=== PATIENT | female | born 1965 | race Caucasian/White ===

== ENCOUNTER → 2019-07-20 10:21 | Outpatient (BNVA) | payer BC, SELFPAY | PROVIDERS: Family Provider Nurse Practitioner Family; PCP Nurse Practitioner Family; Visit Provider Otolaryngology | DX: J32.4 Chronic pansinusitis (principal); R51 Headache; Z09 Encounter for follow-up examination after completed treatment for conditions other than malignant neoplasm | CPT/HCPCS: 99213; 99214 ==

== ENCOUNTER 2019-08-10 08:00 | Outpatient (CLI) | payer BC, SELFPAY | END 2019-08-10 09:00 | disposition home or self-care (01) | LOC: RAD 02-20 12:23 | PROVIDERS: PCP Nurse Practitioner Family; Visit Provider Nurse Practitioner Family | DX: N39.0 Urinary tract infection, site not specified (principal); R30.0 Dysuria | CPT/HCPCS: 81003; 87086 ==

== ENCOUNTER → 2019-08-18 11:00 | Outpatient (BNVA) | payer BC, SELFPAY | PROVIDERS: Family Provider Nurse Practitioner Family; PCP Nurse Practitioner Family; Visit Provider Nurse Practitioner Family | DX: J30.9 Allergic rhinitis, unspecified (principal); R31.9 Hematuria, unspecified | CPT/HCPCS: 81001 ==

== ENCOUNTER → 2019-08-21 11:00 | Outpatient (BNVA) | payer BC, SELFPAY | PROVIDERS: Family Provider Nurse Practitioner Family; PCP Nurse Practitioner Family; Visit Provider Nurse Practitioner Family | DX: L03.032 Cellulitis of left toe (principal) | CPT/HCPCS: 87070; 87077; 87186 ==

== ENCOUNTER 2019-08-31 11:54 | Outpatient (CLI) | payer BC, SELFPAY ==
--- NOTE | 2019-08-31 12:45 | XR_ITS ---
WS: [id number] KUB, 08/31/2019 Clinical Data: kidney stones Comparison: KUB, 07/12/2018. Findings: No abnormal intraabdominal masses are seen. There is no dilatated small bowel or evidence of obstruct ion. There are calcifications overlying both kidneys, and the largest calcifications measure 0.6 cm unchan ged from before. There are clips in the right upper quadrant from a cholecystectomy. No abnormal pelv ic calcifications are seen. XR/XR KUB [id number] Impression: Bilateral renal calcifications unchanged.
== END 2019-08-31 11:55 | disposition home or self-care (01) ==
LOC: RAD 11:58
PROVIDERS: Family Provider Nurse Practitioner Family; PCP Nurse Practitioner Family; Visit Provider Nurse Practitioner Family
DX: N20.0 Calculus of kidney (principal)
CPT/HCPCS: 74018; 81001; J2001

== ENCOUNTER → 2019-09-29 09:32 | Outpatient (BNVA) | payer BC, SELFPAY | PROVIDERS: Family Provider Nurse Practitioner Family; PCP Nurse Practitioner Family; Visit Provider Nurse Practitioner Family | DX: M79.672 Pain in left foot (principal); M77.32 Calcaneal spur, left foot; M19.072 Primary osteoarthritis, left ankle and foot; M20.42 Other hammer toe(s) (acquired), left foot | CPT/HCPCS: 73630 ==

== ENCOUNTER → 2019-11-15 09:54 | Outpatient (BNVA) | payer BC, SELFPAY | PROVIDERS: Family Provider Nurse Practitioner Family; PCP Nurse Practitioner Family; Visit Provider Nurse Practitioner Family | DX: I10 Essential (primary) hypertension (principal); M79.7 Fibromyalgia; E78.5 Hyperlipidemia, unspecified; E11.9 Type 2 diabetes mellitus without complications; E03.9 Hypothyroidism, unspecified | CPT/HCPCS: 36415; 80053; 80061; 81001; 82306; 83036; 84443; 85025 ==

== ENCOUNTER → 2019-11-29 12:20 | Outpatient (BNVA) | payer BC, SELFPAY | PROVIDERS: Family Provider Nurse Practitioner Family; PCP Nurse Practitioner Family; Referring Provider Nurse Practitioner Family; Visit Provider Specialist | DX: G43.019 Migraine without aura, intractable, without status migrainosus (principal) | CPT/HCPCS: 99204 ==

== ENCOUNTER → 2019-11-30 10:04 | Outpatient (BNVA) | payer BC, SELFPAY | PROVIDERS: Family Provider Nurse Practitioner Family; PCP Nurse Practitioner Family; Visit Provider Nurse Practitioner Family | DX: E11.9 Type 2 diabetes mellitus without complications (principal); M72.2 Plantar fascial fibromatosis; R31.9 Hematuria, unspecified; R31.1 Benign essential microscopic hematuria; E11.69 Type 2 diabetes mellitus with other specified complication | CPT/HCPCS: 80053; 81001 ==

== ENCOUNTER → 2019-12-04 12:08 | Outpatient (BNVA) | payer BC, SELFPAY | PROVIDERS: Family Provider Nurse Practitioner Family; PCP Nurse Practitioner Family; Visit Provider Nurse Practitioner Family | DX: R31.1 Benign essential microscopic hematuria (principal) | CPT/HCPCS: 36415; 80053; 81001 ==

== ENCOUNTER → 2020-02-12 09:10 | Outpatient (BNVA) | payer BC, SELFPAY | PROVIDERS: Family Provider Nurse Practitioner Family; PCP Nurse Practitioner Family; Visit Provider Nurse Practitioner Family | DX: M79.7 Fibromyalgia (principal); J32.9 Chronic sinusitis, unspecified; E11.69 Type 2 diabetes mellitus with other specified complication; J30.2 Other seasonal allergic rhinitis | CPT/HCPCS: 36415; 80053; 81003; 83036; 85025 ==

== ENCOUNTER → 2020-02-29 08:33 | Outpatient (BNVA) | payer BC, SELFPAY | PROVIDERS: Family Provider Nurse Practitioner Family; PCP Nurse Practitioner Family; Visit Provider Nurse Practitioner Family | DX: R31.1 Benign essential microscopic hematuria (principal) | CPT/HCPCS: 81003 ==

== ENCOUNTER → 2020-03-05 10:29 | Outpatient (BNVA) | payer BC, SELFPAY | PROVIDERS: Family Provider Nurse Practitioner Family; PCP Nurse Practitioner Family; Visit Provider Nurse Practitioner Family | DX: U07.1 COVID-19 (principal) | CPT/HCPCS: 87635 ==

== ENCOUNTER 2020-03-11 10:34 | Inpatient (IN) | payer BC, SELFPAY ==
[2020-03-11] VITALS (43 sets, daily range): BP systolic 118–160; BP diastolic 67–101; PULSE 64–107; RESP 1–92; TEMP 36.6–37.4; O2SAT 88–97; BMI 36.0
--- NOTE | 2020-03-11 10:50 | ECG_ITS ---
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 Measurements Intervals [place] Rate: 106 P: 47 UT: 146 QRS: -3 QRSD: 104 T: 16 QT: 324 QTc: 431 Interpretive Statements SINUS TACHYCARDIA LOW QRS VOLTAGE IN PRECORDIAL LEADS [QRS DEFLECTION < 1.0 mV IN CHEST LEADS] POSSIBLE ANTERIOR MYOCARDIAL INFARCTION , OF INDETERMINATE AGE [30 ms Q WAVE IN V3/V4, OR R < 0.2 mV IN V4] INFERIOR MYOCARDIAL INFARCTION , OF INDETERMINATE AGE [40+ ms Q WAVE AND/OR ST/T ABNORMALITY IN II/aVF] Compared to ECG 07/09/2018 23:58:50 Sinus rhythm no longer present Incomplete right bundle-branch block no longer present Myocardial infarct finding still present Electronically Signed On 03-12-2020 17:17:14 CDT by Antonietta Peters M.D. [id number]
--- NOTE | 2020-03-11 10:51 | XRR_ITS ---
PROCEDURE INFORMATION: Exam: XR Chest, 1 View Exam date and time: 03/11/2020 11:18 AM Age: 54 years old Clinical indication: Cough and dyspnea; Prior surgery; Surgery type: Gb; Patient HX: SOB, dyspnea, nausea, and vomiting. Covid positive. ; Additional info: Dyspnea/cough TECHNIQUE: Imaging protocol: XR of the chest Views: 1 view. COMPARISON: CR Chest 1 [place] [id number] 05/09/2019 8:33 PM FINDINGS: Lungs: Subtle patchy airspace disease predominantly peripheral. Subtle airspace disease left retrocardiac region. Findings consistent with the given history. Pleural space: Unremarkable. No pleural effusion. No pneumothorax. Heart/Mediastinum: Unremarkable. No cardiomegaly. Bones/joints: Unremarkable. XR/XR chest 1V portable [id number] IMPRESSION: Subtle patchy airspace disease predominantly peripheral. Subtle airspace disease left retrocardiac region. Findings consistent with the given history.
--- NOTE | 2020-03-11 11:06 | W.ED.NAVMDI ---
HPI - Nausea/Vomiting/Diarrhea General: Chief complaint: Nausea/Vomiting/Diarrhea Stated complaint: N/V Time Seen by Provider: 03/11/20 10:40 History of Present Illness: HPI Narrative: 54-year-old female who 1 week ago started having upper respiratory symptoms 4 days ago was tested positive on a PCR for COVID-19. Today she presents with persistent nausea and vomiting and increasing shortness of breath only slight cough. Cough is nonproductive. She is not really noticed a fever at home. Soon able to unable to keep down food or fluids for the last 24 to 48 hours. MD elicited complaint: nausea, vomiting and diarrhea Pertinent past history: other (COVID-19) Onset (ago): hour(s) Description of vomiting: food contents and bilious Description of diarrhea: semi-solid Associated nausea: Yes Associated abdominal pain: No Severity: moderate Quality: cramping Exacerbating factors: none Relieving factors: none Associated symtoms: Reports cough, anorexia, malaise, myalgias, nausea and weakness; Denies altered mental status, anxiety, bloating, change in vision, chest pain, diaphoresis, decreased urine output, dizziness, dysuria, epistaxis, fatigue, fecal incontinence, fevers/chills, headache(s), numbness, palpitations, rash, short of breath, syncope, tenesmus or tinnitus Review of Systems Const: Reports: malaise; Denies: fatigue or diaphoresis Eyes: Denies: change in vision ENMT: Denies: tinnitus or epistaxis Card: Denies: chest pain, palpitations or syncope Resp: Denies: dyspnea, productive cough or non-productive cough GI: Reports: nausea; Denies: bloating or fecal incontinence : Denies: dysuria Skin/Breast: Denies: rash or pruritus Neuro: Denies: headache(s) or dizziness Psych: Denies: anxiety PFSH ED PFSH: Medical History Accelerated hypertension Chronic headache Patient has history of chronic headaches. Previous MRI of head were normal. Chronic sinusitis COPD (chronic obstructive pulmonary disease) Cough Depression Diabetes mellitus Encounter for screening laboratory testing for COVID-19 virus Facial pain Female cystocele Gastroesophageal reflux Gout Patient has history of gout and takes Allopurinol for control of symptoms. Hematuria Hyperlipidemia Hypothyroidism Insomnia Kidney stone Kidney stones Sinusitis Type 2 diabetes mellitus without complications Urgency of micturition Surgical History History of History of cholecystectomy History of hysterectomy History of tubal ligation History of umbilical hernia repair Family History Mother Hypertension Diabetes Family history of thyroid problem Social History Smoking and tobacco status: never smoked Alcohol intake: never Adopted: No Caregiver/support person: No Lives independently: No Household members: spouse Marital status: Current occupational status: unemployed History of recent travel: No Current gender identity: Female Physical Exam Const: COMMON NORMALS: no acute distress EXAM LIMITATIONS: no altered mental status GENERAL APPEARANCE: cooperative and comfortable ORIENTATION/CONSCIOUSNESS: Yes awake, Yes oriented to person, Yes oriented to place and Yes oriented to time HENMT: COMMON NORMALS: normocephalic, atraumatic and hearing grossly normal bilaterally HEAD & SCALP: normocephalic and atraumatic Eye: COMMON NORMALS: Equal, round and reactive pupils present, EOMs intact bilaterally, conjunctivae normal and no scleral icterus CONJUNCTIVA: Yes conjunctivae normal PUPIL: Yes Equal, round and reactive pupils present Neck/C-Spine: COMMON NORMALS: full ROM, no lymphadenopathy, supple and no JVD Lymph: LYMPHATIC: no lymphadenopathy noted and no lymphedema noted Resp: COMMON NORMALS: normal respiratory effort, No retractions, No use of accessory muscles and clear to auscultation bilaterally AUSCULTATION: clear to auscultation bilaterally Cardio: COMMON NORMALS: no JVD, regular rate, regular rhythm and No murmurs present (Cardio) RATE: regular rate RHYTHM: regular rhythm GI: COMMON NORMALS: Soft to palpation and No hepatosplenomegaly present AUSCULTATION: Yes normoactive bowel sounds PALPATION: Yes Soft to palpation, No Tenderness to palpation present (GI), No Guarding due to palpation present (GI) and Yes No hepatosplenomegaly present Extremity: COMMON NORMALS: normal to inspection, capillary refill normal, no clubbing, cyanosis or edema, no calf tenderness and no pedal edema Neuro: SENSORIUM/ORIENTATION: Yes oriented to person, Yes oriented to place and Yes oriented to time Skin: COMMON NORMALS: no rashes or lesions noted GENERAL SKIN EXAM: no rashes or lesions noted Course Vital Signs: Vital signs: Vital Signs Temperature 98 F 03/13/20 04:00 Pulse Rate 67 03/13/20 06:00 Respiratory Rate 17 03/13/20 06:00 Blood Pressure 116/78 03/13/20 06:00 Pulse Oximetry 90 03/13/20 06:00 MDM - Nausea/Vomiting/Diarrhea MDM Narrative: Medical decision making narrative: Coded positive with some hypoxia will go ahead and admit to the viral ICU discussed with Dr. Chelsea Boggs given we will get a CTA of the chest in route to the viral ICU Lab Data: Labs: Lab Results 03/11/20 03/11/20 03/11/20 Range/Units 11:22 11:50 11:50 WBC 6.0 (4.0-10.0) 10^3/ uL RBC 5.02 (4.1-5.3) 10^6/u L Hgb 14.1 (11.5-15.3) g/dL Hct 43.6 (37.0-47.0) % MCV 86.9 (81-99) fL MCH 28.1 (28.0-34.0) pg MCHC 32.3 (30.0-36.0) g/dL RDW 15.2 H (12.1-15.1) % Plt Count 191 (130-400) 10^3/c mm MPV 10.4 (7.4-10.4) fL Neut % (Auto) 66.2 % Lymph % (Auto) 27.2 % [place] % (Auto) 6.1 % Eos % (Auto) 0.0 % Baso % (Auto) 0.2 % Neut # (Auto) 3.99 (1.8-7.7) 10^3/u L Lymph # (Auto) 1.6 (0.8-4.8) 10^3/u L [place] # (Auto) 0.4 (0.2-0.9) 10^3/u L Eos # (Auto) 0.0 (0.0-0.8) 10^3/u L Baso # (Auto) 0.0 (0.0-0.1) 10^3/u L Nucleated RBC % (a uto) 0 % Nucleated RBCs # 0.0 /100WBC PT 11.70 L (12.1-14.9) SECO NDS INR 0.84 (0.8-1.2) APTT 28.4 (23.9-36.7) SECO NDS Fibrinogen 705 H (174-498) mg/dL D-Dimer 0.99 H (0-0.59) ug/mIFE U Specimen Type Arterial Sample Site Radial, left ABG pH 7.47 H (7.35-7.45) ABG pCO2 33.2 L (35-45) mmHg ABG pO2 72.1 L (80.0-100.0) mmH g ABG HCO3 24.3 (22-26) mmol/L ABG O2 Saturation 94.8 ABG Base Excess 1.2 (-2.0-2.0) mmol/ L Constantin Test Pos A-a O2 Gradient 4.6 L (5-10) mmHg Hematocrit 45.0 (37-47) % Hgb O2 Saturation 94.1 L (95-100) % Carboxyhemoglobin 0.1 L (0.4-20.1) %THgb Methemoglobin 0.5 (0.4-1.5) % Total Hemoglobin 14.7 (12-16) g/dL Sodium 139.0 (131-143) mmol/L Potassium 3.5 (3.5-5.0) mmol/L Glucose 173.0 H (70-115) mg/dL Ionized Calcium 1.1 (1.1-1.4) mmol/L O2 Delivery Device Nc O2 Liters/Min 2.0 % Store Clerk Checker ID jmn Chloride (98-107) mmol/L Carbon Dioxide (22-29) mmol/L Anion Gap (5-19) BUN (6-20) mg/dL Creatinine (0.5-0.9) mg/dL GFR Calculation (90-130) mL/min Estimat Average Gl ucose Hemoglobin A1c (4.0-6.0) % Calculated Osmolal ity (285-295) mOsm/k g Lactic Acid (0.5-2.2) mmol/L Calcium (8.5-10.5) mg/dL Ferritin (15-150) ng/mL Total Bilirubin (0.15-1.2) mg/dL AST (0-32) U/L ALT (0-33) U/L Alkaline Phosphata se (35-105) IU/L Lactate Dehydrogen ase (135-214) U/L C-Reactive Protein (0.0-4.9) mg/L NT-Pro-B Natriuret Pep (0-125) pg/mL Total Protein (6.6-8.7) g/dL Albumin (3.5-5.2) g/dL Globulin (1.3-4.6) g/dL Lipase (13-60) U/L Procalcitonin (0-0.5) ng/mL TSH (0.27-4.20) uIU/ mL 03/11/20 03/11/20 03/11/20 Range/Units 11:50 11:50 11:50 WBC (4.0-10.0) 10^3/ uL RBC (4.1-5.3) 10^6/u L Hgb (11.5-15.3) g/dL Hct (37.0-47.0) % MCV (81-99) fL MCH (28.0-34.0) pg MCHC (30.0-36.0) g/dL RDW (12.1-15.1) % Plt Count (130-400) 10^3/c mm MPV (7.4-10.4) fL Neut % (Auto) % Lymph % (Auto) % [place] % (Auto) % Eos % (Auto) % Baso % (Auto) % Neut # (Auto) (1.8-7.7) 10^3/u L Lymph # (Auto) (0.8-4.8) 10^3/u L [place] # (Auto) (0.2-0.9) 10^3/u L Eos # (Auto) (0.0-0.8) 10^3/u L Baso # (Auto) (0.0-0.1) 10^3/u L Nucleated RBC % (a uto) % Nucleated RBCs # /100WBC PT (12.1-14.9) SECO NDS INR (0.8-1.2) APTT (23.9-36.7) SECO NDS Fibrinogen (174-498) mg/dL D-Dimer (0-0.59) ug/mIFE U Specimen Type Sample Site ABG pH (7.35-7.45) ABG pCO2 (35-45) mmHg ABG pO2 (80.0-100.0) mmH g ABG HCO3 (22-26) mmol/L ABG O2 Saturation ABG Base Excess (-2.0-2.0) mmol/ L Constantin Test A-a O2 Gradient (5-10) mmHg Hematocrit (37-47) % Hgb O2 Saturation (95-100) % Carboxyhemoglobin (0.4-20.1) %THgb Methemoglobin (0.4-1.5) % Total Hemoglobin (12-16) g/dL Sodium 135 L (131-143) mmol/L Potassium 3.6 (3.5-5.0) mmol/L Glucose 182 H (70-115) mg/dL Ionized Calcium (1.1-1.4) mmol/L O2 Delivery Device O2 Liters/Min % Store Clerk Checker ID Chloride 97 L (98-107) mmol/L Carbon Dioxide 23 (22-29) mmol/L Anion Gap 18.6 (5-19) BUN 6 (6-20) mg/dL Creatinine 0.6 (0.5-0.9) mg/dL GFR Calculation 103.8 (90-130) mL/min Estimat Average Gl ucose Hemoglobin A1c (4.0-6.0) % Calculated Osmolal ity 280 L (285-295) mOsm/k g Lactic Acid 2.4 H (0.5-2.2) mmol/L Calcium 8.6 (8.5-10.5) mg/dL Ferritin 810 H (15-150) ng/mL Total Bilirubin 0.5 (0.15-1.2) mg/dL AST 29 (0-32) U/L ALT 30 (0-33) U/L Alkaline Phosphata se 87 (35-105) IU/L Lactate Dehydrogen ase 286 H (135-214) U/L C-Reactive Protein 66.4 H (0.0-4.9) mg/L NT-Pro-B Natriuret Pep (0-125) pg/mL Total Protein 7.6 (6.6-8.7) g/dL Albumin 4.2 (3.5-5.2) g/dL Globulin 3.4 (1.3-4.6) g/dL Lipase 17 (13-60) U/L Procalcitonin 0.12 (0-0.5) ng/mL TSH 2.48 (0.27-4.20) uIU/ mL 03/11/20 03/11/20 Range/Units 11:50 11:50 WBC (4.0-10.0) 10^3/ uL RBC (4.1-5.3) 10^6/u L Hgb (11.5-15.3) g/dL Hct (37.0-47.0) % MCV (81-99) fL MCH (28.0-34.0) pg MCHC (30.0-36.0) g/dL RDW (12.1-15.1) % Plt Count (130-400) 10^3/c mm MPV (7.4-10.4) fL Neut % (Auto) % Lymph % (Auto) % [place] % (Auto) % Eos % (Auto) % Baso % (Auto) % Neut # (Auto) (1.8-7.7) 10^3/u L Lymph # (Auto) (0.8-4.8) 10^3/u L [place] # (Auto) (0.2-0.9) 10^3/u L Eos # (Auto) (0.0-0.8) 10^3/u L Baso # (Auto) (0.0-0.1) 10^3/u L Nucleated RBC % (a uto) % Nucleated RBCs # /100WBC PT (12.1-14.9) SECO NDS INR (0.8-1.2) APTT (23.9-36.7) SECO NDS Fibrinogen (174-498) mg/dL D-Dimer (0-0.59) ug/mIFE U Specimen Type Sample Site ABG pH (7.35-7.45) ABG pCO2 (35-45) mmHg ABG pO2 (80.0-100.0) mmH g ABG HCO3 (22-26) mmol/L ABG O2 Saturation ABG Base Excess (-2.0-2.0) mmol/ L Constantin Test A-a O2 Gradient (5-10) mmHg Hematocrit (37-47) % Hgb O2 Saturation (95-100) % Carboxyhemoglobin (0.4-20.1) %THgb Methemoglobin (0.4-1.5) % Total Hemoglobin (12-16) g/dL Sodium (131-143) mmol/L Potassium (3.5-5.0) mmol/L Glucose (70-115) mg/dL Ionized Calcium (1.1-1.4) mmol/L O2 Delivery Device O2 Liters/Min % Store Clerk Checker ID Chloride (98-107) mmol/L Carbon Dioxide (22-29) mmol/L Anion Gap (5-19) BUN (6-20) mg/dL Creatinine (0.5-0.9) mg/dL GFR Calculation (90-130) mL/min Estimat Average Gl ucose 160 Hemoglobin A1c 7.2 H (4.0-6.0) % Calculated Osmolal ity (285-295) mOsm/k g Lactic Acid (0.5-2.2) mmol/L Calcium (8.5-10.5) mg/dL Ferritin (15-150) ng/mL Total Bilirubin (0.15-1.2) mg/dL AST (0-32) U/L ALT (0-33) U/L Alkaline Phosphata se (35-105) IU/L Lactate Dehydrogen ase (135-214) U/L C-Reactive Protein (0.0-4.9) mg/L NT-Pro-B Natriuret Pep 28 (0-125) pg/mL Total Protein (6.6-8.7) g/dL Albumin (3.5-5.2) g/dL Globulin (1.3-4.6) g/dL Lipase (13-60) U/L Procalcitonin (0-0.5) ng/mL TSH (0.27-4.20) uIU/ mL Discharge Plan Discharge Patient Disposition: Admitted As Inpatient Admit Provider: Rian Castillo Clinical Impression: COVID-19, Diabetes mellitus, Acute respiratory failure Condition: Stable Interventions: ED Discharge Assessment Last Done: 03/11/20 14:13 ED Charges Last Done: 03/11/20 14:13 Discharge Date/Time: 03/11/20 14:16 Coding Level of Care Code ED Paper Products Supervisor for Chg Fwd Exam Comprehensive
[2020-03-11 11:32] LABS: ABG PCO2 33.2 mmHg (35-45); ABG PH Result 7.47 (7.35-7.45); Alveolar-Arterial Oxygen Gradi 4.6 mmHg (5-10); Base Excess ABG 1.2 mmol/L (-2.0-2.0); Blood Gas Allen Test Pos; Blood Gas Sample Type Arterial; Carboxyhemoglobin 0.1 %THgb (0.4-20.1); HCO3 ABG 24.3 mmol/L (22-26); HGB O2 Sat 94.1 % (95-100); Ionized Calcium Level - ABG 1.1 mmol/L (1.1-1.4); Methemoglobin 0.5 % (0.4-1.5); Oxygen Saturation ABG 94.8; PO2 ABG 72.1 mmHg (80.0-100.0); Potassium Level - ABG 3.5 mmol/L (3.5-5.0); Total Hemoglobin 14.7 g/dL (12-16)
[2020-03-11 11:33] LABS: Blood Gas Sample Site Radial, left; Oxygen Device NC
[2020-03-11] MEDS: sodium chloride 0.9% 1,000 ML 999 ML IV (12:00)
[2020-03-11 12:04] LABS: Basophils % 0.2 %; Hematocrit 43.6 % (37.0-47.0); Hemoglobin 14.1 g/dL (11.5-15.3); Lymphocytes # 1.6 10^3/uL (0.8-4.8); Lymphocytes % 27.2 %; Mean Corpuscular HGB Conc 32.3 g/dL (30.0-36.0); Mean Corpuscular Hemoglobin 28.1 pg (28.0-34.0); Mean Corpuscular Volume 86.9 fL (81-99); Mean Platelet Volume 10.4 fL (7.4-10.4); Monocytes # 0.4 10^3/uL (0.2-0.9); Monocytes % 6.1 %; Neutrophils # 3.99 10^3/uL (1.8-7.7); Neutrophils % 66.2 %; Nucleated Red Blood Cells % 0 %; Platelet Count 191 10^3/cmm (130-400); Red Blood Count 5.02 10^6/uL (4.1-5.3); Red Cell Distribution Width 15.2 % (12.1-15.1)
[2020-03-11 12:22] LABS: Lactic Sepsis W/Reflex 2.4 mmol/L (0.5-2.2)
[2020-03-11 12:43] LABS: INR 0.84 (0.8-1.2); Partial Thromboplastin Time 28.4 SECONDS (23.9-36.7)
[2020-03-11 12:44] LABS: Fibrinogen 705 mg/dL (174-498)
[2020-03-11 12:46] LABS: D Dimer 0.99 ug/mIFEU (0-0.59)
--- NOTE | 2020-03-11 13:01 | CTR_ITS ---
PROCEDURE INFORMATION: Exam: CT Angiography Chest With Contrast Exam date and time: 03/11/2020 1:02 PM Age: 54 years old Clinical indication: Cough and fever and shortness of breath; Patient HX: Tested positive for covid-19 on mar 05, SOB, cough, fever, nausea and vomiting TECHNIQUE: Imaging protocol: Computed tomographic angiography of the chest with intravenous contrast. 3D rendering (Not supervised by radiologist): MIP and/or 3D reconstructed images were created by the technologist. Radiation optimization: All CT scans at this facility use at least one of these dose optimization techniques: automated exposure control; mA and/or kV adjustment per patient size (includes targeted exams where dose is matched to clinical indication); or iterative reconstruction. Contrast material: OMNIPAQUE 350; Contrast volume: 95 ml; Contrast route: INTRAVENOUS (IV); COMPARISON: CR XR chest 1V portable [id number] 03/11/2020 11:02 AM RADIATION DOSE METRICS: Total DLP (mGy-cm): 585.12 FINDINGS: Pulmonary arteries: No pulmonary embolism. Aorta: No aortic aneurysm. No aortic dissection. Lungs: Multifocal bilateral ground-glass opacities predominantly in the periphery of the lungs, minimal bilateral partial lower lung consolidation. No mass. Pleural space: No pleural effusion. No pneumothorax. Heart: No cardiomegaly. No pericardial effusion. Lymph nodes: No significant adenopathy. Bones/joints: No acute findings. Soft tissues: Unremarkable. CT/CT angio chest PE protcl [id number] IMPRESSION: Bilateral pneumonia consistent with COVID-19 pneumonia. Radiation Dose CTDIVOL = (mGy): DLP = 585.12 (mGy-cm)
[2020-03-11] MEDS: dexamethasone 10 mg/mL INJ 6 MG IM (13:17)
--- NOTE | 2020-03-11 13:17 | PC.NURSE ---
VO WITH READBACK FROM DR. FIGUEROA TO ADM DECADRON VIA IV.
--- NOTE | 2020-03-11 13:18 | PC.NURSE ---
WATER PROVIDED PER DR. CAROLINA OLMEDO WITH READBACK
[2020-03-11] MEDS: metoclopramide 5 mg/mL SDV 2 mL 10 MG IVP (13:20)
[2020-03-11 13:41] LABS: Add Urine Microscopic? YES; Bilirubin Urine Neg (NEGATIVE); Blood Urine Neg (Negative); Glucose Urine UA 4+ (Normal); Ketones Urine 1+ (Negative); Leukocyte Esterase Urine Negative (Negative); Nitrate Urine Negative (Negative); Protein Urine 1+ (Negative); Urine Appearance Clear (CLEAR); Urine Color Yellow (Yellow); Urobilinogen Urine Norm (Negative); pH Urine 5 (5-7)
[2020-03-11 13:43] LABS: Reflex Lactate Order REFLEX LACTIC ORDERD
[2020-03-11 13:43] LABS: Add Urine Culture? No; Bacteria Urine TRACE; Mucus Urine TRACE; RBC Urine 0-4 /hpf (0-2); Squamous Epithelial Cell Urine 0-4 (0-5); WBC Urine 0-4 /hpf (0-5)
[2020-03-11 13:50] LABS: Procalcitonin 0.12 ng/mL (0-0.5)
[2020-03-11 14:02] LABS: Alanine Aminotransferase 30 U/L (0-33); Albumin Level 4.2 g/dL (3.5-5.2); Alkaline Phosphatase 87 IU/L (35-105); Anion Gap 18.6 (5-19); Aspartate Amino Transferase 29 U/L (0-32); Blood Urea Nitrogen 6 mg/dL (6-20); C Reactive Protein 66.4 mg/L (0.0-4.9); Calcium 8.6 mg/dL (8.5-10.5); Carbon Dioxide 23 mmol/L (22-29); Chloride 97 mmol/L (98-107); Ferritin 810 ng/mL (15-150); Globulin 3.4 g/dL (1.3-4.6); Glomerular Filtration Rate 103.8 mL/min (90-130); Glucose 182 mg/dL (65-115); Lactate Dehydrogenase 286 U/L (135-214); Lipase 17 U/L (13-60); Osmolality Calculated 280 mOsm/kg (285-295); Potassium 3.6 mmol/L (3.5-5.1); Sodium 135 mmol/L (136-145); Total Bilirubin 0.5 mg/dL (0.15-1.2); Total Protein 7.6 g/dL (6.6-8.7)
--- NOTE | 2020-03-11 14:10 | PC.NURSE ---
REPORT CALLED TO CASEY Sherwood RN IN [facility].
[2020-03-11] MEDS: iohexol 350 mg/mL 100 mL Btl IV (14:32)
[2020-03-11 15:16] LABS: Lactic Acid level (Lactate) 1.2 mmol/L (0.5-2.2)
[2020-03-11 15:46] LABS: Glucose Point of Care 155 mg/dL (70-110)
--- NOTE | 2020-03-11 16:30 | PC.NURSE ---
patient attempting to sleep. noted apnea present. sats dropped to mid 80's on 3 liters nc, weaned to 6 liters and she was still sating 88 on 6l . i called for a high flow tubing but in the meantime placed her on 6l simple mask and got great improvement into the mid 90's. she can tolerate nc while awake but mask for sleep seems indicated at this time. she is probably a good candidate for a sleep study and cpap.
[2020-03-11 17:15] LABS: Estmated Average Glucose 160; Hemoglobin A1C 7.2 % (4.0-6.0); NT Pro B Type Natriuretic Pept 28 pg/mL (0-125)
[2020-03-11 17:16] LABS: Thyroid Stimulating Hormone 2.48 uIU/mL (0.27-4.20)
[2020-03-11] MEDS: enoxaparin 40 mg/0.4 mL Syringe SUBCUT (17:57)
[2020-03-11] MEDS: allopurinol 300 mg Tablet PO (17:59)
--- NOTE | 2020-03-11 18:39 | PM.HP ---
Providers/Chief Complaint Admitting Physician: Rian Castillo MD Chief Complaint: N/V History of Present Illness Leny Rodriguez is a 54 year old female with a past medical history of type 2 diabetes mellitus not on insulin, hypertension, chronic migraines, hypothyroidism, seasonal allergies, depression and anxiety who presents to [facility] due to complaints of cough and shortness of breath. Patient tells me that her tested positive for COVID-19, they were trying to socially distance, facemask, handwashing, but starting on she started well cough and shortness of breath, she presented to her primary care physician's office when she tested positive for COVID-19. Patient states that at home she progressively had a nonproductive cough, increased shortness of breath with minimal exertion, no this to see a, no chest pain, no lightheadedness, no dizziness, no nausea, no vomiting, no abdominal pain, no diarrhea. Denies a history of heart failure, denies a history of coronary artery disease, denies a history of strokes, denies a history of lung disease, but does tell me that she uses albuterol and Advair when she feels short of breath sometimes, typically with exertion, last time she used it was over 6 months ago. Review of Systems Const: Reports: fatigue and malaise; Denies: fever(s) or chills Eyes: Denies: change in vision or blurry vision ENMT: Denies: nasal congestion Card: Reports: lightheadedness and dyspnea on exertion; Denies: chest pain, palpitations, irregular heart rhythm, edema or swelling of feet/ankles Resp: Reports: dyspnea and non-productive cough; Denies: productive cough or wheezing GI: Denies: abdominal pain, nausea, vomiting, hematemesis, diarrhea, constipation, hematochezia or melena : Denies: flank pain, dysuria or urinary frequency Musc: Denies: neck pain or back pain Skin/Breast: Denies: rash Neuro: Denies: headache(s), dizziness or vertigo Psych: Denies: anxiety or depression Endo: Denies: polyuria or polydipsia Medications/Allergies Home Medications Medication Instructions Recorded Confirmed Last Taken Type albuterol sulfate 2.5 mg INHALATION PRN 07/14/19 03/11/20 Unknown History albuterol sulfate 90 mcg/actuation 2 puff INHALATION Q4H PRN gm 07/14/19 03/11/20 Unknown History aerosol inhaler fluticasone 250 mcg-salmeterol 50 1 inh INHALATION BID 07/14/19 03/11/20 03/10/20 History mcg/dose blistr powdr for inhalation ibuprofen 800 mg tablet 800 mg PO TID PRN 07/14/19 03/11/20 Unknown History levocetirizine 5 mg tablet 5 mg PO DAILY 07/14/19 03/11/20 03/10/20 History hydrochlorothiazide 25 mg tablet 25 mg PO QAM #30 tab 10/09/19 03/11/20 03/10/20 Rx allopurinol 300 mg tablet 300 mg PO BID 30 Days #60 tab 11/02/19 03/11/20 03/10/20 Rx topiramate 50 mg tablet 50 mg PO DAILY #30 tab 11/29/19 03/11/20 03/10/20 Rx empagliflozin 25 mg tablet 25 mg PO DAILY 90 Days #90 tab 12/27/19 03/11/20 03/10/20 Rx solifenacin 10 mg tablet 10 mg PO DAILY #90 tab 01/22/20 03/11/20 03/10/20 Rx metformin 500 mg tablet,extended 1,000 mg PO BID 30 Days #120 tab 02/05/20 03/11/20 03/10/20 Rx release 24 hr potassium citrate 10 mEq (1,080 10 meq PO TID #90 tab 02/12/20 03/11/20 03/10/20 Rx mg) tablet,extended release pseudoephedrine HCl 30 mg tablet 30 mg PO Q6H PRN 30 Days #60 tab 02/12/20 03/11/20 Unknown Rx tramadol 50 mg tablet 50 mg PO Q8H PRN 14 Days #40 tab 02/29/20 03/11/20 03/10/20 Rx doxycycline monohydrate 100 mg 100 mg PO BID 10 Days #20 cap 03/05/20 03/11/20 03/06/20 Rx capsule Crestor 20 mg PO DAILY 03/11/20 03/11/20 03/10/20 History Imitrex See Rx Instructions PO .COMPLEX PRN 03/11/20 03/11/20 Unknown History PNV,calcium [id number] acid 1 tab PO DAILY 03/11/20 03/11/20 03/10/20 History [ Vitamin Plus Low Iron] Synthroid 03/11/20 Unknown History doxycycline hyclate 03/11/20 03/11/20 Unknown History duloxetine 30 mg PO DAILY 03/11/20 03/11/20 03/10/20 History duloxetine 60 mg PO DAILY 03/11/20 03/11/20 03/10/20 History ergocalciferol (vitamin D2) 1,250 mcg PO Q7D 03/11/20 03/11/20 Unknown History montelukast 10 mg PO DAILY 03/11/20 03/11/20 03/10/20 History pantoprazole 40 mg PO DAILY 03/11/20 03/11/20 03/10/20 History trazodone 150 mg PO BEDTIME 03/11/20 03/11/20 Unknown History Allergies Allergy/AdvReac Type Severity Reaction Status Date / Time hydromorphone [From Dilaudid] Allergy Intermediate ADR-Halluci Verified 03/05/20 15:49 nating promethazine [From Phenergan] Allergy Intermediate ADR-Halluci Verified 03/05/20 15:49 nating penicillin G Allergy Mild ADR-Itching Verified 03/05/20 15:49 Sulfa (Sulfonamide Allergy Mild ADR-Itching Verified 03/05/20 15:49 Antibiotics) ondansetron [From Zofran] Allergy ADR-Headach Verified 03/11/20 10:58 e cephalexin [From Keflex] AdvReac Intermediate ADR-Itching Verified 03/05/20 15:49 PFSH Acute PFSH: Medical History Accelerated hypertension Chronic headache Patient has history of chronic headaches. Previous MRI of head were normal. Chronic sinusitis COPD (chronic obstructive pulmonary disease) Cough Depression Diabetes mellitus Encounter for screening laboratory testing for COVID-19 virus Facial pain Female cystocele Gastroesophageal reflux Gout Patient has history of gout and takes Allopurinol for control of symptoms. Hematuria Hyperlipidemia Hypothyroidism Insomnia Kidney stone Kidney stones Sinusitis Type 2 diabetes mellitus without complications Urgency of micturition Surgical History History of History of cholecystectomy History of hysterectomy History of tubal ligation History of umbilical hernia repair Family History Mother Hypertension Diabetes Family history of thyroid problem Social History Smoking and tobacco status: never smoked Alcohol intake: never Adopted: No Caregiver/support person: No Lives independently: No Household members: spouse Marital status: Current occupational status: unemployed History of recent travel: No Current gender identity: Female Female Reproductive History: Date of last menstrual period: 05/06/04 Vitals/I&O/Wt Last Vital Signs Temp 99.3 F 03/11/20 15:46 Pulse 77 03/11/20 17:35 Resp 4 L 03/11/20 17:35 BP 124/93 03/11/20 17:35 Pulse Ox 93 03/11/20 17:35 03/11/20 03/11/20 03/11/20 06:59 14:59 22:59 Intake Total 1450 / 1450 Output Total 550 / 550 Balance 900 / 900 Weight last 48 hrs Weight 104.326 kg Physical Exam Const: COMMON NORMALS: no acute distress and patient oriented x3 GENERAL APPEARANCE: cooperative and comfortable HENMT: COMMON NORMALS: normocephalic HEAD & SCALP: normocephalic Eye: COMMON NORMALS: Equal, round and reactive pupils present, EOMs intact bilaterally and no papilledema GENERAL EYE: appearance normal, both eyes and all related structures PUPIL: Yes Equal, round and reactive pupils present DIRECT OPHTHALMOSCOPY: Yes no papilledema Neck/C-Spine: COMMON NORMALS: full ROM, no lymphadenopathy, no JVD and Thyroid normal THYROID: Thyroid normal Lymph: LYMPHATIC: no lymphadenopathy noted Resp: COMMON NORMALS: normal respiratory effort, No retractions and No use of accessory muscles EFFORT & INSPECTION: Yes tachypneic, No respiratory distress and Yes audible wheezes AUSCULTATION: clear to auscultation bilaterally Cardio: COMMON NORMALS: no JVD, regular rate, regular rhythm, S1 normal heart sound present, S2 normal heart sound present, No gallops present (Cardio), No clicks present (Cardio) and No murmurs present (Cardio) RATE: regular rate RHYTHM: regular rhythm HEART SOUNDS: S1 normal heart sound present and S2 normal heart sound present GI: COMMON NORMALS: Normal to inspection, nondistended, normoactive bowel sounds present, Soft to palpation, non-tender and No hepatosplenomegaly present PALPATION: Yes Soft to palpation and Yes No hepatosplenomegaly present Extremity: COMMON NORMALS: normal to inspection, full ROM and no pedal edema Neuro: COMMON NORMALS: patient oriented x3, CN's II-XII intact bilaterally, moves all extremities and no focal motor deficits Psych: COMMON NORMALS: mental status grossly normal, Normal thought process present and cooperative THOUGHT PROCESS: Normal thought process present Data : 03/11/20 11:50 03/11/20 11:50 Micro: Microbiology 03/11/20 13:23 Gram Stain - Final Sputum - Expectorated Sputum 03/11/20 11:55 Blood Culture - Preliminary Blood SPECIMEN COLLECTED 03/11/20 11:50 Blood Culture - Preliminary Blood SPECIMEN COLLECTED A&P Assessment and plan (1) Acute respiratory failure with hypoxia: -Acute hypoxic respiratory failure secondary to COVID-19 -CT angiogram of the chest shows bilateral viral pneumonia, no pulmonary embolism Plan: -Admit to viral ICU -Oxygen therapy -Continue Advair, albuterol inhalers -Start Decadron 6 mg IV push daily for 5 days -Monitor respiratory status closely -no evidence of bacterial pneumonia, hold off on antibiotics -DVT prophylaxis Lovenox -GI prophylaxis Protonix -Follow blood cultures, respiratory cultures, urine bacterial antigens Status: Acute (2) COVID-19: Status: Acute (3) Hypothyroidism: -Patient is unsure of her levothyroxine dose, will reach out to the pharmacy tomorrow for dosing Status: Acute (4) Diabetes mellitus: -Low-dose sliding scale check hemoglobin A1c Status: Acute Qualifiers: Diabetes mellitus type: type 2 Diabetes mellitus mcfp insulin use: without long term care phlebotomist use Diabetes mellitus complication status: with other specified complication Qualified Code(s): E11.69 - Type 2 diabetes mellitus with other specified complication (5) Fibromyalgia: Status: Suspected Attestations Medical Necessity Statement*: Patient requires hospitalization, inpatient, greater than 2 midnights, for acute respiratory failure with hypoxia secondary to COVID-19 Coding Level of Care Code Acute Podiatric Physician for [facility] Diagnoses Acute respiratory failure with hypoxia J96.01 COVID-19 U07.1 Hypothyroidism E03.9 Diabetes mellitus E11.69 Diabetes mellitus type: type 2 Diabetes mellitus long term care phlebotomist insulin use: without mcfp use Diabetes mellitus complication status: with other specified complication Fibromyalgia M79.7
[2020-03-11 20:24] LABS: Glucose Point of Care 225 mg/dL (70-110)
[2020-03-11] MEDS: trazodone 150 mg Tablet PO (20:44)
[2020-03-12] VITALS (179 sets, daily range): BP systolic 96–197; BP diastolic 55–128; PULSE 58–98; RESP 0–30; TEMP 35.9–37.1; O2SAT 90–97
[2020-03-12] MEDS: hydroCHLOROthiazide 25 mg Tablet PO (05:03)
[2020-03-12] MEDS: levoFLOXacin 750 mg Tablet PO (05:03)
[2020-03-12 06:05] LABS: Hematocrit 40.7 % (37.0-47.0); Hemoglobin 12.8 g/dL (11.5-15.3); Lymphocytes # 0.8 10^3/uL (0.8-4.8); Mean Corpuscular HGB Conc 31.4 g/dL (30.0-36.0); Mean Corpuscular Hemoglobin 27.9 pg (28.0-34.0); Mean Corpuscular Volume 88.9 fL (81-99); Mean Platelet Volume 10.4 fL (7.4-10.4); Monocytes # 0.3 10^3/uL (0.2-0.9); Monocytes % 5.2 %; Neutrophils # 4.12 10^3/uL (1.8-7.7); Neutrophils % 78.6 %; Nucleated Red Blood Cells % 0 %; Platelet Count 184 10^3/cmm (130-400); Red Blood Count 4.58 10^6/uL (4.1-5.3); White Blood Count 5.2 10^3/uL (4.0-10.0)
[2020-03-12 06:24] LABS: Phosphorus 3.4 mg/dL (2.5-4.5)
[2020-03-12 06:25] LABS: Alanine Aminotransferase 24 U/L (0-33); Albumin Level 3.8 g/dL (3.5-5.2); Alkaline Phosphatase 74 IU/L (35-105); Anion Gap 14.1 (5-19); Aspartate Amino Transferase 21 U/L (0-32); Blood Urea Nitrogen 10 mg/dL (6-20); Calcium 8.2 mg/dL (8.5-10.5); Carbon Dioxide 28 mmol/L (22-29); Chloride 101 mmol/L (98-107); Globulin 2.9 g/dL (1.3-4.6); Glomerular Filtration Rate 128.1 mL/min (90-130); Glucose 188 mg/dL (65-115); Osmolality Calculated 289 mOsm/kg (285-295); Potassium 4.1 mmol/L (3.5-5.1); Sodium 139 mmol/L (136-145); Total Bilirubin 0.3 mg/dL (0.15-1.2); Total Protein 6.7 g/dL (6.6-8.7)
[2020-03-12 06:29] LABS: Glucose Point of Care 169 mg/dL (70-110)
[2020-03-12 06:33] LABS: INR 0.88 (0.8-1.2)
[2020-03-12 06:35] LABS: Procalcitonin 0.08 ng/mL (0-0.5)
[2020-03-12 06:46] LABS: Chol HDL Ratio 3.47 mg/dL (0.0-4.40); Cholesterol 125 mg/dL (0-200); HDL Cholesterol 36 mg/dL (60-100); LDL Cholesterol Calculated 58 mg/dL (50-129); LDL HDL Ratio 1.61 RATIO (0.00-3.22); Triglycerides 157 mg/dL (0-150)
[2020-03-12 06:50] LABS: Cortisol Random 1.96 ug/mL (2.47-19.5)
[2020-03-12] MEDS: TRAMadol 50 mg Tablet PO ×3 (08:02→21:09)
[2020-03-12] MEDS: pantoprazole DR 40 mg Tablet PO (09:13)
[2020-03-12] MEDS: topiramate 25 mg Tablet 50 MG PO (09:13)
[2020-03-12] MEDS: duloxetine 60 mg Capsule PO (09:13)
[2020-03-12] MEDS: ascorbic acid 500 mg Tablet 1000 MG PO (09:13)
[2020-03-12] MEDS: duloxetine 30 mg Capsule PO (09:13)
[2020-03-12] MEDS: montelukast sodium 10 mg Tablet PO (09:13)
[2020-03-12] MEDS: allopurinol 300 mg Tablet PO ×2 (09:14→16:33)
[2020-03-12] MEDS: atorvastatin 40 mg Tablet 80 MG PO (09:15)
[2020-03-12] MEDS: dexamethasone 10 mg/mL INJ 6 MG IVP (09:15)
[2020-03-12 11:46] LABS: Glucose Point of Care 195 mg/dL (70-110)
[2020-03-12] MEDS: enoxaparin 40 mg/0.4 mL Syringe SUBCUT (16:34)
[2020-03-12 16:43] LABS: Glucose Point of Care 259 mg/dL (70-110)
--- NOTE | 2020-03-12 18:41 | P.PN_ITS ---
Subjective Subjective: Interval history: Overnight patient required up to 8 L nasal cannula, complaining of shortness of breath with exertion, continued cough, no fevers overnight, generalized fatigue, malaise, no nausea, no vomiting Vitals/I&O/Wt Last Vital Signs Temp 96.7 F L 03/12/20 17:00 Pulse 85 03/12/20 17:50 Resp 19 H 03/12/20 17:50 BP 132/81 03/12/20 17:50 Pulse Ox 92 03/12/20 17:50 03/12/20 03/12/20 03/12/20 06:59 14:59 22:59 Intake Total 200 / 1650 550 / 550 250 / 800 Output Total 1000 / 1550 600 / 600 500 / 1100 Balance -800 / 100 -50 / -50 -250 / -300 Weight last 48 hrs Weight 104.326 kg Physical Exam Const: COMMON NORMALS: no acute distress and patient oriented x3 HENMT: COMMON NORMALS: normocephalic HEAD & SCALP: normocephalic Neck/C-Spine: COMMON NORMALS: no JVD Resp: COMMON NORMALS: normal respiratory effort, No retractions and No use of accessory muscles AUSCULTATION: wheezes Cardio: COMMON NORMALS: no JVD, regular rate, regular rhythm, S1 normal heart sound present and S2 normal heart sound present RATE: regular rate RHYTHM: regular rhythm HEART SOUNDS: S1 normal heart sound present and S2 normal heart sound present GI: COMMON NORMALS: Normal to inspection, nondistended, normoactive bowel sounds present, Soft to palpation, non-tender, No hepatosplenomegaly present, no masses and no bruits PALPATION: Yes Soft to palpation and Yes No hepatosplenomegaly present Extremity: COMMON NORMALS: capillary refill normal, no clubbing, cyanosis or edema, no calf tenderness and no pedal edema Neuro: COMMON NORMALS: patient oriented x3 Psych: COMMON NORMALS: mental status grossly normal Data : 03/12/20 05:50 03/12/20 05:50 Micro: Microbiology 03/11/20 13:23 Gram Stain - Final Sputum - Expectorated Sputum Sputum Culture - Preliminary Staphylococcus aureus 03/11/20 11:50 Blood Culture - Preliminary Blood NEGATIVE TO DATE 03/11/20 11:55 Blood Culture - Preliminary Blood NEGATIVE TO DATE A&P Assessment and plan (1) Acute respiratory failure with hypoxia: -Acute hypoxic respiratory failure secondary to COVID-19 -CT angiogram of the chest shows bilateral viral pneumonia, no pulmonary embolism -Has increased oxygen requirement up to 8 L nasal cannula, increased shortness of breath, episodes of tachypnea Plan: -Admit to viral ICU -Oxygen therapy -Continue Advair, albuterol inhalers -Continue Decadron 6 mg IV push daily for 5 days -We will start remdesvir -Start Levaquin 750 mg p.o. daily for possible bacterial pneumonia -Monitor respiratory status closely -DVT prophylaxis Lovenox -GI prophylaxis Protonix -Follow blood cultures, respiratory cultures, urine bacterial antigens Status: Acute (2) COVID-19: Status: Acute (3) Hypothyroidism: -Patient is unsure of her levothyroxine dose, will reach out to the pharmacy tomorrow for dosing Status: Acute (4) Diabetes mellitus: -Low-dose sliding scale check hemoglobin A1c Status: Acute Qualifiers: Diabetes mellitus type: type 2 Diabetes mellitus half-way insulin use: without rat exterminator use Diabetes mellitus complication status: with other specified complication Qualified Code(s): E11.69 - Type 2 diabetes mellitus with other specified complication (5) Fibromyalgia: Status: Suspected Attestations Medical Necessity Statement*: She requires hospitalization for acute respiratory failure with hypoxia secondary to COVID-19 Coding Level of Care Code Acute [employer] Goods Examiner for [facility] Diagnoses Acute respiratory failure with hypoxia J96.01 COVID-19 U07.1 Hypothyroidism E03.9 Diabetes mellitus E11.69 Diabetes mellitus type: type 2 Diabetes mellitus rat exterminator insulin use: without rat exterminator use Diabetes mellitus complication status: with other specified complication Fibromyalgia M79.7
[2020-03-12] MEDS: levothyroxine 50 mcg Tablet PO (20:29)
[2020-03-12 20:56] LABS: Glucose Point of Care 270 mg/dL (70-110)
[2020-03-12] MEDS: trazodone 150 mg Tablet PO (21:10)
[2020-03-13] VITALS (25 sets, daily range): BP systolic 107–141; BP diastolic 62–97; PULSE 52–89; RESP 15–26; TEMP 36.4–36.8; O2SAT 90–96
[2020-03-13 04:45] LABS: Hematocrit 41.6 % (37.0-47.0); Hemoglobin 12.9 g/dL (11.5-15.3); Lymphocytes # 0.9 10^3/uL (0.8-4.8); Lymphocytes % 13.7 %; Mean Corpuscular Hemoglobin 27.9 pg (28.0-34.0); Mean Corpuscular Volume 89.8 fL (81-99); Mean Platelet Volume 11.2 fL (7.4-10.4); Monocytes # 0.3 10^3/uL (0.2-0.9); Monocytes % 4.8 %; Neutrophils # 5.22 10^3/uL (1.8-7.7); Neutrophils % 81.2 %; Nucleated Red Blood Cells % 0 %; Platelet Count 213 10^3/cmm (130-400); Red Blood Count 4.63 10^6/uL (4.1-5.3); White Blood Count 6.4 10^3/uL (4.0-10.0)
[2020-03-13] MEDS: levoFLOXacin 750 mg Tablet PO (05:38)
[2020-03-13] MEDS: hydroCHLOROthiazide 25 mg Tablet PO (05:39)
[2020-03-13 05:46] LABS: Alanine Aminotransferase 24 U/L (0-33); Albumin Level 3.8 g/dL (3.5-5.2); Alkaline Phosphatase 83 IU/L (35-105); Anion Gap 13.7 (5-19); Aspartate Amino Transferase 23 U/L (0-32); Blood Urea Nitrogen 11 mg/dL (6-20); Calcium 8.6 mg/dL (8.5-10.5); Carbon Dioxide 30 mmol/L (22-29); Chloride 99 mmol/L (98-107); Globulin 3.4 g/dL (1.3-4.6); Glomerular Filtration Rate 128.1 mL/min (90-130); Glucose 236 mg/dL (65-115); Osmolality Calculated 292 mOsm/kg (285-295); Potassium 3.7 mmol/L (3.5-5.1); Sodium 139 mmol/L (136-145); Total Bilirubin 0.4 mg/dL (0.15-1.2); Total Protein 7.2 g/dL (6.6-8.7)
[2020-03-13 05:49] LABS: Phosphorus 3.6 mg/dL (2.5-4.5)
[2020-03-13 05:50] LABS: Procalcitonin 0.06 ng/mL (0-0.5)
--- NOTE | 2020-03-13 07:00 | XRR_ITS ---
PROCEDURE INFORMATION: Exam: XR Chest, 1 View Exam date and time: 03/13/2020 5:39 AM Age: 54 years old Clinical indication: Shortness of breath; Additional info: SOB, covid TECHNIQUE: Imaging protocol: XR of the chest Views: 1 view. COMPARISON: CR XR chest 1V portable [id number] 03/11/2020 11:02 AM FINDINGS: Lungs: Alveolar airspace consolidation within the left lower lobe. Pleural space: Unremarkable. No pleural effusion. No pneumothorax. Heart/Mediastinum: Unremarkable. No cardiomegaly. Bones/joints: Unremarkable. XR/XR chest 1V portable [id number] IMPRESSION: Alveolar airspace consolidation within the left lower lobe. Progressive.
[2020-03-13] MEDS: allopurinol 300 mg Tablet PO ×2 (09:19→17:53)
[2020-03-13] MEDS: ascorbic acid 500 mg Tablet 1000 MG PO (09:20)
[2020-03-13] MEDS: dexamethasone 10 mg/mL INJ 6 MG IVP (09:22)
[2020-03-13] MEDS: atorvastatin 40 mg Tablet 80 MG PO (09:22)
[2020-03-13] MEDS: duloxetine 30 mg Capsule PO (09:23)
[2020-03-13] MEDS: duloxetine 60 mg Capsule PO (09:23)
[2020-03-13] MEDS: levothyroxine 50 mcg Tablet PO (09:24)
[2020-03-13] MEDS: FUROsemide 10 mg/mL SDV 4mL 40 MG IVP (09:24)
[2020-03-13] MEDS: montelukast sodium 10 mg Tablet PO (09:25)
[2020-03-13] MEDS: pantoprazole DR 40 mg Tablet PO (09:25)
[2020-03-13] MEDS: topiramate 25 mg Tablet 50 MG PO (09:26)
[2020-03-13 11:29] LABS: Glucose Point of Care 198 mg/dL (70-110)
[2020-03-13 11:29] LABS: Glucose Point of Care 252 mg/dL (70-110)
--- NOTE | 2020-03-13 16:10 | PM.PN ---
Subjective Subjective: Interval history: This morning patient was examined, she is down to 2 L nasal cannula, continues to have complaints of cough, wheezing, shortness of breath with exertion, fatigue, but is getting better Vitals/I&O/Wt Last Vital Signs Temp 97.6 F 03/13/20 09:00 Pulse 80 03/13/20 14:00 Resp 26 H 03/13/20 14:00 BP 117/77 03/13/20 14:00 Pulse Ox 92 03/13/20 14:00 03/13/20 03/13/20 03/13/20 06:59 14:59 22:59 Intake Total 100 / 1290 650 / 650 Output Total 500 / 2650 1100 / 1100 400 / 1500 Balance -400 / -1360 -450 / -450 -400 / -850 Physical Exam Const: COMMON NORMALS: no acute distress and patient oriented x3 HENMT: COMMON NORMALS: normocephalic HEAD & SCALP: normocephalic Neck/C-Spine: COMMON NORMALS: no JVD Resp: COMMON NORMALS: normal respiratory effort, No retractions and No use of accessory muscles AUSCULTATION: wheezes Cardio: COMMON NORMALS: no JVD, regular rate, regular rhythm, S1 normal heart sound present and S2 normal heart sound present RATE: regular rate RHYTHM: regular rhythm HEART SOUNDS: S1 normal heart sound present and S2 normal heart sound present GI: COMMON NORMALS: Normal to inspection, nondistended, normoactive bowel sounds present, Soft to palpation, non-tender, No hepatosplenomegaly present, no masses and no bruits PALPATION: Yes Soft to palpation and Yes No hepatosplenomegaly present Extremity: COMMON NORMALS: capillary refill normal, no clubbing, cyanosis or edema, no calf tenderness and no pedal edema Neuro: COMMON NORMALS: patient oriented x3 Psych: COMMON NORMALS: mental status grossly normal Data : 03/13/20 04:05 03/13/20 04:05 Micro: Microbiology 03/11/20 13:23 Gram Stain - Final Sputum - Expectorated Sputum Sputum Culture - Preliminary Staphylococcus aureus 03/11/20 11:50 Blood Culture - Preliminary Blood NEGATIVE TO DATE 03/11/20 11:55 Blood Culture - Preliminary Blood NEGATIVE TO DATE A&P Assessment and plan (1) Acute respiratory failure with hypoxia: -Acute hypoxic respiratory failure secondary to COVID-19 -CT angiogram of the chest shows bilateral viral pneumonia, no pulmonary embolism -Has increased oxygen requirement up to 8 L nasal cannula, increased shortness of breath, episodes of tachypnea Plan: -Admit to viral ICU -Oxygen therapy -Continue Advair, albuterol inhalers -Continue Decadron 6 mg IV push daily for 5 days -on remdesvir -on Levaquin 750 mg p.o. daily for possible bacterial pneumonia -Monitor respiratory status closely -DVT prophylaxis Lovenox -GI prophylaxis Protonix -Follow blood cultures, respiratory cultures, urine bacterial antigens -Sputum culture is positive for staph aureus, doubt this is a real infection, will get MRSA swab -Chest x-ray showing increased left upper lobe consolidation Status: Acute (2) COVID-19: Status: Acute (3) Hypothyroidism: -Levothyroxine 50 mcg daily Status: Acute (4) Diabetes mellitus: -Low-dose sliding scale check hemoglobin A1c Status: Acute Qualifiers: Diabetes mellitus type: type 2 Diabetes mellitus local intermodal truck driver insulin use: without local intermodal truck driver use Diabetes mellitus complication status: with other specified complication Qualified Code(s): E11.69 - Type 2 diabetes mellitus with other specified complication (5) Fibromyalgia: Status: Suspected Attestations Medical Necessity Statement*: Patient course hospitalization due to acute respiratory failure with hypoxia secondary to COVID-19 Coding Level of Care Code Acute Loan Reviewer for [facility] Diagnoses Acute respiratory failure with hypoxia J96.01 COVID-19 U07.1 Hypothyroidism E03.9 Diabetes mellitus E11.69 Diabetes mellitus type: type 2 Diabetes mellitus correction insulin use: without local intermodal truck driver use Diabetes mellitus complication status: with other specified complication Fibromyalgia M79.7
[2020-03-13 16:26] LABS: Glucose Point of Care 266 mg/dL (70-110)
[2020-03-13] MEDS: enoxaparin 40 mg/0.4 mL Syringe SUBCUT (17:00)
[2020-03-13] MEDS: acetaminophen 325 mg Tablet 650 MG PO (17:54)
--- NOTE | 2020-03-13 18:45 | PC.NURSE ---
Received report on patient from Melanie Ratliff RN. Assumed care at this time.
[2020-03-13 21:33] LABS: Glucose Point of Care 263 mg/dL (70-110)
[2020-03-13] MEDS: trazodone 150 mg Tablet PO (22:51)
[2020-03-14] VITALS (20 sets, daily range): BP systolic 108–145; BP diastolic 65–109; PULSE 52–89; RESP 14–24; TEMP 36.8–36.9; O2SAT 88–94
[2020-03-14 05:31] LABS: Hemoglobin 13.4 g/dL (11.5-15.3); Lymphocytes # 1.4 10^3/uL (0.8-4.8); Lymphocytes % 23.4 %; Mean Corpuscular HGB Conc 31.9 g/dL (30.0-36.0); Mean Corpuscular Hemoglobin 28.3 pg (28.0-34.0); Mean Corpuscular Volume 88.8 fL (81-99); Mean Platelet Volume 10.7 fL (7.4-10.4); Monocytes # 0.5 10^3/uL (0.2-0.9); Monocytes % 8.6 %; Neutrophils # 4.02 10^3/uL (1.8-7.7); Neutrophils % 67.7 %; Nucleated Red Blood Cells % 0 %; Platelet Count 234 10^3/cmm (130-400); Red Blood Count 4.73 10^6/uL (4.1-5.3); Red Cell Distribution Width 14.8 % (12.1-15.1); White Blood Count 5.9 10^3/uL (4.0-10.0)
[2020-03-14 06:02] LABS: Alanine Aminotransferase 36 U/L (0-33); Albumin Level 3.8 g/dL (3.5-5.2); Alkaline Phosphatase 84 IU/L (35-105); Aspartate Amino Transferase 35 U/L (0-32); Blood Urea Nitrogen 16 mg/dL (6-20); Calcium 8.8 mg/dL (8.5-10.5); Carbon Dioxide 31 mmol/L (22-29); Chloride 98 mmol/L (98-107); Globulin 3.4 g/dL (1.3-4.6); Glomerular Filtration Rate 103.8 mL/min (90-130); Glucose 225 mg/dL (65-115); Osmolality Calculated 295 mOsm/kg (285-295); Sodium 141 mmol/L (136-145); Total Bilirubin 0.4 mg/dL (0.15-1.2); Total Protein 7.2 g/dL (6.6-8.7)
[2020-03-14 06:05] LABS: Anion Gap 15.5 (5-19); Potassium 3.5 mmol/L (3.5-5.1)
[2020-03-14 06:06] LABS: Procalcitonin 0.03 ng/mL (0-0.5)
[2020-03-14] MEDS: hydroCHLOROthiazide 25 mg Tablet PO (06:35)
[2020-03-14] MEDS: levoFLOXacin 750 mg Tablet PO (06:35)
[2020-03-14 08:12] LABS: Glucose Point of Care 186 mg/dL (70-110)
[2020-03-14] MEDS: allopurinol 300 mg Tablet PO (09:45)
[2020-03-14] MEDS: ascorbic acid 500 mg Tablet 1000 MG PO (09:45)
[2020-03-14] MEDS: atorvastatin 40 mg Tablet 80 MG PO (09:46)
[2020-03-14] MEDS: dexamethasone 10 mg/mL INJ 6 MG IVP (09:46)
[2020-03-14] MEDS: duloxetine 30 mg Capsule PO (09:47)
[2020-03-14] MEDS: duloxetine 60 mg Capsule PO (09:47)
[2020-03-14] MEDS: levothyroxine 50 mcg Tablet PO (09:47)
[2020-03-14] MEDS: topiramate 25 mg Tablet 50 MG PO (09:48)
[2020-03-14] MEDS: montelukast sodium 10 mg Tablet PO (09:48)
[2020-03-14] MEDS: pantoprazole DR 40 mg Tablet PO (09:48)
[2020-03-14] MEDS: TRAMadol 50 mg Tablet PO (10:58)
[2020-03-14 11:45] LABS: Glucose Point of Care 237 mg/dL (70-110)
--- NOTE | 2020-03-14 13:11 | PC.RESP ---
Pulmonary rehab information sent to patient.
--- NOTE | 2020-03-14 13:28 | PM.DCS ---
Discharge Providers Date of Admission: 03/11/20 13:22 Date of Discharge: March 14, 2020 Attending Provider at Admission: Rian Castillo MD Attending Provider at Discharge: Rian Castillo MD Diagnoses at Discharge Discharge Diagnosis (1) Acute respiratory failure with hypoxia: Status: Acute (2) COVID-19: Status: Acute (3) Hypothyroidism: Status: Acute (4) Diabetes mellitus: Status: Acute Qualifiers: Diabetes mellitus type: type 2 Diabetes mellitus care home insulin use: without terminal superintendent use Diabetes mellitus complication status: with other specified complication Qualified Code(s): E11.69 - Type 2 diabetes mellitus with other specified complication (5) Fibromyalgia: Status: Suspected Problem details: Patient returns to the clinic wiht ongoing intermittent headaches that has been attributed to sinusits. She is afebrile. She Reason for Visit Reason for Visit: N/V Hospital Course Discharge Summary: This is a 54-year-old female with a past medical history of type 2 diabetes mellitus, hypertension, hyperlipidemia, hypothyroidism, chronic migraines, seasonal allergies, depression anxiety, with exercise-induced bronchoconstriction who presents to [facility] due to cough, shortness of breath, fevers, tested positive for COVID-19 Patient was admitted to [facility] for acute hypoxic respiratory failure secondary COVID-19, admitted to the viral ICU unit, received oxygen therapy, steroid therapy, antibiotic therapy, remdesvir, inhaler therapy, clinically monitored. Patient clinically improved, on discharge she required 2 to 3 L nasal cannula, ambulating without significant symptomatology, received 3 days of Remdesvir, 3 days of steroids, before she was discharged. Patient was discharged on a steroid burst, Levaquin for antibiotic coverage, Advair, albuterol, oxygen therapy. Patient was advised to socially distance, hand wash, face mask, self isolate for at least 21 days, follow-up with [facility] in [place] in 30 days Physical Exam Const: COMMON NORMALS: no acute distress and patient oriented x3 GENERAL APPEARANCE: cooperative and comfortable HENMT: COMMON NORMALS: normocephalic HEAD & SCALP: normocephalic Eye: COMMON NORMALS: Equal, round and reactive pupils present, EOMs intact bilaterally and no papilledema GENERAL EYE: appearance normal, both eyes and all related structures PUPIL: Yes Equal, round and reactive pupils present DIRECT OPHTHALMOSCOPY: Yes no papilledema Neck/C-Spine: COMMON NORMALS: full ROM, no lymphadenopathy, no JVD and Thyroid normal THYROID: Thyroid normal Lymph: LYMPHATIC: no lymphadenopathy noted Resp: COMMON NORMALS: normal respiratory effort, No retractions, No use of accessory muscles and clear to auscultation bilaterally AUSCULTATION: clear to auscultation bilaterally Cardio: COMMON NORMALS: no JVD, regular rate, regular rhythm, S1 normal heart sound present, S2 normal heart sound present, No gallops present (Cardio), No clicks present (Cardio) and No murmurs present (Cardio) RATE: regular rate RHYTHM: regular rhythm HEART SOUNDS: S1 normal heart sound present and S2 normal heart sound present GI: COMMON NORMALS: Normal to inspection, nondistended, normoactive bowel sounds present, Soft to palpation, non-tender and No hepatosplenomegaly present PALPATION: Yes Soft to palpation and Yes No hepatosplenomegaly present Extremity: COMMON NORMALS: normal to inspection, full ROM and no pedal edema Neuro: COMMON NORMALS: patient oriented x3, CN's II-XII intact bilaterally, moves all extremities and no focal motor deficits Psych: COMMON NORMALS: mental status grossly normal, Normal thought process present and cooperative THOUGHT PROCESS: Normal thought process present Discharge Data Data Completed and Pending: Completed Studies During Hospitalization Category Date Time Status CT angio chest PE protcl [id number] Urge nt Cat Scan 03/11/20 13:01 Completed XR chest 1V nubia ble [id number] Routine Exams 03/13/20 07:00 Completed XR chest 1V nubia ble [id number] Stat Exams 03/11/20 10:51 Completed Pending at discharge Category Date Time Status Blood Culture Sta t Lab 03/11/20 11:55 Results Complete Blood Co unt w/Auto AM LABS Lab 03/15/20 04:00 Ordered Comprehensive Met abolic Panel AM LA BS Lab 03/15/20 04:00 Ordered MRSA by PCR Stat Lab 03/13/20 16:12 Uncollected Magnesium AM LABS Lab 03/15/20 04:00 Ordered Magnesium AM LABS Lab 03/16/20 04:00 Ordered Sputum Culture an d Gram Stain Stat Lab 03/11/20 13:23 Results Labs from last 24 hours 03/14/20 03/14/20 03/14/20 11:41 08:04 04:50 WBC RBC Hgb Hct MCV MCH MCHC RDW Plt Count MPV Neut % (Auto) Lymph % (Auto) Davidson % (Auto) Eos % (Auto) Baso % (Auto) Neut # (Auto) Lymph # (Auto) Davidson # (Auto) Eos # (Auto) Baso # (Auto) Nucleated RBC % (a uto) Nucleated RBCs # Sodium 141 Potassium 3.5 Chloride 98 Carbon Dioxide 31 H Anion Gap 15.5 BUN 16 Creatinine 0.6 GFR Calculation 103.8 Glucose 225 H POC Glucose 237 186 Calculated Osmolal ity 295 Calcium 8.8 Phosphorus Magnesium Total Bilirubin 0.4 AST 35 H ALT 36 H Alkaline Phosphata se 84 Total Protein 7.2 Albumin 3.8 Globulin 3.4 Procalcitonin 03/14/20 03/14/20 03/14/20 04:50 04:50 04:50 WBC 5.9 RBC 4.73 Hgb 13.4 Hct 42.0 MCV 88.8 MCH 28.3 MCHC 31.9 RDW 14.8 Plt Count 234 MPV 10.7 H Neut % (Auto) 67.7 Lymph % (Auto) 23.4 Davidson % (Auto) 8.6 Eos % (Auto) 0.0 Baso % (Auto) 0.0 Neut # (Auto) 4.02 Lymph # (Auto) 1.4 Davidson # (Auto) 0.5 Eos # (Auto) 0.0 Baso # (Auto) 0.0 Nucleated RBC % (a uto) 0 Nucleated RBCs # 0.0 Sodium Potassium Chloride Carbon Dioxide Anion Gap BUN Creatinine GFR Calculation Glucose POC Glucose Calculated Osmolal ity Calcium Phosphorus 4.0 Magnesium Total Bilirubin AST ALT Alkaline Phosphata se Total Protein Albumin Globulin Procalcitonin 0.03 03/14/20 03/13/20 03/13/20 04:50 21:17 16:22 WBC RBC Hgb Hct MCV MCH MCHC RDW Plt Count MPV Neut % (Auto) Lymph % (Auto) Davidson % (Auto) Eos % (Auto) Baso % (Auto) Neut # (Auto) Lymph # (Auto) Davidson # (Auto) Eos # (Auto) Baso # (Auto) Nucleated RBC % (a uto) Nucleated RBCs # Sodium Potassium Chloride Carbon Dioxide Anion Gap BUN Creatinine GFR Calculation Glucose POC Glucose 263 266 Calculated Osmolal ity Calcium Phosphorus Magnesium 2.0 Total Bilirubin AST ALT Alkaline Phosphata se Total Protein Albumin Globulin Procalcitonin Vitals: Last Vital Signs Temp 98.5 F 03/14/20 12:00 Pulse 74 03/14/20 12:00 Resp 19 H 03/14/20 12:00 BP 127/91 03/14/20 12:00 Pulse Ox 93 03/14/20 11:00 Discharge Plan Discharge Patient Disposition: Home Condition: Stable Prescriptions: New levofloxacin 750 mg Tablet 750 mg PO DAILY@0600 5 Days Qty: 5 RF: 0 prednisone 20 mg tablet 20 mg PO BID 5 Days Qty: 10 RF: 0 Advair Diskus 100-50 mcg/dose blister with device 1 inh INHALATION DAILY Qty: 60 RF: 0 albuterol sulfate 90 mcg/actuation HFA aerosol inhaler 1 inh INHALATION Q6H PRN (Reason: shortness of breath or wheezing) Qty: 18 RF: 0 Continued levocetirizine 5 mg tablet 5 mg PO DAILY RF: 0 fluticasone propion-salmeterol [Advair Diskus] 250-50 mcg/dose blister with device 1 inh INHALATION BID RF: 0 pseudoephedrine HCl [Sudafed] 30 mg tablet 30 mg PO Q6H PRN (Reason: nasal congestion) 30 Days Qty: 60 RF: 0 potassium citrate 10 mEq (1,080 mg) tablet extended release 10 meq PO TID Qty: 90 RF: 3 topiramate [Topamax] 50 mg tablet 50 mg PO DAILY Qty: 30 RF: 5 tramadol 50 mg tablet 50 mg PO Q8H PRN (Reason: pain) 14 Days Qty: 40 RF: 0 hydrochlorothiazide 25 mg tablet 25 mg PO QAM Qty: 30 RF: 2 allopurinol 300 mg tablet 300 mg PO BID 30 Days Qty: 60 RF: 5 Jardiance 25 mg tablet 25 mg PO DAILY 90 Days Qty: 90 RF: 1 solifenacin [Vesicare] 10 mg tablet 10 mg PO DAILY Qty: 90 RF: 1 metformin 500 mg tablet extended release 24 hr 1,000 mg PO BID 30 Days Qty: 120 RF: 2 ergocalciferol (vitamin D2) 1,250 mcg (50,000 unit) Capsule 1,250 mcg PO Q7D RF: 0 Imitrex 100 mg tablet See Rx Instructions PO .COMPLEX PRN (Reason: Headache) RF: 0 trazodone 100 mg tablet 150 mg PO BEDTIME RF: 0 pantoprazole 40 mg tablet,delayed release (DR/EC) 40 mg PO DAILY RF: 0 montelukast 10 mg tablet 10 mg PO DAILY RF: 0 Crestor 20 mg tablet 20 mg PO DAILY RF: 0 duloxetine 30 mg capsule,delayed release(DR/EC) 30 mg PO DAILY RF: 0 duloxetine 60 mg capsule,delayed release(DR/EC) 60 mg PO DAILY RF: 0 Vitamin Plus Low Iron 27 mg iron- 1 mg tablet 1 tab PO DAILY RF: 0 Synthroid RF: 0 Held ibuprofen 800 mg tablet 800 mg PO TID PRN (Reason: Pain) RF: 0 Hold Instructions: Resume on 04/10/20. Discontinued albuterol sulfate 2.5 mg /3 mL (0.083 %) solution for nebulization 2.5 mg INHALATION PRN RF: 0 albuterol sulfate [ProAir HFA] 90 mcg/actuation HFA aerosol inhaler 2 puff INHALATION Q4H PRN (Reason: Shortness Of Breath) RF: 0 doxycycline monohydrate 100 mg capsule 100 mg PO BID 10 Days Qty: 20 RF: 0 doxycycline hyclate 100 mg capsule RF: 0 Discharge Orders: Discharge Order (Routine); Ordered 03/14/20 Ordered By: Rian Castillo Referrals: Rian Castillo MD [Hospitalist] - 1 month ([place]) Discharge Diet: Cardiac Discharge Activity: Resume usual activity Activity Restrictions/Additional Instructions: -Please drink plenty of electrolyte balance fluids -Please socially distance, facemask, handwashing -If you have worsening shortness of breath, fevers cough, come back to the emergency room -Please use albuterol and Advair as prescribed -Please use steroid and antibiotics as prescribed Discharge Attestations Time Spent in Discharge Care*: less than 30 min Quality Metrics Clinical Quality Measures During this hospital stay, did patient experience: None Coding Level of Care Code Acute Travel Insurance Agent for kobe Fwd Diagnoses Acute respiratory failure with hypoxia J96.01 COVID-19 U07.1 Hypothyroidism E03.9 Diabetes mellitus E11.69 Diabetes mellitus type: type 2 Diabetes mellitus terminal superintendent insulin use: without care home use Diabetes mellitus complication status: with other specified complication Fibromyalgia M79.7
--- NOTE | 2020-03-14 14:21 | PC.SOCIAL ---
Claude called from pharmacy to clarify script of Advair which indicates once daily and is usually BID. Dr Castillo indicates this should be BID when called by phone. Updated Claude on clarification of order to be Advair one inhalation BID. Claude confirmed and no further questions.
[2020-03-14] MEDS: polyethylene glycol 3350 Pkt 17 gm PO (14:28)
[2020-03-14 16:48] LABS: Glucose Point of Care 260 mg/dL (70-110)
--- NOTE | 2020-03-20 14:37 | PC.SOCIAL ---
Attempted twice to call patient to follow up on how she is doing post discharge. Was unable to reach both times. Voicemail has no name associated so unable to verify this number belongs to patient. Patient did not have an appt for primary care at [place] but was recommended she see Dr Castillo at [facility].
== END 2020-03-14 17:24 | disposition home or self-care (01) | DRG 177 ==
LOC: ER 11:14 → ICU 13:38
PROVIDERS: Family Medicine; Admitting Provider Family Medicine; Visit Provider Family Medicine
DX: U07.1 COVID-19 (principal); J96.01 Acute respiratory failure with hypoxia; M79.7 Fibromyalgia; E11.69 Type 2 diabetes mellitus with other specified complication; E03.9 Hypothyroidism, unspecified; E78.5 Hyperlipidemia, unspecified; F41.8 Other specified anxiety disorders; Z79.84 Long term (current) use of oral hypoglycemic drugs; I10 Essential (primary) hypertension; J44.9 Chronic obstructive pulmonary disease, unspecified; K21.9 Gastro-esophageal reflux disease without esophagitis; G47.00 Insomnia, unspecified
CPT/HCPCS: 12345; 36415; 36416; 71045; 71275; 80051; 80053; 80061; 81001; 82533; 82728; 82810; 82962; 83036; 83605; 83615; 83690; 83735; 83880; 83986; 84100; 84145; 84443; 85025; 85378; 85384; 85610; 85730; 86140; 87040; 87070; 87077; 87186; 87205; 93005; 94664; 96372; 96375; 99284; J1100; J1650; J1815; J1940; J2765; J7030; Q9967

== ENCOUNTER → 2020-03-21 12:24 | Outpatient (BNVA) | payer BC, SELFPAY | PROVIDERS: Visit Provider Nurse Practitioner Family | DX: U07.1 COVID-19 (principal) | CPT/HCPCS: 87635 ==

== ENCOUNTER 2020-05-10 15:05 | Outpatient (CLI) | payer BC, SELFPAY ==
--- NOTE | 2020-05-10 15:30 | CT_ITS ---
WS: [id number] CT scan of the chest without IV contrast, additional two-dimensional coronal and sagittal reconstruct ion was performed. 05/10/2020 Clinical Data: COPD Comparison: CT PE chest, 03/11/2020, CT abdomen and pelvis, 07/10/2018. DLP: 1087.[address] scans at [facility] use at least one of these dose optimization techniques: automat ed exposure control; mA and/or kV adjustment per patient size (includes targeted exams where dose is matched to clinical indication); or iterative reconstruction. Findings: No nodules, masses or effusions are seen. The peripheral lung opacities have cleared completely. The heart size is normal with no pericardial effusion. The pulmonary arterial system and thoracic aorta d emonstrate no abnormalities or dilatations. There is no axillary or significant mediastinal adenopath y. The trachea bifurcates normally into the bronchi. There are calcifications in the left hilum and subcarinal region. The bones of the thorax show only osteoarthritic change of the thoracic vertebral bodies. The upper abdomen demonstrates clips in the gallbladder fossa from a cholecystectomy. There is a low- density lesion in the superior aspect of the right kidney unchanged from a CT abdomen and pelvis of . CT/CT chest wo con [id number] Impression: 1. Complete clearing of patchy opacities in the lungs compared to prior study. 2. Cardiomegaly. 3. Low-density lesion in superior aspect right kidney unchanged.
== END 2020-05-10 15:06 | disposition home or self-care (01) ==
LOC: RADWPI 15:08
PROVIDERS: PCP Nurse Practitioner Family; Visit Provider Internal Medicine Pulmonary Disease
DX: J44.9 Chronic obstructive pulmonary disease, unspecified (principal); I51.7 Cardiomegaly; N28.9 Disorder of kidney and ureter, unspecified
CPT/HCPCS: 71250

== ENCOUNTER 2020-06-03 07:44 | Outpatient (CLI) | payer BC, SELFPAY ==
--- NOTE | 2020-06-03 08:00 | US_ITS ---
WS: [id number] ULTRASOUND RENAL TECHNIQUE: Ultrasound examination of both kidneys. CLINICAL INFORMATION: N28.9 - Disorder of kidney and ureter, unspecified COMPARISON: Ultrasound May 27, [address] FINDINGS: RIGHT: Lobulated slightly complex right renal cyst is unchanged since CT measuring approximat marlyn 3.5 x 2.8 cm. Recommend continued surveillance. Right kidney is normal in size and appearance. Echogenicity: Normal. Cortical thickness: 1.5 cm; Normal. Hydronephrosis: None. Perinephric fluid: None. Right kidney measures: 11.7 cm x 5.3 cm x 4.5 cm. LEFT: Left kidney is normal in size and appearance. 11 mm left renal parenchymal calculus. No obstruction. Echogenicity: Normal. Cortical thickness: 1.2 cm; Normal. Hydronephrosis: None. Perinephric fluid: None. Left kidney measures: 11.3 cm x 5.6 cm x 5.5 cm. Normal visualized aorta. Mild diffuse bladder wall thickening can be seen with chronic cystitis US/US renal BI* [id number] IMPRESSION: 1. Slightly complex right renal cyst measuring 3.5 x 2.8 cm is unchanged. Que mmend continued annual surveillance. 2. No hydronephrosis in either kidney. 3. Mild diffuse bladder wall thickening can be seen with chronic cystitis.
== END 2020-06-03 07:45 | disposition home or self-care (01) ==
LOC: US 07:51
PROVIDERS: PCP Nurse Practitioner Family; Visit Provider Family Medicine
DX: N28.9 Disorder of kidney and ureter, unspecified (principal); N28.1 Cyst of kidney, acquired
CPT/HCPCS: 76770

== ENCOUNTER → 2020-07-22 10:42 | Outpatient (BNVA) | payer OTHER, SELFPAY | PROVIDERS: PCP Nurse Practitioner Family; Visit Provider Family Medicine | DX: I10 Essential (primary) hypertension (principal); J30.89 Other allergic rhinitis; E66.01 Morbid (severe) obesity due to excess calories; E03.9 Hypothyroidism, unspecified; E78.2 Mixed hyperlipidemia; E11.69 Type 2 diabetes mellitus with other specified complication; J32.9 Chronic sinusitis, unspecified | CPT/HCPCS: 80053; 80061; 83036; 84443; 85025 ==

== ENCOUNTER 2020-07-29 20:00 | Outpatient (CLI) | payer OTHER, SELFPAY | END 2020-07-29 20:01 | disposition home or self-care (01) | LOC: SLEEP 07-30 09:26 | PROVIDERS: PCP Nurse Practitioner Family; Visit Provider Internal Medicine Pulmonary Disease | DX: G47.33 Obstructive sleep apnea (adult) (pediatric) (principal) | CPT/HCPCS: 95810 ==

== ENCOUNTER → 2020-08-27 16:15 | Outpatient (BNVA) | payer OTHER, SELFPAY | PROVIDERS: PCP Nurse Practitioner Family; Visit Provider Nurse Practitioner Family | DX: M79.622 Pain in left upper arm (principal); N20.0 Calculus of kidney; N28.1 Cyst of kidney, acquired; R39.15 Urgency of urination | CPT/HCPCS: 73060; 81003 ==

== ENCOUNTER 2020-09-02 20:00 | Outpatient (CLI) | payer OTHER, SELFPAY | END 2020-09-02 20:01 | disposition home or self-care (01) | LOC: SLEEP 09-03 09:10 | PROVIDERS: PCP Nurse Practitioner Family; Visit Provider Internal Medicine Pulmonary Disease | DX: G47.33 Obstructive sleep apnea (adult) (pediatric) (principal) | CPT/HCPCS: 95811 ==

== ENCOUNTER → 2020-10-24 08:35 | Outpatient (BNVA) | payer OTHER, SELFPAY | PROVIDERS: PCP Nurse Practitioner Family; Visit Provider Nurse Practitioner Family | DX: E11.69 Type 2 diabetes mellitus with other specified complication (principal); R53.83 Other fatigue; Z13.6 Encounter for screening for cardiovascular disorders; M10.9 Gout, unspecified; E55.9 Vitamin D deficiency, unspecified | CPT/HCPCS: 80053; 80061; 81003; 82306; 83036; 83735; 84100; 84439; 84443; 84481; 84550; 85025 ==

== ENCOUNTER → 2021-02-13 11:53 | Outpatient (BNVA) | payer OTHER, SELFPAY | PROVIDERS: PCP Nurse Practitioner Family; Visit Provider Family Medicine | DX: E11.69 Type 2 diabetes mellitus with other specified complication (principal); M25.50 Pain in unspecified joint; Z00.00 Encounter for general adult medical examination without abnormal findings; H66.90 Otitis media, unspecified, unspecified ear | CPT/HCPCS: 80053; 83036; 84443; 85651 ==

== ENCOUNTER 2021-05-21 08:01 | Outpatient (CLI) | payer OTHER, SELFPAY ==
--- NOTE | 2021-05-21 08:26 | MM_ITS ---
WS: [id number] BILATERAL SCREENING DIGITAL MAMMOGRAM WITH CAD HISTORY: SCREENING COMPARISON: 02/27/2019 and 02/25/2018 Bilateral CC and MLO views submitted. Computer aided detection analyzed. Breast composition: There are scattered areas of fibroglandular density. No suspicious masses, microc alcifications or architectural distortion. MM/[place] [id number] IMPRESSION: BI-RADS: 1-Negative FOLLOW UP: 1 Year Follow-up
== END 2021-05-21 08:02 | disposition home or self-care (01) ==
LOC: RADSHAW 08:03
PROVIDERS: PCP Nurse Practitioner Family; Visit Provider Nurse Practitioner Family
DX: Z12.31 Encounter for screening mammogram for malignant neoplasm of breast (principal)
CPT/HCPCS: 77067

== ENCOUNTER 2021-05-28 10:12 | Outpatient (CLI) | payer OTHER, SELFPAY ==
--- NOTE | 2021-05-28 10:00 | XRR_ITS ---
PROCEDURE INFORMATION: Exam: XR Abdomen Exam date and time: 05/28/2021 10:00 AM Age: 55 years old Clinical indication: Condition or disease; Kidney or ureter condition; Calculus (stone) in kidney; Prior surgery; Surgery type: Gb; Additional info: Kidney stones TECHNIQUE: Imaging protocol: XR of the abdomen. Views: Frontal supine view of the abdomen. 1 View. COMPARISON: CR XR KUB [id number] 08/31/2019 12:07 PM FINDINGS: Gastrointestinal tract: The bowel gas pattern is nonspecific. Air filled large bowel including distal rectal gas. Large amount of stool throughout the large bowel. Organs: Numerous renal calcifications bilaterally largest on the right inferiorly of approximately 7 mm and on the left of approximately 5 mm. Surgical clips are present in the region of the gallbladder fossa. Bones/joints: Unremarkable. XR/XR KUB [id number] IMPRESSION: 1. The bowel gas pattern is nonspecific. Air filled large bowel including distal rectal gas. 2. Large amount of stool throughout the large bowel. Radiation Dose CTDIVOL = (mGy): DLP = (mGy-cm)
== END 2021-05-28 10:13 | disposition home or self-care (01) ==
LOC: RAD 10:13
PROVIDERS: PCP Nurse Practitioner Family; Visit Provider Urology
DX: N20.0 Calculus of kidney (principal)
CPT/HCPCS: 74018; 81003

== ENCOUNTER → 2021-06-13 11:35 | Outpatient (BNVA) | payer OTHER, SELFPAY | PROVIDERS: PCP Nurse Practitioner Family; Visit Provider Nurse Practitioner Family | DX: E11.69 Type 2 diabetes mellitus with other specified complication (principal); R53.83 Other fatigue | CPT/HCPCS: 80053; 81003; 83036; 84439; 84443; 85025 ==

== ENCOUNTER → 2021-08-04 10:16 | Outpatient (BNVA) | payer OTHER, SELFPAY | PROVIDERS: PCP Nurse Practitioner Family; Visit Provider Family Medicine | DX: E11.9 Type 2 diabetes mellitus without complications (principal) | CPT/HCPCS: 83036 ==

== ENCOUNTER → 2021-08-27 08:16 | Outpatient (BNVA) | payer OTHER, SELFPAY | PROVIDERS: PCP Nurse Practitioner Family; Referring Provider Family Medicine; Visit Provider Orthopaedic Surgery | DX: M25.562 Pain in left knee (principal); M17.12 Unilateral primary osteoarthritis, left knee | CPT/HCPCS: 73560; 73565 ==

== ENCOUNTER → 2021-11-24 10:28 | Outpatient (BNVA) | payer OTHER, SELFPAY | PROVIDERS: PCP Nurse Practitioner Family; Visit Provider Family Medicine | DX: E11.9 Type 2 diabetes mellitus without complications (principal); F41.9 Anxiety disorder, unspecified; F32.A Depression, unspecified; R11.0 Nausea; F32.89 Other specified depressive episodes; M21.619 Bunion of unspecified foot | CPT/HCPCS: 83036 ==

== ENCOUNTER → 2022-01-14 09:25 | Outpatient (BNVA) | payer OTHER, SELFPAY | PROVIDERS: PCP Nurse Practitioner Family; Referring Provider Family Medicine; Visit Provider Podiatrist Foot & Ankle Surgery | DX: M21.612 Bunion of left foot (principal) | CPT/HCPCS: 73630 ==

== ENCOUNTER 2022-02-11 06:00 | Outpatient (RCR) | payer OTHER, SELFPAY | END 2022-03-04 23:59 | disposition home or self-care (01) | LOC: WPT 06:00 | PROVIDERS: PCP Nurse Practitioner Family; Visit Provider Family Medicine | DX: M54.42 Lumbago with sciatica, left side (principal); M54.16 Radiculopathy, lumbar region; M25.559 Pain in unspecified hip; M17.0 Bilateral primary osteoarthritis of knee | CPT/HCPCS: 97110; 97161 ==

== ENCOUNTER 2022-03-05 06:00 | Outpatient (RCR) | payer OTHER, SELFPAY | END 2022-04-03 23:59 | disposition home or self-care (01) | LOC: WPT 06:00 | PROVIDERS: PCP Nurse Practitioner Family; Visit Provider Family Medicine | DX: M54.42 Lumbago with sciatica, left side (principal); M54.16 Radiculopathy, lumbar region; M25.559 Pain in unspecified hip; M17.0 Bilateral primary osteoarthritis of knee | CPT/HCPCS: 97110 ==

== ENCOUNTER 2022-04-01 11:40 | Emergency (ER) | payer OTHER, SELFPAY ==
[2022-04-01 11:56] VITALS: BP 141/98; PULSE 91; RESP 15; TEMP 36.8; O2SAT 96; BMI 42.3
[2022-04-01 12:01] VITALS: BP 137/97; PULSE 88; RESP 18; TEMP 36.6; O2SAT 94
--- NOTE | 2022-04-01 12:05 | W.ED.GENADLT ---
HPI - General Adult General: Chief complaint: Nausea/Vomiting/Diarrhea Stated complaint: N/V/D Time Seen by Provider: 04/01/22 12:03 History of Present Illness: Patient is a 56-year-old female with a history of diabetes, COVID, depression and anxiety presenting to the emergency with complaints of decreased appetite, nausea, diffuse abdominal pain and diarrhea for the last 5 days. Patient has no other prior abdominal surgery. Patient tells me symptoms started on Wednesday night shortly after eating. Since then, patient has had about 4-5 liquid stool episode throughout the day. Patient also reports decreased appetite. Patient denies any fever/chills, cough, runny nose sore throat chest pain or shortness breath. Patient recently traveled to [place]. Patient denies any recent antibiotics or recent hospitalization. No complaints. Onset:5 days ago Duration:5 days Location:home Severity:moderate Associated symptoms: Reports nausea and vomiting; Deny chest pain, dyspnea, rash or palpitations Review of Systems Const: Denies: fever(s) or chills Eyes: Denies: change in vision ENMT: Denies: mouth pain Card: Denies: chest pain or palpitations Resp: Denies: dyspnea or non-productive cough GI: Reports: abdominal pain (+diffuse abd pain), nausea, vomiting, diarrhea and other (+decreased appetite) : Denies: dysuria Musc: Denies: extremity pain Skin/Breast: Denies: rash or new lesions Neuro: Denies: weakness in extremities Psych: Reports: other (Normal mood) Eduardo/Lymph: Denies: easy bruising PFS ED PFSH: Medical History Accelerated hypertension Acute bacterial sinusitis Anxiety Anxiety and depression Blood in both ear canals Bone spur of foot Cellulitis of left toe Chronic headache Patient has history of chronic headaches. Previous MRI of head were normal. Chronic sinusitis Chronic sinusitis Common migraine with intractable migraine COPD (chronic obstructive pulmonary disease) Cough COVID-19 Depression Diabetes mellitus Encounter for screening laboratory testing for COVID-19 virus Environmental and seasonal allergies Female cystocele Gastroesophageal reflux Gout Patient has history of gout and takes Allopurinol for control of symptoms. Hematuria Hyperlipidemia Hypertension screen Insomnia Kidney stones Nausea Onychocryptosis KARLEE (obstructive sleep apnea) Otitis externa Plantar fasciitis, left Renal cyst Urgency incontinence Urolithiasis Vitamin D deficiency Surgical History History of History of cholecystectomy History of hysterectomy History of tubal ligation History of umbilical hernia repair Family History Mother Hypertension Diabetes Family history of thyroid problem Social History Smoking and tobacco status: never smoked Second hand smoke exposure: No Smoking risk assessment/counseling performed?: Yes Alcohol intake: never Adopted: No Caregiver/support person: No Lives independently: Yes Household members: spouse Housing: House Marital status: Current occupational status: employed Pets and animals: No History of recent travel: No Current gender identity: Female Physical Exam Const: COMMON NORMALS: alert HENMT: COMMON NORMALS: atraumatic HEAD & SCALP: atraumatic MOUTH: moist mucous membranes not abnormal Eye: COMMON NORMALS: EOMs intact bilaterally and conjunctivae normal CONJUNCTIVA: Yes conjunctivae normal Neck/C-Spine: COMMON NORMALS: full ROM and supple Resp: COMMON NORMALS: normal respiratory effort and clear to auscultation bilaterally AUSCULTATION: clear to auscultation bilaterally Cardio: COMMON NORMALS: regular rate RATE: regular rate GI: COMMON NORMALS: Soft to palpation and non-tender PALPATION: Yes Soft to palpation OTHER: No focal TTP. NO guarding rebound, guarding, rigidity. No CVA tenderness to percussion. Neg Ignacio/Neg McBurney's point tenderness, no suprabupic tenderness to palpation. Extremity: COMMON NORMALS: full ROM Neuro: SENSORIUM/ORIENTATION: Yes alert MOTOR EXAM: No Abnormal motor strength present and Other motor observations present (no focal motor deficits) Psych: COMMON NORMALS: speech normal SPEECH: Yes normal speech MOOD & AFFECT: Yes euthymic mood Course Vital Signs: Vital signs: Vital Signs Temperature 97.9 F 04/01/22 12:01 Pulse Rate 88 04/01/22 12:01 Respiratory Rate 18 04/01/22 12:01 Blood Pressure 137/97 04/01/22 12:01 Pulse Oximetry 94 04/01/22 12:01 Oxygen Delivery Me thod 04/01/22 11:56 [facility] - General Adult Medical Decision Making Patient is a 56-year-old female with a history of diabetes, COVID, depression and anxiety presenting to the emergency with complaints of decreased appetite, nausea, diffuse abdominal pain and diarrhea for the last 5 days. Patient has no focal abdominal tenderness to palpation. Patient has mild abdominal discomfort to palpation. Rest exam is unremarkable. White count 11.1. Patient is noted to be hemoconcentrated 15.7. Potassium 2.8 today. Patient received IVF and 40 mEq potassium replacement x2. Rx tylenol PRN abd pain, maalox/pepcid PRN dyspepsia, and zofran PRN nausea/vomiting, potassium chloride tablets PRN hypokalemia Disposition: Discharge. Patient counseled regarding diagnostic impression, treatment plan. Patient given ED strict return precautions to return for continuation, worsening, or development of new symptoms. Instructed to f/u w/ PCP regarding symptoms today. Patient verbalized understanding. Lab Data : 04/01/22 12:40 04/01/22 14:06 Laboratory Results WBC 11.0 10^3/uL (4.0-10.0) H 04/01/22 12:40 RBC 5.41 10^6/uL (4.1-5.3) H 04/01/22 12:40 Hgb 15.7 g/dL (11.5-15.3) H 04/01/22 12:40 Hct 47.9 % (37.0-47.0) H 04/01/22 12:40 MCV 88.5 fl (81-99) 04/01/22 12:40 MCH 29.0 pg (28.0-34.0) 04/01/22 12:40 MCHC 32.8 g/dL (30.0-36.0) 04/01/22 12:40 RDW 15.1 % (12.1-15.1) 04/01/22 12:40 Plt Count 250 10^3/cmm (130-400) 04/01/22 12:40 MPV 10.2 fL (7.4-10.4) 04/01/22 12:40 Neut % (Auto) 50.2 % 04/01/22 12:40 Lymph % (Auto) 29.4 % 04/01/22 12:40 Sebastian % (Auto) 4.9 % 04/01/22 12:40 Eos % (Auto) 14.4 % 04/01/22 12:40 Baso % (Auto) 0.4 % 04/01/22 12:40 Neut # (Auto) 5.51 10^3/uL (1.8-7.7) 04/01/22 12:40 Lymph # (Auto) 3.2 10^3/uL (0.8-4.8) 04/01/22 12:40 Sebastian # (Auto) 0.5 10^3/uL (0.2-0.9) 04/01/22 12:40 Eos # (Auto) 1.6 10^3/uL (0.0-0.8) H 04/01/22 12:40 Baso # (Auto) 0.0 10^3/uL (0.0-0.1) 04/01/22 12:40 Nucleated RBC % (auto) 0 % 04/01/22 12:40 Nucleated RBCs # 0.0 /100WBC 04/01/22 12:40 Sodium 139 mmol/L (136-145) 04/01/22 14:06 Potassium 2.8 mmol/L (3.5-5.1) L* 04/01/22 14:06 Chloride 99 mmol/L (98-107) 04/01/22 14:06 Carbon Dioxide 28 mmol/L (22-29) 04/01/22 14:06 Anion Gap 14.8 (5-19) 04/01/22 14:06 BUN 10 mg/dL (6-20) 04/01/22 14:06 Creatinine 0.7 mg/dL (0.5-0.9) 04/01/22 14:06 GFR Calculation 86.2 mL/min (90-130) L 04/01/22 14:06 Glucose 126 mg/dL (65-115) H 04/01/22 14:06 Calculated Osmolality 289 mOsm/kg (285-295) 04/01/22 14:06 Calcium 9.4 mg/dL (8.5-10.5) 04/01/22 14:06 Total Bilirubin 0.4 mg/dL (0.15-1.2) 04/01/22 14:06 AST 221 U/L (0-32) H 04/01/22 14:06 ALT 63 U/L (0-33) H 04/01/22 14:06 Alkaline Phosphatase 215 U/L (35-105) H 04/01/22 14:06 Total Protein 6.1 g/dL (6.6-8.7) L 04/01/22 14:06 Albumin 3.3 g/dL (3.5-5.2) L 04/01/22 14:06 Globulin 2.8 g/dL (1.3-4.6) 04/01/22 14:06 Lipase 23 U/L (13-60) 04/01/22 14:06 Discharge Plan Discharge Patient Disposition: Home Clinical Impression: Nausea & vomiting, Diarrhea, Hypokalemia Condition: Stable Prescriptions: New acetaminophen 500 mg tablet 500 mg PO Q6H PRN (Reason: pain) 5 Days Qty: 20 0RF Pepcid 20 mg tablet 20 mg PO BID PRN (Reason: abdominal pain) 10 Days Qty: 20 0RF Reglan 5 mg tablet 5 mg PO BID PRN (Reason: nausea and vomiting) 5 Days Qty: 10 0RF Maalox Advanced 1,000-60 mg tablet,chewable 1 tab PO TID PRN (Reason: abdominal pain) 7 Days Qty: 21 0RF potassium chloride 20 mEq packet 20 meq PO BID 5 Days Qty: 10 0RF No Action duloxetine 60 mg capsule,delayed release(DR/EC) 120 mg PO DAILY 90 Days Qty: 180 1RF Rx Instructions: 60mg (2) caps cyclobenzaprine 10 mg tablet 10 mg PO .at bedtime Qty: 15 0RF cyanocobalamin (vitamin B-12) 1,000 mcg capsule 1,000 mcg PO DAILY 90 Days Qty: 90 1RF ergocalciferol (vitamin D2) 1,250 mcg (50,000 unit) capsule 1,250 mcg PO Q7D 90 Days Qty: 13 1RF Rx Instructions: pt states she takes on wed famotidine [Pepcid] 40 mg tablet 40 mg PO BID 90 Days Qty: 180 1RF gabapentin 600 mg tablet 900 mg PO Q12H 90 Days Qty: 270 1RF hydrochlorothiazide 25 mg tablet 25 mg PO QAM 90 Days Qty: 90 1RF hydroxyzine HCl 25 mg tablet 25 mg PO BID PRN (Reason: itching) 30 Days Qty: 30 0RF metoclopramide HCl [Reglan] 10 mg tablet 10 mg PO Q6H 30 Days Qty: 30 0RF montelukast 10 mg tablet 10 mg PO DAILY 90 Days Qty: 90 1RF paroxetine HCl [Paxil] 10 mg tablet 10 mg PO DAILY 90 Days Qty: 90 1RF rosuvastatin 20 mg tablet 20 mg PO DAILY 90 Days Qty: 90 1RF trazodone 150 mg tablet 150 mg PO DAILY 90 Days Qty: 90 1RF lidocaine HCl [Xylocaine] 10 mg/mL (1 %) solution 1 ml IM ONCE Qty: 1 0RF triamcinolone acetonide 40 mg/mL suspension 40 mg IM ONCE Qty: 1 0RF azelastine 137 mcg (0.1 %) aerosol,spray 1 spray intranasal BID Qty: 30 3RF Rx Instructions: administer into each nostril levocetirizine 5 mg tablet 5 mg PO DAILY 90 Days Qty: 90 1RF pseudoephedrine HCl 60 mg tablet 60 mg PO BID PRN (Reason: nasal congestion) 15 Days Qty: 30 0RF meclizine 25 mg tablet 25 mg PO BID PRN (Reason: dizziness) Qty: 14 0RF (DME) Diabetic Shoes with 3 Insoles See Rx Instructions .Route .MEDSUPPLY Qty: 1 0RF Rx Instructions: As directed tramadol 50 mg tablet 25 mg PO Q8H PRN (Reason: pain) 7 Days Qty: 11 0RF triamcinolone acetonide [Kenalog] 40 mg/mL suspension 40 mg intra-articular ONCE Qty: 1 0RF triamcinolone acetonide [Kenalog] 40 mg/mL suspension 40 mg intra-articular ONCE Qty: 1 0RF lidocaine (PF) 10 mg/mL (1 %) solution 10 mg intra-articular ONCE Qty: 1 0RF lidocaine (PF) 10 mg/mL (1 %) solution 10 mg intra-articular ONCE Qty: 1 0RF meloxicam 7.5 mg tablet See Rx Instructions .ROUTE .COMPLEX Qty: 60 5RF Dose Instruction: TAKE 1 TABLET BY MOUTH TWICE DAILY FOR 30 DAYS NEEDED FOR JOINT PAIN. Rx Instructions: TAKE 1 TABLET BY MOUTH TWICE DAILY FOR 30 DAYS NEEDED FOR JOINT PAIN. potassium citrate 10 mEq (1,080 mg) tablet extended release See Rx Instructions .ROUTE .COMPLEX Qty: 90 12RF Dose Instruction: TAKE 1 TABLET BY MOUTH THREE TIMES DAILY Rx Instructions: TAKE 1 TABLET BY MOUTH THREE TIMES DAILY levofloxacin 500 mg tablet 500 mg PO DAILY 7 Days Qty: 7 0RF dexamethasone sodium phosphate 10 mg/mL solution 10 mg IM ONCE Qty: 1 0RF Vitamin Plus Low Iron 27 mg iron- 1 mg tablet See Rx Instructions .ROUTE .COMPLEX Qty: 90 0RF Dose Instruction: Take 1 tablet by mouth once daily Rx Instructions: Take 1 tablet by mouth once daily solifenacin 10 mg tablet See Rx Instructions .ROUTE .COMPLEX Qty: 90 1RF Dose Instruction: TAKE 1 TABLET BY MOUTH DAILY Rx Instructions: TAKE 1 TABLET BY MOUTH DAILY allopurinol 300 mg tablet 300 mg PO DAILY 90 Days Qty: 90 1RF fluconazole 150 mg tablet 150 mg PO Q3D Qty: 3 0RF metformin 500 mg tablet extended release 24 hr See Rx Instructions .ROUTE .COMPLEX Qty: 360 0RF Dose Instruction: TAKE 2 TABLETS BY MOUTH TWICE DAILY FOR 90 DAYS Rx Instructions: TAKE 2 TABLETS BY MOUTH TWICE DAILY FOR 90 DAYS albuterol sulfate 90 mcg/actuation HFA aerosol inhaler 1 puff inhalation Q6H PRN (Reason: shortness of breath or wheezing) Qty: 6.7 3RF Jardiance 25 mg tablet 25 mg PO DAILY 90 Days Qty: 90 1RF Imitrex 100 mg tablet See Rx Instructions PO .COMPLEX PRN (Reason: Headache) Rx Instructions: take 1 tab at onset of headache; if no relief, may repeat 1 tab after at least 2 hrs; max = 2 tabs/24 hrs PO Discharge Orders: Discharge ED (Routine); Ordered 04/01/22 Ordered By: Anahy García Referrals: Nori Hernández, CLINICAL PSYCHOLOGIST [facility] [Primary Care Provider] - Discharge Diet: Advance as tolerated Discharge Activity: Increase activity as tolerated Patient Instructions: Acute Diarrhea (ED), Abdominal Pain (ED) Activity Restrictions/Additional Instructions: Please come back if you have any worsening abdominal pain, fever or chills, nausea or vomiting, diarrhea, blood in the stool, inability hold down liquid or solids, or any new concerning complaints. Please take your potassium tablets. Please repeat your potassium in 1week. Coding Level of Care Code ED Computerized [employer] for [employer] Fwd Exam Comprehensive
[2022-04-01] MEDS: sodium chloride 0.9% 1,000 ML 999 ML IV (12:44)
[2022-04-01] MEDS: lidocaine 2% viscous 15 ML, aluminum-mag hydrox-simethicon 30 ML, sucralfate oral liq 1 GM PO (12:46)
[2022-04-01 12:51] LABS: Basophils % 0.4 %; Eosinophils # 1.6 10^3/uL (0.0-0.8); Eosinophils % 14.4 %; Hematocrit 47.9 % (37.0-47.0); Hemoglobin 15.7 g/dL (11.5-15.3); Lymphocytes # 3.2 10^3/uL (0.8-4.8); Lymphocytes % 29.4 %; Mean Corpuscular HGB Conc 32.8 g/dL (30.0-36.0); Mean Corpuscular Volume 88.5 fl (81-99); Mean Platelet Volume 10.2 fL (7.4-10.4); Monocytes # 0.5 10^3/uL (0.2-0.9); Monocytes % 4.9 %; Neutrophils # 5.51 10^3/uL (1.8-7.7); Neutrophils % 50.2 %; Nucleated Red Blood Cells % 0 %; Platelet Count 250 10^3/cmm (130-400); Red Blood Count 5.41 10^6/uL (4.1-5.3); Red Cell Distribution Width 15.1 % (12.1-15.1)
[2022-04-01 14:33] LABS: Alanine Aminotransferase 63 U/L (0-33); Albumin Level 3.3 g/dL (3.5-5.2); Alkaline Phosphatase 215 U/L (35-105); Anion Gap 14.8 (5-19); Aspartate Amino Transferase 221 U/L (0-32); Blood Urea Nitrogen 10 mg/dL (6-20); Calcium 9.4 mg/dL (8.5-10.5); Carbon Dioxide 28 mmol/L (22-29); Chloride 99 mmol/L (98-107); Globulin 2.8 g/dL (1.3-4.6); Glomerular Filtration Rate 86.2 mL/min (90-130); Glucose 126 mg/dL (65-115); Lipase 23 U/L (13-60); Osmolality Calculated 289 mOsm/kg (285-295); Sodium 139 mmol/L (136-145); Total Bilirubin 0.4 mg/dL (0.15-1.2); Total Protein 6.1 g/dL (6.6-8.7)
[2022-04-01 14:38] LABS: Potassium 2.8 mmol/L (3.5-5.1)
[2022-04-01 15:35] VITALS: BP 114/80; PULSE 83; RESP 18; O2SAT 97
[2022-04-01] MEDS: potassium chloride oral liq 20 mEq/15 mL UDC 40 MEQ PO (15:37)
[2022-04-01] MEDS: potassium chloride ER 20 mEq Tablet 40 MEQ PO (15:37)
[2022-04-01 15:38] LABS: Bilirubin Urine Negative (Negative); Blood Urine Small (Negative); Glucose Urine UA 4+ (Normal); Ketones Urine Negative (Negative); Leukocyte Esterase Urine Negative; Nitrate Urine Negative; Protein Urine Negative (Negative); Urine Appearance Clear (CLEAR); Urine Color Yellow (Yellow); Urobilinogen Urine 0.2 mg/dL (Negative); pH Urine 5.5 (5-7)
[2022-04-01 15:41] LABS: Add Urine Microscopic? YES
[2022-04-01 15:43] LABS: Add Urine Culture? Yes; Bacteria Urine 2+ /hpf; Squamous Epithelial Cell Urine 0-4 /hpf (0-5); WBC Urine 0-4 /hpf (0-5)
== END 2022-04-01 16:06 | disposition home or self-care (01) ==
PROVIDERS: Emergency Provider Emergency Medicine; PCP Nurse Practitioner
DX: R11.2 Nausea with vomiting, unspecified (principal); R19.7 Diarrhea, unspecified; E87.6 Hypokalemia; Z79.84 Long term (current) use of oral hypoglycemic drugs; J44.9 Chronic obstructive pulmonary disease, unspecified; E11.9 Type 2 diabetes mellitus without complications; E78.5 Hyperlipidemia, unspecified
CPT/HCPCS: 36415; 80053; 81001; 83690; 85025; 87086; 96360; 99284; J7030

== ENCOUNTER 2022-04-04 06:00 | Outpatient (RCR) | payer OTHER, SELFPAY | END 2022-05-04 23:59 | disposition home or self-care (01) | LOC: WPT 06:00 | PROVIDERS: PCP Nurse Practitioner; Visit Provider Family Medicine | DX: M54.50 Low back pain, unspecified (principal); M54.16 Radiculopathy, lumbar region; M17.0 Bilateral primary osteoarthritis of knee; M25.559 Pain in unspecified hip | CPT/HCPCS: 97110; 97112; 97530 ==

== ENCOUNTER → 2022-04-10 10:28 | Outpatient (BNVA) | payer OTHER, SELFPAY | PROVIDERS: PCP Nurse Practitioner; Visit Provider Nurse Practitioner | DX: E87.6 Hypokalemia (principal); R60.9 Edema, unspecified | CPT/HCPCS: 84132 ==

== ENCOUNTER 2022-04-29 15:03 | Outpatient (CLI) | payer OTHER, SELFPAY ==
--- NOTE | 2022-04-29 15:30 | CT_ITS ---
WS: [id number] CT LEFT HIP, NONCONTRAST HISTORY: M25.559 - Pain in unspecified hip Technique: All CT scans at [facility] use at least one of these dose optimization techniques: automated exposure control; mA and/or kV adjustment per patient size (includes targeted exams where dose is matched to clinical indication); or iterative reconstruction. DLP: 1201.06 mGy.cm COMPARISON: CT 07/10/2018 No acute fracture or dislocation. Configuration of the bones and degenerative changes are similar to 07/10/2018 CT. No soft tissue abnormality. There is air along the SI joint with mild sclerosis. Mild ac etabular osteophytic ridging and mild narrowing of the joint space. No soft tissue abnormality surrounding the hip. No hematoma or mass. CT/CT hip LT wo con* [id number] IMPRESSION: 1. No acute LEFT hip fracture. 2. Mild degenerative osteoarthritic changes at the hip joint.
== END 2022-04-29 15:04 | disposition home or self-care (01) ==
LOC: RAD 15:04
PROVIDERS: PCP Nurse Practitioner; Visit Provider Family Medicine
DX: M16.12 Unilateral primary osteoarthritis, left hip (principal)
CPT/HCPCS: 73700

== ENCOUNTER 2022-05-05 06:00 | Outpatient (RCR) | payer OTHER, SELFPAY | END 2022-06-03 23:59 | disposition home or self-care (01) | LOC: WPT 06:00 | PROVIDERS: PCP Nurse Practitioner; Visit Provider Family Medicine | DX: M54.42 Lumbago with sciatica, left side (principal); M54.16 Radiculopathy, lumbar region; M25.559 Pain in unspecified hip; M17.0 Bilateral primary osteoarthritis of knee | CPT/HCPCS: 97110; 97112; 97530 ==

== ENCOUNTER 2022-05-07 09:52 | Outpatient (CLI) | payer OTHER, SELFPAY ==
--- NOTE | 2022-05-07 10:03 | XR_ITS ---
WS: [id number] KUB, AP view, 05/07/2022 Clinical Data: Urolithiasis Comparison: KUB, 05/28/2021 Findings: No abnormal intraabdominal masses are seen. There is no dilatated small bowel or evidence of obstruct ion. There are bilateral calcifications overlying both kidneys. There are probably splenic calcifications . There are clips in the right upper quadrant from a cholecystectomy. There is moderate fecal materia l throughout the colon. XR/XR KUB [id number] Impression: Bilateral renal calcifications.
== END 2022-05-07 09:53 | disposition home or self-care (01) ==
LOC: RAD 09:55
PROVIDERS: PCP Nurse Practitioner; Visit Provider Urology
DX: N20.0 Calculus of kidney (principal)
CPT/HCPCS: 74018; 81003

== ENCOUNTER → 2022-08-20 09:37 | Outpatient (BNVA) | payer OTHER, SELFPAY | PROVIDERS: PCP Nurse Practitioner; Visit Provider Family Medicine | DX: M10.9 Gout, unspecified (principal); F41.9 Anxiety disorder, unspecified; F32.A Depression, unspecified; F32.89 Other specified depressive episodes; E11.40 Type 2 diabetes mellitus with diabetic neuropathy, unspecified; R11.0 Nausea; Z09 Encounter for follow-up examination after completed treatment for conditions other than malignant neoplasm; E11.69 Type 2 diabetes mellitus with other specified complication; E11.43 Type 2 diabetes mellitus with diabetic autonomic (poly)neuropathy; K31.84 Gastroparesis; E66.01 Morbid (severe) obesity due to excess calories; M25.561 Pain in right knee; M25.562 Pain in left knee; G89.29 Other chronic pain; M54.50 Low back pain, unspecified; J01.90 Acute sinusitis, unspecified; M16.11 Unilateral primary osteoarthritis, right hip; M21.611 Bunion of right foot; M21.612 Bunion of left foot; M21.41 Flat foot [pes planus] (acquired), right foot; M54.42 Lumbago with sciatica, left side; M25.512 Pain in left shoulder; M21.42 Flat foot [pes planus] (acquired), left foot | CPT/HCPCS: 80048; 80061; 84443 ==

== ENCOUNTER → 2022-09-02 15:43 | Outpatient (BNVA) | payer OTHER, SELFPAY | PROVIDERS: PCP Nurse Practitioner; Visit Provider Nurse Practitioner | DX: R30.0 Dysuria (principal); R11.0 Nausea; N39.0 Urinary tract infection, site not specified | CPT/HCPCS: 81000 ==

== ENCOUNTER → 2022-09-23 09:08 | Outpatient (BNVA) | payer OTHER, SELFPAY | PROVIDERS: PCP Nurse Practitioner; Visit Provider Podiatrist Foot & Ankle Surgery | DX: E11.621 Type 2 diabetes mellitus with foot ulcer (principal); L97.522 Non-pressure chronic ulcer of other part of left foot with fat layer exposed; E11.8 Type 2 diabetes mellitus with unspecified complications; M21.611 Bunion of right foot; M21.612 Bunion of left foot; M21.41 Flat foot [pes planus] (acquired), right foot; M21.42 Flat foot [pes planus] (acquired), left foot; M20.41 Other hammer toe(s) (acquired), right foot; M20.42 Other hammer toe(s) (acquired), left foot; Z79.84 Long term (current) use of oral hypoglycemic drugs | CPT/HCPCS: 73610; 73630 ==

== ENCOUNTER 2022-09-23 14:10 | Outpatient (CLI) | payer OTHER, SELFPAY | END 2022-09-23 14:11 | disposition home or self-care (01) | LOC: SPT 14:11 | PROVIDERS: PCP Nurse Practitioner; Visit Provider Podiatrist Foot & Ankle Surgery | DX: Z46.89 Encounter for fitting and adjustment of other specified devices (principal); E11.621 Type 2 diabetes mellitus with foot ulcer; L97.502 Non-pressure chronic ulcer of other part of unspecified foot with fat layer exposed | CPT/HCPCS: 97760; L4361 ==

== ENCOUNTER → 2022-10-19 10:23 | Outpatient (BNVA) | payer OTHER, SELFPAY | PROVIDERS: PCP Nurse Practitioner; Visit Provider Nurse Practitioner | DX: R30.0 Dysuria (principal); N39.0 Urinary tract infection, site not specified; M54.50 Low back pain, unspecified; G89.29 Other chronic pain; J01.90 Acute sinusitis, unspecified; B96.89 Other specified bacterial agents as the cause of diseases classified elsewhere | CPT/HCPCS: 81000; 87086 ==

== ENCOUNTER → 2022-10-28 09:56 | Outpatient (BNVA) | payer OTHER, SELFPAY | PROVIDERS: PCP Nurse Practitioner; Visit Provider Family Medicine | DX: E11.40 Type 2 diabetes mellitus with diabetic neuropathy, unspecified (principal); M25.561 Pain in right knee; M25.562 Pain in left knee; G89.29 Other chronic pain; E11.69 Type 2 diabetes mellitus with other specified complication; F43.21 Adjustment disorder with depressed mood; M17.0 Bilateral primary osteoarthritis of knee | CPT/HCPCS: 83036 ==

== ENCOUNTER → 2023-03-29 13:23 | Outpatient (BNVA) | payer OTHER, SELFPAY | PROVIDERS: PCP Nurse Practitioner; Visit Provider Nurse Practitioner | DX: M17.12 Unilateral primary osteoarthritis, left knee (principal); M25.562 Pain in left knee | CPT/HCPCS: 73562 ==

== ENCOUNTER → 2023-05-12 09:21 | Outpatient (BNVA) | payer OTHER, SELFPAY | PROVIDERS: PCP Nurse Practitioner; Visit Provider Nurse Practitioner Family | DX: H60.90 Unspecified otitis externa, unspecified ear (principal); M16.11 Unilateral primary osteoarthritis, right hip; M17.0 Bilateral primary osteoarthritis of knee; E55.9 Vitamin D deficiency, unspecified; E11.9 Type 2 diabetes mellitus without complications; E78.5 Hyperlipidemia, unspecified; M10.9 Gout, unspecified; L23.9 Allergic contact dermatitis, unspecified cause; H93.90 Unspecified disorder of ear, unspecified ear; E11.69 Type 2 diabetes mellitus with other specified complication | CPT/HCPCS: 80053; 80061; 81003; 82306; 83036; 84443; 84550; 85025 ==

== ENCOUNTER → 2023-09-23 09:10 | Outpatient (BNVA) | payer OTHER, SELFPAY | PROVIDERS: PCP Nurse Practitioner Family; Visit Provider Physician Assistant | DX: M17.0 Bilateral primary osteoarthritis of knee | CPT/HCPCS: 73560; 73565 ==

== ENCOUNTER 2023-12-27 09:19 | Outpatient (CLI) | payer OTHER, BC, MEDICAID, SELFPAY ==
--- NOTE | 2023-12-27 09:23 | MM_ITS ---
WS: [id number] VIEWS: MLO and CC views both breasts. 3D digital tomosynthesis is also included in this exam. Comparison made with prior exam of 02/06/2011, 01/08/2012, 01/13/2013, 01/17/2014, 01/22/2015, 01/02/2016, , 02/25/2018, 02/27/2019, 05/21/2021,. Findings: There was no sign of mass, architectural distortion or suspicious calcification in either breast. The re are scattered areas of fibroglandular density MM/[place] [id number] Impression: BI-RADS: 1-Negative FOLLOW-UP: 1 Year Follow-up This mammogram was also analyzed by the Computer Aided Detection System R2 Imag e Crosscutter.
== END 2023-12-27 09:20 | disposition home or self-care (01) ==
LOC: RAD 09:20
PROVIDERS: PCP Nurse Practitioner Family; Visit Provider Nurse Practitioner Family
DX: Z12.31 Encounter for screening mammogram for malignant neoplasm of breast (principal); R92.323 Mammographic fibroglandular density, bilateral breasts
CPT/HCPCS: 77063; 77067

== ENCOUNTER → 2024-01-27 16:42 | Outpatient (BNVA) | payer OTHER, BC, MEDICAID, SELFPAY | PROVIDERS: PCP Nurse Practitioner Family; Visit Provider Nurse Practitioner Family | DX: R30.0 Dysuria (principal); B37.31 Acute candidiasis of vulva and vagina; M54.16 Radiculopathy, lumbar region | CPT/HCPCS: 81003 ==

== ENCOUNTER → 2024-02-08 09:19 | Outpatient (BNVA) | payer OTHER, BC, MEDICAID, SELFPAY | PROVIDERS: PCP Nurse Practitioner Family; Visit Provider Nurse Practitioner Family | DX: Z13.6 Encounter for screening for cardiovascular disorders (principal); E83.42 Hypomagnesemia; F41.9 Anxiety disorder, unspecified; E78.5 Hyperlipidemia, unspecified; E11.69 Type 2 diabetes mellitus with other specified complication; E55.9 Vitamin D deficiency, unspecified; M10.9 Gout, unspecified | CPT/HCPCS: 80053; 80061; 81003; 82306; 82607; 82728; 83036; 83550; 83735; 84443; 84550; 85025 ==

== ENCOUNTER 2024-05-18 06:27 | Day surgery (SDC) | payer BC, MEDICAID, SELFPAY ==
--- NOTE | 2024-05-18 05:53 | P.HPUD_ITS ---
Surgery/Procedure H&P Update DATE OF PROCEDURE: May 18, 2024 DATE H&P PERFORMED: 04/26/24 H&P UPDATE INFORMATION: I have reviewed H&P completed within last 30 days, I have examined patient prior to procedure, No changes to prior documentation and H&P is in [facility] EMR on date indicated PLANNED PROCEDURE: Operation Date: 05/18/24 07:40 Proposed Procedures p EGD Dilation W/ Balloon 17750, 75676, G0105, R13.10 K63.5, K21.9(Not Applicable) - Rigo Jewell MD s Colonoscopy(Not Applicable) - Rigo Jewell MD
[2024-05-18 06:41] VITALS: BP 130/74; PULSE 71; RESP 18; TEMP 36.1; O2SAT 96; BMI 38.9
[2024-05-18] MEDS: sodium chloride 0.9% 1,000 ML 30 ML IV (06:49)
[2024-05-18 07:12] LABS: Glucose Point of Care 128 mg/dL (70-110)
--- NOTE | 2024-05-18 07:58 | P.ANESASSM_ITS ---
Pre-Anesthetic Assessment Height/Weight: Height 5 ft 7 in Weight 249 lb Temp Pulse Resp BP Pulse Ox O2 Del Method 97.0 F L 71 18 130/74 96 Room Air 05/18/24 06:41 05/18/24 06:41 05/18/24 06:41 05/18/24 06:41 05/18/24 06:41 05/18/24 06:41 Preop Diagnosis: Screening colonoscopy Operation Date: 05/18/24 07:40 Proposed Procedures p EGD Dilation W/ Balloon 22599, 75134, G0105, R13.10 K63.5, K21.9(Not Applicable) - Rigo Jewell MD s Colonoscopy(Not Applicable) - Rigo Jewell MD Was Beta Stacia taken within 24 hours: N/A Was Clonidine taken within 24 hours: N/A Last intake: Intake Last Liquid Date 05/17/24 Last Liquid Time 21:00 Last Solid Date 05/16/24 Last Solid Time 18:00 Social No alcohol and No tobacco Exam alert, oriented x 3, clear to auscultation bilaterally and regular rate & rhythm Airway Submandibular: within normal limits Cervical ROM: within normal limits Mallampati: Class III Dentition: full Anesthetic Plan ASA status: 3 Anesthesia: MAC Other: No prior issues with anesthesia Completed bowel prep History of type 2 diabetes on semaglutide. Last taken 05/06/2024. Also takes insulin. Preop BS 128 Hypertension on hydrochlorothiazide Hypothyroidism on Synthroid METs greater than 4 Plan for MAC anesthetic Medications/Allergies Home Medications Medication Instructions Recorded Confirmed Last Taken Type diabetic shoes #2 ea 08/20/22 05/11/24 Unknown Rx cyanocobalamin (vitamin B-12) 1,000 mcg PO DAILY 90 days #90 caps 12/03/22 05/16/24 05/17/24 Rx 1,000 mcg capsule Spectrum AFO to left #1 ea 01/06/23 05/11/24 Unknown Rx Diabetic Shoes with 3 Insoles #1 ea 04/14/23 05/11/24 Unknown Rx blood sugar diagnostic #100 ea 10/15/23 05/11/24 Unknown Rx lancets (Accu-Chek Softclix #200 ea 10/15/23 05/11/24 Unknown Rx Lancets) levocetirizine 5 mg tablet 5 mg PO DAILY PRN allergy symptoms 12/21/23 05/16/24 05/15/24 Rx 90 days #90 tabs Diabetic shoes #1 ea 12/27/23 05/11/24 Unknown Rx pseudoephedrine HCl 120 mg 120 mg PO BID PRN nasal congestion 02/10/24 05/18/24 1 Week Ago Rx tablet,extended release (Sudafed 30 days #60 tabs ~05/11/24 12 Hour) albuterol sulfate 90 mcg/actuation 1 puff inhalation QID PRN 03/22/24 05/18/24 05/14/24 Rx aerosol inhaler (Ventolin HFA) shortness of breath or wheezing #8.5 grams allopurinol 300 mg tablet 300 mg PO DAILY 05/16/24 05/16/24 05/17/24 History empagliflozin 25 mg tablet 25 mg PO DAILY 05/16/24 05/16/24 05/16/24 History (Jardiance) ergocalciferol (vitamin D2) 1,250 1,250 mcg PO .WEEKLY 05/16/24 05/16/24 05/12/24 History mcg (50,000 unit) capsule famotidine 40 mg tablet 40 mg PO BID 05/16/24 05/16/24 05/17/24 History ferrous gluconate 324 mg (38 mg 324 mg PO DAILY 05/16/24 05/16/24 05/17/24 History iron) tablet gabapentin 600 mg tablet 900 mg PO BID 05/16/24 05/16/24 05/17/24 History guaifenesin 600 mg tablet, 600 mg PO BID PRN Congestion 05/16/24 05/18/24 1 Week Ago History extended release 12 hr (Mucinex) ~05/11/24 hydrochlorothiazide 25 mg tablet 25 mg PO DAILY 05/16/24 05/16/24 05/18/24 05:00 History levothyroxine 25 mcg tablet 12.5 mcg PO DAILY 05/16/24 05/16/24 05/17/24 History meloxicam 15 mg tablet 15 mg PO DAILY 05/16/24 05/16/24 05/17/24 History metformin 500 mg tablet,extended 1,000 mg PO BID 05/16/24 05/16/24 05/16/24 History release 24 hr montelukast 10 mg tablet 10 mg PO DAILY 11/06/2705/16/24 05/17/24 History paroxetine HCl 20 mg tablet 20 mg PO DAILY 05/16/24 05/16/24 05/17/24 History potassium citrate 10 mEq (1,080 10 meq PO TID 05/16/24 05/16/24 05/17/24 History mg) tablet,extended release vitamin with calcium 1 tab PO DAILY 05/16/24 05/16/24 05/17/24 History no.72-iron 27 mg-folic acid 1 mg tablet (WesTab Plus) rosuvastatin 20 mg tablet 20 mg PO DAILY 05/16/24 05/16/24 05/17/24 History semaglutide 1 mg/dose (4 mg/3 mL) 1 mg SUBCUT .WEEKLY 05/16/24 05/16/24 05/06/24 History subcutaneous pen injector (Ozempic) trazodone 150 mg tablet 150 mg PO DAILY 05/16/24 05/16/24 05/17/24 History Allergies Allergy/AdvReac Type Severity Reaction Status Date / Time doxycycline Allergy Intermediate ADR-Itching Verified 05/16/24 09:03 hydromorphone [From Dilaudid] Allergy Intermediate ADR-Halluci Verified 05/16/24 09:03 nating promethazine [From Phenergan] Allergy Intermediate ADR-Halluci Verified 05/16/24 09:03 nating penicillin G Allergy Mild ADR-Itching Verified 05/16/24 09:03 Sulfa (Sulfonamide Allergy Mild ADR-Itching Verified 05/16/24 09:03 Antibiotics) ondansetron [From Zofran] Allergy ADR-Headach Verified 05/16/24 09:03 e cephalexin [From Keflex] AdvReac Intermediate ADR-Itching Verified 05/16/24 09:03 Current Medications Generic Name Dose Route Start Last Admin Trade Name Freq PRN Reason Stop Dose Admin Sodium Chloride 1,000 mls @ 30 mls/hr 05/18/24 06:30 05/18/24 06:49 Sodium Chloride 0.9% IV 30 mls/hr .Q24H KAREN Administration PFSH Anesthesia Medical History Colon polyps Dysphagia Essential hypertension Iron deficiency Hypomagnesemia Low back pain Lumbar back pain with radiculopathy affecting lower extremity Seasonal allergies Upper respiratory infection Physical exam, pre-employment Otitis media, right Allergic dermatitis Grief Diabetic foot ulcer Chronic low back pain Chronic pain of both knees Diabetic gastroparesis Diabetic neuropathy Osteoarthritis of left knee Osteoarthritis of right knee Bilateral primary osteoarthritis of knee Lumbar radiculopathy, acute Hip pain Bunion of great toe Type 2 diabetes mellitus Encounter for weight loss counseling Blood in both ear canals Otitis externa Nausea Hot flashes due to menopause Urgency incontinence Urolithiasis Left shoulder pain Sinusitis Anxiety and depression Multiple persistent symptoms after COVID-19 Anxiety Multiple joint pain Cough Acute bacterial sinusitis Hypertension screen Vitamin D deficiency Fatigue Renal cyst Chronic sinusitis Environmental and seasonal allergies Morbidly obese KARLEE (obstructive sleep apnea) Kidney lesion, [place], right COVID-19 Encounter for screening laboratory testing for COVID-19 virus Chronic sinusitis Hematuria Common migraine with intractable migraine Insomnia Accelerated hypertension Plantar fasciitis, left Bone spur of foot Onychocryptosis Cellulitis of left toe Female cystocele Gout Patient has history of gout and takes Allopurinol for control of symptoms. Chronic headache Patient has history of chronic headaches. Previous MRI of head were normal. COPD (chronic obstructive pulmonary disease) Gastroesophageal reflux Diabetes mellitus Hyperlipidemia Depression Kidney stones Surgical History History of tubal ligation History of umbilical hernia repair History of cholecystectomy History of hysterectomy History of Family History Mother Hypertension Diabetes Family history of thyroid problem Father , at age 70 Aneurysm Social History Smoking and tobacco/nicotine status: never used tobacco/nicotine Second hand smoke exposure: No Alcohol intake: current Alcohol intake frequency: holidays/special occasions only Substance/Drug Use: never Adopted: No Caregiver/support person: No Lives independently: Yes Household members: spouse Housing: House Marital status: Current occupational status: employed Pets and animals: No Do you think of yourself as: Straight/Heterosexual Current gender identity: Female Data Anesthesia Cardiac Studies: No Data to Display
[2024-05-18 08:16] VITALS: BP 125/76; PULSE 62; RESP 14; TEMP 36.1; O2SAT 100
[2024-05-18 08:34] VITALS: BP 100/71; PULSE 59; RESP 18; O2SAT 99
--- NOTE | 2024-05-18 08:50 | ANE.PACU2 ---
Inpatient post-anesthesia follow up: Airway intact: Yes Vital signs: Temperature 97 F Pulse Rate 59 Respiratory Rate 18 Blood Pressure 100/71 Pulse Oximetry 99 Oxygen Delivery Me thod Room Air Oxygen Flow Rate Fraction of Inspir ed Oxygen Hydration adequate: Yes Nausea and vomiting: No Pain level: 1 Mental status: Baseline
== END 2024-05-18 08:50 | disposition home or self-care (01) ==
PROVIDERS: PCP Nurse Practitioner Family; Visit Provider Surgery
PROC: 0DJD8ZZ Inspection of Lower Intestinal Tract, Via Natural or Artificial Opening Endoscopic (ICD-10-PCS; CPT 45378; 2024-05-18 07:40)
DX: Z12.11 Encounter for screening for malignant neoplasm of colon (principal); Z86.0100 Personal history of colon polyps, unspecified; K21.00 Gastro-esophageal reflux disease with esophagitis, without bleeding; D12.0 Benign neoplasm of cecum; D12.5 Benign neoplasm of sigmoid colon; D12.3 Benign neoplasm of transverse colon; K44.9 Diaphragmatic hernia without obstruction or gangrene; K29.70 Gastritis, unspecified, without bleeding; E11.40 Type 2 diabetes mellitus with diabetic neuropathy, unspecified; E66.01 Morbid (severe) obesity due to excess calories; Z68.39 Body mass index [BMI] 39.0-39.9, adult; G47.33 Obstructive sleep apnea (adult) (pediatric); Z86.16 Personal history of COVID-19; J44.9 Chronic obstructive pulmonary disease, unspecified; E78.5 Hyperlipidemia, unspecified; F32.A Depression, unspecified; I10 Essential (primary) hypertension; E03.9 Hypothyroidism, unspecified
CPT/HCPCS: 36416; 43239; 45380; 45385; 82962; 88305; J2704; J7030

== ENCOUNTER → 2024-06-27 08:31 | Outpatient (BNVA) | payer BC, MEDICAID, SELFPAY | PROVIDERS: PCP Nurse Practitioner Family; Referring Provider Nurse Practitioner Family; Visit Provider Orthopaedic Surgery | DX: M54.9 Dorsalgia, unspecified (principal) | CPT/HCPCS: 72110 ==

== ENCOUNTER 2024-08-25 07:07 | Outpatient (CLI) | payer BC, MEDICAID, SELFPAY ==
--- NOTE | 2024-08-25 07:15 | MR_ITS ---
WS: [id number] MRI LUMBAR SPINE NONCONTRAST TECHNIQUE: Sagittal T1, T2 and STIR imaging. Axial T1 and T2 imaging. CLINICAL INFORMATION: Foot drop COMPARISON: None. FINDINGS: Mild lumbar curve. No acute compression. No high-grade central canal stenosis. Tarlov cysts in the sacrum. L1-L2: Mild facet arthropathy. Spinal canal and foramen are patent. L2-L3: Mild annular bulging. Mild facet arthropathy. Spinal canal and foramen are patent. L3-L4: Mild annular bulging. Slight narrowing LEFT subarticular recess. Small LEFT foraminal protrusion with mild LEFT foraminal narrowing. RIGHT foramen is patent. Moderate facet arthropathy. L4-L5: Mild annular bulging. Narrowing of the LEFT subarticular recess. Moderate facet arthropathy with small facet effusions. Mild RIGHT greater than LEFT foraminal narrowing. L5-S1: Mild annular bulging. Slight narrowing the LEFT subarticular recess. Moderate facet arthropathy. LEFT foraminal disc osteophyte protrusion with slight impingement on the exiting L5 nerve root with moderate LEFT foraminal narrowing. Visualized pelvic bony structures: Normal. Paravertebral soft tissues: Normal. Hepatomegaly and splenomegaly visualized on the localizer imaging. Partially visualized RIGHT renal cyst measuring 3.6 cm. MR/MR lumbar spine wo con* [id number] IMPRESSION: 1. Mild lumbar curve. No acute compression. 2. Disc bulging L5-S1 with narrowing LEFT subarticular recess. Moderate LEFT L 5-S1 foraminal narrowing impinges the exiting LEFT L5 nerve root. Correlation L EFT L5 nerve root symptoms. 3. Moderate facet arthropathy worse at L4-5 and L5-S1 with small facet effusio ns at L4-5. 4. Partially visualized hepatomegaly and splenomegaly. This could be further e valuated with CT abdomen pelvis if indicated.
== END 2024-08-25 07:08 | disposition home or self-care (01) ==
PROVIDERS: PCP Nurse Practitioner Family; Visit Provider Orthopaedic Surgery
DX: M21.379 Foot drop, unspecified foot (principal); M43.8X6 Other specified deforming dorsopathies, lumbar region; M51.379 Other intervertebral disc degeneration, lumbosacral region without mention of lumbar back pain or lower extremity pain; M48.07 Spinal stenosis, lumbosacral region; R93.7 Abnormal findings on diagnostic imaging of other parts of musculoskeletal system; M47.896 Other spondylosis, lumbar region; M47.897 Other spondylosis, lumbosacral region; R16.0 Hepatomegaly, not elsewhere classified; R16.1 Splenomegaly, not elsewhere classified; G96.191 Perineural cyst; M51.369 Other intervertebral disc degeneration, lumbar region without mention of lumbar back pain or lower extremity pain; M48.061 Spinal stenosis, lumbar region without neurogenic claudication; M51.26 Other intervertebral disc displacement, lumbar region; M25.78 Osteophyte, vertebrae; M51.27 Other intervertebral disc displacement, lumbosacral region; N28.1 Cyst of kidney, acquired
CPT/HCPCS: 72148

== ENCOUNTER → 2024-09-11 09:20 | Outpatient (BNVA) | payer BC, MEDICAID, SELFPAY | PROVIDERS: PCP Nurse Practitioner Family; Visit Provider Podiatrist Foot & Ankle Surgery | DX: M21.611 Bunion of right foot (principal); M21.612 Bunion of left foot; M20.41 Other hammer toe(s) (acquired), right foot; M20.42 Other hammer toe(s) (acquired), left foot; E11.69 Type 2 diabetes mellitus with other specified complication; M21.41 Flat foot [pes planus] (acquired), right foot; M21.42 Flat foot [pes planus] (acquired), left foot; Z79.84 Long term (current) use of oral hypoglycemic drugs; M76.822 Posterior tibial tendinitis, left leg; M54.10 Radiculopathy, site unspecified; M21.371 Foot drop, right foot; M21.372 Foot drop, left foot | CPT/HCPCS: 73630 ==

== ENCOUNTER 2024-10-13 05:45 | Day surgery (SDC) | payer OTHER, SELFPAY ==
[2024-10-13] VITALS (11 sets, daily range): BP systolic 129–165; BP diastolic 77–98; PULSE 53–101; RESP 10–21; TEMP 36.2–36.3; O2SAT 92–98; BMI 38.3
[2024-10-13] MEDS: gabapentin 300 mg Capsule PO (06:29)
[2024-10-13] MEDS: CELEcoxib 200 mg Capsule 400 MG PO (06:30)
[2024-10-13] MEDS: sodium chloride 0.9% 1,000 ML 30 ML IV (06:30)
--- NOTE | 2024-10-13 06:34 | W.PM.OPSUD ---
Surgery/Procedure H&P Update DATE OF PROCEDURE: October 13, 2024 DATE H&P PERFORMED: 10/02/24 H&P UPDATE INFORMATION: I have reviewed H&P completed within last 30 days, I have examined patient prior to procedure, No changes to prior documentation and Risks and benefits of the procedure reviewed PREOP DIAGNOSIS: Left second hammertoe, bunion and gastrocnemius equinus. PLANNED PROCEDURE: Operation Date: 10/13/24 07:00 Proposed Procedures p Bunionectomy Bebeto(Left) - Felice Germain DPM s Nash Bunionectomy(Left) - JAE Vu Hammertoe Correction left second(Left) - JAE Vu Gastrocnemius Recession(Left) - JAE Vu Peroneal Nerve Release(Left) - Felice Germain DPM
[2024-10-13 06:35] LABS: Glucose Point of Care 110 mg/dL (70-110)
[2024-10-13] MEDS: clindamycin 600 MG/50 ML PREMIX 100 MG IV (07:00)
--- NOTE | 2024-10-13 07:15 | ANES.PREANE2 ---
Pre-Anesthetic Assessment Height/Weight: Height 1.7 m Weight 111.13 kg Temp Pulse Resp BP Pulse Ox O2 Del Method 97.4 F L 63 18 129/98 95 Room Air 10/13/24 06:15 10/13/24 06:15 10/13/24 06:15 10/13/24 06:15 10/13/24 06:15 10/13/24 06:15 Preop Diagnosis: Left second hammertoe, bunion and gastrocnemius equinus. Operation Date: 10/13/24 07:00 Proposed Procedures p Bunionectomy Bebeto(Left) - JAE Vu Nash Bunionectomy(Left) - JAE Vu Hammertoe Correction left second(Left) - JAE Vu Gastrocnemius Recession(Left) - JAE Vu Peroneal Nerve Release(Left) - Felice Germain DPM Last intake: Intake Last Liquid Date 10/12/24 Last Liquid Time 21:00 Last Solid Date 10/12/24 Last Solid Time 20:00 Social No alcohol and No tobacco Exam alert, oriented x 3 and clear to auscultation bilaterally (RRR no M/G/R's ) Airway Submandibular: within normal limits Cervical ROM: within normal limits Mallampati: Class II Pulmonary Chronic Obstructive Pulmonary Disease CV/HEM Hypertension GI Gastroesophageal Reflux Disease Metabolic Diabetes Mellitus, Hyperlipidemia, Morbid Obesity and Thyroid Disease Musc/skel Lower Back Pain and Osteoarthritis/DJD Neuropsych Depression Anesthetic Plan ASA status: 3 Anesthesia: General (with Popliteal Block) Medications/Allergies Home Medications ?Medication ?Instructions ?Recorded ?Confirmed ?Last Taken ?Type cyanocobalamin (vitamin B-12) 1,000 mcg PO DAILY 90 days #90 caps 12/03/22 10/12/24 10/11/24 Rx 1,000 mcg capsule Spectrum AFO to left #1 ea 01/06/23 10/02/24 Unknown Rx blood sugar diagnostic #100 ea 10/15/23 10/02/24 Unknown Rx lancets (Accu-Chek Softclix #200 ea 10/15/23 10/02/24 Unknown Rx Lancets) Diabetic shoes #1 ea 12/27/23 10/02/24 Unknown Rx pseudoephedrine HCl 120 mg 120 mg PO BID PRN nasal congestion 02/10/24 10/13/24 2 Weeks Ago Rx tablet,extended release (Sudafed 30 days #60 tabs ~09/29/24 12 Hour) albuterol sulfate 90 mcg/actuation 1 puff inhalation QID PRN 03/22/24 10/13/24 1 Week Ago Rx aerosol inhaler (Ventolin HFA) shortness of breath or wheezing ~10/06/24 #8.5 grams famotidine 40 mg tablet 40 mg PO BID 05/16/24 10/12/24 10/12/24 History gabapentin 600 mg tablet 900 mg PO BID 05/16/24 10/12/24 10/12/24 History guaifenesin 600 mg tablet, 600 mg PO BID PRN Congestion 05/16/24 10/13/24 2 Weeks Ago History extended release 12 hr (Mucinex) ~09/29/24 levothyroxine 25 mcg tablet 12.5 mcg PO DAILY 05/16/24 10/12/24 10/12/24 History montelukast 10 mg tablet 10 mg PO DAILY 05/16/24 10/12/24 10/12/24 History paroxetine HCl 20 mg tablet 20 mg PO DAILY 05/16/24 10/12/24 10/12/24 History rosuvastatin 20 mg tablet 20 mg PO DAILY 05/16/24 10/12/24 10/12/24 History Left AFO boot #1 ea 06/27/24 10/02/24 Unknown Rx metformin 500 mg tablet,extended See Rx Instructions .Route 07/04/24 10/12/24 10/11/24 Rx release 24 hr .COMPLEX #360 tabs allopurinol 300 mg tablet See Rx Instructions .Route 07/11/24 10/12/24 10/12/24 Rx .COMPLEX #90 tabs trazodone 150 mg tablet See Rx Instructions .Route 07/17/24 10/12/24 10/12/24 Rx .COMPLEX #90 tabs ergocalciferol (vitamin D2) 1,250 1,250 mcg PO .WEEKLY #12 caps 07/20/24 10/12/24 10/11/24 Rx mcg (50,000 unit) capsule fluconazole 150 mg tablet 150 mg PO Q3D 2 doses #2 tabs 08/08/24 10/12/24 10/12/24 Rx semaglutide 1 mg/dose (4 mg/3 mL) See Rx Instructions .Route 08/22/24 10/12/24 09/30/24 Rx subcutaneous pen injector (Ozempic) .COMPLEX #12 mL potassium citrate 10 mEq (1,080 See Rx Instructions .Route 09/04/24 10/12/24 10/11/24 Rx mg) tablet,extended release .COMPLEX #90 tabs meloxicam 15 mg tablet 15 mg PO DAILY #30 tabs 09/05/24 10/12/24 10/12/24 Rx pantoprazole 40 mg tablet,delayed 40 mg PO QDAY 30 days #30 tabs 09/05/24 10/12/24 10/12/24 Rx release (Protonix) ferrous gluconate 324 mg (38 mg See Rx Instructions .Route 09/07/24 10/12/24 10/11/24 Rx iron) tablet .COMPLEX #90 tabs levocetirizine 5 mg tablet See Rx Instructions .Route 09/12/24 10/12/24 10/12/24 Rx .COMPLEX #90 tabs hydrochlorothiazide 25 mg tablet See Rx Instructions .Route 10/02/24 10/12/24 10/12/24 Rx .COMPLEX #90 tabs vitamin with calcium See Rx Instructions .Route 10/02/24 10/12/24 10/11/24 Rx no.72-iron 27 mg-folic acid 1 mg .COMPLEX #30 tabs tablet (WesTab Plus) empagliflozin 25 mg tablet 25 mg PO DAILY #90 tabs 10/03/24 10/12/24 10/11/24 Rx (Jardiance) hydrocodone 10 mg-acetaminophen 1 tab PO Q6H PRN pain 7 days #28 10/13/24 Unknown Rx 325 mg tablet tabs Allergies Allergy/AdvReac Type Severity Reaction Status Date / Time doxycycline Allergy Intermediate ADR-Itching Verified 10/02/24 08:45 hydromorphone (From Dilaudid) Allergy Intermediate ADR-Halluci Verified 10/02/24 08:45 nating promethazine (From Phenergan) Allergy Intermediate ADR-Halluci Verified 10/02/24 08:45 nating penicillin G Allergy Mild ADR-Itching Verified 10/02/24 08:45 Sulfa (Sulfonamide Allergy Mild ADR-Itching Verified 10/02/24 08:45 Antibiotics) ondansetron (From Zofran) Allergy ADR-Headach Verified 10/02/24 08:45 e cephalexin (From Keflex) AdvReac Intermediate ADR-Itching Verified 10/02/24 08:45 Current Medications Generic Name Dose Route Start Last Admin Trade Name Freq PRN Reason Stop Dose Admin Sodium Chloride 1,000 mls @ 30 mls/hr 10/13/24 06:15 10/13/24 06:30 Sodium Chloride 0.9% IV 10/14/24 06:14 30 mls/hr .Q24H KAREN Administration PFSH Anesthesia Medical History Insomnia Chronic sinusitis DDD (degenerative disc disease), lumbar Multiple allergies Colon polyps Dysphagia Essential hypertension Iron deficiency Hypomagnesemia Low back pain Lumbar back pain with radiculopathy affecting lower extremity Seasonal allergies Upper respiratory infection Physical exam, pre-employment Otitis media, right Allergic dermatitis Grief Diabetic foot ulcer Chronic low back pain Chronic pain of both knees Diabetic gastroparesis Diabetic neuropathy Osteoarthritis of left knee Osteoarthritis of right knee Bilateral primary osteoarthritis of knee Lumbar radiculopathy, acute Hip pain Bunion of great toe Type 2 diabetes mellitus Encounter for weight loss counseling Blood in both ear canals Otitis externa Nausea Hot flashes due to menopause Urgency incontinence Urolithiasis Left shoulder pain Sinusitis Anxiety and depression Multiple persistent symptoms after COVID-19 Anxiety Multiple joint pain Cough Acute bacterial sinusitis Hypertension screen Vitamin D deficiency Fatigue Renal cyst Chronic sinusitis Environmental and seasonal allergies Morbidly obese KARLEE (obstructive sleep apnea) Kidney lesion, [place], right COVID-19 Encounter for screening laboratory testing for COVID-19 virus Hematuria Common migraine with intractable migraine Accelerated hypertension Plantar fasciitis, left Bone spur of foot Onychocryptosis Cellulitis of left toe Female cystocele Gout Patient has history of gout and takes Allopurinol for control of symptoms. Chronic headache Patient has history of chronic headaches. Previous MRI of head were normal. COPD (chronic obstructive pulmonary disease) Gastroesophageal reflux Diabetes mellitus Hyperlipidemia Depression Kidney stones Surgical History History of tubal ligation History of umbilical hernia repair History of cholecystectomy History of hysterectomy History of Family History Mother Hypertension Diabetes Family history of thyroid problem Father , at age 70 Aneurysm Social History Smoking and tobacco/nicotine status: never used tobacco/nicotine Second hand smoke exposure: No Alcohol intake: current Alcohol intake frequency: holidays/special occasions only Substance/Drug Use: never Adopted: No Caregiver/support person: No Lives independently: Yes Household members: spouse Housing: House Marital status: Current occupational status: employed Pets and animals: No Do you think of yourself as: Straight/Heterosexual Current gender identity: Female Data Anesthesia Cardiac Studies: No Data to Display
[2024-10-13] MEDS: tranexamic acid 1,000 mg/10mL SDV 1000 MG IV (07:29)
--- NOTE | 2024-10-13 09:00 | P.BOP_ITS ---
Date of Procedure: 09/17/23 Surgeon: Felice Germain DPM Synthetic Staple Extruder(s): April Ariza Procedure(s) performed: Left Bebeto bunionectomy, left Nash osteotomy, left flexor tendon transfer, left hammertoe correction, left gastrocnemius recession, left common peroneal nerve decompression. Findings of the procedure(s): Nerve entrapment at common peroneal nerve, foot contracture, left. Bunion and hammertoe left. Estimated blood loss: 5 mL Specimen(s) removed: No specimens Post-operative diagnosis: Bunion, hallux valgus, tendon contracture, hammertoe of the second digit, gastrocnemius equinus, common peroneal entrapment all left lower extremity.
--- NOTE | 2024-10-13 09:02 | PM.OP ---
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 CPT code 19430 2) left second hammertoe correction. CPT code 52812 3) tendon transfer left foot. CPT code 83589 4) left gastrocnemius recession. CPT code 83492 5) left common peroneal nerve release. CPT code 54737 Implants: 3.0 millimeter screw 2.0 millimeter screw Hammer tube 3.5 mm x 10 degree angle 3-0 Vicryl, 2-0 Vicryl, 4-0 Vicryl, 4-0 nylon Specimens removed/disposition: None Pathology: None Surgeon: Felice Germain DPM Orthotic And Prosthetic Technician: Annita Chen Estimated blood loss: 5 120 IV fluids: See intraoperative documentation Urine output: None Complications: No complications Brief History: 58 year old diabetic female patient presenting to clinic for pre-op and update H&P for surgery on left foot. Patient reports she will be having a bunionectomy to left on Sunday October 06, 2024. She states that the last day she took her Ozempic was Monday September 30, 2024. The patient is a 58-year-old female presenting for a preoperative evaluation pertaining to the planned surgical correction of hammer toe and peroneal nerve release. She has a background of type 2 diabetes, currently managed with Ozempic and metformin. She complains of numbness tingling and radiating pain that her left leg at the common peroneal nerve distribution this was confirmed to have concern for entrapment with nerve conduction studies. She has a contracture of her left foot, endorses hammertoe deformity at the left second toe, endorses bunion pain that has failed to be alleviated with padding and spacing, activity modifications, extra-depth diabetic shoes with extra toebox and orthotics as well as anti-inflammatories. She complains of tightness in the calf muscle, left. Patient denies any subjective nausea, vomiting, fever, chills, shortness of breath or chest pain. (1) Type 2 diabetes mellitus: Qualifiers: Diabetes mellitus complication status: with other specified complication Diabetes mellitus longterm insulin use: unspecified manager terminal insulin use status Qualified Code(s): E11.69 - Type 2 diabetes mellitus with other specified complication Assessment & Plan: -Stressed importance of glycemic control, patient encouraged to keep follow-up appointments with primary care provider. -Advised patient to avoid walking barefoot. Patient has to pay close attention to style and fit of shoes. -Patient to perform daily foot exams visualizing for new sores, calluses or skin changes. Patient educated on etiology of neuropathy and lack of sensation which can lead to calluses, breakdown of skin and ulcers that may lead to infection and amputation risk. -Stressed importance of daily foot hygiene. Warm (not hot) bathing of feet, complete drying and thorough inspection for changes in the condition of the skin. -Emphasized the importance of cleaning, nonrestrictive socks/stockings and well fitting shoes. -Patient instructed to contact our clinic immediately for follow-up of any foot injuries or new wounds. Patient advised to be nonweightbearing whenever there are lesions of the foot to prevent cellular damage until follow-up has been completed. Patient expresses a good level of understanding. (2) Foot pain: Qualifiers: Laterality: left Qualified Code(s): M79.672 - Pain in left foot (3) Radiculopathy: Qualifiers: Spinal region: unspecified Qualified Code(s): M54.10 - Radiculopathy, site unspecified (4) Foot drop, left: (5) Axonal neuropathy: (6) Hammertoe of second toe of left foot: Assessment & Plan: Discussed risks and benefits of proximal interphalange joint arthrodesis of left second hammertoe (7) Nerve entrapment syndrome of left lower extremity: Assessment & Plan: Surgical consultation for nerve decompression of left leg at common peroneal nerve. Referencing her visit 09/05/2024 with orthopedics note alluded to electromyography and nerve conduction studies showing peroneal nerve impingement. Patient has symptoms of numbness and shooting pain as well as foot drop to the left consistent with peroneal nerve entrapment. (8) Contracture, left foot: Assessment & Plan: Planning on tendon transfer left foot flexor to dorsal left second ray. (9) Gastrocnemius equinus of left lower extremity: Assessment & Plan: Discussed utility of gastrocnemius equinus being addressed with gastroc recession to increase dorsiflexion and offload the forefoot. (10) Bunion, left: Assessment & Plan: Hallux noted to be an abducted position. Tibial sesamoid position: 6. 1 ? 2 IM angle is 16 degrees Hallux abductus angle is 40 degrees Metatarsal adductus angle is 2 degrees Sieberg index of 2 mm (11) Hallux valgus (acquired), left foot: Plan I reviewed at length with the patient, the risks, potential complications, benefits, alternatives, expectations, and typical outcomes associated with the surgery. The risks and potential complications were explained in detail, including but not limited to infection, wound dehiscence or soft tissue complications, bleeding and hematoma, chronic edema, neuritis or nerve damage producing numbness or chronic pain, CRPS, failure to relieve pain or worsening pain, thick / painful / unsightly scar, limited motion / stiffness, malposition, delayed union, malunion, or nonunion, fracture, reaction to implants, anesthetic complications, venous thromboembolism, and deformity recurrence. I discussed the notion of no regrets with the patient as it pertains to complications and outcomes. The patient seemed to understand the nature of the proposed care and required convalescence. They asked appropriate questions, answered to their satisfaction. They are aware no guarantees can be made as to a satisfactory outcome and they understand there may be other possible unforeseen complications or outcomes not listed here that will be treated accordingly if they arise. There were no written or implied guarantees given to the patient. They gave informed consent to proceed. Planning on outpatient surgery October 13, 2024 consisting of Bebeto/Nash bunionectomy, second hammertoe correction, flexor tendon transfer, gastrocnemius release and, peroneal nerve release all left lower extremity. Procedure: Under mild sedation the patient was brought to the operating room and placed on the operating room table in supine position. A timeout was performed. Anesthesia was then administered by the anesthesia service. Left popliteal block was performed preoperatively per anesthesia. Well-padded pneumatic tourniquet was applied to the left thigh. The left lower extremity was then scrubbed, prepped and draped utilizing normal aseptic technique. Left lower extremity was then exanguinated with an Esmarch bandage and the tourniquet inflated to 250 mmHg. Attention was directed to the left foot where a bunion and hallux valgus deformity was appreciated. #15 blade utilized to perform a skin incision in a curvilinear fashion at the dorsal medial aspect of the left first metatarsophalangeal joint medial and parallel to the extensor hallucis longus tendon with dissection carried down through subcutaneous tissue to the layer periosteum and joint capsule utilizing a combination of blunt and sharp technique. Care was taken to retract and preserve neurovascular and tendinous structures. All bleeders were ligated and cauterized as necessary. Capsular incision was performed in the head of the left first metatarsal eminence medially was transected with a sagittal saw all rough edges were then smoothed with a hand rasp. A chevron osteotomy with apex oriented distally was then performed and the head of the first metatarsal was shifted laterally in a more anatomically correct position and fixated utilizing a Knickerbocker headed screw this was 3 mm with excellent bony apposition and compression noted fixation was dorsal proximal to plantar distal and the screw did not violate the first metatarsophalangeal joint this was confirmed with direct visualization of the joint surface as well as with intraoperative mini C arm in the AP oblique and lateral view. Attention was then directed to the base of the left hallux where a residual hallux valgus deformity was corrected with a Nash osteotomy performed medial to lateral maintaining a lateral hinge and fixated with a Knickerbocker 2 mm headless screw with excellent bony apposition and compression noted in a rectus first ray was then appreciated. The incision was irrigated with copious amounts of sterile skin solution. Confirmed no violation of the first metatarsophalangeal joint with AP and oblique lateral views of intraoperative C arm. Capsular structure reapproximated 3-0 Vicryl subcutaneous tissue with 4-0 Vicryl and skin with 4-0 nylon. Attention was directed to the left forefoot where deep tendon contracture was appreciated with sagittal plane dominant deformity of the ri left ght second toe as well as arthrosis of the right second proximal interphalangeal joint. A linear longitudinal incision made over the dorsal aspect of the left left second toe through skin with a #15 blade with dissection carried down to extensor tendon which was transected at the level of the proximal interphalangeal joint and dissected proximally and temporary by a mosquito hemostat. The head and base of the right second proximal interphalangeal joint were resected with a oscillating saw pad about the field. Sharp dissection carried down to the flexor digitorum longus tendon which was transected at its most distal margin and split longitudinally and then transferred both medially laterally and hemisections fashion and transferred to the dorsal aspect of the left second toe which was then held in rectus and tendon was reapproximated utilizing 4-0 Vicryl helping to reduce the sagittal plane deformity at the right second toe and to help prevent cock-up toe deformity. The incision was irrigated with saline solution. Attention was directed at arthrodesis site of the proximal interphalangeal joint left second toe where subchondral drilling was performed at the proximal phalanx head and intermediate phalanx base. Knickerbocker hammer tube with 10 degree angle was then placed in intramedullary fashion utilizing manufactures technique with the stem in the intermediate phalanx and press-fit it in the proximal phalanx with excellent bony apposition and compression noted at the proximal interphalangeal joint arthrodesis site of the left second toe, excellent placement of hardware and rectus right second toe was appreciated both intraoperatively under direct visualization as well as with AP, oblique and lateral views noted to be excellent in all 3 planes with the second metatarsal plantar joint not being violated. Smooth range of motion appreciated at the right second metatarsal phalangeal joint. Incisions at the left 1st and 2nd ray were dressed with Xeroform, 4 x 4 gauze, Kerlix. Attention was directed to the left lateral proximal leg where a longitudinal incision, approximately 4 cm in length, was made overlying the left fibular neck, centered over the area of maximal tenderness and nerve compression. The subcutaneous tissues were dissected, and the fascia overlying the peroneus longus muscle was identified. The fascia was carefully incised, and the peroneus longus muscle was retracted. The common peroneal nerve was identified as it coursed around the fibular neck. The nerve was carefully dissected free from surrounding tissues. Dense fibrous bands and scar tissue were noted compressing the nerve at the fibular head. These constricting bands were meticulously released using microsurgical techniques. The nerve was inspected along its course, and no further areas of compression were identified. Hemostasis was achieved with electrocautery. The wound was irrigated with sterile saline. The fascia was closed with 2-0 Vicryl the subcutaneous tissue was closed with 3-0 Vicryl, and the skin was closed with 4-0 nylon. A sterile dressing was applied. Carlos wrap was then applied to the left lower extremity followed by application of a cam boot. Tourniquet was then deflated and a prompt hyperemic response is noted to the distal digits of the left foot. Patient tolerated the procedure and anesthesia well and was transferred to the PACU with vital signs stable and vascular status intact. She was given at home care instructions and scheduled follow-up as well as myself number to contact with any postoperative questions or concerns.
--- NOTE | 2024-10-13 09:06 | XR_ITS ---
WS: [id number] Exam: XR foot LT min 3V* [id number] Date/Time of Exam: 10/13/2024 9:21 AM Reason For Exam: post op AP, oblique and lateral views of the LEFT forefoot are submitted. There are osteotomies of the distal first metatarsal and the proximal first phalanx both with the screw fixation. Alignment appears to be satisfactory for healing. Also noted is joint replacement of the PIP joint of the second toe. XR/XR foot LT min 3V* [id number] IMPRESSION: 1. Postop changes of the LEFT foot as noted above. No obvious complication.
--- NOTE | 2024-10-13 09:07 | ANES.PROC ---
Anesthesia Procedures Procedure/Date: 10/13/24 Nerve Block ^: Nerve Block 1: Main Anesthesia: general anesthesia Time Out Performed: Yes Consent: requested by attending/covering physician and from patient Nerve block location: popliteal Anesthesia monitors applied: pulse oximetry, EKG, BP cuff and oxygen Nerve block position: supine Anesthetic Used: ropivicaine 0.5% Amount of anesthesia used (mL): 20 Ultrasound used to: recognize landmarks and other (Visualized popliteal artery, sciatic, tibial, peroneal nerves. ) Nerve Stimulator Used?: Yes Interscalene/Femoral BLK: 4 stimuplex 21 g needle used for position and inplane approach, visualize local anesthetic spread and no vascular puncture identified Injection: neg aspiration of heme and paresthesia +/- Patient Tolerated Procedure: well and no complications Complications: none
--- NOTE | 2024-10-13 11:35 | ANE.PACU2 ---
Inpatient post-anesthesia follow up: Vital signs: Temperature 97.4 F Pulse Rate 80 Respiratory Rate 18 Blood Pressure 154/90 Pulse Oximetry 95 Oxygen Delivery Me thod Room Air Oxygen Flow Rate Fraction of Inspir ed Oxygen Hydration adequate: Yes Nausea and vomiting: No Pain level: 3 Mental status: Baseline
== END 2024-10-13 10:35 | disposition home or self-care (01) ==
PROVIDERS: PCP Nurse Practitioner Family; Visit Provider Podiatrist Foot & Ankle Surgery
PROC: (CPT 28296; principal; 2024-10-13 07:00)
PROC: (CPT 28298; 2024-10-13 07:00)
PROC: (CPT 28285; 2024-10-13 07:00)
PROC: (CPT 27687; 2024-10-13 07:00)
PROC: (CPT 64708; 2024-10-13 07:00)
DX: M20.12 Hallux valgus (acquired), left foot (principal); M20.42 Other hammer toe(s) (acquired), left foot; G57.32 Lesion of lateral popliteal nerve, left lower limb; M62.462 Contracture of muscle, left lower leg; J44.9 Chronic obstructive pulmonary disease, unspecified; I10 Essential (primary) hypertension; K21.9 Gastro-esophageal reflux disease without esophagitis; E66.01 Morbid (severe) obesity due to excess calories; Z68.42 Body mass index [BMI] 45.0-49.9, adult; M19.90 Unspecified osteoarthritis, unspecified site; E11.40 Type 2 diabetes mellitus with diabetic neuropathy, unspecified; G47.33 Obstructive sleep apnea (adult) (pediatric); E11.43 Type 2 diabetes mellitus with diabetic autonomic (poly)neuropathy; K31.84 Gastroparesis; M10.9 Gout, unspecified; E11.69 Type 2 diabetes mellitus with other specified complication; M21.372 Foot drop, left foot; G62.89 Other specified polyneuropathies; M21.612 Bunion of left foot; Z79.899 Other long term (current) drug therapy; Z79.84 Long term (current) use of oral hypoglycemic drugs; Z79.890 Hormone replacement therapy; Z79.85 Long-term (current) use of injectable non-insulin antidiabetic drugs; Z88.2 Allergy status to sulfonamides; Z88.0 Allergy status to penicillin; Z88.5 Allergy status to narcotic agent
CPT/HCPCS: 28299; 28285; 27687; 27691; 64712; 36416; 73630; 82962; C1713 ×2; J1100; J1171; J2704; J2795; J3010; J3490; J7030; J9999

== ENCOUNTER → 2024-10-24 11:20 | Outpatient (BNVA) | payer OTHER, SELFPAY | PROVIDERS: PCP Nurse Practitioner Family; Visit Provider Nurse Practitioner Family | DX: I10 Essential (primary) hypertension (principal); E78.2 Mixed hyperlipidemia; E11.69 Type 2 diabetes mellitus with other specified complication; E55.9 Vitamin D deficiency, unspecified; E61.1 Iron deficiency | CPT/HCPCS: 80053; 80061; 81003; 82306; 83036; 83550; 84443; 85025 ==

== ENCOUNTER → 2024-10-26 13:21 | Outpatient (BNVA) | payer OTHER, SELFPAY | PROVIDERS: PCP Nurse Practitioner Family; Visit Provider Podiatrist Foot & Ankle Surgery | DX: Z98.890 Other specified postprocedural states (principal); M77.32 Calcaneal spur, left foot | CPT/HCPCS: 73630 ==

== ENCOUNTER → 2024-11-22 10:05 | Outpatient (BNVA) | payer OTHER, SELFPAY | PROVIDERS: PCP Nurse Practitioner Family; Visit Provider Podiatrist Foot & Ankle Surgery | DX: Z98.890 Other specified postprocedural states (principal); Z87.39 Personal history of other diseases of the musculoskeletal system and connective tissue | CPT/HCPCS: 73630 ==

== ENCOUNTER 2024-11-24 23:02 | Emergency (ER) | payer OTHER, SELFPAY ==
[2024-11-24 23:03] VITALS: BP 112/79; PULSE 81; RESP 16; TEMP 36.7; O2SAT 94; BMI 37.5
--- NOTE | 2024-11-24 23:33 | PC.NURSE ---
abscess opened/drained by Dr Thorne using 18 ga needle. purulent drainage noted. area dressed with 4x4 and coban gauze. patient tolerated wel.
--- NOTE | 2024-11-24 23:37 | ED_ITS ---
HPI - Extremity Problem General: Chief complaint: Extremity Injury, Lower Stated complaint: L second toe swollen and throbbing Time Seen by Provider: 11/24/24 23:14 History of Present Illness: The patient is a male who underwent foot surgery with Dr. Germain 6 weeks ago for bunion removal, screw placement, and nerve decompression. He presents today with acute onset of foot swelling, discoloration, and pain. The patient reports that his foot has tripled in size, developed a large bump, turned purple, and is experiencing throbbing pain. These symptoms began suddenly earlier today. He denies any issues with his foot since the surgery until this acute onset. The patient mentions that he had a follow-up appointment with Dr. Germain on Wednesday, where he was transitioned from a boot to a different foot device. He also notes that he typically uses a toe spacer but left it at home due to discomfort. The patient expresses concern about the possibility of blood clots, though he states he has been following post-operative instructions. He also mentions that he tends to bleed easily. The patient reports that the pain is not severe when the area is tapped or when moving his foot. However, he notes that the affected area appears to be spreading slightly. Recent healthcare interactions include the foot surgery 6 weeks ago and a follow-up appointment with Dr. Germain on Wednesday, where changes were made to his post-operative care regimen. Related Data Home Medications ?Medication ?Instructions ?Recorded ?Confirmed famotidine 40 mg tablet 40 mg PO BID 05/16/24 gabapentin 600 mg tablet 900 mg PO BID 05/16/2411/22 guaifenesin 600 mg tablet, 600 mg PO BID PRN Congestio n 05/16/24 11/22/24 extended release 12 hr (Mucinex) levothyroxine 25 mcg tablet 12.5 mcg PO DAILY 05/16/24 11/22/24 montelukast 10 mg tablet 10 mg PO DAILY 05/16/2411/03 paroxetine HCl 20 mg tablet 20 mg PO DAILY 05/16/24 rosuvastatin 20 mg tablet 20 mg PO DAILY 05/16/2411/03 Previous Rx's ?Medication ?Instructions ?Recorded cyanocobalamin (vitamin B-12) 1,000 mcg PO DAILY 90 da ys #90 caps 12/03/22 1,000 mcg capsule Spectrum AFO to left #1 ea 01/06/23 blood sugar diagnostic #100 ea 10/15/23 lancets (Accu-Chek Softclix #200 ea 10/15/23 Lancets) Diabetic shoes #1 ea 12/27/23 pseudoephedrine HCl 120 mg 120 mg PO BID PRN nasal con gestion 02/10/24 tablet,extended release (Sudafed 30 days #60 tabs 12 Hour) Left AFO boot #1 ea 06/27/24 metformin 500 mg tablet,extended See Rx Instructions . Route 07/04/24 release 24 hr .COMPLEX #360 tabs allopurinol 300 mg tablet See Rx Instructions .Route 0 07/11/24 .COMPLEX #90 tabs trazodone 150 mg tablet See Rx Instructions .Route 0 07/17/24 .COMPLEX #90 tabs ergocalciferol (vitamin D2) 1,250 1,250 mcg PO .WEEKLY #12 caps 07/20/24 mcg (50,000 unit) capsule fluconazole 150 mg tablet 150 mg PO Q3D 2 doses #2 tab s 08/08/24 semaglutide 1 mg/dose (4 mg/3 mL) See Rx Instructions .Route 08/22/24 subcutaneous pen injector (Ozempic) .COMPLEX #12 mL pantoprazole 40 mg tablet,delayed 40 mg PO QDAY 30 day s #30 tabs 09/05/24 release (Protonix) levocetirizine 5 mg tablet See Rx Instructions .Route 09/12/24 .COMPLEX #90 tabs hydrochlorothiazide 25 mg tablet See Rx Instructions . Route 10/02/24 .COMPLEX #90 tabs vitamin with calcium See Rx Instructions .Rou te 10/02/24 no.72-iron 27 mg-folic acid 1 mg .COMPLEX #30 tabs tablet (WesTab Plus) empagliflozin 25 mg tablet 25 mg PO DAILY #90 tabs 07/29 (Jardiance) loratadine 10 mg tablet (Claritin) 10 mg PO DAILY 30 d ays #30 tabs 10/24/24 ferrous gluconate 324 mg (38 mg 324 mg PO BID 90 days #180 tabs 10/30/24 iron) tablet olopatadine 0.2 % eye drops 1 drp ophthalmic (eye) GAURAV LY PRN 10/30/24 (Pataday Once Daily Relief) itching 30 days #2.5 mL meloxicam 15 mg tablet See Rx Instructions .Route 0 11/14/24 .COMPLEX #30 tabs potassium citrate 10 mEq (1,080 See Rx Instructions .R oute 11/17/24 mg) tablet,extended release .COMPLEX #90 tabs albuterol sulfate 90 mcg/actuation See Rx Instructions .Route 11/20/24 aerosol inhaler .COMPLEX #18 grams cephalexin 750 mg capsule 750 mg PO Q8H 7 days #21 cap s 11/24/24 Allergies Allergy/AdvReac Type Severity Reaction Status Date / Time doxycycline Allergy Intermediate ADR-Itching Verified 11/22/24 10:01 hydromorphone (From Dilaudid) Allergy Intermediate ADR-Halluci Verified 11/22/24 10:01 nating promethazine (From Phenergan) Allergy Intermediate ADR-Halluci Verified 11/22/24 10:01 nating penicillin G Allergy Mild ADR-Itching Verified 11/22/24 10:01 Sulfa (Sulfonamide Allergy Mild ADR-Itching Verified 11/22/24 10:01 Antibiotics) ondansetron (From Zofran) Allergy ADR-Headach Verified 11/22/24 10:01 e cephalexin (From Keflex) AdvReac Intermediate ADR-Itching Verified 11/22/24 10:01 Review of Systems General: Reports: 10 or more systems reviewed and unremarkable except in HPI and below PFSH ED PFSH: Medical History Insomnia Chronic sinusitis DDD (degenerative disc disease), lumbar Multiple allergies Colon polyps Dysphagia Essential hypertension Iron deficiency Hypomagnesemia Low back pain Lumbar back pain with radiculopathy affecting lower extremity Seasonal allergies Upper respiratory infection Physical exam, pre-employment Otitis media, right Allergic dermatitis Grief Diabetic foot ulcer Chronic low back pain Chronic pain of both knees Diabetic gastroparesis Diabetic neuropathy Osteoarthritis of left knee Osteoarthritis of right knee Bilateral primary osteoarthritis of knee Lumbar radiculopathy, acute Hip pain Bunion of great toe Type 2 diabetes mellitus Encounter for weight loss counseling Blood in both ear canals Otitis externa Nausea Hot flashes due to menopause Urgency incontinence Urolithiasis Left shoulder pain Sinusitis Anxiety and depression Multiple persistent symptoms after COVID-19 Anxiety Multiple joint pain Cough Acute bacterial sinusitis Hypertension screen Vitamin D deficiency Fatigue Renal cyst Chronic sinusitis Environmental and seasonal allergies Morbidly obese KARLEE (obstructive sleep apnea) Kidney lesion, [place], right COVID-19 Encounter for screening laboratory testing for COVID-19 virus Hematuria Common migraine with intractable migraine Accelerated hypertension Plantar fasciitis, left Bone spur of foot Onychocryptosis Cellulitis of left toe Female cystocele Gout Patient has history of gout and takes Allopurinol for control of symptoms. Chronic headache Patient has history of chronic headaches. Previous MRI of head were normal. COPD (chronic obstructive pulmonary disease) Gastroesophageal reflux Diabetes mellitus Hyperlipidemia Depression Kidney stones Surgical History History of tubal ligation History of umbilical hernia repair History of cholecystectomy History of hysterectomy History of Family History Mother Hypertension Diabetes Family history of thyroid problem Father , at age 70 Aneurysm Social History Smoking and tobacco/nicotine status: never used tobacco/nicotine Second hand smoke exposure: No Alcohol intake: current Alcohol intake frequency: holidays/special occasions only Substance/Drug Use: never Adopted: No Caregiver/support person: No Lives independently: Yes Household members: spouse Housing: House Marital status: Current occupational status: employed Pets and animals: No Do you think of yourself as: Straight/Heterosexual Current gender identity: Female Physical Exam Const: COMMON NORMALS: no acute distress, patient oriented x3, healthy appearing, alert and well nourished HENMT: COMMON NORMALS: normocephalic HEAD & SCALP: normocephalic Eye: COMMON NORMALS: EOMs intact bilaterally Neck/C-Spine: COMMON NORMALS: full ROM and supple Resp: COMMON NORMALS: normal respiratory effort, No retractions and clear to auscultation bilaterally AUSCULTATION: clear to auscultation bilaterally Cardio: COMMON NORMALS: regular rate, regular rhythm, No gallops present (Cardio) and No murmurs present (Cardio) RATE: regular rate RHYTHM: regular rhythm GI: COMMON NORMALS: Soft to palpation and non-tender PALPATION: Yes Soft to palpation Extremity: GENERAL: Yes normal exam except as noted Neuro: COMMON NORMALS: patient oriented x3 SENSORIUM/ORIENTATION: Yes alert Skin: WOUNDS: Yes wounds noted (Left second toe abscess with erythema onto the foot) Procedures Abscess I/D Site: foot (left 2nd toe) Side (if applicable): left Sedation/analgesia: none Technique: needle aspiration Amount of fluid expressed (mL): 1 Irrigation: Yes Packing used?: none Course Vital Signs: Vital signs: Vital Signs Temperature 98.1 F 11/24/24 23:03 Pulse Rate 81 11/24/24 23:03 Respiratory Rate 16 11/24/24 23:03 Blood Pressure 112/79 11/24/24 23:03 Pulse Oximetry 94 11/24/24 23:03 Oxygen Delivery Me thod Room Air 11/24/24 23:03 MDM - Extremity (Nontraumatic) Medical Decision Making 58-year-old 6 weeks status post foot surgery presents to the emergency d epartment for abscess on her left second toe. No pain on manipulation. No fever with normal vital signs. Discussed with the patient doing imaging and labs for evaluation of osteomyelitis. Patient denies the workup at this time. I&D was successful with improvement of pain. Patient placed on antibiotics for cellulitis. Encourage patient to follow-up with the licensed certified orthotist next week. Return precautions were discussed and the patient was discharged home in stable condition. No radiology studies performed this visit Discharge Plan Discharge Patient Disposition: Home Clinical Impression: Abscess Condition: Stable Prescriptions: New cephalexin 750 mg capsule 750 mg PO Q8H 7 Days Qty: 21 0RF No Action cyanocobalamin (vitamin B-12) 1,000 mcg capsule 1,000 mcg PO DAILY 90 Days Qty: 90 1RF (DME) Spectrum AFO to left See Rx Instructions .Route .MEDSUPPLY Qty: 1 0RF Rx Instructions: As directed by the [facility] [facility] pseudoephedrine HCl [Sudafed 12 Hour] 120 mg tablet extended release 120 mg PO BID PRN (Reason: nasal congestion) 30 Days Qty: 60 2RF pantoprazole [Protonix] 40 mg tablet,delayed release (DR/EC) 40 mg PO QDAY 30 Days Qty: 30 5RF fluconazole 150 mg tablet 150 mg PO Q3D 0 Days Qty: 2 2RF loratadine [Claritin] 10 mg tablet 10 mg PO DAILY 30 Days Qty: 30 2RF (DME) Diabetic shoes See Rx Instructions .ROUTE .MEDSUPPLY Qty: 1 0RF Rx Instructions: With 3 pairs of inserts to the shoe guys (DME) Left AFO boot See Rx Instructions .Route .MEDSUPPLY Qty: 1 0RF Rx Instructions: As directed olopatadine [Pataday Once Daily Relief] 0.2 % drops 1 drp ophthalmic (eye) DAILY PRN (Reason: itching) 30 Days Qty: 2.5 0RF ferrous gluconate 324 mg (38 mg iron) tablet 324 mg PO BID 90 Days Qty: 180 0RF (DME) blood sugar diagnostic Strip See Rx Instructions .Route Qty: 100 2RF Rx Instructions: use to check blood sugar once daily (DME) lancets [Accu-Chek Softclix Lancets] Misc See Rx Instructions .Route Qty: 200 2RF Rx Instructions: use to check blood sugar daily. metformin 500 mg tablet extended release 24 hr See Rx Instructions .ROUTE .COMPLEX Qty: 360 0RF Dose Instruction: Take 2 tablets by mouth twice daily Rx Instructions: Take 2 tablets by mouth twice daily allopurinol 300 mg tablet See Rx Instructions .ROUTE .COMPLEX Qty: 90 0RF Dose Instruction: Take 1 tablet by mouth once daily Rx Instructions: Take 1 tablet by mouth once daily trazodone 150 mg tablet See Rx Instructions .ROUTE .COMPLEX Qty: 90 0RF Dose Instruction: Take 1 tablet by mouth once daily Rx Instructions: Take 1 tablet by mouth once daily ergocalciferol (vitamin D2) 1,250 mcg (50,000 unit) capsule 1,250 mcg PO .WEEKLY Qty: 12 1RF Rx Instructions: TAKE 1 CAPSULE BY MOUTH ONCE A WEEK (7 DAYS) FOR 3 MONTHS Ozempic 1 mg/dose (4 mg/3 mL) pen injector See Rx Instructions .ROUTE .COMPLEX Qty: 12 0RF Dose Instruction: INJECT 1 MG (0.75 ML) SUBCUTANEOUSLY ONCE WEEKLY FOR 30 DAYS Rx Instructions: INJECT 1 MG (0.75 ML) SUBCUTANEOUSLY ONCE WEEKLY FOR 30 DAYS levocetirizine 5 mg tablet See Rx Instructions .ROUTE .COMPLEX Qty: 90 1RF Dose Instruction: TAKE 1 TABLET BY MOUTH ONCE DAILY NEEDED FOR ALLERGY SYMPTOMS FOR 90 DAYS Rx Instructions: TAKE 1 TABLET BY MOUTH ONCE DAILY NEEDED FOR ALLERGY SYMPTOMS FOR 90 DAYS hydrochlorothiazide 25 mg tablet See Rx Instructions .ROUTE .COMPLEX Qty: 90 0RF Dose Instruction: TAKE 1 TABLET BY MOUTH ONCE DAILY IN THE MORNING FOR 90 DAYS Rx Instructions: TAKE 1 TABLET BY MOUTH ONCE DAILY IN THE MORNING FOR 90 DAYS WesTab Plus 27 mg iron- 1 mg tablet See Rx Instructions .ROUTE .COMPLEX Qty: 30 0RF Dose Instruction: Take 1 tablet by mouth once daily Rx Instructions: Take 1 tablet by mouth once daily Jardiance 25 mg tablet 25 mg PO DAILY Qty: 90 0RF Rx Instructions: Take 1 tablet by mouth once daily for 90 days meloxicam 15 mg tablet See Rx Instructions .ROUTE .COMPLEX Qty: 30 0RF Dose Instruction: Take 1 tablet by mouth once daily Rx Instructions: Take 1 tablet by mouth once daily potassium citrate 10 mEq (1,080 mg) tablet extended release See Rx Instructions .ROUTE .COMPLEX Qty: 90 0RF Dose Instruction: TAKE 1 TABLET BY MOUTH THREE TIMES DAILY Rx Instructions: TAKE 1 TABLET BY MOUTH THREE TIMES DAILY albuterol sulfate 90 mcg/actuation HFA aerosol inhaler See Rx Instructions .ROUTE .COMPLEX Qty: 18 0RF Dose Instruction: INHALE 1 PUFF BY MOUTH 4 TIMES DAILY NEEDED FOR SHORTNESS OF BREATH FOR WHEEZING Rx Instructions: INHALE 1 PUFF BY MOUTH 4 TIMES DAILY NEEDED FOR SHORTNESS OF BREATH FOR WHEEZING gabapentin 600 mg tablet 900 mg PO BID Rx Instructions: TAKE 1 & 1/2 (ONE & ONE-HALF) TABLETS BY MOUTH EVERY 8 HOURS FOR 90 DAYS famotidine 40 mg tablet 40 mg PO BID Rx Instructions: Take 1 tablet by mouth twice daily levothyroxine 25 mcg tablet 12.5 mcg PO DAILY Rx Instructions: TAKE 1/2 (ONE-HALF) TABLET BY MOUTH ONCE DAILY FOR 30 DAYS paroxetine HCl 20 mg tablet 20 mg PO DAILY Rx Instructions: 20 mg daily; montelukast 10 mg tablet 10 mg PO DAILY Rx Instructions: Take 1 tablet by mouth once daily rosuvastatin 20 mg tablet 20 mg PO DAILY Rx Instructions: Take 1 tablet by mouth once daily guaifenesin [Mucinex] 600 mg tablet extended release 12hr 600 mg PO BID PRN (Reason: Congestion) Discharge Orders: Discharge ED (Routine); Ordered 11/24/24 Ordered By: Castro Law Referrals: Jerry,DELROY, FINE GRADE OPERATOR [Primary Care Provider, Family Practice] Discharge Diet: Advance as tolerated Discharge Activity: Resume usual activity Patient Instructions: Opioid Safety, Pain Management Activity Restrictions/Additional Instructions: Please follow-up with your licensed certified orthotist next week. Take all antibiotics until completely gone. Return to the emergency department for any new or worsening symptoms including but not limited to fever, worsening pain, worsening drainage. Print Language: Chinese Coding Level of Care Code ED Product Expert for Dakota Rand
[2024-11-25 00:07] VITALS: BP 124/73; PULSE 78; RESP 16; O2SAT 95
== END 2024-11-24 23:50 | disposition home or self-care (01) ==
PROVIDERS: Emergency Provider General Practice; PCP Nurse Practitioner Family
DX: L02.612 Cutaneous abscess of left foot (principal); E11.40 Type 2 diabetes mellitus with diabetic neuropathy, unspecified; G47.33 Obstructive sleep apnea (adult) (pediatric); I10 Essential (primary) hypertension; E78.5 Hyperlipidemia, unspecified; J44.9 Chronic obstructive pulmonary disease, unspecified; Z98.890 Other specified postprocedural states; Z79.899 Other long term (current) drug therapy; Z79.890 Hormone replacement therapy; Z79.85 Long-term (current) use of injectable non-insulin antidiabetic drugs
CPT/HCPCS: 10160; 99283

== ENCOUNTER 2024-11-26 15:21 | Inpatient (IN) | payer OTHER, SELFPAY ==
[2024-11-26 15:30] VITALS: BP 130/75; PULSE 105; TEMP 36.9; O2SAT 95
--- NOTE | 2024-11-26 17:16 | W.ED.EXTPRO ---
Documented by User: Felice Germain DPM 11/26/24 19:19 HPI - Extremity Problem General: Chief complaint: Extremity Injury, Lower Stated complaint: L second toe swelling and pain Time Seen by Provider: 11/26/24 17:18 Related Data Home Medications ?Medication ?Instructions ?Recorded ?Confirmed famotidine 40 mg tablet 40 mg PO BID 05/16/24 11/22/24 gabapentin 600 mg tablet 900 mg PO BID 05/16/24 11/22/24 guaifenesin 600 mg tablet, 600 mg PO BID PRN Congestion 05/16/24 11/22/24 extended release 12 hr (Mucinex) levothyroxine 25 mcg tablet 12.5 mcg PO DAILY 05/16/24 11/22/24 montelukast 10 mg tablet 10 mg PO DAILY 05/16/24 11/22/24 paroxetine HCl 20 mg tablet 20 mg PO DAILY 05/16/24 11/22/24 rosuvastatin 20 mg tablet 20 mg PO DAILY 05/16/24 11/22/24 Previous Rx's ?Medication ?Instructions ?Recorded cyanocobalamin (vitamin B-12) 1,000 mcg PO DAILY 90 days #90 caps 12/03/22 1,000 mcg capsule Spectrum AFO to left #1 ea 01/06/23 blood sugar diagnostic #100 ea 10/15/23 lancets (Accu-Chek Softclix #200 ea 10/15/23 Lancets) Diabetic shoes #1 ea 12/27/23 pseudoephedrine HCl 120 mg 120 mg PO BID PRN nasal congestion 02/10/24 tablet,extended release (Sudafed 30 days #60 tabs 12 Hour) Left AFO boot #1 ea 06/27/24 metformin 500 mg tablet,extended See Rx Instructions .Route 07/04/24 release 24 hr .COMPLEX #360 tabs allopurinol 300 mg tablet See Rx Instructions .Route 07/11/24 .COMPLEX #90 tabs trazodone 150 mg tablet See Rx Instructions .Route 07/17/24 .COMPLEX #90 tabs ergocalciferol (vitamin D2) 1,250 1,250 mcg PO .WEEKLY #12 caps 07/20/24 mcg (50,000 unit) capsule fluconazole 150 mg tablet 150 mg PO Q3D 2 doses #2 tabs 08/08/24 semaglutide 1 mg/dose (4 mg/3 mL) See Rx Instructions .Route 08/22/24 subcutaneous pen injector (Ozempic) .COMPLEX #12 mL pantoprazole 40 mg tablet,delayed 40 mg PO QDAY 30 days #30 tabs 09/05/24 release (Protonix) levocetirizine 5 mg tablet See Rx Instructions .Route 09/12/24 .COMPLEX #90 tabs hydrochlorothiazide 25 mg tablet See Rx Instructions .Route 10/02/24 .COMPLEX #90 tabs vitamin with calcium See Rx Instructions .Route 10/02/24 no.72-iron 27 mg-folic acid 1 mg .COMPLEX #30 tabs tablet (WesTab Plus) empagliflozin 25 mg tablet 25 mg PO DAILY #90 tabs 10/03/24 (Jardiance) loratadine 10 mg tablet (Claritin) 10 mg PO DAILY 30 days #30 tabs 10/24/24 ferrous gluconate 324 mg (38 mg 324 mg PO BID 90 days #180 tabs 10/30/24 iron) tablet olopatadine 0.2 % eye drops 1 drp ophthalmic (eye) DAILY PRN 10/30/24 (Pataday Once Daily Relief) itching 30 days #2.5 mL meloxicam 15 mg tablet See Rx Instructions .Route 11/14/24 .COMPLEX #30 tabs potassium citrate 10 mEq (1,080 See Rx Instructions .Route 11/17/24 mg) tablet,extended release .COMPLEX #90 tabs albuterol sulfate 90 mcg/actuation See Rx Instructions .Route 11/20/24 aerosol inhaler .COMPLEX #18 grams cephalexin 750 mg capsule 750 mg PO Q8H 7 days #21 caps 11/24/24 Allergies Allergy/AdvReac Type Severity Reaction Status Date / Time doxycycline Allergy Intermediate ADR-Itching Verified 11/26/24 15:36 hydromorphone (From Dilaudid) Allergy Intermediate ADR-Halluci Verified 11/26/24 15:36 nating promethazine (From Phenergan) Allergy Intermediate ADR-Halluci Verified 11/26/24 15:36 nating penicillin G Allergy Mild ADR-Itching Verified 11/26/24 15:36 Sulfa (Sulfonamide Allergy Mild ADR-Itching Verified 11/26/24 15:36 Antibiotics) ondansetron (From Zofran) Allergy ADR-Headach Verified 11/26/24 15:36 e cephalexin (From Keflex) AdvReac Intermediate ADR-Itching Verified 11/26/24 15:36 [facility] PFS: Medical History Insomnia Chronic sinusitis DDD (degenerative disc disease), lumbar Multiple allergies Colon polyps Dysphagia Essential hypertension Iron deficiency Hypomagnesemia Low back pain Lumbar back pain with radiculopathy affecting lower extremity Seasonal allergies Upper respiratory infection Physical exam, pre-employment Otitis media, right Allergic dermatitis Grief Diabetic foot ulcer Chronic low back pain Chronic pain of both knees Diabetic gastroparesis Diabetic neuropathy Osteoarthritis of left knee Osteoarthritis of right knee Bilateral primary osteoarthritis of knee Lumbar radiculopathy, acute Hip pain Bunion of great toe Type 2 diabetes mellitus Encounter for weight loss counseling Blood in both ear canals Otitis externa Nausea Hot flashes due to menopause Urgency incontinence Urolithiasis Left shoulder pain Sinusitis Anxiety and depression Multiple persistent symptoms after COVID-19 Anxiety Multiple joint pain Cough Acute bacterial sinusitis Hypertension screen Vitamin D deficiency Fatigue Renal cyst Chronic sinusitis Environmental and seasonal allergies Morbidly obese KARLEE (obstructive sleep apnea) Kidney lesion, rampart, right COVID-19 Encounter for screening laboratory testing for COVID-19 virus Hematuria Common migraine with intractable migraine Accelerated hypertension Plantar fasciitis, left Bone spur of foot Onychocryptosis Cellulitis of left toe Female cystocele Gout Patient has history of gout and takes Allopurinol for control of symptoms. Chronic headache Patient has history of chronic headaches. Previous MRI of head were normal. COPD (chronic obstructive pulmonary disease) Gastroesophageal reflux Diabetes mellitus Hyperlipidemia Depression Kidney stones Surgical History History of tubal ligation History of umbilical hernia repair History of cholecystectomy History of hysterectomy History of Family History Mother Hypertension Diabetes Family history of thyroid problem Father , at age 70 Aneurysm Social History Smoking and tobacco/nicotine status: never used tobacco/nicotine Second hand smoke exposure: No Alcohol intake: current Alcohol intake frequency: holidays/special occasions only Substance/Drug Use: never Adopted: No Caregiver/support person: No Lives independently: Yes Household members: spouse Housing: House Marital status: Current occupational status: employed Pets and animals: No Do you think of yourself as: Straight/Heterosexual Current gender identity: Female Physical Exam Narrative: EXAM NARRATIVE: . Course Vital Signs: Vital signs: Vital Signs Temperature 98.5 F 11/26/24 15:30 Pulse Rate 95 11/26/24 17:30 Blood Pressure 124/88 11/26/24 17:30 Pulse Oximetry 96 11/26/24 17:30 Oxygen Delivery Me thod Room Air 11/26/24 15:30 MDM - Extremity (Nontraumatic) Lab Data 11/26/24 18:37 11/26/24 18:37 Radiology Impressions Foot X-Ray 11/26/24 17:54 IMPRESSION: Stable postoperative changes within left foot. Laboratory Results WBC 8.76 10^3/uL (3.29-11.43) 11/26/24 18:37 RBC 4.62 10^6/uL (3.85-5.65) 11/26/24 18:37 Hgb 11.10 g/dL (11.27-16.99) L 11/26/24 18:37 Hct 37.1 % (36-47) 11/26/24 18:37 MCV 80.3 fl (85-98) L 11/26/24 18:37 MCH 24.0 pg (27-33) L 11/26/24 18:37 MCHC 29.9 g/dL (30-55) L 11/26/24 18:37 RDW 16.5 % (12.1-15.1) H 11/26/24 18:37 Plt Count 297 10^3/cmm (157-399) 11/26/24 18:37 MPV 10.0 fL (7.4-10.4) 11/26/24 18:37 Neut % (Auto) 61.4 % 11/26/24 18:37 Lymph % (Auto) 30.5 % 11/26/24 18:37 Borden % (Auto) 6.4 % 11/26/24 18:37 Eos % (Auto) 1.3 % 11/26/24 18:37 Baso % (Auto) 0.2 % 11/26/24 18:37 Neut # (Auto) 5.38 10^3/uL (1.8-7.7) 11/26/24 18:37 Lymph # (Auto) 2.7 10^3/uL (0.8-4.8) 11/26/24 18:37 Borden # (Auto) 0.6 10^3/uL (0.2-0.9) 11/26/24 18:37 Eos # (Auto) 0.1 10^3/uL (0.0-0.8) 11/26/24 18:37 Baso # (Auto) 0.0 10^3/uL (0.0-0.1) 11/26/24 18:37 Nucleated RBC % (auto) 0 % 11/26/24 18: Nucleated RBCs # 0.0 /100WBC 11/26/24 18:37 ESR 20 mm/hr (0-15) H 11/26/24 18:37 Sodium 139 mmol/L (136-145) 11/26/24 18:37 Potassium 3.9 mmol/L (3.5-5.1) 11/26/24 18:37 Chloride 100 mmol/L (98-107) 11/26/24 18:37 Carbon Dioxide 25 mmol/L (22-29) 11/26/24 18:37 Anion Gap 17.9 (5-19) 11/26/24 18:37 BUN 13 mg/dL (6-20) 11/26/24 18:37 Creatinine 0.8 mg/dL (0.5-0.9) 11/26/24 18:37 GFR Calculation 73.4 mL/min (90-130) L 11/26/24 18:37 Glucose 104 mg/dL (65-115) 11/26/24 18:37 Calculated Osmolality 288 mOsm/kg (285-295) 11/26/24 18:37 Lactic Acid 3.2 mmol/L (0.5-2.2) H 11/26/24 18:37 Calcium 9.0 mg/dL (8.5-10.5) 11/26/24 18:37 Total Bilirubin 0.2 mg/dL (0.15-1.2) 11/26/24 18:37 AST 13 U/L (0-32) 11/26/24 18:37 ALT 15 U/L (0-33) 11/26/24 18:37 Alkaline Phosphatase 83 U/L (35-105) 11/26/24 18:37 C-Reactive Protein 11.0 mg/L (0.0-4.9) H 11/26/24 18:37 Total Protein 6.4 g/dL (6.6-8.7) L 11/26/24 18:37 Albumin 3.7 g/dL (3.5-5.2) 11/26/24 18:37 Globulin 2.7 g/dL (1.3-4.6) 11/26/24 18:37 Discharge Plan Discharge Patient Disposition: Placed in Observation Clinical Impression: Abscess of toe, Cellulitis Coding Level of Care Code ED Seismology Teacher for Chg Fwd Documented by User: Logan Amaral MD 11/26/24 19:17 HPI - Extremity Problem General: Chief complaint: Extremity Injury, Lower Stated complaint: L second toe swelling and pain Time Seen by Provider: 11/26/24 17:18 History of Present Illness: 58-year-old female presents with worsening left foot infection following bunion surgery. Patient underwent left foot bunion surgery with hardware placement on October 13, 2024, by Dr. Bach. Patient reports that on Wednesday night, she presented to the ED with swelling and a blue-like bruise on top of the surgical site. At that time, Dr. Thorne performed needle drainage. Since then, the condition has deteriorated with increased swelling, redness, and significant purulent drainage that began yesterday and has increased today. Patient denies fever. Patient had been started on Levofloxacin but continues to worsen despite antibiotic therapy. Related Data Home Medications ?Medication ?Instructions ?Recorded ?Confirmed famotidine 40 mg tablet 40 mg PO BID 05/16/24 11/22/24 gabapentin 600 mg tablet 900 mg PO BID 05/16/24 11/22/24 guaifenesin 600 mg tablet, 600 mg PO BID PRN Congestion 05/16/24 11/22/24 extended release 12 hr (Mucinex) levothyroxine 25 mcg tablet 12.5 mcg PO DAILY 05/16/24 11/22/24 montelukast 10 mg tablet 10 mg PO DAILY 05/16/24 11/22/24 paroxetine HCl 20 mg tablet 20 mg PO DAILY 05/16/24 11/22/24 rosuvastatin 20 mg tablet 20 mg PO DAILY 05/16/24 11/22/24 Previous Rx's ?Medication ?Instructions ?Recorded cyanocobalamin (vitamin B-12) 1,000 mcg PO DAILY 90 days #90 caps 12/03/22 1,000 mcg capsule Spectrum AFO to left #1 ea 01/06/23 blood sugar diagnostic #100 ea 10/15/23 lancets (Accu-Chek Softclix #200 ea 10/15/23 Lancets) Diabetic shoes #1 ea 12/27/23 pseudoephedrine HCl 120 mg 120 mg PO BID PRN nasal congestion 02/10/24 tablet,extended release (Sudafed 30 days #60 tabs 12 Hour) Left AFO boot #1 ea 06/27/24 metformin 500 mg tablet,extended See Rx Instructions .Route 07/04/24 release 24 hr .COMPLEX #360 tabs allopurinol 300 mg tablet See Rx Instructions .Route 07/11/24 .COMPLEX #90 tabs trazodone 150 mg tablet See Rx Instructions .Route 07/17/24 .COMPLEX #90 tabs ergocalciferol (vitamin D2) 1,250 1,250 mcg PO .WEEKLY #12 caps 07/20/24 mcg (50,000 unit) capsule fluconazole 150 mg tablet 150 mg PO Q3D 2 doses #2 tabs 08/08/24 semaglutide 1 mg/dose (4 mg/3 mL) See Rx Instructions .Route 08/22/24 subcutaneous pen injector (Ozempic) .COMPLEX #12 mL pantoprazole 40 mg tablet,delayed 40 mg PO QDAY 30 days #30 tabs 09/05/24 release (Protonix) levocetirizine 5 mg tablet See Rx Instructions .Route 09/12/24 .COMPLEX #90 tabs hydrochlorothiazide 25 mg tablet See Rx Instructions .Route 10/02/24 .COMPLEX #90 tabs vitamin with calcium See Rx Instructions .Route 10/02/24 no.72-iron 27 mg-folic acid 1 mg .COMPLEX #30 tabs tablet (WesTab Plus) empagliflozin 25 mg tablet 25 mg PO DAILY #90 tabs 10/03/24 (Jardiance) loratadine 10 mg tablet (Claritin) 10 mg PO DAILY 30 days #30 tabs 10/24/24 ferrous gluconate 324 mg (38 mg 324 mg PO BID 90 days #180 tabs 10/30/24 iron) tablet olopatadine 0.2 % eye drops 1 drp ophthalmic (eye) DAILY PRN 10/30/24 (Pataday Once Daily Relief) itching 30 days #2.5 mL meloxicam 15 mg tablet See Rx Instructions .Route 11/14/24 .COMPLEX #30 tabs potassium citrate 10 mEq (1,080 See Rx Instructions .Route 11/17/24 mg) tablet,extended release .COMPLEX #90 tabs albuterol sulfate 90 mcg/actuation See Rx Instructions .Route 11/20/24 aerosol inhaler .COMPLEX #18 grams cephalexin 750 mg capsule 750 mg PO Q8H 7 days #21 caps 11/24/24 Allergies Allergy/AdvReac Type Severity Reaction Status Date / Time doxycycline Allergy Intermediate ADR-Itching Verified 11/26/24 15:36 hydromorphone (From Dilaudid) Allergy Intermediate ADR-Halluci Verified 11/26/24 15:36 nating promethazine (From Phenergan) Allergy Intermediate ADR-Halluci Verified 11/26/24 15:36 nating penicillin G Allergy Mild ADR-Itching Verified 11/26/24 15:36 Sulfa (Sulfonamide Allergy Mild ADR-Itching Verified 11/26/24 15:36 Antibiotics) ondansetron (From Zofran) Allergy ADR-Headach Verified 11/26/24 15:36 e cephalexin (From Keflex) AdvReac Intermediate ADR-Itching Verified 11/26/24 15:36 PFSH ED PFSH: Medical History Insomnia Chronic sinusitis DDD (degenerative disc disease), lumbar Multiple allergies Colon polyps Dysphagia Essential hypertension Iron deficiency Hypomagnesemia Low back pain Lumbar back pain with radiculopathy affecting lower extremity Seasonal allergies Upper respiratory infection Physical exam, pre-employment Otitis media, right Allergic dermatitis Grief Diabetic foot ulcer Chronic low back pain Chronic pain of both knees Diabetic gastroparesis Diabetic neuropathy Osteoarthritis of left knee Osteoarthritis of right knee Bilateral primary osteoarthritis of knee Lumbar radiculopathy, acute Hip pain Bunion of great toe Type 2 diabetes mellitus Encounter for weight loss counseling Blood in both ear canals Otitis externa Nausea Hot flashes due to menopause Urgency incontinence Urolithiasis Left shoulder pain Sinusitis Anxiety and depression Multiple persistent symptoms after COVID-19 Anxiety Multiple joint pain Cough Acute bacterial sinusitis Hypertension screen Vitamin D deficiency Fatigue Renal cyst Chronic sinusitis Environmental and seasonal allergies Morbidly obese KARLEE (obstructive sleep apnea) Kidney lesion, rampart, right COVID-19 Encounter for screening laboratory testing for COVID-19 virus Hematuria Common migraine with intractable migraine Accelerated hypertension Plantar fasciitis, left Bone spur of foot Onychocryptosis Cellulitis of left toe Female cystocele Gout Patient has history of gout and takes Allopurinol for control of symptoms. Chronic headache Patient has history of chronic headaches. Previous MRI of head were normal. COPD (chronic obstructive pulmonary disease) Gastroesophageal reflux Diabetes mellitus Hyperlipidemia Depression Kidney stones Surgical History History of tubal ligation History of umbilical hernia repair History of cholecystectomy History of hysterectomy History of Family History Mother Hypertension Diabetes Family history of thyroid problem Father , at age 70 Aneurysm Social History Smoking and tobacco/nicotine status: never used tobacco/nicotine Second hand smoke exposure: No Alcohol intake: current Alcohol intake frequency: holidays/special occasions only Substance/Drug Use: never Adopted: No Caregiver/support person: No Lives independently: Yes Household members: spouse Housing: House Marital status: Current occupational status: employed Pets and animals: No Do you think of yourself as: Straight/Heterosexual Current gender identity: Female Course Vital Signs: Vital signs: Vital Signs Temperature 98.5 F 11/26/24 15:30 Pulse Rate 95 11/26/24 17:30 Blood Pressure 124/88 11/26/24 17:30 Pulse Oximetry 96 11/26/24 17:30 Oxygen Delivery Me thod Room Air 11/26/24 15:30 MDM - Extremity (Nontraumatic) Medical Decision Making ROS: Constitutional: Denies fever Musculoskeletal: Left foot pain and swelling Skin: Purulent drainage from surgical site All other systems reviewed and negative MEDICATIONS AND ALLERGIES: Medications: - Ozempic weekly injection (Saturdays) - Metformin - Paroxetine - Trazodone - vitamin - Levofloxacin Allergies: - Keflex - Penicillin - Sulfa - Dilaudid PAST HISTORICAL DATA: Surgical History: - Left foot bunion surgery with hardware placement (10/13/2024) Medical History: - Diabetes (on Ozempic and Metformin) - Depression/Anxiety (on Paroxetine and Trazodone) PHYSICAL EXAM: General: Alert, non-toxic appearing, in no apparent distress HEENT: Head normocephalic and atraumatic. Mucous membranes moist Neck: Supple Respiratory: No increased work of breathing, No wheezing Cardiac: Regular rate and rhythm, 2+ pulses in all extremities Abdomen: Soft, non-distended, no rebound or guarding Neuro: Cranial nerves grossly intact, no focal motor or sensory deficits noted Extremities: - Left foot with purulent drainage from second toe - Surrounding erythema of left second toe - Mild left foot and toe swelling - Palpable heel pulses bilateral lower extremities INITIAL IMPRESSION AND PLAN: Given the history and presentation, the primary working diagnosis is post-operative wound infection with possible hardware infection. Additional considerations include cellulitis, deep tissue infection, and osteomyelitis. Plan: 1. IV antibiotics (Vancomycin and Cefepime) 2. Blood cultures 3. Laboratory studies including CBC, CMP, CRP, and lactic acid 4. Left foot imaging 5. Surgical consultation 6. IV fluid resuscitation TEST INTERPRETATIONS: Laboratory Results: - WBC: 8.7 (normal) - Hemoglobin: 11 - Hematocrit: 37 - Platelets: 297 - Chemistry: Unremarkable - Lactic acid: 3.2 (elevated) - CRP: 11 (elevated) Imaging: - Left foot x-ray: Stable post-operative changes PROCEDURES: No procedures performed during this encounter CONSIDERED BUT NOT PERFORMED: None documented FINAL IMPRESSION: Based on all the above, my clinical impression is most compatible with post-operative hardware infection of the left foot requiring surgical intervention. The clinical picture is not currently suggestive of septic arthritis or necrotizing fasciitis. Although other conditions were also considered, they were deemed unlikely based on the clinical information available. CLINICAL DISPOSITION: The patient's current condition is stable but requires admission for surgical intervention and IV antibiotics. The most appropriate and indicated disposition at this time is admission to the hospital under Dr. Bach's service with planned OR for I&D and hardware removal tomorrow. Rationale for admission: Patient has failed outpatient oral antibiotic therapy with worsening infection, requires surgical intervention, and needs parenteral antibiotics. The presence of hardware infection necessitates admission for proper surgical management and infection control. RISK STRATIFICATION AND CLINICAL DECISION RULES APPLIED: No specific clinical decision rules were applicable to this case CASE SUMMARY: 58-year-old female with recent left foot bunion surgery (10/13/24) presented with worsening infection despite oral antibiotics. Patient had previous ED visit with needle drainage, but condition deteriorated with increased swelling and purulent drainage. Labs showed elevated inflammatory markers with normal WBC. Patient received IV antibiotics and fluids. Orthopedic surgeon Dr. Bach consulted and plans for operative debridement with hardware removal. Patient admitted for surgical management and IV antibiotics. SEPSIS COMPLIANCE: Sepsis: SIRS 0, source left foot infection, lactic 3.2. Antibiotics (Vancomycin and Cefepime) at 18:54. 30cc/kg bolus given (1848mL). Reperfusion assessment at 18:54: Adequate peripheral perfusion. CMS compliant. Lab Data I reviewed the patient's lab results. 11/26/24 18:37 11/26/24 18:37 Radiology Impressions Foot X-Ray 11/26/24 17:54 IMPRESSION: Stable postoperative changes within left foot. Laboratory Results WBC 8.76 10^3/uL (3.29-11.43) 11/26/24 18:37 RBC 4.62 10^6/uL (3.85-5.65) 11/26/24 18:37 Hgb 11.10 g/dL (11.27-16.99) L 11/26/24 18:37 Hct 37.1 % (36-47) 11/26/24 18:37 MCV 80.3 fl (85-98) L 11/26/24 18:37 MCH 24.0 pg (27-33) L 11/26/24 18:37 MCHC 29.9 g/dL (30-55) L 11/26/24 18:37 RDW 16.5 % (12.1-15.1) H 11/26/24 18:37 Plt Count 297 10^3/cmm (157-399) 11/26/24 18:37 MPV 10.0 fL (7.4-10.4) 11/26/24 18:37 Neut % (Auto) 61.4 % 11/26/24 18:37 Lymph % (Auto) 30.5 % 11/26/24 18:37 Borden % (Auto) 6.4 % 11/26/24 18:37 Eos % (Auto) 1.3 % 11/26/24 18:37 Baso % (Auto) 0.2 % 11/26/24 18:37 Neut # (Auto) 5.38 10^3/uL (1.8-7.7) 11/26/24 18:37 Lymph # (Auto) 2.7 10^3/uL (0.8-4.8) 11/26/24 18:37 Borden # (Auto) 0.6 10^3/uL (0.2-0.9) 11/26/24 18:37 Eos # (Auto) 0.1 10^3/uL (0.0-0.8) 11/26/24 18:37 Baso # (Auto) 0.0 10^3/uL (0.0-0.1) 11/26/24 18:37 Nucleated RBC % (auto) 0 % 11/26/24 18:37 Nucleated RBCs # 0.0 /100WBC 11/26/24 18:37 ESR 20 mm/hr (0-15) H 11/26/24 18:37 Sodium 139 mmol/L (136-145) 11/26/24 18:37 Potassium 3.9 mmol/L (3.5-5.1) 11/26/24 18:37 Chloride 100 mmol/L (98-107) 11/26/24 18:37 Carbon Dioxide 25 mmol/L (22-29) 11/26/24 18:37 Anion Gap 17.9 (5-19) 11/26/24 18:37 BUN 13 mg/dL (6-20) 11/26/24 18:37 Creatinine 0.8 mg/dL (0.5-0.9) 11/26/24 18:37 GFR Calculation 73.4 mL/min (90-130) L 11/26/24 18:37 Glucose 104 mg/dL (65-115) 11/26/24 18:37 Calculated Osmolality 288 mOsm/kg (285-295) 11/26/24 18:37 Lactic Acid 3.2 mmol/L (0.5-2.2) H 11/26/24 18:37 Calcium 9.0 mg/dL (8.5-10.5) 11/26/24 18:37 Total Bilirubin 0.2 mg/dL (0.15-1.2) 11/26/24 18:37 AST 13 U/L (0-32) 11/26/24 18:37 ALT 15 U/L (0-33) 11/26/24 18:37 Alkaline Phosphatase 83 U/L (35-105) 11/26/24 18:37 C-Reactive Protein 11.0 mg/L (0.0-4.9) H 11/26/24 18:37 Total Protein 6.4 g/dL (6.6-8.7) L 11/26/24 18:37 Albumin 3.7 g/dL (3.5-5.2) 11/26/24 18:37 Globulin 2.7 g/dL (1.3-4.6) 11/26/24 18:37 All radiology interpretation(s) finalized by discharge Discharge Plan Discharge Patient Disposition: Placed in Observation Clinical Impression: Abscess of toe, Cellulitis Coding Level of Care Code 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
[2024-11-26 17:30] VITALS: BP 124/88; PULSE 95; O2SAT 96
--- NOTE | 2024-11-26 17:54 | XRR_ITS ---
PROCEDURE INFORMATION: Exam: XR Left Foot Exam date and time: 11/26/2024 5:58 PM Age: 58 years old Clinical indication: Toes; Left; Prior surgery; Surgery date: 1-6 months; Surgery type: PT arrives pov C/O L greater toe pain and swelling. PT was seen on Wednesday for same and had toe lanced and cleaned. PT states she has had multiple surgeries on L foot in October 2024 w/ Dr gaviria. PT unable to ambulate much on L foot and swelling has worsened. ; Additional info: Post op TECHNIQUE: Imaging protocol: Radiologic exam of the left foot. Views: 3 or more views. COMPARISON: CR XR foot LT min 3V* [id number] 11/22/2024 10:08 AM FINDINGS: Bones/joints: Redemonstrated osteotomies of the distal left 1st metatarsal and base of the 1st digit, stable in position. Artificial joint of the 2nd digit PIP, stable. No new acute displaced fractures identified. Soft tissues: Normal. XR/XR foot LT min 3V* [id number] IMPRESSION: Stable postoperative changes within left foot.
[2024-11-26 18:49] LABS: Basophils % 0.2 %; Eosinophils # 0.1 10^3/uL (0.0-0.8); Eosinophils % 1.3 %; Hematocrit 37.1 % (36-47); Lymphocytes # 2.7 10^3/uL (0.8-4.8); Lymphocytes % 30.5 %; Mean Corpuscular HGB Conc 29.9 g/dL (30-55); Mean Corpuscular Volume 80.3 fl (85-98); Monocytes # 0.6 10^3/uL (0.2-0.9); Monocytes % 6.4 %; Neutrophils # 5.38 10^3/uL (1.8-7.7); Neutrophils % 61.4 %; Nucleated Red Blood Cells % 0 %; Platelet Count 297 10^3/cmm (157-399); Red Blood Count 4.62 10^6/uL (3.85-5.65); Red Cell Distribution Width 16.5 % (12.1-15.1); White Blood Count 8.76 10^3/uL (3.29-11.43)
[2024-11-26 19:03] LABS: Erythrocyte Sedimentation Rate 20 mm/hr (0-15)
[2024-11-26 19:05] LABS: Alanine Aminotransferase 15 U/L (0-33); Albumin Level 3.7 g/dL (3.5-5.2); Alkaline Phosphatase 83 U/L (35-105); Anion Gap 17.9 (5-19); Aspartate Amino Transferase 13 U/L (0-32); Blood Urea Nitrogen 13 mg/dL (6-20); Carbon Dioxide 25 mmol/L (22-29); Chloride 100 mmol/L (98-107); Creatinine Clr Calc Pharmacy 96.2284; Globulin 2.7 g/dL (1.3-4.6); Glomerular Filtration Rate 73.4 mL/min (90-130); Glucose 104 mg/dL (65-115); Osmolality Calculated 288 mOsm/kg (285-295); Potassium 3.9 mmol/L (3.5-5.1); Sodium 139 mmol/L (136-145); Total Bilirubin 0.2 mg/dL (0.15-1.2); Total Protein 6.4 g/dL (6.6-8.7)
[2024-11-26 19:06] LABS: Lactic Sepsis W/Reflex 3.2 mmol/L (0.5-2.2)
[2024-11-26 19:08] LABS: Reflex Lactate Order REFLEX LACTIC ORDERD
--- NOTE | 2024-11-26 19:21 | PM.CONSULT ---
Providers/Reason For Consult Consulting Physician/Specialty*: Felice Germain D.P.M./podiatry Reason for Consult*: Cellulitis left foot with wound left second toe. Primary Care Provider: ROSAURA Pickard History of Present Illness History of Present Illness The patient is a 58-year-old female presenting to the emergency department with concerns related to an abscess on the left second toe post-surgery. Following her surgery on October 13, 2024, which included procedures for peroneal nerve entrapment, bunionectomy, hammer toe correction, and gastrocnemius recession, the patient experienced an uneventful postoperative period until November 24, 2024, when she noticed a blister-like lesion with increasing redness, swelling, and pain. Initial management included incision and drainage of the abscess and a prescription for oral cephalexin, with instructions to follow up with her surgeon. The lack of contact and progression to worsening symptoms led to another emergency department visit on November 26, 2024, due to increasing purulent drainage from the left second toe. Review of Systems General: Reports: 10 or more systems reviewed and unremarkable except in HPI and below Narrative: - Skin: Reports redness, blister formation, and purulent drainage from the left second toe - Musculoskeletal: Denies other joint pain or swelling Const: Denies: fever(s) or chills Eyes: Denies: change in vision Card: Denies: chest pain or palpitations Resp: Denies: dyspnea or productive cough GI: Denies: abdominal pain, nausea or vomiting : Denies: flank pain Musc: Reports: extremity swelling, joint stiffness and deformity Skin/Breast: Reports: erythema, sores, changes in skin color, dry skin, nail changes and change in hair Neuro: Reports: numbness in extremities, sensory changes and difficulty walking Psych: Denies: suicidal ideation Endo: Denies: change in body appearance Eduardo/Lymph: Denies: tender lymph nodes Medications/Allergies Home Medications ?Medication ?Instructions ?Recorded ?Confirmed ?Last Taken ?Type cyanocobalamin (vitamin B-12) 1,000 mcg PO DAILY 90 days #90 caps 12/03/22 11/22/24 10/11/24 Rx 1,000 mcg capsule Spectrum AFO to left #1 ea 01/06/23 11/22/24 Unknown Rx blood sugar diagnostic #100 ea 10/15/23 11/22/24 Unknown Rx lancets (Accu-Chek Softclix #200 ea 10/15/23 11/22/24 Unknown Rx Lancets) Diabetic shoes #1 ea 12/27/23 11/22/24 Unknown Rx pseudoephedrine HCl 120 mg 120 mg PO BID PRN nasal congestion 02/10/24 11/22/24 2 Weeks Ago Rx tablet,extended release (Sudafed 30 days #60 tabs ~09/29/24 12 Hour) famotidine 40 mg tablet 40 mg PO BID 05/16/24 11/22/24 10/12/24 History gabapentin 600 mg tablet 900 mg PO BID 05/16/24 11/22/24 10/12/24 History guaifenesin 600 mg tablet, 600 mg PO BID PRN Congestion 05/16/24 11/22/24 2 Weeks Ago History extended release 12 hr (Mucinex) ~09/29/24 levothyroxine 25 mcg tablet 12.5 mcg PO DAILY 05/16/24 11/22/24 10/12/24 History montelukast 10 mg tablet 10 mg PO DAILY 05/16/24 11/22/24 10/12/24 History paroxetine HCl 20 mg tablet 20 mg PO DAILY 05/16/24 11/22/24 10/12/24 History rosuvastatin 20 mg tablet 20 mg PO DAILY 05/16/24 11/22/24 10/12/24 History Left AFO boot #1 ea 06/27/24 11/22/24 Unknown Rx metformin 500 mg tablet,extended See Rx Instructions .Route 07/04/24 11/22/24 10/11/24 Rx release 24 hr .COMPLEX #360 tabs allopurinol 300 mg tablet See Rx Instructions .Route 07/11/24 11/22/24 10/12/24 Rx .COMPLEX #90 tabs trazodone 150 mg tablet See Rx Instructions .Route 07/17/24 11/22/24 10/12/24 Rx .COMPLEX #90 tabs ergocalciferol (vitamin D2) 1,250 1,250 mcg PO .WEEKLY #12 caps 07/20/24 11/22/24 10/11/24 Rx mcg (50,000 unit) capsule fluconazole 150 mg tablet 150 mg PO Q3D 2 doses #2 tabs 08/08/24 11/22/24 10/12/24 Rx semaglutide 1 mg/dose (4 mg/3 mL) See Rx Instructions .Route 08/22/24 11/22/24 09/30/24 Rx subcutaneous pen injector (Ozempic) .COMPLEX #12 mL pantoprazole 40 mg tablet,delayed 40 mg PO QDAY 30 days #30 tabs 09/05/24 11/22/24 10/12/24 Rx release (Protonix) levocetirizine 5 mg tablet See Rx Instructions .Route 09/12/24 11/22/24 10/12/24 Rx .COMPLEX #90 tabs hydrochlorothiazide 25 mg tablet See Rx Instructions .Route 10/02/24 11/22/24 10/12/24 Rx .COMPLEX #90 tabs vitamin with calcium See Rx Instructions .Route 10/02/24 11/22/24 10/11/24 Rx no.72-iron 27 mg-folic acid 1 mg .COMPLEX #30 tabs tablet (WesTab Plus) empagliflozin 25 mg tablet 25 mg PO DAILY #90 tabs 10/03/24 11/22/24 10/11/24 Rx (Jardiance) loratadine 10 mg tablet (Claritin) 10 mg PO DAILY 30 days #30 tabs 10/24/24 11/22/24 Unknown Rx ferrous gluconate 324 mg (38 mg 324 mg PO BID 90 days #180 tabs 10/30/24 11/22/24 Unknown Rx iron) tablet olopatadine 0.2 % eye drops 1 drp ophthalmic (eye) DAILY PRN 10/30/24 11/22/24 Unknown Rx (Pataday Once Daily Relief) itching 30 days #2.5 mL meloxicam 15 mg tablet See Rx Instructions .Route 11/14/24 11/22/24 Unknown Rx .COMPLEX #30 tabs potassium citrate 10 mEq (1,080 See Rx Instructions .Route 11/17/24 11/22/24 Unknown Rx mg) tablet,extended release .COMPLEX #90 tabs albuterol sulfate 90 mcg/actuation See Rx Instructions .Route 11/20/24 11/22/24 Unknown Rx aerosol inhaler .COMPLEX #18 grams cephalexin 750 mg capsule 750 mg PO Q8H 7 days #21 caps 11/24/24 Unknown Rx Allergies Allergy/AdvReac Type Severity Reaction Status Date / Time doxycycline Allergy Intermediate ADR-Itching Verified 11/26/24 15:36 hydromorphone (From Dilaudid) Allergy Intermediate ADR-Halluci Verified 11/26/24 15:36 nating promethazine (From Phenergan) Allergy Intermediate ADR-Halluci Verified 11/26/24 15:36 nating penicillin G Allergy Mild ADR-Itching Verified 11/26/24 15:36 Sulfa (Sulfonamide Allergy Mild ADR-Itching Verified 11/26/24 15:36 Antibiotics) ondansetron (From Zofran) Allergy ADR-Headach Verified 11/26/24 15:36 e cephalexin (From Keflex) AdvReac Intermediate ADR-Itching Verified 11/26/24 15:36 PFSH Acute PFSH: Medical History (Updated 11/26/24 @ 20:22 by Felice Germain DPM) Type 2 diabetes mellitus Insomnia Chronic sinusitis DDD (degenerative disc disease), lumbar Multiple allergies Colon polyps Dysphagia Essential hypertension Iron deficiency Hypomagnesemia Low back pain Lumbar back pain with radiculopathy affecting lower extremity Seasonal allergies Upper respiratory infection Physical exam, pre-employment Otitis media, right Allergic dermatitis Grief Diabetic foot ulcer Chronic low back pain Chronic pain of both knees Diabetic gastroparesis Diabetic neuropathy Osteoarthritis of left knee Osteoarthritis of right knee Bilateral primary osteoarthritis of knee Lumbar radiculopathy, acute Hip pain Bunion of great toe Encounter for weight loss counseling Blood in both ear canals Otitis externa Nausea Hot flashes due to menopause Urgency incontinence Urolithiasis Left shoulder pain Sinusitis Anxiety and depression Multiple persistent symptoms after COVID-19 Anxiety Multiple joint pain Cough Acute bacterial sinusitis Hypertension screen Vitamin D deficiency Fatigue Renal cyst Chronic sinusitis Environmental and seasonal allergies Morbidly obese KARLEE (obstructive sleep apnea) Kidney lesion, [place], right COVID-19 Encounter for screening laboratory testing for COVID-19 virus Hematuria Common migraine with intractable migraine Accelerated hypertension Plantar fasciitis, left Bone spur of foot Onychocryptosis Cellulitis of left toe Female cystocele Gout Patient has history of gout and takes Allopurinol for control of symptoms. Chronic headache Patient has history of chronic headaches. Previous MRI of head were normal. COPD (chronic obstructive pulmonary disease) Gastroesophageal reflux Diabetes mellitus Hyperlipidemia Depression Kidney stones Surgical History History of tubal ligation History of umbilical hernia repair History of cholecystectomy History of hysterectomy History of Family History Mother Hypertension Diabetes Family history of thyroid problem Father , at age 70 Aneurysm Social History Smoking and tobacco/nicotine status: never used tobacco/nicotine Second hand smoke exposure: No Alcohol intake: current Alcohol intake frequency: holidays/special occasions only Substance/Drug Use: never Adopted: No Caregiver/support person: No Lives independently: Yes Household members: spouse Housing: House Marital status: Current occupational status: employed Pets and animals: No Do you think of yourself as: Straight/Heterosexual Current gender identity: Female Vitals/I&O/Wt Last Vital Signs Temp 98.5 F 11/26/24 15:30 Pulse 95 11/26/24 17:30 BP 124/88 11/26/24 17:30 Pulse Ox 96 11/26/24 17:30 O2 Del Method Room Air 11/26/24 15:30 Weight last 48 hrs Weight 240 lb Physical Exam Narrative: - Skin: Erythema left second toe with cellulitic streaking to the very distal aspect of the left forefoot. Purulent drainage from left second toe at full-thickness with exposed hardware left second proximal interphalangeal joint. Const: COMMON NORMALS: no acute distress, patient oriented x3 and alert HENMT: COMMON NORMALS: normocephalic HEAD & SCALP: normocephalic Eye: COMMON NORMALS: Equal, round and reactive pupils present PUPIL: Yes Equal, round and reactive pupils present Resp: COMMON NORMALS: normal respiratory effort, No retractions and No use of accessory muscles Cardio: COMMON NORMALS: regular rate RATE: regular rate Extremity: COMMON NORMALS: no calf tenderness; negative for no pedal edema GENERAL: Yes deformity Neuro: COMMON NORMALS: patient oriented x3 SENSORIUM/ORIENTATION: Yes alert SENSORY EXAM: Yes extremities MONOFILAMENT EXAM PERFORMED: Yes MOTOR EXAM: 5/5 motor strength present throughout Psych: COMMON NORMALS: cooperative Skin: WOUNDS: Yes wounds noted NAILS: discolored, dystrophic and yellow and thickened Data 11/26/24 18:37 11/26/24 18:37 Micro: Microbiology 11/26/24 18:42 Blood Culture - Preliminary Blood SPECIMEN COLLECTED 05/25/25 18:37 Blood Culture - Preliminary Blood SPECIMEN COLLECTED A&P Assessment and plan (1) Cellulitis of left foot: (2) 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 Assessment and Plan 58-year-old female with a history of foot surgery presenting with an abscess on the left second toe. Evidence of cellulitis and hardware exposure indicates a requirement for hospital admission for intravenous antibiotics and surgical intervention. 1. Abscess Of Left Second Toe, Post-Surgical Admission for IV antibiotics and surgical intervention is planned to address ongoing post-surgical abscess formation and prevent further complications. 2. Cellulitis, Left Foot Admission for IV antibiotics is required, with surgical debridement planned to address cellulitis, particularly given the hardware involvement. 3. Hardware Exposure, Left Second Toe Surgical debridement and removal of exposed hardware are scheduled to manage infection risk and prevent further complications. Cellulitis with potential for hardware infection requires a structured approach involving surgical intervention coupled with IV antibiotics to arrest infection progression. Clinical signs dictated a plan for hospitalization to stabilize the condition with goals aiming to remove infective sources, exemplified by the hardware, and support tissue healing. Surgical procedures are anticipated to mitigate infection, enhancing recovery despite diabetic neuropathy challenges. Detailed monitoring post-intervention will be crucial in effective management, promoting healing and preventing recurrent issues. 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
[2024-11-26] MEDS: cefepime 1,000 mg SDV 1000 MG IVP (19:41)
[2024-11-26] MEDS: vancomycin 1,500 MG/300 ML PIGGYBACK 200 MG IV (19:42)
--- NOTE | 2024-11-26 19:45 | W.ED.EXTPRO ---
HPI - Extremity Problem General: Chief complaint: Extremity Injury, Lower Stated complaint: L second toe swelling and pain Time Seen by Provider: 11/26/24 17:18 History of Present Illness: 58-year-old female presents with worsening left foot infection following bunion surgery. Patient underwent left foot bunion surgery with hardware placement on October 13, 2024, by Dr. Bach. Patient reports that on Wednesday night, she presented to the ED with swelling and a blue-like bruise on top of the surgical site. At that time, Dr. Thorne performed needle drainage. Since then, the condition has deteriorated with increased swelling, redness, and significant purulent drainage that began yesterday and has increased today. Patient denies fever. Patient had been started on Levofloxacin but continues to worsen despite antibiotic therapy. Related Data Home Medications ?Medication ?Instructions ?Recorded ?Confirmed famotidine 40 mg tablet 40 mg PO BID 05/16/24 11/22/24 gabapentin 600 mg tablet 900 mg PO BID 05/16/24 11/22/24 guaifenesin 600 mg tablet, 600 mg PO BID PRN Congestion 05/16/24 11/22/24 extended release 12 hr (Mucinex) levothyroxine 25 mcg tablet 12.5 mcg PO DAILY 05/16/24 11/22/24 montelukast 10 mg tablet 10 mg PO DAILY 05/16/24 11/22/24 paroxetine HCl 20 mg tablet 20 mg PO DAILY 05/16/24 11/22/24 rosuvastatin 20 mg tablet 20 mg PO DAILY 05/16/24 11/22/24 Previous Rx's ?Medication ?Instructions ?Recorded cyanocobalamin (vitamin B-12) 1,000 mcg PO DAILY 90 days #90 caps 12/03/22 1,000 mcg capsule Spectrum AFO to left #1 ea 01/06/23 blood sugar diagnostic #100 ea 10/15/23 lancets (Accu-Chek Softclix #200 ea 10/15/23 Lancets) Diabetic shoes #1 ea 12/27/23 pseudoephedrine HCl 120 mg 120 mg PO BID PRN nasal congestion 02/10/24 tablet,extended release (Sudafed 30 days #60 tabs 12 Hour) Left AFO boot #1 ea 06/27/24 metformin 500 mg tablet,extended See Rx Instructions .Route 07/04/24 release 24 hr .COMPLEX #360 tabs allopurinol 300 mg tablet See Rx Instructions .Route 07/11/24 .COMPLEX #90 tabs trazodone 150 mg tablet See Rx Instructions .Route 07/17/24 .COMPLEX #90 tabs ergocalciferol (vitamin D2) 1,250 1,250 mcg PO .WEEKLY #12 caps 07/20/24 mcg (50,000 unit) capsule fluconazole 150 mg tablet 150 mg PO Q3D 2 doses #2 tabs 08/08/24 semaglutide 1 mg/dose (4 mg/3 mL) See Rx Instructions .Route 08/22/24 subcutaneous pen injector (Ozempic) .COMPLEX #12 mL pantoprazole 40 mg tablet,delayed 40 mg PO QDAY 30 days #30 tabs 09/05/24 release (Protonix) levocetirizine 5 mg tablet See Rx Instructions .Route 09/12/24 .COMPLEX #90 tabs hydrochlorothiazide 25 mg tablet See Rx Instructions .Route 10/02/24 .COMPLEX #90 tabs vitamin with calcium See Rx Instructions .Route 10/02/24 no.72-iron 27 mg-folic acid 1 mg .COMPLEX #30 tabs tablet (WesTab Plus) empagliflozin 25 mg tablet 25 mg PO DAILY #90 tabs 10/03/24 (Jardiance) loratadine 10 mg tablet (Claritin) 10 mg PO DAILY 30 days #30 tabs 10/24/24 ferrous gluconate 324 mg (38 mg 324 mg PO BID 90 days #180 tabs 10/30/24 iron) tablet olopatadine 0.2 % eye drops 1 drp ophthalmic (eye) DAILY PRN 10/30/24 (Pataday Once Daily Relief) itching 30 days #2.5 mL meloxicam 15 mg tablet See Rx Instructions .Route 11/14/24 .COMPLEX #30 tabs potassium citrate 10 mEq (1,080 See Rx Instructions .Route 11/17/24 mg) tablet,extended release .COMPLEX #90 tabs albuterol sulfate 90 mcg/actuation See Rx Instructions .Route 11/20/24 aerosol inhaler .COMPLEX #18 grams cephalexin 750 mg capsule 750 mg PO Q8H 7 days #21 caps 11/24/24 Allergies Allergy/AdvReac Type Severity Reaction Status Date / Time doxycycline Allergy Intermediate ADR-Itching Verified 11/26/24 15:36 hydromorphone (From Dilaudid) Allergy Intermediate ADR-Halluci Verified 11/26/24 15:36 nating promethazine (From Phenergan) Allergy Intermediate ADR-Halluci Verified 11/26/24 15:36 nating penicillin G Allergy Mild ADR-Itching Verified 11/26/24 15:36 Sulfa (Sulfonamide Allergy Mild ADR-Itching Verified 11/26/24 15:36 Antibiotics) ondansetron (From Zofran) Allergy ADR-Headach Verified 11/26/24 15:36 e cephalexin (From Keflex) AdvReac Intermediate ADR-Itching Verified 11/26/24 15:36 PFSH ED PFSH: Medical History Insomnia Chronic sinusitis DDD (degenerative disc disease), lumbar Multiple allergies Colon polyps Dysphagia Essential hypertension Iron deficiency Hypomagnesemia Low back pain Lumbar back pain with radiculopathy affecting lower extremity Seasonal allergies Upper respiratory infection Physical exam, pre-employment Otitis media, right Allergic dermatitis Grief Diabetic foot ulcer Chronic low back pain Chronic pain of both knees Diabetic gastroparesis Diabetic neuropathy Osteoarthritis of left knee Osteoarthritis of right knee Bilateral primary osteoarthritis of knee Lumbar radiculopathy, acute Hip pain Bunion of great toe Type 2 diabetes mellitus Encounter for weight loss counseling Blood in both ear canals Otitis externa Nausea Hot flashes due to menopause Urgency incontinence Urolithiasis Left shoulder pain Sinusitis Anxiety and depression Multiple persistent symptoms after COVID-19 Anxiety Multiple joint pain Cough Acute bacterial sinusitis Hypertension screen Vitamin D deficiency Fatigue Renal cyst Chronic sinusitis Environmental and seasonal allergies Morbidly obese KARLEE (obstructive sleep apnea) Kidney lesion, [facility], right COVID-19 Encounter for screening laboratory testing for COVID-19 virus Hematuria Common migraine with intractable migraine Accelerated hypertension Plantar fasciitis, left Bone spur of foot Onychocryptosis Cellulitis of left toe Female cystocele Gout Patient has history of gout and takes Allopurinol for control of symptoms. Chronic headache Patient has history of chronic headaches. Previous MRI of head were normal. COPD (chronic obstructive pulmonary disease) Gastroesophageal reflux Diabetes mellitus Hyperlipidemia Depression Kidney stones Surgical History History of tubal ligation History of umbilical hernia repair History of cholecystectomy History of hysterectomy History of Family History Mother Hypertension Diabetes Family history of thyroid problem Father , at age 70 Aneurysm Social History Smoking and tobacco/nicotine status: never used tobacco/nicotine Second hand smoke exposure: No Alcohol intake: current Alcohol intake frequency: holidays/special occasions only Substance/Drug Use: never Adopted: No Caregiver/support person: No Lives independently: Yes Household members: spouse Housing: House Marital status: Current occupational status: employed Pets and animals: No Do you think of yourself as: Straight/Heterosexual Current gender identity: Female Course Vital Signs: Vital signs: Vital Signs Temperature 98.5 F 11/26/24 15:30 Pulse Rate 95 11/26/24 17:30 Blood Pressure 124/88 11/26/24 17:30 Pulse Oximetry 96 11/26/24 17:30 Oxygen Delivery Me thod Room Air 11/26/24 15:30 MDM - Extremity (Nontraumatic) Medical Decision Making ROS: Constitutional: Denies fever Musculoskeletal: Left foot pain and swelling Skin: Purulent drainage from surgical site All other systems reviewed and negative MEDICATIONS AND ALLERGIES: Medications: - Ozempic weekly injection (Saturdays) - Metformin - Paroxetine - Trazodone - vitamin - Levofloxacin Allergies: - Keflex - Penicillin - Sulfa - Dilaudid PAST HISTORICAL DATA: Surgical History: - Left foot bunion surgery with hardware placement (10/13/2024) Medical History: - Diabetes (on Ozempic and Metformin) - Depression/Anxiety (on Paroxetine and Trazodone) VITAL SIGNS: No vital signs documented in manager programming PHYSICAL EXAM: General: Alert, non-toxic appearing, in no apparent distress HEENT: Head normocephalic and atraumatic. Mucous membranes moist Neck: Supple Respiratory: No increased work of breathing, No wheezing Cardiac: Regular rate and rhythm, 2+ pulses in all extremities Abdomen: Soft, non-distended, no rebound or guarding Neuro: Cranial nerves grossly intact, no focal motor or sensory deficits noted Extremities: - Left foot with purulent drainage from second toe - Surrounding erythema of left second toe - Mild left foot and toe swelling - Palpable heel pulses bilateral lower extremities INITIAL IMPRESSION AND PLAN: Given the history and presentation, the primary working diagnosis is post-operative wound infection with possible hardware infection. Additional considerations include cellulitis, deep tissue infection, and osteomyelitis. Plan: 1. IV antibiotics (Vancomycin and Cefepime) 2. Blood cultures 3. Laboratory studies including CBC, CMP, CRP, and lactic acid 4. Left foot imaging 5. Surgical consultation 6. IV fluid resuscitation TEST INTERPRETATIONS: Laboratory Results: - WBC: 8.7 (normal) - Hemoglobin: 11 - Hematocrit: 37 - Platelets: 297 - Chemistry: Unremarkable - Lactic acid: 3.2 (elevated) - CRP: 11 (elevated) Imaging: - Left foot x-ray: Stable post-operative changes PROCEDURES: No procedures performed during this encounter CONSIDERED BUT NOT PERFORMED: None documented FINAL IMPRESSION: Based on all the above, my clinical impression is most compatible with post-operative hardware infection of the left foot requiring surgical intervention. The clinical picture is not currently suggestive of septic arthritis or necrotizing fasciitis. Although other conditions were also considered, they were deemed unlikely based on the clinical information available. CLINICAL DISPOSITION: The patient's current condition is stable but requires admission for surgical intervention and IV antibiotics. The most appropriate and indicated disposition at this time is admission to the hospital under Dr. Bach's service with planned OR for I&D and hardware removal tomorrow. Rationale for admission: Patient has failed outpatient oral antibiotic therapy with worsening infection, requires surgical intervention, and needs parenteral antibiotics. The presence of hardware infection necessitates admission for proper surgical management and infection control. RISK STRATIFICATION AND CLINICAL DECISION RULES APPLIED: No specific clinical decision rules were applicable to this case CASE SUMMARY: 58-year-old female with recent left foot bunion surgery (10/13/24) presented with worsening infection despite oral antibiotics. Patient had previous ED visit with needle drainage, but condition deteriorated with increased swelling and purulent drainage. Labs showed elevated inflammatory markers with normal WBC. Patient received IV antibiotics and fluids. Orthopedic surgeon Dr. Bach consulted and plans for operative debridement with hardware removal. Patient admitted for surgical management and IV antibiotics. SEPSIS COMPLIANCE: Sepsis: SIRS 0, source left foot infection, lactic 3.2. Antibiotics (Vancomycin and Cefepime) at 18:54. 30cc/kg bolus given (1848mL). Reperfusion assessment at 18:54: Adequate peripheral perfusion. CMS compliant. Lab Data 11/26/24 18:37 11/26/24 18:37 Radiology Impressions Foot X-Ray 11/26/24 17:54 IMPRESSION: Stable postoperative changes within left foot. Laboratory Results WBC 8.76 10^3/uL (3.29-11.43) 11/26/24 18:37 RBC 4.62 10^6/uL (3.85-5.65) 11/26/24 18:37 Hgb 11.10 g/dL (11.27-16.99) L 11/26/24 18:37 Hct 37.1 % (36-47) 11/26/24 18:37 MCV 80.3 fl (85-98) L 11/26/24 18:37 MCH 24.0 pg (27-33) L 11/26/24 18:37 MCHC 29.9 g/dL (30-55) L 11/26/24 18:37 RDW 16.5 % (12.1-15.1) H 11/26/24 18:37 Plt Count 297 10^3/cmm (157-399) 11/26/24 18:37 MPV 10.0 fL (7.4-10.4) 11/26/24 18:37 Neut % (Auto) 61.4 % 11/26/24 18:37 Lymph % (Auto) 30.5 % 11/26/24 18:37 [place] % (Auto) 6.4 % 11/26/24 18:37 Eos % (Auto) 1.3 % 11/26/24 18:37 Baso % (Auto) 0.2 % 11/26/24 18:37 Neut # (Auto) 5.38 10^3/uL (1.8-7.7) 11/26/24 18:37 Lymph # (Auto) 2.7 10^3/uL (0.8-4.8) 11/26/24 18:37 [place] # (Auto) 0.6 10^3/uL (0.2-0.9) 11/26/24 18:37 Eos # (Auto) 0.1 10^3/uL (0.0-0.8) 11/26/24 18:37 Baso # (Auto) 0.0 10^3/uL (0.0-0.1) 11/26/24 18:37 Nucleated RBC % (auto) 0 % 11/26/24 18:37 Nucleated RBCs # 0.0 /100WBC 11/26/24 18:37 ESR 20 mm/hr (0-15) H 11/26/24 18:37 Sodium 139 mmol/L (136-145) 11/26/24 18:37 Potassium 3.9 mmol/L (3.5-5.1) 11/26/24 18:37 Chloride 100 mmol/L (98-107) 11/26/24 18:37 Carbon Dioxide 25 mmol/L (22-29) 11/26/24 18:37 Anion Gap 17.9 (5-19) 11/26/24 18:37 BUN 13 mg/dL (6-20) 11/26/24 18:37 Creatinine 0.8 mg/dL (0.5-0.9) 11/26/24 18:37 GFR Calculation 73.4 mL/min (90-130) L 11/26/24 18:37 Glucose 104 mg/dL (65-115) 11/26/24 18:37 Calculated Osmolality 288 mOsm/kg (285-295) 11/26/24 18:37 Lactic Acid 3.2 mmol/L (0.5-2.2) H 11/26/24 18:37 Calcium 9.0 mg/dL (8.5-10.5) 11/26/24 18:37 Total Bilirubin 0.2 mg/dL (0.15-1.2) 11/26/24 18:37 AST 13 U/L (0-32) 11/26/24 18:37 ALT 15 U/L (0-33) 11/26/24 18:37 Alkaline Phosphatase 83 U/L (35-105) 11/26/24 18:37 C-Reactive Protein 11.0 mg/L (0.0-4.9) H 11/26/24 18:37 Total Protein 6.4 g/dL (6.6-8.7) L 11/26/24 18:37 Albumin 3.7 g/dL (3.5-5.2) 11/26/24 18:37 Globulin 2.7 g/dL (1.3-4.6) 11/26/24 18:37 All radiology interpretation(s) finalized by discharge Discharge Plan Discharge Patient Disposition: Placed in Observation Clinical Impression: Abscess of toe, Cellulitis Coding Level of Care Code 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
[2024-11-26 20:00] VITALS: BP 120/73; PULSE 91; RESP 18; O2SAT 92
[2024-11-26 21:36] VITALS: BP 104/72; PULSE 86; O2SAT 92
[2024-11-26 21:49] VITALS: BMI 38.0
[2024-11-26 22:00] VITALS: PULSE 75
[2024-11-26 22:28] LABS: Lactic Acid level (Lactate) 2.2 mmol/L (0.5-2.2)
--- NOTE | 2024-11-26 22:34 | P.HP_ITS ---
Providers/Chief Complaint 2 Admitting Physician: Catia Joy MD Primary Care Provider: ROSAURA Pickard Chief Complaint: L second toe swelling and pain History of Present Illness Leny Rodriguez is a 58 yo woman w/ metabolic syndrome, gout, who presented to the ED on 11/27/2024 w/ complaints of L. 2nd toe inflammation and abscess. She is s/p L. great toe bunionectomy and correction of her L. 2nd hammer toe with a screw on 10/13/2024. The patient went for her routine 6 week post-op f/u w/ her Director Of Patient Care, and things looked good. On 11/24/2024, she noticed a mushy blue looking spot on her toe, so she came to the ED< where it lanced and abscess drained. She was d/c'ed from the ED with Levofloxacin and encouraged to return her L. 2nd toe continued to drain or the L. toe drained. Although she took Levofloxacin on Wed and Wednesday morning, her L. 2nd toe became erythematous, swelled and throbbed, and the drainage increased especially whenever, she walked. This afternoon, as she felt increased pressure in her toe and noticed that the drainage soaked through her sock, in her, shoe, she decided to present to the ED. She endorses fatigue, malaise, intermittent headaches. She endorses 3 loose stools yesterday, on 11/25/2024, after eating cheese at the same time that she took Levofloxacin, which she deems a side effect of the medication. She denies abd pain, n/v, melena, hematochezia, She endorsed dizziness when she attempted to get up to use the restroom in the ED, and that is not normal for her. She denies f/c, palpitations, dyspnea. In the ED, her vital signs were significant for tachycardia. Her labs showed no leukocytosis, but does show microcytic anemia, and a lactic acidosis of 3.2. In the ED, foot x-ray was done that showed stable postoperative changes within the left foot. The director global medical affairs was consulted from the ED, who saw the patient and plans to take the patient to the OR on 11/27/2024. In the ED, she was started on vancomycin 1g and cefepime 1 g x 1. Approximately Two liters of LR IV were ordered and infused on admission Review of Systems 2 Const: Reports: fatigue (increased sleepiness on 11/26/2023) and malaise; Denies: fever(s), chills or change in appetite Eyes: Denies: change in vision ENMT: Denies: odynophagia, ear or mastoid pain, ear discharge, nasal discharge or nasal congestion Card: Denies: chest pain, palpitations, lightheadedness or syncope Resp: Denies: dyspnea, productive cough, non-productive cough or wheezing GI: Reports: diarrhea; Denies: abdominal pain, nausea, vomiting, hematochezia or melena : Denies: difficulty voiding, dysuria, urinary frequency or hematuria Musc: Reports: joint pain (L. 2nd toe) and other (no myalgias) Skin/Breast: Denies: rash or new lesions Neuro: Reports: headache(s) and dizziness Psych: Reports: depression; Denies: anxiety, suicidal ideation or homicidal ideation Eduardo/Lymph: Reports: easy bruising; Denies: easy bleeding All/Imm: Denies: food intolerance Medications/Allergies Home Medications ?Medication ?Instructions ?Recorded ?Confirmed ?Last Taken ?Type cyanocobalamin (vitamin B-12) 1,000 mcg PO DAILY 90 da ys #90 caps 12/03/22 11/26/24 11/26/24 Rx 1,000 mcg capsule Spectrum AFO to left #1 ea 01/06/23 11/26/24 Unkn own Rx blood sugar diagnostic #100 ea 10/15/23 11/26/24 Un known Rx lancets (Accu-Chek Softclix #200 ea 10/15/23 11/26/24 Unknown Rx Lancets) Diabetic shoes #1 ea 12/27/23 11/26/24 Unkn own Rx pseudoephedrine HCl 120 mg 120 mg PO BID PRN nasal con gestion 02/10/24 11/26/24 2 Weeks Ago Rx tablet,extended release (Sudafed 30 days #60 tabs ~0 09/29/24 12 Hour) famotidine 40 mg tablet 40 mg PO BID 05/16/2411/26/24 History gabapentin 600 mg tablet 900 mg PO BID 05/16/2411/2611/26/24 History guaifenesin 600 mg tablet, 600 mg PO BID PRN Congestio n 05/16/24 11/26/24 2 Weeks Ago History extended release 12 hr (Mucinex) ~ levothyroxine 25 mcg tablet 12.5 mcg PO DAILY 05/16/24 11/26/24 11/26/24 History montelukast 10 mg tablet 10 mg PO DAILY 05/16/2411/0311/26/24 History paroxetine HCl 20 mg tablet 20 mg PO DAILY 05/16/2411/26/24 History rosuvastatin 20 mg tablet 20 mg PO DAILY 05/16/2411/0311/26/24 History Left AFO boot #1 ea 06/27/24 11/26/24 Unkn own Rx metformin 500 mg tablet,extended See Rx Instructions . Route 07/04/24 11/26/24 11/26/24 Rx release 24 hr .COMPLEX #360 tabs allopurinol 300 mg tablet See Rx Instructions .Route 0 07/11/24 11/26/24 11/26/24 Rx .COMPLEX #90 tabs trazodone 150 mg tablet See Rx Instructions .Route 0 07/17/24 11/26/24 11/25/24 Rx .COMPLEX #90 tabs ergocalciferol (vitamin D2) 1,250 1,250 mcg PO .WEEKLY #12 caps 07/20/24 11/26/24 11/26/24 Rx mcg (50,000 unit) capsule semaglutide 1 mg/dose (4 mg/3 mL) See Rx Instructions .Route 08/22/24 11/26/24 11/25/24 Rx subcutaneous pen injector (Ozempic) .COMPLEX #12 mL pantoprazole 40 mg tablet,delayed 40 mg PO QDAY 30 day s #30 tabs 09/05/24 11/26/24 11/26/24 Rx release (Protonix) levocetirizine 5 mg tablet See Rx Instructions .Route 09/12/24 11/26/24 11/25/24 Rx .COMPLEX #90 tabs hydrochlorothiazide 25 mg tablet See Rx Instructions . Route 10/02/24 11/26/24 11/26/24 Rx .COMPLEX #90 tabs vitamin with calcium See Rx Instructions .Rou te 10/02/24 11/26/24 11/26/24 Rx no.72-iron 27 mg-folic acid 1 mg .COMPLEX #30 tabs tablet (WesTab Plus) empagliflozin 25 mg tablet 25 mg PO DAILY #90 tabs 07/2911/26/24 11/26/24 Rx (Jardiance) loratadine 10 mg tablet (Claritin) 10 mg PO DAILY 30 d ays #30 tabs 10/24/24 11/26/24 11/26/24 Rx ferrous gluconate 324 mg (38 mg 324 mg PO BID 90 days #180 tabs 10/30/24 11/26/24 11/26/24 Rx iron) tablet olopatadine 0.2 % eye drops 1 drp ophthalmic (eye) GAURAV LY PRN 10/30/24 11/26/24 Unknown Rx (Pataday Once Daily Relief) itching 30 days #2.5 mL meloxicam 15 mg tablet See Rx Instructions .Route 0 11/14/24 11/26/24 11/26/24 Rx .COMPLEX #30 tabs potassium citrate 10 mEq (1,080 See Rx Instructions .R oute 11/17/24 11/26/24 11/26/24 Rx mg) tablet,extended release .COMPLEX #90 tabs albuterol sulfate 90 mcg/actuation See Rx Instructions .Route 11/20/24 11/26/24 Unknown Rx aerosol inhaler .COMPLEX #18 grams cephalexin 750 mg capsule 750 mg PO Q8H 7 days #21 cap s 11/24/24 11/26/24 11/26/24 Rx fluconazole 150 mg tablet 150 mg PO Q3D PRN Yeast infe ctions 11/26/24 11/26/24 Unknown History Allergies Allergy/AdvReac Type Severity Reaction Status Date / Time doxycycline Allergy Intermediate ADR-Itching Verified 11/26/24 15:36 hydromorphone (From Dilaudid) Allergy Intermediate ADR-Halluci Verified 11/26/24 15:36 nating promethazine (From Phenergan) Allergy Intermediate ADR-Halluci Verified 11/26/24 15:36 nating penicillin G Allergy Mild ADR-Itching Verified 11/26/24 15:36 Sulfa (Sulfonamide Allergy Mild ADR-Itching Verified 11/26/24 15:36 Antibiotics) ondansetron (From Zofran) Allergy ADR-Headach Verified 11/26/24 15:36 e cephalexin (From Keflex) AdvReac Intermediate ADR-Itching Verified 11/26/24 15:36 PFSH Acute 2 PFSH: Medical History Type 2 diabetes mellitus Insomnia Chronic sinusitis DDD (degenerative disc disease), lumbar Multiple allergies Colon polyps Dysphagia Essential hypertension Iron deficiency Hypomagnesemia Low back pain Lumbar back pain with radiculopathy affecting lower extremity Seasonal allergies Upper respiratory infection Physical exam, pre-employment Otitis media, right Allergic dermatitis Grief Diabetic foot ulcer Chronic low back pain Chronic pain of both knees Diabetic gastroparesis Diabetic neuropathy Osteoarthritis of left knee Osteoarthritis of right knee Bilateral primary osteoarthritis of knee Lumbar radiculopathy, acute Hip pain Bunion of great toe Encounter for weight loss counseling Blood in both ear canals Otitis externa Nausea Hot flashes due to menopause Urgency incontinence Urolithiasis Left shoulder pain Sinusitis Anxiety and depression Multiple persistent symptoms after COVID-19 Anxiety Multiple joint pain Cough Acute bacterial sinusitis Hypertension screen Vitamin D deficiency Fatigue Renal cyst Chronic sinusitis Environmental and seasonal allergies Morbidly obese KARLEE (obstructive sleep apnea) Kidney lesion, hopi, right COVID-19 Encounter for screening laboratory testing for COVID-19 virus Hematuria Common migraine with intractable migraine Accelerated hypertension Plantar fasciitis, left Bone spur of foot Onychocryptosis Cellulitis of left toe Female cystocele Gout Patient has history of gout and takes Allopurinol for control of symptoms. Chronic headache Patient has history of chronic headaches. Previous MRI of head were normal. COPD (chronic obstructive pulmonary disease) Gastroesophageal reflux Diabetes mellitus Hyperlipidemia Depression Kidney stones Surgical History History of tubal ligation History of umbilical hernia repair History of cholecystectomy History of hysterectomy History of Family History Mother Hypertension Diabetes Family history of thyroid problem Father , at age 70 Aneurysm Social History Smoking and tobacco/nicotine status: never used tobacco/nicotine Second hand smoke exposure: No Alcohol intake: current Alcohol intake frequency: holidays/special occasions only Substance/Drug Use: never Adopted: No Caregiver/support person: No Lives independently: Yes Household members: spouse Housing: House Marital status: Current occupational status: employed Pets and animals: No Do you think of yourself as: Straight/Heterosexual Current gender identity: Female Vitals/I&O/Wt Last Vital Signs Temp 98.5 F 11/26/24 15:30 Pulse 86 11/26/24 21:36 Resp 18 11/26/24 20:00 BP 104/72 11/26/24 21:36 Pulse Ox 92 11/26/24 21:36 O2 Del Method Room Air 11/26/24 21:49 11/26/24 11/26/24 11/26/24 06:59 14:59 22:59 Intake Total 300 / 300 Balance 300 / 300 Weight last 48 hrs Weight 110.223 kg Weight 108.862 kg Physical Exam 2 Narrative: Constitutional: GENERAL APPEARANCE: cooperative, comfortable HENT: HEAD & SCALP: normocephalic and atraumatic; NOSE: external nose not normal EXTERNAL EAR: no external ears normal MOUTH: Normal oral and palatal mucosa present THROAT: posterior oropharynx normal Eye: PERRL, EOMI, normal conjunctiva b/l Neck: normal visual inspection, trachea midline, No anterior neck swelling, No tracheal deviation, No tracheostomy present, no submandibular swelling, Thyroid normal , cervical ROM normal Lymph: no cervical, supraclavicular LAD Resp: no use of accessory muscles, CTAB, no w/r/r Cardio: RRR, no m/r/g, or clicks. 2+ radial and DP pulses. GI: normoactive bowel sounds, non-tender, non-distended, no guarding, no rigidity, no rebound tenderness, no hepatosplenomegaly. : No Quintana in place, No CVA tenderness Back/Pelvis: Deferred Extremity: Scar on the medial of the L. great toe. L. 2nd toe bandaged, but the proximal aspect of the toe is erythematous. Neuro: AO to person, place and time. CN normal except as noted. Normal gait present. 5/5 motor strength present throughout. Normal motor muscle tone present throughout. No tremor noted. No motor abnormalities present. No motor fasciculations present Psych: APPEARANCE: Yes grossly normal ATTITUDE: Yes calm and Yes engaged ACTIVITY/MOTOR BEHAVIOR: Yes appropriate eye contact SPEECH: Yes normal speech MOOD & AFFECT: Yes euthymic mood THOUGHT PROCESS: Normal thought process present THOUGHT CONTENT: Yes Normal thought content present ATTENTION/CONCENTRATION: Yes attention grossly intact MEMORY/COGNITION: Yes memory grossly intact Data 11/27/24 04:25 11/27/24 04:25 Micro: Microbiology 11/26/24 18:42 Blood Culture - Preliminary Blood SPECIMEN COLLECTED 11/26/24 18:37 Blood Culture - Preliminary Blood SPECIMEN COLLECTED A&P Assessment and plan (1) Abscess of toenail on left foot: (2) Diabetes mellitus: (3) 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 2nd toe inflammation and abscess. #L. 2nd toe cellulitis with abscess #Infected hardware of L. 2nd toe - MRI of L. foot ordered - Plan for the OR on 11/27/2024. NPO after midnight -Give another 1L NS @500cc/hr. Started NS at 75cc/hr - Ordered vancomycin with pharmacy to dose, cefepime at 2g q8h, and flagyl. Pain control. - F/u BCx, and wound cx collected in ED #non-IDDM2 - low dose SSI qAC and hig dose SSI qHS. #Microcytic anemia: Ferritin ordered. partial work up done on 10/24? #HTN #HLD #Lactic acidosis: Monitor #Gout: historically on L. great toe. No acute issues at this time. #Hypothyroidism #Allergic rhinitis: year rounds. #Insomnia #Depression - Resume home meds prn #GERD - PPI IV ordered DVT ppx: Pending surgery GI ppx: PPI IV PDMP PDMP Reviewed: Not Reviewed Attestations 2 Medical Necessity Statement*: The patient needs to be hospitalized for greater than 2 midnights, for her left second toe cellulitis with abscess due to an infected hardware, as well as a lactic acidosis. Coding Level of Care Code 85886 High Time for a total of 80 minutes, includes reviewing past or interval history, examining/interviewing patient, placing orders, counseling patient/family/other support, updating patient/family/other support, discussing plan of care with staff, communicating with other healthcare providers, documenting encounter and coordinating care Other Coding Information Focused coding review requested Diagnoses Abscess of toenail on left foot L03.032 Type 2 diabetes mellitus with other specified complication, without long-term current use of insulin E11.69 Diabetes mellitus type: type 2 Diabetes mellitus system support analyst insulin use: without system support analyst use Diabetes mellitus complication status: with other specified complication Infected hardware in left lower extremity, initial encounter T84.7XXA Encounter type: initial encounter
[2024-11-26 23:57] VITALS: BP 113/69; PULSE 78; RESP 16; TEMP 36.7; O2SAT 94
[2024-11-27] VITALS (16 sets, daily range): BP systolic 103–147; BP diastolic 65–87; PULSE 58–78; RESP 14–18; TEMP 36.4–36.8; O2SAT 93–98
[2024-11-27] MEDS: sodium chloride 0.9% 1,000 ML 500 ML IV (02:21)
[2024-11-27] MEDS: metroNIDAZOLE IV 500 MG/100 ML PREMIX 100 MG IV ×4 (02:56→23:48)
[2024-11-27 02:58] LABS: Glucose Point of Care 133 mg/dL (70-110)
[2024-11-27] MEDS: morphine 4 mg/mL SDV 1 mL 2 MG IVP ×2 (03:05→19:49)
[2024-11-27] MEDS: cefepime 2,000 mg SDV 2000 MG IVP ×3 (03:55→19:49)
[2024-11-27] MEDS: sodium chloride 0.9% 1,000 ML 75 ML IV ×2 (04:02→20:58)
[2024-11-27 04:40] LABS: Basophils % 0.1 %; Eosinophils # 0.2 10^3/uL (0.0-0.8); Eosinophils % 2.2 %; Lymphocytes # 2.5 10^3/uL (0.8-4.8); Lymphocytes % 37.2 %; Mean Corpuscular HGB Conc 28.5 g/dL (30-55); Mean Corpuscular Hemoglobin 24.1 pg (27-33); Mean Corpuscular Volume 84.4 fl (85-98); Mean Platelet Volume 10.4 fL (7.4-10.4); Monocytes # 0.5 10^3/uL (0.2-0.9); Monocytes % 7.1 %; Neutrophils # 3.56 10^3/uL (1.8-7.7); Neutrophils % 53.1 %; Nucleated Red Blood Cells % 0 %; Platelet Count 265 10^3/cmm (157-399); Red Blood Count 4.03 10^6/uL (3.85-5.65); Red Cell Distribution Width 16.6 % (12.1-15.1); White Blood Count 6.72 10^3/uL (3.29-11.43)
[2024-11-27 04:51] LABS: INR 0.91 (0.8-1.2)
[2024-11-27 05:00] LABS: Alanine Aminotransferase 12 U/L (0-33); Albumin Level 3.3 g/dL (3.5-5.2); Alkaline Phosphatase 73 U/L (35-105); Aspartate Amino Transferase 12 U/L (0-32); Blood Urea Nitrogen 13 mg/dL (6-20); Calcium 8.7 mg/dL (8.5-10.5); Carbon Dioxide 24 mmol/L (22-29); Chloride 105 mmol/L (98-107); Creatinine Clr Calc Pharmacy 129.2302; Globulin 2.4 g/dL (1.3-4.6); Glomerular Filtration Rate 102.3 mL/min (90-130); Glucose 111 mg/dL (65-115); Magnesium 1.7 mg/dL (1.7-2.3); Osmolality Calculated 293 mOsm/kg (285-295); Phosphorus 3.2 mg/dL (2.5-4.5); Sodium 141 mmol/L (136-145); Total Bilirubin 0.3 mg/dL (0.15-1.2); Total Protein 5.7 g/dL (6.6-8.7)
[2024-11-27] MEDS: pantoprazole 40 mg SDV IVP ×2 (05:09→17:49)
[2024-11-27] MEDS: vancomycin 1,250 MG/250 ML PIGGYBACK 166.67 MG IV ×2 (05:17→14:27)
[2024-11-27 06:46] LABS: Glucose Point of Care 111 mg/dL (70-110)
[2024-11-27 08:09] LABS: Glucose Point of Care 106 mg/dL (70-110)
--- OUTSIDE RECORDS SUMMARY | 2024-11-27 08:57 | XMS_ITS | Encounter Summary ---
Author Organization [facility] Address [address] [place] [address] Care Team Providers Care Cork Painter And Grader Name Role Phone Livan [place] APRN Primary Care Provider [phone] Encounter Details Date Type Department Care Team (Latest Contact Info) Description 12/23/1999 Outpatient [facility] Medicine [place] [address] [facility] [address] [place] [address] Joaquin Sher DO NO ADDRESS ON FILE Allergy, unspecified not elsewhere classified (Primary Dx) Social History Tobacco Use Types Packs/Day Years Used Date Smoking Tobacco: Never Assessed Comments Unknown Sex and Gender Information Value Date Recorded Sex Assigned at Not on file Legal Sex Female 2:52 AM IT LEAD Gender Identity Not on file Sexual Orientation Not on file documented as of this encounter Plan of Treatment Not on file documented as of this encounter Visit Diagnoses Diagnosis Allergy, unspecified not elsewhere classified- Primary documented in this encounter Care Teams Cork Painter And Grader Relationship Specialty Start Date End Date Livan [place] APRN [address] [place] [phone] PCP - General Nurse Practitioner Family 11/19/18 documented as of this encounter
--- OUTSIDE RECORDS SUMMARY | 2024-11-27 08:57 | XMS_ITS | Encounter Summary ---
Author Organization [facility] Address [address] [place] [address] Care Team Providers Care Senior Sql Developer Name Role Phone Livan [place] APRN Primary Care Provider [phone] Encounter Details Date Type Department Care Team (Latest Contact Info) Description 06/30/1999 Outpatient Historical [facility] Family Medicine- [address] [place] [id number] Joaquin Sher, NO ADDRESS ON FILE Acute tonsillitis (Primary Dx) Social History Tobacco Use Types Packs/Day Years Used Date Smoking Tobacco: Never Assessed Comments Unknown Sex and Gender Information Value Date Recorded Sex Assigned at Not on file Legal Sex Female 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
--- OUTSIDE RECORDS SUMMARY | 2024-11-27 08:57 | XMS_ITS | Encounter Summary ---
Author Organization [facility] Address [address] [place] [address] Care Team Providers Care Gis Software Engineer Name Role Phone Livan [place] FREELANCE COPYWRITER Primary Care Provider [phone] Encounter Details Date Type Department Care Team (Latest Contact Info) Description 06/24/2018 Ancillary Orders [facility] Pre-Registration [place] CALL TO MAKE APPOINTMENT ONLY [address] [place] [address] Livan [place], FREELANCE COPYWRITER [address] [phone] Splenomegaly; Frequent headaches Social History Tobacco Use Types Packs/Day Years Used Date Smoking Tobacco: Never Smokeless Tobacco: Never Alcohol Use Standard Drinks/Week Comments No 0 (1 standard drink = 0.6 oz pur e alcohol) Comments No Sex and Gender Information Value Date Recorded Sex Assigned at Not on file Legal Sex Female 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 AM MARINE ELECTRICIAN HELPER Gender Identity Not on file Sexual Orientation Not on file Occupation Industry Job Start Date Job End Date Not on file Not on file Not on file Not on file Not on file Not on file Not on file Not on file documented as of this encounter Plan of Treatment Not on file documented as of this encounter Visit Diagnoses Diagnosis Splenomegaly Frequent headaches documented in this encounter Care Teams Gis Software Engineer Relationship Specialty Start Date End Date Livan [place], FREELANCE COPYWRITER [address] [place] [phone] PCP - General Nurse Practitioner Family 11/19/18 documented as of this encounter
--- OUTSIDE RECORDS SUMMARY | 2024-11-27 08:57 | XMS_ITS | Encounter Summary ---
Author Organization [facility] Address [address] [place] [address] Care Team Providers Care Loom Starter Name Role Phone Livan [place] DIRECTOR MEDICAL AFFAIRS Primary Care Provider [phone] Encounter Details Date Type Department Care Team (Latest Contact Info) Description 03/17/1999 Outpatient Historical [facility] Family Medicine- [address] [place] [phone] Malini Quigley NO ADDRESS ON FILE Unspecified viral infection, in conditions classified elsewhere and of unspecified site (Primary Dx) Social History Tobacco Use Types Packs/Day Years Used Date Smoking Tobacco: Never Assessed Comments Unknown Sex and Gender Information Value Date Recorded Sex Assigned at Not on file Legal Sex Female 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
--- OUTSIDE RECORDS SUMMARY | 2024-11-27 08:57 | XMS_ITS | Encounter Summary ---
Author Organization [facility] Address [address] [place] [address] Care Team Providers Care Industrial Ecology Technician Name Role Phone Unavailable Primary Care Provider Unavailabl e Encounter Details Date Type Department Care Team (Late st Contact Info) Description 11/22/2024 External Device Data [facility] ABSTRACTION Provider, Abstract NO ADDRESS ON FILE Social History Tobacco Use Types Packs/Day Years Used Date Smoking Tobacco: Never Smokeless Tobacco: Never Alcohol Use Standard Drinks/Week Comments No 0 (1 standard drink = 0.6 oz pur e alcohol) Feeling Safe Answer Date Recorded Are you in a relationship wi th someone who hurts you emotionally and/or physically? No 02/24/2024 Comments No Sex and Gender Information Value Date Recorded Sex Assigned at Not on file Legal Sex Female 12:22 PM OPERATIONS SUPERVISOR Gender Identity Not on file Sexual Orientation Not on file documented as of this encounter Plan of Treatment Not on file documented as of this encounter Visit Diagnoses Not on filedocumented in this encounter
--- OUTSIDE RECORDS SUMMARY | 2024-11-27 08:57 | XMS_ITS | Encounter Summary ---
Author Organization [facility] Address [address] [place] [address] Care Team Providers Care Farm Owner Operator Name Role Phone Livan [place] CARBON BLOCKS PRESS OPERATOR Primary Care Provider [phone] Encounter Details Date Type Department Care Team (Latest Contact Info) Description 04/01/1999 Outpatient Historical [facility] Family Medicine- [address] [place] [phone] Joaquin [place] DO NO ADDRESS ON FILE Depressive disorder, not elsewhere classified (Primary Dx) Social History Tobacco Use Types Packs/Day Years Used Date Smoking Tobacco: Never Assessed Comments Unknown Sex and Gender Information Value Date Recorded Sex Assigned at Not on file Legal Sex Female 2:52 AM SALES RECRUITER Gender Identity Not on file Sexual Orientation Not on file documented as of this encounter Plan of Treatment Not on file documented as of this encounter Visit Diagnoses Diagnosis Depressive disorder, not elsewhere classified- Primary documented in this encounter Care Teams Farm Owner Operator Relationship Specialty Start Date End Date Livan [place] APRN [address] [phone] PCP - General Nurse Practitioner Family 11/19/18 documented as of this encounter
--- OUTSIDE RECORDS SUMMARY | 2024-11-27 08:57 | XMS_ITS | Encounter Summary ---
Author Organization [facility] Address [address] [place] [address] Care Team Providers Care Package Lift Operator Name Role Phone Unavailable Primary Care Provider Unavailabl e Encounter Details Date Type Department Care Team (Late st Contact Info) Description 11/23/2024 External Device Data [facility] ABSTRACTION Provider, Abstract [...] on file Legal Sex Female 12:22 PM HEAD WAITRESS Gender Identity Not on file Sexual Orientation Not on file documented as of this encounter Plan of Treatment Not on file documented as of this encounter Visit Diagnoses Not on filedocumented in this encounter
--- OUTSIDE RECORDS SUMMARY | 2024-11-27 08:57 | XMS_ITS | Clinical Summary ---
Author Organization [facility] Address [address] [place] [address] Phone Care Team Providers Care Pleat Taper Name Role Phone Livan Edwards MANDY Primary Care Provider [phone] Allergies Active Allergy Reactions Criticality Noted Date Comments Cephalexin Rash Low 11/30/2011 Hydromorphone (Pf) Delirium Medium 04/16/2014 Penicillins Rash Low 10/05/2011 Promethazine Hallucination Low 10/05/2011 Sulfatrim Ds Rash Low 10/05/2011 Medications hydrochlorothia zide 25 mg Oral tablet Take 25 mg by mouth daily. Active traZODone (DESYREL) 100 mg Oral tablet Take 100 mg by mouth daily at bedtime. Active potassium chloride (KLOR-CON) 10 mEq Extended Release tabletIndicatio ns:Takes 2 in the am and 1 in the pm. Take 10 mEq by mouth 2 times daily before meals. Active ibuprofen (MOTRIN) 800 mg tablet Take 1 Tablet (800 mg) by mouth every 8 hours as needed for Pain, Mild. 30 Tablet 7 Active traMADol (ULTRAM) 50 mg tablet 8 Active allopurinol (ZYLOPRIM) 300 mg tablet 8 Active fluticasone (FLONASE) 50 mcg/spray [place], Suspension 8 Active levocetirizine (XYZAL) 5 mg tablet 8 Active levothyroxine 50 mcg tablet 8 Active pantoprazole (PROTONIX) 40 mg Tablet, Delayed Release (E.C.) 8 Active PLUS, CALCIUM CARB, 27 mg iron- 1 mg Tablet 8 Active pravastatin (PRAVACHOL) 20 mg tablet 8 Active metFORMIN (GLUCOPHAGE) 500 mg tablet Take 500 mg by mouth 2 times daily with meals. Active solifenacin (VESICARE) 10 mg Tablet Take 10 mg by mouth daily. Active meclizine (ANTIVERT) 25 mg tablet Take 25 mg by mouth 3 times daily as needed for Dizziness. Active albuterol HFA 90 mcg inhaler Until improved take 4 puffs every 4 hours while awake but sooner if necessary.. 6.7 Gram 9 Active ondansetron (ZOFRAN ODT) 4 mg Tablet, Rapid Dissolve Do not take for at least 10 days.. 10 Tablet 9 Active PARoxetine HCl (PAXIL) 30 mg tablet Take 60 mg by mouth daily. Active azelastine (ASTELIN) 137 mcg/actuation nasal spray Administer 2 Sprays in each nostril 2 times daily. Angle bottle tip straight back and slightly outward, away from septum. 30 mL 6 9 Active topiramate (TOPAMAX) 25 mg tablet Take 25 mg by mouth daily. 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 Active phenazopyridine 200 mg tablet Take 1 Tablet (200 mg) by mouth 3 times daily. 8 Tablet None 0 Active Active Problems Problem Noted Date Diagnosed Date Other specified hypothyroidism 10/09/2018 Mixed hyperlipidemia 10/09/2018 Type 2 diabetes mellitus wit hout complication, without long-term current use of insulin 10/09/2018 Acute viral syndrome 10/09/2018 Acute bronchitis due to other specified organism s 10/09/2018 Hypoxia with out respiratory failure 10/09/2018 Diarrhea 04/23/2014 Elevated liver enzymes 04/23/2014 Pancreatitis 04/19/2014 HTN (hypertension) 04/19/2014 Abdominal pain 04/19/2014 Elevated troponin Immunizations Immunization Administration Dates Next Due (PNEUMOVAX 23)(50 YRS UP) PN EUMOCOCCAL POLYSACCHARIDE (PPV23) 0.5 ML, IM 04/26/2014 INFLUENZA VACCINE QUADRIVALENT 3 YR UP PF IM Influenza Seasonal Unspecified Formulation IM Family History Medical History Relation Name Comments Hypertension Brother 1 Diabetes Brother 2 Heart Disease Brother 2 Hypertension Brother 2 Other Father aneurysm Stroke Father Diabetes Mother Hypertension Mother Thyroid Disease Mother Asthma Sister Diabetes Sister Hypertension Sister Relation Name Status Comments Brother 1 Alive Brother 2 Alive Father Mother Alive Sister Alive Social History Tobacco Use Types Packs/Day Years Used Date Smoking Tobacco: Never Smokeless Tobacco: Never Alcohol Use Standard Drinks/Week Comments No 0 (1 standard drink = 0.6 oz pur e alcohol) Comments No Sex and Gender Information Value Date Recorded Sex Assigned at Not on file 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 Gender Identity Not on file Sexual Orientation Not on file Occupation Industry Job Start Date Job End Date Not on file Not on file Not on file Not on file Not on file Not on file Not on file Not on file Last Filed Vital Signs Vital Sign Reading Time Taken Comments Blood Pressure 120/78 12/15/2019 11:00 PM CDT Pulse 79 12/15/2019 10:00 PM CDT Temperature 36.7 C (98 F) 12/15/2019 11:00 PM CDT Respiratory Rate 20 12/15/2019 11:0 0 PM CDT Oxygen Saturation 94% 12/15/2019 11: 00 PM CDT Inhaled Oxygen Concentration - - Weight 135.4 kg (298 lb 6.4 oz) 12/15/2019 8:13 PM CDT Height 170.2 cm (5' 7 ) 12/15/2019 8:13 PM CDT Body Mass Index 46.74 12/15/2019 8:13 PM CDT Plan of Treatment Health Maintenance Due Date Last Done Comments DIABETES ANNUAL FOOT EXAM 1982 DIABETES ANNUAL RETINAL EXAM 1982 DIABETES HBA1C Q 6 MONTHS 1982 DIABETES MICROALBUMIN ANNUAL SCREEN 1982 DTAP/TDAP/TD VACCINES (1 - Tdap) 12/14/1983 HEPATITIS B VACCINES (1 of 3 - 19+ 3-dose series) 12/14/1983 HPV/Cotest (21-29) 1985 HPV/Cotest (30-65) 1994 CERVICAL CANCER SCREENING 07/12/2004 PAP SMEAR 07/12/2004 07/12/2001, 07/15/1999 BREAST CANCER SCREENING 2004 FIT-DNA Q 3 years 2009 FIT/FOBT Q 1 year 2009 Flex Sig/CT Colonography Q 5 years 2009 ZOSTER VACCINE (1 of 2) 2014 LDL CHOLESTEROL ANNUAL 04/19/2015 04/19/2014 INFLUENZA VACCINE (#1) 2024 04/26/2014, 2000 COLORECTAL SCREENING 04/24/2024 04/24/2014 Colorectal Cancer Screening 04/24/2024 Procedures Procedure Name Priority Date/Time Associated Diagnosis Comments LIPID PANEL Routine 04/19/2014 11:00 AM CDT from Last 3 Months or Most Recently Relevant to Health Maintenance Results * (ABNORMAL) LIPID PANEL (04/19/2014 11:00 AM CDT) CHOLESTEROL 185 0 - 200 mg/dL [facility] TRIGLYCERIDE 172(H) 0 - 150 mg/dL [facility] HDL 43 40 - 59 mg/dL [facility] LDL CALCULATED 108(H) 0 - 100 mg/dL [facility] Comment: ATPIII Guideline Reference Ranges for Lipid Panel/Calculated LDL Reference: <100 Optimal 100-129 Near Optimal 130-159 Borderline High >160 High Risk CALCULATED TOTAL CHOLESTEROL TO HDL RATIO 4.30 3.27 - 4.44 [facility] Blood 04/19/2014 11:0 0 AM CDT us Donal Masters MD CHEMISTRY ORDERABLES Final Res ult [facility] CLIA# [id number] [address] [place] [address] from Last 3 Months or Most Recently Relevant to Health Maintenance Insurance [employer](X) EXCHANGE Advance Directives For more information, please contact: [phone] * Full Code (Latest Code Status on File) Date Activated Date Inactivated Comments 10/09/2018 11:52 AM 10/11/2018 5:37 PM * Full Code Date Activated Date Inactivated Comments 04/19/2014 10:44 AM 04/26/2014 6:48 PM Care Teams Pleat Taper Relationship Specialty Start Date End Date Livan Edwards, MANDY [address] [place] [phone] PCP - General Nurse Practitioner Family 11/19/18
--- OUTSIDE RECORDS SUMMARY | 2024-11-27 08:57 | XMS_ITS | Encounter Summary ---
Author Organization [facility] Address [address] [place] [address] Care Team Providers Care Curriculum Development Coordinator Name Role Phone Livan Edwards APRN Primary Care Provider Encounter Details Date Type Department Care Team (Latest Contact Info) Description 01/07/1999 Outpatient Historical [facility] Family Medicine- [facility] [address] [place] [phone] Joaquin Sher, NO ADDRESS ON FILE Acute upper respiratory infections of unspecified site (Primary Dx); Depressive disorder, not elsewhere classified Social History Tobacco Use Types Packs/Day Years Used Date Smoking Tobacco: Never Assessed Comments Unknown Sex and Gender Information Value Date Recorded Sex Assigned at Not on file 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
--- OUTSIDE RECORDS SUMMARY | 2024-11-27 08:57 | XMS_ITS | Encounter Summary ---
Author Organization [facility] Address [address] [place] [address] Care Team Providers Care Spot Welder Line Name Role Phone Livan Edwards CHART CLERK Primary Care Provider [phone] Encounter Details Date Type Department Care Team (Latest Contact Info) Description 03/04/1999 Outpatient Historical [facility] Family Medicine- [address] [place] [phone] Joaquin Sher DO NO ADDRESS ON FILE Acute sinusitis, unspecified (Primary Dx) Social History Tobacco Use Types Packs/Day Years Used Date Smoking Tobacco: Never Assessed Comments Unknown Sex and Gender Information Value Date Recorded Sex Assigned at Not on file 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
--- OUTSIDE RECORDS SUMMARY | 2024-11-27 08:57 | XMS_ITS | Encounter Summary ---
Author Organization [facility] Address [address] [place] [address] Care Team Providers Care Practical Nursing Faculty Name Role Phone Livan Edwards MATERIAL LISTER Primary Care Provider [phone] Encounter Details Date Type Department Care Team (Latest Contact Info) Description 12/05/[address] 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
--- OUTSIDE RECORDS SUMMARY | 2024-11-27 08:57 | XMS_ITS | Encounter Summary ---
Author Organization [facility] Address [address] [place] [address] Care Team Providers Care Dexigraph Operator Name Role Phone Livan Edwards MUSIC DIRECTOR Primary Care Provider [phone] Encounter Details Date Type Department Care Team (Latest Contact Info) Description 04/14/1999 Outpatient Historical [facility] Medicine- [address] [address] Bora Trinh MD [address] [address] Sprain of ankle, unspecified site (Primary Dx); Dizziness and giddiness Social History Tobacco Use Types Packs/Day Years Used Date Smoking Tobacco: Never Assessed Comments Unknown Sex and Gender Information Value Date Recorded Sex Assigned at Not on file 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
--- OUTSIDE RECORDS SUMMARY | 2024-11-27 08:57 | XMS_ITS | Encounter Summary ---
Author Organization [facility] Address [address] [place] [address] Care Team Providers Care Servicenow Administrator Developer Name Role Phone Livan Edwards BATCH FREEZER OPERATOR Primary Care Provider [phone] Encounter Details Date Type Department Care Team (Latest Contact Info) Description 08/16/1998 Outpatient Historical [facility] [address] [place] [phone] Malini Quigley NO ADDRESS ON FILE Acute sinusitis, unspecified (Primary Dx); Depressive disorder, not elsewhere classified Social History Tobacco Use Types Packs/Day Years Used Date Smoking Tobacco: Never Assessed Comments Unknown Sex and Gender Information Value Date Recorded Sex Assigned at Not on file 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
--- OUTSIDE RECORDS SUMMARY | 2024-11-27 08:58 | XMS_ITS | Data Portability ---
Author Organization [place] [facility] [place], ADMIN Address [address] [place] [id number] Care Team Providers Care Hoof And Shoe Inspector Name Role Phone DELROY ROA Primary Care Provider Assessment Encounter Date Assessment Date Assessment LastModified by Organization Details LastModified Time 12/26/2020 12/26/2020 54 y/o female s/p FESS w/ ethmoidectomy, and Clarifix 1. Patient is healing well. Patient reports significant improvement to her sinus symptoms and states her rhinorrhea has improved significantly. She is pleased with the results of surgical intervention. 2. Patient instructed to continue use sinus rinse BID. 3. Patient instructed to call clinic if needed. RTC in 6 months I Coleen Bentley, acting as a scribe for Harley Sheehan MD to document his verbalization of the History of Present Illness, Physical Exam, Assessment and Plan. Coleen Bentley, Scribe, 12/26/2020 10:00 am I Harley Sheehan MD, hereby attest I personally performed and dictated the services documented in the History of Present, Illness, Physical Exam, Assessment and Plan and agree the documentation accurately represents these services and the decisions I made. I also reviewed the documented Review of Systems and the Past, Family, and Social History made changes and/or additions as needed. Harley Sheehan MD, Not available 12/26/2020 11:01:40 06/24/2021 06/24/2021 55 y/o female s/p FESS w/ ethmoidectomy, and Clarifix, CRS. AR 1. CRS: Patient complains of recent onset of purulent rhinorrhea, nasal congestion and sinus pressure the past two weeks. 2. Will Rx Clindamycin for 7 days. 3. AR: Patient instructed to increase use of sinus rinse BID and follow with Flonase BID. 4. Patient presents with two papules in midl-line of tongue. Will continue to observe papules on tongue. Will reassess in 3 months. RTC in 3 months to reassess I Coleen Bentley, acting as a scribe for Harley Sheehan MD to document his verbalization of the History of Present Illness, Physical Exam, Assessment and Plan. Zo Penny, 06/24/2021 10:40 am I Harley Sheehan MD, hereby attest I personally performed and dictated the services documented in the History of Present, Illness, Physical Exam, Assessment and Plan and agree the documentation accurately represents these services and the decisions I made. I also reviewed the documented Review of Systems and the Past, Family, and Social History made changes and/or additions as needed. Harley Sheehan MD, Not available 06/24/2021 12:00:50 09/26/2021 09/26/2021 55 y/o female s/p FESS w/ ethmoidectomy, and Clarifix, CRS. AR 1. CRS: Patient reports she had improvement with surgical intervention. 2. Patient instructed to continue course of Doxcycline for 10 days. 3. AR: Patient instructed to increase use of sinus rinse BID and follow with Flonase BID. Flonase Refilled today. 4. Patient presents with unchanged two papules in midl-line of tongue. Will continue to observe papules on tongue. RTC in 3 months I Coleen Bentley, acting as a scribe for Harley Sheehan MD to document his verbalization of the History of Present Illness, Physical Exam, Assessment and Plan. Zo Penny, 09/26/2021 1:30 pm I Harley Sheehan MD, hereby attest I personally performed and dictated the services documented in the History of Present, Illness, Physical Exam, Assessment and Plan and agree the documentation accurately represents these services and the decisions I made. I also reviewed the documented Review of Systems and the Past, Family, and Social History made changes and/or additions as needed. Harley Sheehan MD, Not available 09/26/2021 14:33:19 02/19/2023 02/19/2023 57 y/o female s/p FESS w/ ethmoidectomy, and Clarifix, CRS. AR, Hx of DM 1. CRS: Patient reports she had improvement with surgical intervention. However, she is back to having persistent symptoms of CRS. Therefore, we will perform nasal endoscopy, today. Visualized muco-purulence on the left, watery drainage, and inflammation of nasal mucosa. 2. Rx Clindamycin 7 days 3. AR: Patient instructed to continue use of sinus rinse BID and follow with Flonase BID. 4. Will reassess in 6 months, or sooner if needed RTC in 6 months I Renetta Dickey, acting as a scribe for Harley Sheehan MD to document his verbalization of the History of Present Illness, Physical Exam, Assessment and Plan. Renetta Dickey, Scribe, 02-19-23 09:40 I Harley Sheehan MD, hereby attest I personally performed and dictated the services documented in the History of Present, Illness, Physical Exam, Assessment and Plan and agree the documentation accurately represents these services and the decisions I made. I also reviewed the documented Review of Systems and the Past, Family, and Social History made changes and/or additions as needed. Harley Sheehan MD, [email or web address] Not available 02/19/2023 10:43:55 08/20/2023 08/20/2023 57 y/o female s/p FESS w/ ethmoidectomy, and Clarifix, CRS. AR, Hx of DM 1. CRS: Patient reports she had improvement with surgical intervention. However, she is back to having persistent symptoms of CRS. Nasal endoscopy, at previous visit, revealed: muco-purulence on the left, watery drainage, and inflammation of nasal mucosa. Rx Clindamycin for 7 days. 2. AR: Patient instructed to continue use of sinus rinse BID and follow with Flonase BID. Dicussed referral to Dr. Patricia for environmental allergy testing and possible IT. However, patient states she cannot make the drive to [place]. Advised her to call the clinic should she change her mind. 3. Will reassess in 6 months. RTC in 6 months I Renetta Dickey, acting as a scribe for Harley Sheehan MD to document his verbalization of the History of Present Illness, Physical Exam, Assessment and Plan. Renetta Dickey, Scribe, 08-20-23 10:30am I Harley Sheehan MD, hereby attest I personally performed and dictated the services documented in the History of Present, Illness, Physical Exam, Assessment and Plan and agree the documentation accurately represents these services and the decisions I made. I also reviewed the documented Review of Systems and the Past, Family, and Social History made changes and/or additions as needed. Harley Sheehan MD, [email or web address] Not available 08/20/2023 11:36:25 Plan of Treatment Reminders Order Date Submit Date Provider Last Modified By Organization Details Last Modified Time Details Appointments None recorded . Lab None recorded . Referral None recorded . Procedures None recorded . Surgeries None recorded . Imaging None recorded . Medication Orders doxycycl ine hyclate 100 mg tablet 2023 024 [facility], [address] [place] [address], [id number], 4 09:55:55 clindamy lamar HCl 300 mg capsule 2022 023 [facility] [address] [place] [address], [id number], 3 12:00:52 fluticas one propiona te 50 mcg/actu ation nasal spray,tse spension 2022 023 [facility], [address] [place] [address], [id number], 3 12:00:52 fluticas one propiona te 50 mcg/actu ation nasal spray,tse spension 2021 022 [facility], [address] [facility] [address], [place], [address], 18:31:34 clindamy lamar HCl 300 mg capsule 2020 021 [email or web address], [address] [facility] [address], [place], [address], 10:01:04 Patient TargetsNo targets recorded. Patient Instructions Encounter Date Encounter Id Patient Instructions Last Modified By Organization Details Last Modified Time 12/26/2020 [id number] allergies: care instructions [email or web address] Not available 12/26/2020 11:20:45 managing your allergies: care instructions [email or web address] Not available 12/26/2020 11:20:45 06/24/2021 [id number] allergies: care instructions [email or web address] Not available 06/25/2021 15:40:59 managing your allergies: care instructions [email or web address] Not available 06/25/2021 15:40:59 1. I ordered, performed, and independently reviewed the Tympanogram. Not available 06/24/2021 11:41:45 09/26/2021 [id number] allergies: care instructions [email or web address] Not available 09/26/2021 18:31:34 managing your allergies: care instructions [email or web address] Not available 09/26/2021 18:31:34 02/19/2023 [id number] allergies: care instructions [email or web address] Not available 02/23/2023 12:00:52 managing your allergies: care instructions [email or web address] Not available 02/23/2023 12:00:52 08/20/2023 [id number] allergies: care instructions [email or web address] Not available 08/26/2023 09:55:55 managing your allergies: care instructions [email or web address] Not available 08/26/2023 09:55:55 Reason for Referral None Reported. Problems Name Problem SNOMED Code Status Onset Date Resolution Date Notes Provider Name and Address Organization Details Recorded Time Sinusitis 70890502 Active YANA Castaneda [facility], [place] - [facility] [place] 14:12:31 Problem Notes None recorded. Procedures Surgical History Date Name Laterality Status Provider Name and Address Organization Details Recorded Time 02/20/20 Nasal Endoscopy completed Renetta Dickey [place] - [address] 02/19/2023 10:20:19 06/24/20 21 Tympanogram - Dr. Zhang completed Coleen [place] - [address] 06/24/2021 11:41:41 11/20/19 s/p FESS - Georgolios completed Horne Mc [place] - [address] 11/19/2020 14:16:10 11/13/19 s/p FESS - Georgolios completed [place] - [address] 11/12/2020 14:25:59 11/07/19 FUNCTIONAL ENDOSCOPIC SINUS SURGERY (SURG) completed Najma Nail, ELECTROMEDICAL EQUIPMENT REPAIRER [place] - [facility] [place] 11/06/2020 16:23:12 08/23/19 21 Tympanogram - Dr. Zhang completed [place] - [facility] [place] 08/23/2020 11:50:27 delivery completed Najma Nail, ELECTROMEDICAL EQUIPMENT REPAIRER [place] [facility] [place] 08/23/2020 11:08:11 Cholecystectomy completed Najma Na il, ELECTROMEDICAL EQUIPMENT REPAIRER [place] [facility] [place] 08/23/2020 11:08:20 Hysterectomy completed Najma Nail, ELECTROMEDICAL EQUIPMENT REPAIRER [place] [facility] [place] 08/23/2020 11:08:31 Hernia Repair completed Najma Nail , ELECTROMEDICAL EQUIPMENT REPAIRER [place] [facility] [place] 08/23/2020 11:09:10 Imaging Results None recorded. Procedure Notes None recorded. Medical Equipment None Reported. Allergies Allergen ID Allergen Name Allergen Category Reaction Reaction Severity Criticality Documentation Date Start Date Code Code System Note Provider Name and Address Organization Details Recorded Time 848200 clindamyc in Not available diarrhea moderate low 02/23/2023 2582 RxNorm Najma Nail, ELECTROMEDICAL EQUIPMENT REPAIRER null, [place] [facility] [place] 10:28:21 [id number] Substance with sulfonami de structure and antibacte rial mechanism of action (substanc e) medicatio n Not available Not available Not available 08/23/2020 28953 8003 SNOMED Najma Nail, ELECTROMEDICAL EQUIPMENT REPAIRER null, [address] 1 11:06:24 08960 Keflex medicatio n Not available Not available Not available 08/23/202040886 7 RxNorm Najma Nail, ELECTROMEDICAL EQUIPMENT REPAIRER null, [address] 1 11:06:34 62040 Dilaudid medicatio n Not available Not available Not available 08/23/2020 45871 3 RxNorm Najma Nail, ELECTROMEDICAL EQUIPMENT REPAIRER null, [address] 1 11:06:42 96633 Product containin g penicilli n (product) medicatio n Not available Not available Not available 08/23/2020 74967 8001 SNOMED Najma Nail, ELECTROMEDICAL EQUIPMENT REPAIRER null, [address] 1 11:07:01 Medications Name Sig Start Date Stop Date Status Note LastModified by Organization Details LastModified Time eq sinus & congestion 30mg tab TAKE 1 TABLET BY MOUTH EVERY 6 HOURS NEEDED FOR NASAL CONGESTIO N active Not Available Not Available No t Available cyclobenzap rine 10 mg tablet TAKE 1 TABLET BY MOUTH THREE TIMES DAILY NEEDED FOR SPASM active Not Available Not Available No t Available neomycin-po lymyxin-hyd rocort 3.5 mg/mL-10,00 0 unit/mL-1 % ear solution INSTILL 4 DROPS INTO EACH EAR EVERY 8 HOURS FOR 7 DAYS 08/23 completed Not Available Not Available Not Available gabapentin 600 mg tablet TAKE 1 & 1/2 (ONE & ONE-HALF) TABLETS BY MOUTH EVERY 8 HOURS FOR 90 DAYS active Not Available Not Available No t Available doxycycline hyclate 100 mg capsule TAKE 1 CAPSULE BY MOUTH TWICE DAILY FOR 7 DAYS active Not Available Not Available No t Available paroxetine 10 mg tablet TAKE 1 TABLET BY MOUTH ONCE DAILY active Not Available Not Available No t Available clindamycin HCl 300 mg capsule TAKE 1 CAPSULE BY MOUTH EVERY 8 HOURS FOR 7 DAYS active Not Available Not Available No t Available azithromyci n 250 mg tablet TAKE 2 TABLETS BY MOUTH ON DAY 1, AND THEN TAKE 1 TABLET BY MOUTH ONCE A DAY ON DAY 2 THROUGH DAY 5 02/19 completed Not Available Not Available Not Available fluconazole 150 mg tablet TAKE 1 TABLET BY MOUTH EVERY 3 DAYS FOR 2 DOSES active Not Available Not Available No t Available benzonatate 200 mg capsule TAKE 1 CAPSULE BY MOUTH THREE TIMES DAILY NEEDED FOR COUGH active Not Available Not Available No t Available sumatriptan 100 mg tablet TAKE 1 TABLET BY MOUTH AT ONSET OF HEADACHE; IF NO RELIEF MAY REPEAT 1 TABLET AFTER AT LEAST TWO HOURS. MAX OF 2 TABLETS PER 24 HOURS active Not Available Not Available No t Available hydrocortis one 1 % lotion APPLY LOTION TOPICALLY THREE TIMES DAILY NEEDED FOR SKIN IRRITATIO N active Not Available Not Available No t Available meloxicam 15 mg tablet TAKE 1 TABLET BY MOUTH ONCE DAILY active Not Available Not Available No t Available phenazopyri dine 200 mg tablet TAKE 1 TABLET BY MOUTH THREE TIMES DAILY FOR SIX DOSES active Not Available Not Available No t Available famotidine 40 mg tablet TAKE 1 TABLET BY MOUTH TWICE DAILY active Not Available Not Available No t Available prednisone 20 mg tablet TAKE 1 TABLET BY MOUTH ONCE DAILY FOR 7 DAYS active Not Available Not Available No t Available naproxen 250 mg tablet TAKE 1 TABLET BY MOUTH ONCE DAILY NEEDED FOR PAIN. TAKE WITH 500 MG NAPROXEN AT ONSET OF HEADACHE MAY REPEAT 500 MG ONE TIME. NO MORE LEILA active Not Available Not Available No t Available clindamycin HCl 150 mg capsule TAKE 3 CAPSULES BY MOUTH THREE TIMES DAILY FOR 6 DAYS 02/19 completed Not Available Not Available Not Available acetaminoph en 300 mg-codeine 15 mg tablet TAKE 1 TABLET BY MOUTH TWICE DAILY NEEDED FOR PAIN FOR 7 DAYS 08/23 completed Not Available Not Available Not Available ciprofloxac in 250 mg tablet TAKE 1 TABLET BY MOUTH TWICE DAILY FOR 5 DAYS active Not Available Not Available No t Available allopurinol 100 mg tablet TAKE 1 TABLET BY MOUTH TWICE DAILY 08/23 completed Not Available Not Available Not Available ciprofloxac in 500 mg tablet TAKE 1 TABLET BY MOUTH TWICE DAILY FOR 7 DAYS active Not Available Not Available No t Available doxycycline monohydrate 100 mg tablet TAKE 1 TABLET BY MOUTH TWICE DAILY FOR 10 DAYS active Not Available Not Available No t Available tramadol 50 mg tablet TK 1 T PO Q 8 H PRN. 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 active Not Available Not Available No t Available Sudogest 30 mg tablet TAKE 1 TABLET BY MOUTH EVERY 6 HOURS NEEDED FOR NASAL CONGESTIO N active Not Available Not Available No t Available levothyroxi ne 25 mcg tablet TAKE 1/2 (ONE-HALF ) TABLET BY MOUTH ONCE DAILY active Not Available Not Available No t Available ketorolac 10 mg tablet TAKE 1 TABLET BY MOUTH THREE TIMES DAILY NEEDED FOR PAIN FOR 5 DAYS active Not Available Not Available No t Available meloxicam 7.5 mg tablet TAKE 1 TABLET BY MOUTH TWICE DAILY NEEDED FOR JOINT PAIN FOR 30 DAYS active Not Available Not Available No t Available triamcinolo ne acetonide 0.025 % topical cream APPLY 1 APPLICATI ON TOPICALLY TWICE DAILY FOR 14 DAYS active Not Available Not Available No t Available trazodone 100 mg tablet TAKE 1 & 1 2 (ONE & ONE HALF) TABLETS BY MOUTH AT BEDTIME FOR 90 DAYS 12/26 completed Not Available Not Available Not Available baclofen 10 mg tablet TAKE 1 TABLET BY MOUTH TWICE DAILY NEEDED FOR PAIN FOR 30 DAYS active Not Available Not Available No t Available potassium citrate ER 10 mEq (1,080 mg) tablet,exte nded release TAKE 1 TABLET BY MOUTH THREE TIMES DAILY active Not Available Not Available No t Available benzonatate 100 mg capsule active Not Available Not Available Not Available doxycycline monohydrate 100 mg capsule TK ONE C PO BID FOR 10 DAYS 08/23 completed Not Available Not Available Not Available hydrocodone 7.5 mg-acetamin ophen 325 mg tablet TAKE 1 TABLET BY MOUTH EVERY 6 HOURS NEEDED FOR PAIN FOR 3 DAYS 06/24 completed Not Available Not Available Not Available paroxetine 20 mg tablet TAKE 1 TABLET BY MOUTH ONCE DAILY FOR 90 DAYS active Not Available Not Available No t Available pantoprazol e 40 mg tablet,kg yed release TAKE 1 TABLET (40 MG) BY MOUTH ONCE DAILY active Not Available Not Available No t Available trazodone 150 mg tablet TAKE 1 TABLET BY MOUTH ONCE DAILY FOR 90 DAYS active Not Available Not Available No t Available metformin 1,000 mg tablet TAKE 1 TABLET BY MOUTH TWICE DAILY FOR 90 DAYS active Not Available Not Available No t Available nitrofurant oin macrocrysta l 100 mg capsule TAKE 1 CAPSULE BY MOUTH EVERY 12 HOURS FOR 5 DAYS. MUST ADMINISTE R WITH A MEAL/FOOD . active Not Available Not Available No t Available gabapentin 300 mg capsule TAKE 2 CAPSULES BY MOUTH TWICE DAILY FOR 90 DAYS active Not Available Not Available No t Available montelukast 10 mg tablet TAKE 1 TABLET BY MOUTH ONCE DAILY active Not Available Not Available No t Available hydroxyzine HCl 25 mg tablet TAKE 1 TABLET BY MOUTH TWICE DAILY NEEDED FOR ITCHING FOR 30 DAYS active Not Available Not Available No t Available allopurinol 300 mg tablet TAKE 1 TABLET BY MOUTH ONCE DAILY FOR 90 DAYS active Not Available Not Available No t Available hydrochloro thiazide 25 mg tablet TAKE 1 TABLET BY MOUTH IN THE MORNING active Not Available Not Available No t Available mupirocin 2 % topical ointment APPLY OINTMENT TOPICALLY TWICE DAILY active Not Available Not Available No t Available ergocalcife rol (vitamin D2) 1,250 mcg (50,000 unit) capsule TAKE 1 CAPSULE BY MOUTH ONCE A WEEK active Not Available Not Available No t Available azelastine 137 mcg (0.1 %) nasal spray USE 1 SPRAY(S) IN EACH NOSTRIL TWICE DAILY active Not Available Not Available No t Available fluticasone 100 mcg-salmete rol 50 mcg/dose blistr powdr for inhalation INHALE 1 DOSE BY MOUTH TWICE DAILY active Not Available Not Available No t Available levofloxaci n 500 mg tablet TAKE 1 TABLET BY MOUTH EVERY 24 HOURS FOR 7 DAYS active Not Available Not Available No t Available levofloxaci n 750 mg tablet TAKE 1 TABLET BY MOUTH ONCE DAILY FOR 6 DAYS active Not Available Not Available No t Available methylpredn isolone 4 mg tablets in a dose pack TAKE BY MOUTH DIRECTED ON INSIDE OF PACKAGE active Not Available Not Available No t Available albuterol sulfate HFA 90 mcg/actuati on aerosol inhaler INHALE 1 PUFF BY MOUTH EVERY 6 HOURS NEEDED FOR SHORTNESS OF BREATH FOR WHEEZING active Not Available Not Available No t Available cefdinir 300 mg capsule TAKE 1 CAPSULE BY MOUTH TWICE DAILY FOR 5 DAYS 02/19 completed Not Available Not Available Not Available fluticasone propionate 50 mcg/actuati on nasal spray,suspe nsion USE 1 SPRAY(S) IN EACH NOSTRIL ONCE DAILY active Not Available Not Available No t Available metformin ER 500 mg tablet,exte nded release 24 hr TAKE 2 TABLETS BY MOUTH TWICE DAILY active Not Available Not Available No t Available doxycycline hyclate 100 mg tablet TAKE 1 TABLET BY MOUTH TWICE DAILY FOR 10 DAYS active Not Available Not Available No t Available metoclopram michele 10 mg tablet TAKE 1 TABLET BY MOUTH EVERY 8 HOURS FOR 10 DAYS active Not Available Not Available No t Available Sudogest 60 mg tablet active Not Available Not Available No t Available neomycin-po lymyxin-hyd rocort 3.5 mg-10,000 unit/mL-1 % ear drops,susp INSTILL 4 DROPS INTO THE EAR(S) EVERY 8 HOURS FOR 10 DAYS active Not Available Not Available No t Available rosuvastati n 20 mg tablet TAKE 1 TABLET BY MOUTH ONCE DAILY active Not Available Not Available No t Available topiramate 50 mg tablet TAKE 1 TABLET BY MOUTH ONCE DAILY 08/23 completed Not Available Not Available Not Available nitrofurant oin monohydrate /macrocryst als 100 mg capsule TAKE 1 CAPSULE BY MOUTH TWICE DAILY FOR 7 DAYS 08/23 completed Not Available Not Available Not Available duloxetine 30 mg capsule,del ayed release TAKE 1 CAPSULE BY MOUTH ONCE DAILY active Not Available Not Available No t Available duloxetine 60 mg capsule,del ayed release TAKE 2 CAPSULES BY MOUTH ONCE DAILY FOR 90 DAYS active Not Available Not Available No t Available solifenacin 10 mg tablet TAKE 1 TABLET BY MOUTH DAILY active Not Available Not Available No t Available hydrochloro thiazide 12.5 mg tablet TAKE 1 TABLET BY MOUTH DAILY WITH THE 25MG TABLET FOR 7 DAYS active Not Available Not Available No t Available levocetiriz ine 5 mg tablet TAKE 1 TABLET BY MOUTH ONCE DAILY NEEDED FOR ALLERGY SYMPTOMS FOR 90 DAYS active Not Available Not Available No t Available Jardiance 25 mg tablet TAKE 1 TABLET BY MOUTH ONCE DAILY active Not Available Not Available No t Available Ozempic 0.25 mg or 0.5 mg (2 mg/1.5 mL) subcutaneou s pen injector INJECT 0.25 MG SUBCUTANE OUSLY WEEKLY FOR 30 DAYS active Not Available Not Available No t Available calcium 250 mg-D3 400 unit-magnes ium 40 mg-B6-Zn-co pper-autumn tablet Take 1 tablet by oral route in the morning. active Not Available Not Available No t Available WesTab Plus 27 mg iron-1 mg tablet TAKE 1 TABLET BY MOUTH ONCE DAILY active Not Available Not Available No t Available Ozempic 1 mg/dose (4 mg/3 mL) subcutaneou s pen injector active Not Available Not Available Not Available Paxlovid 300 mg (150 mg x 2)-100 mg tablets in a dose pack TAKE 3 TABLETS TOGETHER (TWO 150 MG NIRMATREL VIR TABLETS AND ONE 100 MG RITONAVIR TABLET) BY MOUTH TWICE DAILY FOR 5 DAYS. active Not Available Not Available No t Available Ozempic 0.25 mg or 0.5 mg (2 mg/3 mL) subcutaneou s pen injector INJECT 0.5 MG SUBCUTANE OUSLY ONCE WEEKLY FOR 30 DAYS active Not Available Not Available No t Available Vitals Date Recorded Body weight Heart rate Systolic And Diastolic Provider Name and Address Organization Details Last Updated DateTime 08/20/2023 676292.76 g 114 /min 129/89 mm[Hg] Serena Samayoa LPN [address] 08/20/2023 10:54:46 Date Recorded Body height Body mass index (BMI) Body weight Heart rate Respiratory rate Systolic And Diastolic Provider Name and Address Organization Details Last Updated DateTime 170.18 cm 44 kg/m2 341956. 17 g 98 /min 20 /min 113/76 mm[Hg] RAMIRO CastanedaDerek [address] 2 14:21:29 Date Recorded Body height Body mass index (BMI) Body weight Heart rate Systolic And Diastolic Provider Name and Address Organization Details Last Updated DateTime 12/26/2020 170.18 cm 43.5 kg/m2 129398.6 8 g 102 /min 119/84 mm[Hg] Najma Whyte LPN [address] 12/26/2020 10:40:20 Date Recorded Body weight Heart rate Systolic And Diastolic Provider Name and Address Organization Details Last Updated DateTime 02/19/2023 018274.71 g 70 /min 145/90 mm[Hg] Serena Samayoa LPN [address] 02/19/2023 10:00:43 Date Recorded Body height Body mass index (BMI) Body weight Body temperature Heart rate Systolic And Diastolic Provider Name and Address Organization Details Last Updated DateTime 170.18 cm 45.4 kg/m2 682409. 79 g 98.2 [degF] 68 /min 172/95 mm[Hg] Najma Whyte LPN [address] 11:17:32 Social History Question Answer Notes LastModified by Organizat ion Details LastModified Time Tobacco Smoking Status Never Smoker ANGÉLICA Bhatia [address] 08/23/2020 11:07:52 What Was The Date Of Your Most Recent Tobacco Screening? 08/23/2020 Information not available 08/20/2023 Sex: Unknown Functional Status None recorded. Mental Status None recorded. Family History Relationship Description Onset Age of this Age Resolved Age Notes LastModified by Organization Details LastModified Time Mother Diabetes mellitus cnail2 Not available 2020 11:07:29 Father Aneurysm Not available 08/20/2023 10:40:50 Medical History Condition Response ARTHRITIS Y THYROID DISEASE Y Chronic Sinusitis Y DIABETES Y HIGH CHOLESTEROL Y HYPERTENSION Y GERD Y Gynecological HistoryNo gynecological history recorded. Obstetrics History GPAL:G 0 P 0 0 0 0 Past Encounters Encounter ID Performer Location Encounter Start Date Encounter Closed Date Diagnosis/Indication Diagnosis SNOMED-CT Code Diagnosis ICD10 Code Diagnosis Note [id number] HARLEY SHEEHAN MD [facility] [address] [place] [address] 08/23/2020 10:01:17 08/23/2020 11:42:35 Allergic rhinitis 73621690 J30.89 Chronic re current sinusitis 439553236 J32.8 History of nasal sinus surgery 6971268764 36969 Z98.984 [id number] HARLEY SHEEHAN MD [facility] [address] [place] [address] 10/08/2020 14:54:17 10/08/2020 17:04:11 Chronic recurrent sinusitis 356486540 J32.8 Allergic rhinitis 543028 04 J30.89 [id number] HARLEY SHEEHAN MD [facility] [address] [place] [address] 11/12/2020 13:51:03 11/12/2020 15:01:02 Chronic recurrent sinusitis 732172996 J32.8 Allergic rhinitis 755615 04 J30.89 [id number] HARLEY SHEEHAN MD [facility] [address] [place] [address] 11/19/2020 13:13:34 11/19/2020 14:48:22 Chronic recurrent sinusitis 147776662 J32.8 Allergic rhinitis 281794 04 J30.89 [id number] HARLEY SHEEHAN MD [facility] [address] [place] [address] 12/26/2020 10:27:26 12/26/2020 12:06:39 Chronic recurrent sinusitis 916410236 J32.8 Allergic rhinitis 062478 04 J30.89 [id number] HARLEY SHEEHAN MD [facility] [address] [place] [address] 06/24/2021 10:54:21 06/24/2021 11:55:24 Chronic recurrent sinusitis 037881003 J32.8 Allergic rhinitis 656750 04 J30.89 [id number] HARLEY SHEEHAN MD [facility] [address] [place] [address] 09/26/2021 13:48:50 09/29/2021 10:16:19 Chronic recurrent sinusitis 511920737 J32.8 Allergic rhinitis 499772 04 J30.89 [id number] HARLEY SHEEHAN MD [facility] [address] [place] [address] 02/19/2023 09:42:29 02/19/2023 10:44:14 Chronic recurrent sinusitis 936432156 J32.8 Allergic rhinitis 830167 04 J30.89 Posterior rhinorrhea 758 11388 R09.82 [id number] HARLEY SHEEHAN MD [facility] [address] [place] [address] 08/20/2023 10:26:12 08/20/2023 16:13:46 Chronic recurrent sinusitis 391710309 J32.8 Allergic rhinitis 922450 04 J30.89 Posterior rhinorrhea 758 58222 R09.82 Health Concerns Section Related Observation LastModified by Organization Detai ls LastModified Time None Recorded Concern Status LastModified by Organization Details LastModified Time None Recorded Advance Directives Directive None Recorded Payers Insurance Date Sequence Insurance Name Policy Number Policy Craig Covered Member ID Craig Member ID Guarantor Name 08/23/2023 1 ROSENDO GUTIÉRREZ FROM [facility] [employer] - [facility] [employer] Leny Rodriguez [id number] Leny Rodriguez Notes Date Note Type Note Provider Name and Address Organization Details Recorded Time 12/26/2020 text/html 54 y/o female s/ p FESS w/ ethmoidectomy, and Clarifix. Patient reports significant improvement to her rhinorrhea and states all of her sinus symptoms have significantly improved. HARLEY SHEEHAN MD [address] [place] [address], [phone], [facility] [place] 12/26/2020 11:20:50 06/24/2021 text/html 54 y/o female s/ p FESS w/ ethmoidectomy, and Clarifix. Patient reports significant improvement to her rhinorrhea and states all of her sinus symptoms have significantly improved. Interval Changes:55 y/o female patient arrives today and complains of recent onset around two weeks ago of moderate to severe nasal congestion and purulent rhinorrhea that is associated with post nasal drip, bilateral ear fullness and mild muffled hearing to left. She reports that since surgical intervention the rhinorrhea has improved and her symptoms and she has only had worsening symptoms for the past two weeks. HARLEY SHEEHAN MD [address] [place] [address], [phone], [facility] [place] 06/24/2021 12:10:31 09/26/2021 text/html 55 y/o female patient arrives today and complains of recent onset around two weeks ago of moderate to severe nasal congestion and purulent rhinorrhea that is associated with post nasal drip, bilateral ear fullness and mild muffled hearing to left. She reports that since surgical intervention the rhinorrhea has improved and her symptoms and she has only had worsening symptoms for the past two weeks. Interval Changes:Patient arrives today and complains of recent worsening sinus pressure associated with nasal congestion, rhinorrhea, and post nasal drip. Patient reports that she was prescribed a course of Doxycycline for 10 days from her PCP. HARLEY SHEEHAN MD [address] [place] [address], [phone], [facility] [place] 09/26/2021 18:29:22 02/19/2023 text/html Patient arrives today and complains of recent worsening sinus pressure associated with nasal congestion, rhinorrhea, and post nasal drip. Patient reports that she was prescribed a course of Doxycycline for 10 days from her PCP. Interval Changes:57-year-old female patient arrives today reporting severe post nasal drip that causes her to get gag and get nauseous. She states this has been going on for about a month. Patient has hx of DM. HARLEY SHEEHAN MD [address] [place] [address], [phone], [facility] [place] 02/19/2023 13:43:10 08/20/2023 text/html 57-year-old haseeb le patient arrives today reporting severe post nasal drip that causes her to get gag and get nauseous. She states this has been going on for about a month. Patient has hx of DM. Interval Changes:57-year-old female patient arrives today c/o purulent rhinorrhea associated with moderate to severe post nasal drip and nasal congestion. HARLEY SHEEHAN MD [address] [place] [address], [phone], [facility] [place] 08/20/2023 12:48:03 OBGyn Episode No OBEpisode recorded.
--- OUTSIDE RECORDS SUMMARY | 2024-11-27 08:58 | XMS_ITS | Encounter Summary ---
Author Organization [facility] Address [address] [place] [address] Care Team Providers Care Board Winder Name Role Phone Livan Edwards TURNTABLE OPERATOR Primary Care Provider [phone] Encounter Details Date Type Department Care Team (Latest Contact Info) Description 07/29/2004 Outpatient Historical [facility] [address] [place] [phone] Hernán Rob MD [address] [facility] [address] [place], [place] [address] SPRAIN OF ANKLE NEC (Primary Dx) Social History Tobacco Use Types Packs/Day Years Used Date Smoking Tobacco: Never Assessed Comments Unknown Sex and Gender Information Value Date Recorded Sex Assigned at Not on file Legal Sex Female 2:52 AM FINANCIAL SERVICES SPECIALIST Gender Identity Not on file Sexual Orientation Not on file documented as of this encounter Plan of Treatment Not on file documented as of this encounter Visit Diagnoses Diagnosis Other ankle sprain and strain- Primary documented in this encounter Care Teams Board Winder Relationship Specialty Start Date End Date Livan Edwrads APRN [address] [address] PCP - General Nurse Practitioner Family 11/19/18 documented as of this encounter
--- OUTSIDE RECORDS SUMMARY | 2024-11-27 08:58 | XMS_ITS | Encounter Summary ---
Author Organization [facility] Address [address] [place] [address] Care Team Providers Care Railway Yard Assistant Name Role Phone Livan Edwards BINDING PRINTER Primary Care Provider [phone] Encounter Details Date Type Department Care Team (Latest Contact Info) Description 01/22/2004 Outpatient Historical [facility] [address] [place] [address] AMBULANCE, [facility] LUMBAGO (Primary Dx) Social History Tobacco Use Types Packs/Day Years Used Date Smoking Tobacco: Never Assessed Comments Unknown Sex and Gender Information Value Date Recorded Sex Assigned at Not on file Legal Sex Female 2:52 AM OCEAN FREIGHT FORWARDER Gender Identity Not on file Sexual Orientation Not on file documented as of this encounter Plan of Treatment Not on file documented as of this encounter Visit Diagnoses Diagnosis Lumbago- Primary documented in this encounter Care Teams Railway Yard Assistant Relationship Specialty Start Date End Date Livan Edwards APRN [address] [place] [phone] PCP - General Nurse Practitioner Family 11/19/18 documented as of this encounter
--- OUTSIDE RECORDS SUMMARY | 2024-11-27 08:58 | XMS_ITS | Encounter Summary ---
Author Organization [facility] Address [address] [place] [address] Care Team Providers Care Drill Operator Automatic Name Role Phone Livan Edwards SURFACE PLATE INSPECTOR Primary Care Provider [phone] Encounter Details Date Type Department Care Team (Latest Contact Info) Description 08/25/1999 Outpatient Historical [facility] [address] [address] Joaquin Sher DO NO ADDRESS ON FILE Acute upper respiratory infections of unspecified site (Primary Dx); Anxiety state, unspecified; Other malaise and fatigue Social History Tobacco Use Types Packs/Day Years Used Date Smoking Tobacco: Never Assessed Comments Unknown Sex and Gender Information Value Date Recorded Sex Assigned at Not on file Legal Sex Female 2:52 AM DIGITAL MANAGER Gender Identity Not on file Sexual Orientation Not on file documented as of this encounter Plan of Treatment Not on file documented as of this encounter Visit Diagnoses Diagnosis Acute upper respiratory infections of unspecified site- Primary Anxiety state, unspecified Other malaise and fatigue documented in this encounter Care Teams Drill Operator Automatic Relationship Specialty Start Date End Date Livan Edwards APRN [facility] [phone] PCP - General Nurse Practitioner Family 11/19/18 documented as of this encounter
--- OUTSIDE RECORDS SUMMARY | 2024-11-27 08:58 | XMS_ITS | Encounter Summary ---
Author Organization [facility] Address [address] [place] [address] Care Team Providers Care Tint Layer Name Role Phone Livan Edwards APRN Primary Care Provider [phone] Encounter Details Date Type Department Care Team (Latest Contact Info) Description 12/05/2003 Outpatient Historical [facility] Rahat Lockwood MD [address] [place] [phone] PERS HX HEALTH HAZARDS NEC (Primary Dx) Social History Tobacco Use Types Packs/Day Years Used Date Smoking Tobacco: Never Assessed Comments Unknown Sex and Gender Information Value Date Recorded Sex Assigned at Not on file Legal Sex Female 2:52 AM BARREL STAVE INSPECTOR Gender Identity Not on file Sexual Orientation Not on file documented as of this encounter Plan of Treatment Not on file documented as of this encounter Visit Diagnoses Diagnosis Other specified personal history presenting hazards to health(V15.89)- Primary Other specified personal history presenting hazards to health documented in this encounter Care Teams Tint Layer Relationship Specialty Start Date End Date Livan Edwards APRN [address] [address] PCP - General Nurse Practitioner Family 11/19/18 documented as of this encounter
--- OUTSIDE RECORDS SUMMARY | 2024-11-27 08:58 | XMS_ITS | Encounter Summary ---
Author Organization [facility] Address [address] [place] [address] Care Team Providers Care Flaker Tender Name Role Phone Livan Edwards FORK ASSEMBLER Primary Care Provider [phone] Encounter Details Date Type Department Care Team (Latest Contact Info) Description 07/07/[address] [address] Crescencio Hugo, [place] ADDRESS ON FILE ACHILLES TENDINITIS (Primary Dx) Social History Tobacco Use Types Packs/Day Years Used Date Smoking Tobacco: Never Assessed Comments Unknown Sex and Gender Information Value Date Recorded Sex Assigned at Not on file Legal Sex Female 2:52 AM COACH PROFESSIONAL ATHLETES Gender Identity Not on file Sexual Orientation Not on file documented as of this encounter Plan of Treatment Not on file documented as of this encounter Visit Diagnoses Diagnosis Achilles bursitis or tendinitis- Primary documented in this encounter Care Teams Flaker Tender Relationship Specialty Start Date End Date Livan Edwards APRN [facility] [phone] PCP - General Nurse Practitioner Family 11/19/18 documented as of this encounter
--- OUTSIDE RECORDS SUMMARY | 2024-11-27 08:58 | XMS_ITS | Encounter Summary ---
Author Organization [facility] Address [address] [place] [address] Care Team Providers Care Housing Grant Analyst Name Role Phone Livan Edwards APRN Primary Care Provider [phone] Encounter Details Date Type Department Care Team (Latest Contact Info) Description 06/04/2004 Outpatient Historical [facility] Rahat Lockwood MD [address] [place] [phone] PERS HX HEALTH HAZARDS NEC (Primary Dx) Social History Tobacco Use Types Packs/Day Years Used Date Smoking Tobacco: Never Assessed Comments Unknown Sex and Gender Information Value Date Recorded Sex Assigned at Not on file Legal Sex Female 2:52 AM CABIN EQUIPMENT SUPERVISOR Gender Identity Not on file Sexual Orientation Not on file documented as of this encounter Plan of Treatment Not on file documented as of this encounter Visit Diagnoses Diagnosis Other specified personal history presenting hazards to health(V15.89)- Primary Other specified personal history presenting hazards to health documented in this encounter Care Teams Housing Grant Analyst Relationship Specialty Start Date End Date Livan Edwards APRN [address] [phone] PCP - General Nurse Practitioner Family 11/19/18 documented as of this encounter
--- OUTSIDE RECORDS SUMMARY | 2024-11-27 08:58 | XMS_ITS | Encounter Summary ---
Author Organization [facility] Address [address] [place] [address] Care Team Providers Care Electrical Prospecting Supervisor Name Role Phone Livan Edwards APRN Primary Care Provider [phone] Encounter Details Date Type Department Care Team (Latest Contact Info) Description 12/21/2002 Outpatient Historical [facility] [address] [place] [address] [address] [place] [address] Rahat Lockwood MD [address] [place] [address] DYSPLASIA OF VAGINA (Primary Dx) Social History Tobacco Use Types Packs/Day Years Used Date Smoking Tobacco: Never Assessed Comments Unknown Sex and Gender Information Value Date Recorded Sex Assigned at Not on file Legal Sex Female 2:52 AM AUTOMOBILE CONTRACT CLERK Gender Identity Not on file Sexual Orientation Not on file documented as of this encounter Plan of Treatment Not on file documented as of this encounter Visit Diagnoses Diagnosis Dysplasia of vagina- Primary documented in this encounter Care Teams Electrical Prospecting Supervisor Relationship Specialty Start Date End Date Livan Edwards APRN [facility] [address] PCP - General Nurse Practitioner Family 11/19/18 documented as of this encounter
--- OUTSIDE RECORDS SUMMARY | 2024-11-27 08:58 | XMS_ITS | Encounter Summary ---
Author Organization [facility] Address [address] [place] [address] Care Team Providers Care Hourly Shift Manager Name Role Phone Livan Edwards IT CORPORATE RECRUITER Primary Care Provider [phone] Encounter Details Date Type Department Care Team (Latest Contact Info) Description 07/23/2004 Outpatient Historical [facility] [address] [place] [phone] Crescencio Hugo, [place] NO ADDRESS ON FILE EPISTAXIS (Primary Dx); B-COMPLEX DEFIC NEC; SPRAIN OF ANKLE NEC Social History Tobacco Use Types Packs/Day Years Used Date Smoking Tobacco: Never Assessed Comments Unknown Sex and Gender Information Value Date Recorded Sex Assigned at Not on file Legal Sex Female 2:52 AM MACHINE TOOL MECHANIC Gender Identity Not on file Sexual Orientation Not on file documented as of this encounter Plan of Treatment Not on file documented as of this encounter Visit Diagnoses Diagnosis Epistaxis- Primary Other B-complex deficiencies Other ankle sprain and strain documented in this encounter Care Teams Hourly Shift Manager Relationship Specialty Start Date End Date Livan Edwards, MANDY [address] [place] [phone] PCP - General Nurse Practitioner Family 11/19/18 documented as of this encounter
--- OUTSIDE RECORDS SUMMARY | 2024-11-27 08:58 | XMS_ITS | Encounter Summary ---
Author Organization [facility] Address [address] [place] [address] Care Team Providers Care Dross Puller Name Role Phone Livan Edwards CIVIL CAD TECH Primary Care Provider [phone] Encounter Details Date Type Department Care Team (Latest Contact Info) Description 09/10/2003 Outpatient [facility] [address] [place] [phone] Diana Baer, MAC OPERATOR [address] [place] [phone] ACUTE URI NOS (Primary Dx) Social History Tobacco Use Types Packs/Day Years Used Date Smoking Tobacco: Never Assessed Comments Unknown Sex and Gender Information Value Date Recorded Sex Assigned at Not on file Legal Sex Female 2:52 AM LIEUTENANT BALLISTICS Gender Identity Not on file Sexual Orientation Not on file documented as of this encounter Plan of Treatment Not on file documented as of this encounter Visit Diagnoses Diagnosis Acute upper respiratory infections of unspecified site- Primary documented in this encounter Care Teams Dross Puller Relationship Specialty Start Date End Date Livan Edwards APRN [address] [phone] PCP - General Nurse Practitioner Family 11/19/18 documented as of this encounter
--- OUTSIDE RECORDS SUMMARY | 2024-11-27 08:58 | XMS_ITS | Encounter Summary ---
Author Organization [facility] Address [address] [place] [address] Care Team Providers Care Kiln Furniture Caster Name Role Phone Livan Edwards APRN Primary Care Provider Encounter Details Date Type Department Care Team (Latest Contact Info) Description 12/05/2003 Outpatient Historical [facility] [address] [place] [address] [address] [place] [address] Rahat Lockwood MD [address] [place] [address] DYSPLASIA OF VAGINA (Primary Dx) Social History Tobacco Use Types Packs/Day Years Used Date Smoking Tobacco: Never Assessed Comments Unknown Sex and Gender Information Value Date Recorded Sex Assigned at Not on file Legal Sex Female 2:52 AM SOLAR INSTALLER PV Gender Identity Not on file Sexual Orientation Not on file documented as of this encounter Plan of Treatment Not on file documented as of this encounter Visit Diagnoses Diagnosis Dysplasia of vagina- Primary documented in this encounter Care Teams Kiln Furniture Caster Relationship Specialty Start Date End Date Livan Edwards APRN [facility] [address] PCP - General Nurse Practitioner Family 11/19/18 documented as of this encounter
--- OUTSIDE RECORDS SUMMARY | 2024-11-27 08:58 | XMS_ITS | Encounter Summary ---
Author Organization [facility] Address [address] [place] [address] Care Team Providers Care Choir Singer Name Role Phone Livan Edwards APRN Primary Care Provider [phone] Encounter Details Date Type Department Care Team (Latest Contact Info) Description 07/09/2003 Outpatient [facility] [address] [place] [phone] Bora Trinh MD [address] [address] CHRONIC AIRWAY OBSTRUCTION NEC (CMS/HCC) (Primary Dx); GOUT NOS Social History Tobacco Use Types Packs/Day Years Used Date Smoking Tobacco: Never Assessed Comments Unknown Sex and Gender Information Value Date Recorded Sex Assigned at Not on file Legal Sex Female 2:52 AM MANAGING CONSULTANT CLINICAL PROFESSOR Gender Identity Not on file Sexual Orientation Not on file documented as of this encounter Plan of Treatment Not on file documented as of this encounter Visit Diagnoses Diagnosis Chronic airway obstruction, not elsewhere classified (CMS/HCC)- Primary Chronic airway obstruction, not elsewhere classified Gout, unspecified documented in this encounter Care Teams Choir Singer Relationship Specialty Start Date End Date Livan Edwards APRN [facility]5 [facility] [address] [place] [address] PCP - General Nurse Practitioner Family 11/19/18 documented as of this encounter
--- OUTSIDE RECORDS SUMMARY | 2024-11-27 08:58 | XMS_ITS | Encounter Summary ---
Author Organization [facility] Address [address] [place] [address] Care Team Providers Care Geodetic Advisor Name Role Phone Livan Edwards INDEPENDENT LIVING SPECIALIST Primary Care Provider [phone] Encounter Details Date Type Department Care Team (Latest Contact Info) Description 09/15/[address] [address] Crescencio [place], [place] ADDRESS ON FILE ACUTE SINUSITIS NOS (Primary Dx); Benign kenny lg bowel Social History Tobacco Use Types Packs/Day Years Used Date Smoking Tobacco: Never Assessed Comments Unknown Sex and Gender Information Value Date Recorded Sex Assigned at Not on file Legal Sex Female 2:52 AM DUAL RATE SUPERVISOR Gender Identity Not on file Sexual Orientation Not on file documented as of this encounter Plan of Treatment Not on file documented as of this encounter Visit Diagnoses Diagnosis Acute sinusitis, unspecified- Primary Benign kenny lg bowel Benign neoplasm of colon documented in this encounter Care Teams Geodetic Advisor Relationship Specialty Start Date End Date Livan Edwards APRN [facility] [address] PCP - General Nurse Practitioner Family 11/19/18 documented as of this encounter
--- OUTSIDE RECORDS SUMMARY | 2024-11-27 08:58 | XMS_ITS | Encounter Summary ---
Author Organization [facility] Address [address] [place] [address] Care Team Providers Care Pigment Furnace Tender Name Role Phone Livan Edwards HOTEL CONTROLLER Primary Care Provider [phone] Encounter Details Date Type Department Care Team (Latest Contact Info) Description 11/05/1999 Outpatient [facility] [address] [facility] [address] [place] [address] Malini Quigley NO ADDRESS ON FILE Depressive disorder, not elsewhere classified (Primary Dx); Predominant disturbance of emotions; Other chest pain Social History Tobacco Use Types Packs/Day Years Used Date Smoking Tobacco: Never Assessed Comments Unknown Sex and Gender Information Value Date Recorded Sex Assigned at Not on file Legal Sex Female 2:52 AM MARITIME ENGINEER Gender Identity Not on file Sexual Orientation Not on file documented as of this encounter Plan of Treatment Not on file documented as of this encounter Visit Diagnoses Diagnosis Depressive disorder, not elsewhere classified- Primary Predominant disturbance of emotions Other chest pain documented in this encounter Care Teams Pigment Furnace Tender Relationship Specialty Start Date End Date Livan Edwards, MANDY [facility] [address] PCP - General Nurse Practitioner Family 11/19/18 documented as of this encounter
--- OUTSIDE RECORDS SUMMARY | 2024-11-27 08:58 | XMS_ITS | Encounter Summary ---
Author Organization [facility] Address [address] [place] [address] Care Team Providers Care Marriage And Family Therapist Name Role Phone Livan Edwards CLINICAL RESEARCH COORDINATOR Primary Care Provider [phone] Encounter Details Date Type Department Care Team (Latest Contact Info) Description 12/05/2004 Outpatient [facility]- [address] [address] Crescencio Hugo, [place] NO ADDRESS ON FILE WHEEZING (Primary Dx); ACUTE BRONCHITIS Social History Tobacco Use Types Packs/Day Years Used Date Smoking Tobacco: Never Assessed Comments Unknown Sex and Gender Information Value Date Recorded Sex Assigned at Not on file Legal Sex Female 2:52 AM FLIGHT OPERATION COORDINATOR Gender Identity Not on file Sexual Orientation Not on file documented as of this encounter Plan of Treatment Not on file documented as of this encounter Visit Diagnoses Diagnosis Wheezing- Primary Acute bronchitis documented in this encounter Care Teams Marriage And Family Therapist Relationship Specialty Start Date End Date Livan Edwards APRN [address] [phone] PCP - General Nurse Practitioner Family 11/19/18 documented as of this encounter
--- OUTSIDE RECORDS SUMMARY | 2024-11-27 08:58 | XMS_ITS | Encounter Summary ---
Author Organization [facility] Address [address] [place] [address] Care Team Providers Care Winery Cellar Hand Name Role Phone Livan Edwards CIVIL PREPAREDNESS COORDINATOR Primary Care Provider [phone] Encounter Details Date Type Department Care Team (Late st Contact Info) Description 07/08/2004 Outpatient Historical [facility] Joaquin Sher, DO NO ADDRESS ON FILE Social History Tobacco Use Types Packs/Day Years Used Date Smoking Tobacco: Never Assessed Comments Unknown Sex and Gender Information Value Date Recorded Sex Assigned at Not on file Legal Sex Female 2:52 AM SIDEROGRAPHER Gender Identity Not on file Sexual Orientation Not on file documented as of this encounter Plan of Treatment Not on file documented as of this encounter Visit Diagnoses Not on filedocumented in this encounter Care Teams Winery Cellar Hand Relationship Specialty Start Date End Date Livan Edwards, MANDY [address] [phone] PCP - General Nurse Practitioner Family 11/19/18 documented as of this encounter
--- OUTSIDE RECORDS SUMMARY | 2024-11-27 08:58 | XMS_ITS | Encounter Summary ---
Author Organization [facility] Address [address] [place] [address] Care Team Providers Care Agriculture Scientist Name Role Phone Livan Edwards GRAIN ELEVATOR MAN Primary Care Provider [phone] Encounter Details Date Type Department Care Team (Latest Contact Info) Description 03/25/[address] [facility] Medicine- [address] [phone] Bora Trinh MD [address] [address] CHRONIC SINUSITIS NOS (Primary Dx) Social History Tobacco Use Types Packs/Day Years Used Date Smoking Tobacco: Never Assessed Comments Unknown Sex and Gender Information Value Date Recorded Sex Assigned at Not on file Legal Sex Female 2:52 AM HEATING AND COOLING SYSTEMS ENGINEER Gender Identity Not on file Sexual Orientation Not on file documented as of this encounter Plan of Treatment Not on file documented as of this encounter Visit Diagnoses Diagnosis Unspecified sinusitis (chronic)- Primary documented in this encounter Care Teams Agriculture Scientist Relationship Specialty Start Date End Date Livan Edwards APRN [facility]5 [facility] [address] [place] [address] PCP - General Nurse Practitioner Family 11/19/18 documented as of this encounter
--- OUTSIDE RECORDS SUMMARY | 2024-11-27 08:58 | XMS_ITS | Encounter Summary ---
Author Organization [facility] Address [address] [place] [address] Care Team Providers Care Director Of Special Events Name Role Phone Livan Edwards SURVEYOR CHAIN HELPER Primary Care Provider [phone] Encounter Details Date Type Department Care Team (Latest Contact Info) Description 12/18/2003 Outpatient [facility] Medicine- [address] [address] Crescencio Hugo, [place] NO ADDRESS ON FILE ALLERGY, UNSPECIFIED (Primary Dx); GOUT NOS Social History Tobacco Use Types Packs/Day Years Used Date Smoking Tobacco: Never Assessed Comments Unknown Sex and Gender Information Value Date Recorded Sex Assigned at Not on file Legal Sex Female 2:52 AM GAS DESULFURIZER Gender Identity Not on file Sexual Orientation Not on file documented as of this encounter Plan of Treatment Not on file documented as of this encounter Visit Diagnoses Diagnosis Allergy, unspecified not elsewhere classified- Primary Gout, unspecified documented in this encounter Care Teams Director Of Special Events Relationship Specialty Start Date End Date Livan Edwards, MANDY [facility] [phone] PCP - General Nurse Practitioner Family 11/19/18 documented as of this encounter
--- OUTSIDE RECORDS SUMMARY | 2024-11-27 08:58 | XMS_ITS | Encounter Summary ---
Author Organization [facility] Address [address] [place] [address] Care Team Providers Care Textile Finisher Name Role Phone Livan Edwards APRN Primary Care Provider [phone] Encounter Details Date Type Department Care Team (Latest Contact Info) Description 07/15/[address] [facility] Family Medicine- [address] [place] [address] Joaquin Sher, NO ADDRESS ON FILE Gynecologic examination (Primary Dx) Social History Tobacco Use Types Packs/Day Years Used Date Smoking Tobacco: Never Assessed Comments Unknown Sex and Gender Information Value Date Recorded Sex Assigned at Not on file Legal Sex Female 2:52 AM INVESTMENT BANKER Gender Identity Not on file Sexual Orientation Not on file documented as of this encounter Plan of Treatment Not on file documented as of this encounter Visit Diagnoses Diagnosis Gynecologic examination- Primary Gynecological examination documented in this encounter Care Teams Textile Finisher Relationship Specialty Start Date End Date Livan Edwards APRN [address] [place] [phone] PCP - General Nurse Practitioner Family 11/19/18 documented as of this encounter
--- OUTSIDE RECORDS SUMMARY | 2024-11-27 08:58 | XMS_ITS | Encounter Summary ---
Author Organization [facility] Address [address] [place] [address] Care Team Providers Care Multicraft Operator Name Role Phone Livan Edwards DELIMER Primary Care Provider [phone] Encounter Details Date Type Department Care Team (Latest Contact Info) Description 10/14/2004 Outpatient Historical [facility] [address] [place] [phone] Hernán Rob MD [address] [facility] [address] [place], [place] [id number] SPRAIN OF ANKLE NEC (Primary Dx) Social History Tobacco Use Types Packs/Day Years Used Date Smoking Tobacco: Never Assessed Comments Unknown Sex and Gender Information Value Date Recorded Sex Assigned at Not on file Legal Sex Female 2:52 AM TELECOMMUNICATIONS CONSULTANT Gender Identity Not on file Sexual Orientation Not on file documented as of this encounter Plan of Treatment Not on file documented as of this encounter Visit Diagnoses Diagnosis Other ankle sprain and strain- Primary documented in this encounter Care Teams Multicraft Operator Relationship Specialty Start Date End Date Livan Edwards APRN [address] [phone] PCP - General Nurse Practitioner Family 11/19/18 documented as of this encounter
--- OUTSIDE RECORDS SUMMARY | 2024-11-27 08:58 | XMS_ITS | Encounter Summary ---
Author Organization [facility] Address [address] [place] [address] Care Team Providers Care Account General Manager Name Role Phone Livan Edwards CANOPY INSPECTOR Primary Care Provider [phone] Encounter Details Date Type Department Care Team (Latest Contact Info) Description 10/28/2003 Outpatient Historical [facility] [address] [place] [address] AMBULANCE, [facility] OTHER ALTERATION OF CONSCIOUSNESS (Primary Dx) Social History Tobacco Use Types Packs/Day Years Used Date Smoking Tobacco: Never Assessed Comments Unknown Sex and Gender Information Value Date Recorded Sex Assigned at Not on file Legal Sex Female 2:52 AM REMOTE MEDICAL CODER Gender Identity Not on file Sexual Orientation Not on file documented as of this encounter Plan of Treatment Not on file documented as of this encounter Visit Diagnoses Diagnosis Other alteration of consciousness- Primary documented in this encounter Care Teams Account General Manager Relationship Specialty Start Date End Date Livan Edwards APRN [address] [place] [phone] PCP - General Nurse Practitioner Family 11/19/18 documented as of this encounter
--- OUTSIDE RECORDS SUMMARY | 2024-11-27 08:58 | XMS_ITS | Encounter Summary ---
Author Organization [facility] Address [address] [place] [address] Care Team Providers Care Slag Expander Name Role Phone Livan Edwards METAL MELTER Primary Care Provider [phone] Encounter Details Date Type Department Care Team (Latest Contact Info) Description 09/30/2004 Outpatient Historical [facility] Family Medicine- [facility] [address] [place] [phone] Crescencio Hugo, [place] NO ADDRESS ON FILE ACUTE URI NOS (Primary Dx); IRRITABLE COLON Social History Tobacco Use Types Packs/Day Years Used Date Smoking Tobacco: Never Assessed Comments Unknown Sex and Gender Information Value Date Recorded Sex Assigned at Not on file Legal Sex Female 2:52 AM HAZARDOUS MATERIALS ANALYST Gender Identity Not on file Sexual Orientation Not on file documented as of this encounter Plan of Treatment Not on file documented as of this encounter Visit Diagnoses Diagnosis Acute upper respiratory infections of unspecified site- Primary Irritable bowel syndrome documented in this encounter Care Teams Slag Expander Relationship Specialty Start Date End Date Livan Edwards APRN [facility] [phone] PCP - General Nurse Practitioner Family 11/19/18 documented as of this encounter
--- OUTSIDE RECORDS SUMMARY | 2024-11-27 08:58 | XMS_ITS | Encounter Summary ---
Author Organization [facility] Address [address] [place] [address] Care Team Providers Care Financial Investigator Name Role Phone Livan Edwards CURRENCY COUNTER Primary Care Provider Encounter Details Date Type Department Care Team (Latest Contact Info) Description 06/20/2004 Outpatient [facility] Medicine- [address] [address] Crescencio Hugo, [place] NO ADDRESS ON FILE JOINT PAIN-UNSPEC (Primary Dx); ALLERGY, UNSPECIFIED; ACHILLES TENDINITIS Social History Tobacco Use Types Packs/Day Years Used Date Smoking Tobacco: Never Assessed Comments Unknown Sex and Gender Information Value Date Recorded Sex Assigned at Not on file Legal Sex Female 2:52 AM FIRE FIGHTER AIRPORT Gender Identity Not on file Sexual Orientation Not on file documented as of this encounter Plan of Treatment Not on file documented as of this encounter Visit Diagnoses Diagnosis Pain in joint, site unspecified- Primary Allergy, unspecified not elsewhere classified Achilles bursitis or tendinitis documented in this encounter Care Teams Financial Investigator Relationship Specialty Start Date End Date Livan Edwards APRN [facility] [phone] PCP - General Nurse Practitioner Family 11/19/18 documented as of this encounter
--- OUTSIDE RECORDS SUMMARY | 2024-11-27 08:58 | XMS_ITS | Encounter Summary ---
Author Organization [facility] Address [address] [place] [address] Care Team Providers Care Industrial Pipefitter Journeyman Name Role Phone Livan Edwards APRN Primary Care Provider [phone] Encounter Details Date Type Department Care Team (Latest Contact Info) Description 01/25/2004 Outpatient [facility] Medicine- [address] [address] Bora Trinh MD [address] [address] DISC DIS NEC/NOS-LUMBAR (Primary Dx); Rectal/anal hemorrhage; HEADACHE Social History Tobacco Use Types Packs/Day Years Used Date Smoking Tobacco: Never Assessed Comments Unknown Sex and Gender Information Value Date Recorded Sex Assigned at Not on file Legal Sex Female 2:52 AM CUSTOM FEED CORN OPERATOR Gender Identity Not on file Sexual Orientation Not on file documented as of this encounter Plan of Treatment Not on file documented as of this encounter Visit Diagnoses Diagnosis Other and unspecified disc disorder of lumbar region- Primary Rectal/anal hemorrhage Hemorrhage of rectum and anus Headache(784.0) Headache documented in this encounter Care Teams Industrial Pipefitter Journeyman Relationship Specialty Start Date End Date Livan Edwards APRN [facility] [phone] PCP - General Nurse Practitioner Family 11/19/18 documented as of this encounter
--- OUTSIDE RECORDS SUMMARY | 2024-11-27 08:58 | XMS_ITS | Encounter Summary ---
Author Organization [facility] Address [address] [place] [address] Care Team Providers Care Returns Processor Name Role Phone Livan Edwards CHIEF OF SAFETY AND PROTECTION Primary Care Provider [phone] Encounter Details Date Type Department Care Team (Latest Contact Info) Description 05/08/2004 Outpatient [facility] Medicine [place] [address] [phone] Diana Baer, TOPPER PRESS OPERATOR [address] [place] [phone] CELLULITIS, FINGER NOS (Primary Dx) Social History Tobacco Use Types Packs/Day Years Used Date Smoking Tobacco: Never Assessed Comments Unknown Sex and Gender Information Value Date Recorded Sex Assigned at Not on file Legal Sex Female 2:52 AM ICE CREAM VENDOR Gender Identity Not on file Sexual Orientation Not on file documented as of this encounter Plan of Treatment Not on file documented as of this encounter Visit Diagnoses Diagnosis Cellulitis and abscess of finger, unspecified- Primary documented in this encounter Care Teams Returns Processor Relationship Specialty Start Date End Date Livan Edwards APRN [address] [place] [phone] PCP - General Nurse Practitioner Family 11/19/18 documented as of this encounter
--- OUTSIDE RECORDS SUMMARY | 2024-11-27 08:58 | XMS_ITS | Encounter Summary ---
Author Organization [facility] Address [address] [place] [address] Care Team Providers Care Sales Program Manager Name Role Phone Livan Edwards APRN Primary Care Provider [phone] Encounter Details Date Type Department Care Team (Latest Contact Info) Description 02/13/2004 Outpatient Historical [facility] Medicine- [address] [address] Bora Trinh MD [address] [address] SCIATICA (Primary Dx); CHRONIC SINUSITIS NOS Social History Tobacco Use Types Packs/Day Years Used Date Smoking Tobacco: Never Assessed Comments Unknown Sex and Gender Information Value Date Recorded Sex Assigned at Not on file Legal Sex Female 2:52 AM SCALLOPER Gender Identity Not on file Sexual Orientation Not on file documented as of this encounter Plan of Treatment Not on file documented as of this encounter Visit Diagnoses Diagnosis Sciatica- Primary Unspecified sinusitis (chronic) documented in this encounter Care Teams Sales Program Manager Relationship Specialty Start Date End Date Livan Edwards APRN [address] [place] [phone] PCP - General Nurse Practitioner Family 11/19/18 documented as of this encounter
--- OUTSIDE RECORDS SUMMARY | 2024-11-27 08:58 | XMS_ITS | Encounter Summary ---
Author Organization [facility] Address [address] [place] [address] Care Team Providers Care Agriculture Laboratory Technician Name Role Phone Livan Edwards APRN Primary Care Provider [phone] Encounter Details Date Type Department Care Team (Latest Contact Info) Description 12/01/2002 Outpatient [facility] [address] [place] [address] [address] [place] [address] Rahat Lockwood MD [address] [place] [address] DYSPLASIA OF VAGINA (Primary Dx) Social History Tobacco Use Types Packs/Day Years Used Date Smoking Tobacco: Never Assessed Comments Unknown Sex and Gender Information Value Date Recorded Sex Assigned at Not on file Legal Sex Female 2:52 AM CERTIFIED PARALEGAL Gender Identity Not on file Sexual Orientation Not on file documented as of this encounter Plan of Treatment Not on file documented as of this encounter Visit Diagnoses Diagnosis Dysplasia of vagina- Primary documented in this encounter Care Teams Agriculture Laboratory Technician Relationship Specialty Start Date End Date Livan Edwards APRN [facility] [phone] PCP - General Nurse Practitioner Family 11/19/18 documented as of this encounter
--- OUTSIDE RECORDS SUMMARY | 2024-11-27 08:58 | XMS_ITS | Encounter Summary ---
Author Organization [facility] Address [address] [place] [address] Care Team Providers Care Dermatologist Managing Partner Name Role Phone Livan Edwards APRN Primary Care Provider [phone] Encounter Details Date Type Department Care Team (Latest Contact Info) Description 07/04/2003 [facility]patient [facility] [address] [place] [address] Blanca King MD NO ADDRESS ON FILE GOUT NOS (Primary Dx) Social History Tobacco Use Types Packs/Day Years Used Date Smoking Tobacco: Never Assessed Comments Unknown Sex and Gender Information Value Date Recorded Sex Assigned at Not on file Legal Sex Female 2:52 AM CELEBRITY CHEF ENTREPRENEUR MEDIA PERSONALITY Gender Identity Not on file Sexual Orientation Not on file documented as of this encounter Plan of Treatment Not on file documented as of this encounter Visit Diagnoses Diagnosis Gout, unspecified- Primary documented in this encounter Care Teams Dermatologist Managing Partner Relationship Specialty Start Date End Date Livan Edwards APRN [address] [place] [phone] PCP - General Nurse Practitioner Family 11/19/18 documented as of this encounter
--- OUTSIDE RECORDS SUMMARY | 2024-11-27 08:58 | XMS_ITS | Encounter Summary ---
Author Organization [facility] Address [address] [place] [address] Care Team Providers Care Neurology Specialist Name Role Phone Livan Edwards APRN Primary Care Provider Encounter Details Date Type Department Care Team (Latest Contact Info) Description 06/04/[address] [facility] [address] [place] [address] [address] [place] [address] Rahat Lockwood MD [address] [place] [address] DYSPLASIA OF VAGINA (Primary Dx) Social History Tobacco Use Types Packs/Day Years Used Date Smoking Tobacco: Never Assessed Comments Unknown Sex and Gender Information Value Date Recorded Sex Assigned at Not on file Legal Sex Female 2:52 AM COMPRESSOR REPAIRER Gender Identity Not on file Sexual Orientation Not on file documented as of this encounter Plan of Treatment Not on file documented as of this encounter Visit Diagnoses Diagnosis Dysplasia of vagina- Primary documented in this encounter Care Teams Neurology Specialist Relationship Specialty Start Date End Date Livan Edwards APRN [facility] [phone] PCP - General Nurse Practitioner Family 11/19/18 documented as of this encounter
--- OUTSIDE RECORDS SUMMARY | 2024-11-27 08:58 | XMS_ITS | Encounter Summary ---
Author Organization [facility] Address [address] [place] [address] Care Team Providers Care Computer Systems Security Administrator Name Role Phone Livan Edwards CRISIS SPECIALIST Primary Care Provider [phone] Encounter Details Date Type Department Care Team (Latest Contact Info) Description 06/02/2004 Outpatient [facility] Medicine- [address] [address] Crescencio Hugo, [place] NO ADDRESS ON FILE SCABIES (Primary Dx); HEADACHE; ANEMIA NOS Social History Tobacco Use Types Packs/Day Years Used Date Smoking Tobacco: Never Assessed Comments Unknown Sex and Gender Information Value Date Recorded Sex Assigned at Not on file Legal Sex Female 2:52 AM FARM OPERATIONS MANAGER Gender Identity Not on file Sexual Orientation Not on file documented as of this encounter Plan of Treatment Not on file documented as of this encounter Visit Diagnoses Diagnosis Scabies- Primary Headache(784.0) Headache Anemia, unspecified documented in this encounter Care Teams Computer Systems Security Administrator Relationship Specialty Start Date End Date Livan Edwards APRN [facility] [phone] PCP - General Nurse Practitioner Family 11/19/18 documented as of this encounter
--- OUTSIDE RECORDS SUMMARY | 2024-11-27 08:58 | XMS_ITS | Encounter Summary ---
Author Organization [facility] Address [address] [place] [address] Care Team Providers Care Bee Worker Name Role Phone Livan Edwards TOXICS PROGRAM OFFICER Primary Care Provider [phone] Encounter Details Date Type Department Care Team (Latest Contact Info) Description 01/22/2004 Outpatient [facility]- [address] [address] Crescencio Hugo, [place] NO ADDRESS ON FILE Rectal/anal hemorrhage (Primary Dx); BACKACHE NOS Social History Tobacco Use Types Packs/Day Years Used Date Smoking Tobacco: Never Assessed Comments Unknown Sex and Gender Information Value Date Recorded Sex Assigned at Not on file Legal Sex Female 2:52 AM BONDING MACHINE OPERATOR Gender Identity Not on file Sexual Orientation Not on file documented as of this encounter Plan of Treatment Not on file documented as of this encounter Visit Diagnoses Diagnosis Rectal/anal hemorrhage- Primary Hemorrhage of rectum and anus Backache, unspecified documented in this encounter Care Teams Bee Worker Relationship Specialty Start Date End Date Livan Edwards APRN [facility] [phone] PCP - General Nurse Practitioner Family 11/19/18 documented as of this encounter
--- OUTSIDE RECORDS SUMMARY | 2024-11-27 08:58 | XMS_ITS | Encounter Summary ---
Author Organization [facility] Address [address] [place] [address] Care Team Providers Care Wax Pattern Coater Name Role Phone Livan Edwards FACILITY MANAGER Primary Care Provider [phone] Encounter Details Date Type Department Care Team (Latest Contact Info) Description 01/24/2004 Outpatient Historical [facility] [address] [place] [address] AMBULANCE, [facility] LUMBAGO (Primary Dx) Social History Tobacco Use Types Packs/Day Years Used Date Smoking Tobacco: Never Assessed Comments Unknown Sex and Gender Information Value Date Recorded Sex Assigned at Not on file Legal Sex Female 2:52 AM PHILOSOPHY SPECIALIST Gender Identity Not on file Sexual Orientation Not on file documented as of this encounter Plan of Treatment Not on file documented as of this encounter Visit Diagnoses Diagnosis Lumbago- Primary documented in this encounter Care Teams Wax Pattern Coater Relationship Specialty Start Date End Date Livan Edwards APRN [address] [place] [phone] PCP - General Nurse Practitioner Family 11/19/18 documented as of this encounter
--- OUTSIDE RECORDS SUMMARY | 2024-11-27 08:58 | XMS_ITS | Encounter Summary ---
Author Organization [facility] Address [address] [place] [address] Care Team Providers Care Gang Ripsaw Operator Name Role Phone Livan Edwards GUM WORKER Primary Care Provider Encounter Details Date Type Department Care Team (Latest Contact Info) Description 07/02/[address] [facility] [address] [place] [phone] Bora Trinh MD [address] [address] PNEUMONIA, ORGANISM NOS (Primary Dx) Social History Tobacco Use Types Packs/Day Years Used Date Smoking Tobacco: Never Assessed Comments Unknown Sex and Gender Information Value Date Recorded Sex Assigned at Not on file Legal Sex Female 2:52 AM SALESPERSON MEATS Gender Identity Not on file Sexual Orientation Not on file documented as of this encounter Plan of Treatment Not on file documented as of this encounter Visit Diagnoses Diagnosis Pneumonia, organism unspecified(486)- Primary Pneumonia, organism unspecified documented in this encounter Care Teams Gang Ripsaw Operator Relationship Specialty Start Date End Date Livan Edwards APRN [facility] [address] PCP - General Nurse Practitioner Family 11/19/18 documented as of this encounter
--- OUTSIDE RECORDS SUMMARY | 2024-11-27 08:58 | XMS_ITS | Encounter Summary ---
Author Organization [facility] Address [address] [place] [address] Care Team Providers Care Computing Consultant Name Role Phone Livan Edwards APRN Primary Care Provider Encounter Details Date Type Department Care Team (Latest Contact Info) Description 08/20/2003 Outpatient [facility] [address] [place] [phone] Diana Baer, MUFF WINDER [address] [place] [phone] URIN TRACT INFECTION NOS (Primary Dx) Social History Tobacco Use Types Packs/Day Years Used Date Smoking Tobacco: Never Assessed Comments Unknown Sex and Gender Information Value Date Recorded Sex Assigned at Not on file Legal Sex Female 2:52 AM C++ QUANT DEVELOPER Gender Identity Not on file Sexual Orientation Not on file documented as of this encounter Plan of Treatment Not on file documented as of this encounter Visit Diagnoses Diagnosis Urinary tract infection, site not specified- Primary documented in this encounter Care Teams Computing Consultant Relationship Specialty Start Date End Date Livan Edwards APRN [address] [place] [phone] PCP - General Nurse Practitioner Family 11/19/18 documented as of this encounter
--- OUTSIDE RECORDS SUMMARY | 2024-11-27 08:58 | XMS_ITS | Clinical Summary ---
Author Organization [facility] Address [address] Manriquezn: Epic Prelude ADT MARIA C BOTELLO [address] Care Team Providers Care Director Of Managed Care Name Role Phone Unavailable Primary Care Provider Unavailabl e Allergies Active Allergy Reactions Criticality Noted Date Comments Cephalexin Rash Low 11/30/2011 Hydromorphone (Pf) Delirium Medium 04/16/2014 Penicillins Rash Low 10/05/2011 Promethazine Hallucination Low 10/05/2011 Sulfatrim Ds Rash Low 10/05/2011 Medications meclizine (ANTIVERT) 25 mg tablet Take 25 mg by mouth 3 times daily as needed for Dizziness. 9 Active solifenacin (VESICARE) 10 mg Tablet Take 10 mg by mouth daily. 9 Active empagliflozin (JARDIANCE) 10 mg tablet Take 10 mg by mouth daily concrete mason. 0 Active azelastine (ASTELIN) 137 mcg/actuation nasal spray Administer 2 Sprays in each nostril 2 times daily. Angle bottle tip straight back and slightly outward, away from septum. 30 mL 6 9 Active albuterol HFA 90 mcg inhaler Until improved take 4 puffs every 4 hours while awake but sooner if necessary.. 6.7 Gram 0 9 Active PARoxetine HCl (PAXIL) 30 mg tablet Take 20 mg by mouth daily. 9 Active topiramate (TOPAMAX) 25 mg tablet Take 25 mg by mouth daily. 0 Active metFORMIN (GLUCOPHAGE) 500 mg tablet Take 500 mg by mouth 2 times daily with meals. 9 Active gabapentin (NEURONTIN) 300 mg capsule Take by mouth. 600 mg in am and 300 mg in pm Active pravastatin (PRAVACHOL) 20 mg tablet 8 Active levocetirizine (XYZAL) 5 mg tablet Take 5 mg by mouth late in the day. 8 Active PNV,calcium 09-athg-lyqdn acid ( Plus, calcium carb,) 27 mg iron- 1 mg Tablet 8 Active allopurinoL (ZYLOPRIM) 300 mg tablet Take 300 mg by mouth daily. 8 Active levothyroxine 50 mcg tablet Take 50 mcg by mouth daily. 8 Active potassium chloride (KLOR-CON) 10 mEq Extended Release tablet Take 10 mEq by mouth 2 times daily before meals. 6 Active traZODone 150 mg tablet Take 150 mg by mouth daily at bedtime. Active ferrous sulfate 325 mg (65 mg iron) tablet Take 325 mg by mouth daily. Active Active Problems Problem Noted Date Diagnosed Date Acute non-recurrent maxillary sinusitis 02/24/20 24 COVID-19 virus infection 07/18/2022 Type 2 diabetes mellitus wit hout complication, without long-term current use of insulin 10/09/2018 Hypoxia with out respiratory failure 10/09/2018 Mixed hyperlipidemia 10/09/2018 Acute bronchitis due to other specified organism s 10/09/2018 Other specified hypothyroidism 10/09/2018 Acute viral syndrome 10/09/2018 Diarrhea 04/23/2014 Elevated liver enzymes 04/23/2014 Pancreatitis 04/19/2014 Abdominal pain 04/19/2014 HTN (hypertension) 04/19/2014 Elevated troponin Encounters Date Type Department Care Team Description 11/23/2024 External Device Data [facility] ABSTRACTION Provider, Abstract 11/22/2024 External Device Data [facility] ABSTRACTION Provider, Abstract 09/20/2024 External Device Data [facility] ABSTRACTION Provider, Abstract 09/20/2024 External Device Data [facility] ABSTRACTION Provider, Abstract from Last 3 Months Immunizations Immunization Administration Dates Next Due (PNEUMOVAX [...] on file Legal 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 Gender Identity Not on file Sexual Orientation Not on file Last Filed Vital Signs Vital Sign Reading Time Taken Comments Blood Pressure 112/42 02/24/2024 7:30 PM CDT Pulse 78 02/24/2024 7:30 PM CDT Temperature 37.6 C (99.7 F) 02/24/2024 4:51 PM CDT Respiratory Rate 18 02/24/2024 6:30 PM CDT Oxygen Saturation 96% 02/24/2024 7:30 PM CDT Inhaled Oxygen Concentration - - Weight 113.2 kg (249 lb 9.6 oz) 02/24/2024 4:51 PM CDT Height 170.2 cm (5' 7 ) 02/24/2024 4:51 PM CDT Body Mass Index 39.09 02/24/2024 4:51 PM CDT Plan of Treatment Health Maintenance Due Date Last Done Comments DIABETES ANNUAL FOOT EXAM 1982 DIABETES ANNUAL RETINAL EXAM 1982 DIABETES MICROALBUMIN ANNUAL SCREEN 1982 LDL CHOLESTEROL ANNUAL 1982 DTAP/TDAP/TD VACCINES (1 - Tdap) 12/14/1983 HEPATITIS B VACCINES (1 of 3 - 19+ 3-dose series) 12/14/1983 HPV/Cotest (21-29) 1985 CERVICAL CANCER SCREENING 1994 HPV/Cotest (30-65) 1994 PAP SMEAR 1994 BREAST CANCER SCREENING 2004 FIT-DNA Q 3 years 2009 FIT/FOBT Q 1 year 2009 Flex Sig/CT Colonography Q 5 years 2009 ZOSTER VACCINE (1 of 2) 2014 DIABETES HBA1C Q 6 MONTHS 05/07/2021 11/04/2020 INFLUENZA VACCINE (#1) 2024 , 04/26/2014, 05/27/2001 COLORECTAL SCREENING 04/24/2024 04/24/2014 Colorectal Cancer Screening 04/24/2024 Insurance [facility] MEDICAID
--- OUTSIDE RECORDS SUMMARY | 2024-11-27 08:58 | XMS_ITS | Encounter Summary ---
Author Organization [facility] Address [address] [place] [address] Care Team Providers Care Printing Supplies Sales Representative Name Role Phone Livan Edwards APRN Primary Care Provider [phone] Encounter Details Date Type Department Care Team (Latest Contact Info) Description 09/08/[address] 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
--- OUTSIDE RECORDS SUMMARY | 2024-11-27 08:58 | XMS_ITS | Encounter Summary ---
Author Organization [facility] Address [address] [place] [address] Care Team Providers Care Business Architect Name Role Phone Livan Edwards AUTHORIZATION REP Primary Care Provider [phone] Encounter Details Date Type Department Care Team (Latest Contact Info) Description 01/07/2005 Outpatient Historical [facility] Rahat Lockwood MD [address] [place] [phone] SCREENING MAL NEOP-OTHER SITE NEC (Primary Dx) Social History Tobacco Use Types Packs/Day Years Used Date Smoking Tobacco: Never Assessed Comments Unknown Sex and Gender Information Value Date Recorded Sex Assigned at Not on file Legal Sex Female 2: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
--- OUTSIDE RECORDS SUMMARY | 2024-11-27 08:58 | XMS_ITS | Encounter Summary ---
Author Organization [facility] Address [address] [place] [address] Care Team Providers Care No Bake Molder Name Role Phone Livan Edwards WEAPONS MECHANIC Primary Care Provider [phone] Encounter Details Date Type Department Care Team (Latest Contact Info) Description 11/28/2004 Outpatient [facility] [address] [address] Crescencio Hugo, [place] NO ADDRESS ON FILE B-COMPLEX DEFIC NEC (Primary Dx); IRRITABLE COLON Social History Tobacco Use Types Packs/Day Years Used Date Smoking Tobacco: Never Assessed Comments Unknown Sex and Gender Information Value Date Recorded Sex Assigned at Not on file Legal Sex Female 2: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
--- OUTSIDE RECORDS SUMMARY | 2024-11-27 08:58 | XMS_ITS | Encounter Summary ---
Author Organization [facility] Address [address] [place] [address] Care Team Providers Care Pallet Rectifier Name Role Phone Livan Edwards SOLE PAINTER Primary Care Provider [phone] Encounter Details Date Type Department Care Team (Latest Contact Info) Description 04/07/[address] [address] Crescencio Hugo, [place] ADDRESS ON FILE HEADACHE (Primary Dx); OTHER SPECIFIED VIRAL INFECTN; OTHER MALAISE AND FATIGUE Social History Tobacco Use Types Packs/Day Years Used Date Smoking Tobacco: Never Assessed Comments Unknown Sex and Gender Information Value Date Recorded Sex Assigned at Not on file Legal Sex Female 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
--- OUTSIDE RECORDS SUMMARY | 2024-11-27 08:58 | XMS_ITS | Encounter Summary ---
Author Organization [facility] Address [address] [place] [address] Care Team Providers Care Health Safety And Environment Manager Name Role Phone Livan Edwards APRN Primary Care Provider [phone] Encounter Details Date Type Department Care Team (Latest Contact Info) Description 09/17/2003 Outpatient [facility] [address] [place] [phone] Diana Baer, SLITTER CUT OFF OPERATOR [address] [place] [phone] Dietary surveil/eap counselor (Primary Dx) Social History Tobacco Use Types Packs/Day Years Used Date Smoking Tobacco: Never Assessed Comments Unknown Sex and Gender Information Value Date Recorded Sex Assigned at Not on file 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
--- OUTSIDE RECORDS SUMMARY | 2024-11-27 08:58 | XMS_ITS | Encounter Summary ---
Author Organization [facility] Address [address] [place] [address] Care Team Providers Care Maintenance Man Name Role Phone Livan Edwards APRN Primary Care Provider [phone] Encounter Details Date Type Department Care Team (Late st Contact Info) Description 09/16/[address] [facility] 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
--- OUTSIDE RECORDS SUMMARY | 2024-11-27 08:58 | XMS_ITS | Encounter Summary ---
Author Organization [facility] Address [address] [place] [address] Care Team Providers Care Hotel Maintenance Engineer Name Role Phone Livan Edwards OPTICAL WORKER Primary Care Provider [phone] Encounter Details Date Type Department Care Team (Latest Contact Info) Description 05/24/1998 Outpatient Historical [facility] [address] [place] [phone] Malini Quigley NO ADDRESS ON FILE Depressive disorder, not elsewhere classified (Primary Dx); Esophageal reflux Social History Tobacco Use Types Packs/Day Years Used Date Smoking Tobacco: Never Assessed Comments Unknown Sex and Gender Information Value Date Recorded Sex Assigned at Not on file 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
--- OUTSIDE RECORDS SUMMARY | 2024-11-27 08:58 | XMS_ITS | Encounter Summary ---
Author Organization [facility] Address [address] [place] [address] Care Team Providers Care Radiotelephone Operator Name Role Phone Livan Edwards SUPERVISOR GARMENT MANUFACTURING Primary Care Provider [phone] Encounter Details Date Type Department Care Team (Latest Contact Info) Description 11/25/2004 Outpatient Historical [facility] [address] [place] [phone] Hernán Rob MD [address] [facility] [address] [place], [place] [phone] SPRAIN OF ANKLE NEC (Primary Dx) Social History Tobacco Use Types Packs/Day Years Used Date Smoking Tobacco: Never Assessed Comments Unknown Sex and Gender Information Value Date Recorded Sex Assigned at Not on file Legal Sex Female 2:52 AM FABRICATION SPECIALIST Gender Identity Not on file Sexual Orientation Not on file documented as of this encounter Plan of Treatment Not on file documented as of this encounter Visit Diagnoses Diagnosis Other ankle sprain and strain- Primary documented in this encounter Care Teams Radiotelephone Operator Relationship Specialty Start Date End Date Livan Edwards APRN [address] [phone] PCP - General Nurse Practitioner Family 11/19/18 documented as of this encounter
--- OUTSIDE RECORDS SUMMARY | 2024-11-27 08:58 | XMS_ITS | Encounter Summary ---
Author Organization [facility] Address [address] [place] [address] Care Team Providers Care Drill Operator Automatic Name Role Phone Livan Edwards STRIPPING SHOVEL OPERATOR Primary Care Provider [phone] Encounter Details Date Type Department Care Team (Late st Contact Info) Description 08/01/2014 Nurse Triage Report [id number] ABSTRACTION Mony Price RN Social History Tobacco Use Types Packs/Day Years Used Date Smoking Tobacco: Never Smokeless Tobacco: Never Alcohol Use Standard Drinks/Week Comments No 0 (1 standard drink = 0.6 oz pur e alcohol) Comments No Sex and Gender Information Value Date Recorded Sex Assigned at Not on file Legal Sex Female 2:52 AM NEEDLE LOOM TENDER Gender Identity Not on file Sexual Orientation Not on file Occupation Industry Job Start Date Job End Date Not on file Not on file Not on file Not on file Not on file Not on file Not on file Not on file documented as of this encounter Progress Notes * Mony Price, RN - 08/01/2014 6:24 PM CST Call Type: Triage Call Presenting Problem: I have diarrhea and vomited today Report feedback to Dr Steward ASSESSMENT Assessment Triage Questions: Caller has patient permission to share protected health and personal information for purposes of triage 3-N/A Associated Symptoms: vomiting x 1 today, diarrhea x 4 today, aching , saw white spongy stuff floating in toilet x 2 today, slight nausea Onset: diarrhea 5 days ago, vomiting today Location: GI Pain Assessment: 1 - 10 with 10 being the most severe pain general aching only Treatment so far for current presenting problem: called History (Clinical Problems): Dx with colon infection 4 days ago History (Oncology/Hematology Diagnosis): no Treatment for oncology or hematology diagnosis: N/A Date of last oncology or hematology specific treatment: N/A OB: Are you having contractions 5 minutes apart for 1 hour? N/A OB: Are you leaking any fluid vaginally? N/A OB: Are you having any vaginal bleeding? (Indicate color and amount) N/A OB: Is your baby moving normally? N/A Medications: allopurinal, trazadone, flagyl, cipro, paxil, vit, levothryoxine, HCTZ, KCL Medications and start of each - oncology related: N/A Medication reactions: as listed in [employer] Does this physician utilize [facility] e-prescribing or treatment protocol? NO Instructed to keep an updated list of their prescriptions and OTC medications and to take their list with them anytime they are seen by a PCP/UCC/ER and or a specialist 1-Yes, patient med-rec teaching done Call source (Pt is currently receiving oncology/hematology services from): 9. Not an oncology/hematology patient TRIAGE NOTE Triage Note: TRIAGE/OUTCOME Guideline Title: Diarrhea or Other Change in Bowel Habits Recommended Disposition: See Provider within 2 Weeks Original Inclination: Call Provider/See in 24 Override Disposition: Intended Action: Call or see Provider>24 hrs Physician Contacted: No Change in character of bowel movements ? YES Physician Instructions: Care Advice: Call provider if symptoms worsen or new symptoms develop. Do not take aspirin, ibuprofen, ketoprofen, naproxen, etc., or other pain relieving medications until consulting with provider. Continue taking prescribed medications as directed until provider is consulted. Diarrheal Care: - Drink 2-3 quarts (2-3 liters) per day of low sugar content fluids, including over the counter oral hydration solution, unless directed otherwise by provider. - If accompanied by vomiting, take the fluids in frequent small sips or suck on ice chips. - Eat easily digested foods (such as bananas, rice, applesauce, toast, cooked cereals, soup, crackers, baked or boiled potato, or baked chicken or turkey without skin). - Do not eat high fiber, high fat, high sugar content foods, or highly seasoned foods. - Do not drink caffeinated or alcoholic beverages. - Avoid milk and milk products while having symptoms. As symptoms improve, gradually add back to diet. - Application of A&D ointment or witch sherly medicated pads may help anal irritation. - Antidiarrheal medications are usually unnecessary. If symptoms are severe, consider nonprescription antidiarrheal and anti-motility drugs as directed by label or a provider. Do not take if have high fever or bloody diarrhea. If , do not take any medications not approved by your provider. - Consult your provider for advice regarding continuing prescription medication. LE LOOM TENDER documented in this encounter Plan of Treatment Not on file documented as of this encounter Visit Diagnoses Not on filedocumented in this encounter Care Teams Drill Operator Automatic Relationship Specialty Start Date End Date Livan Edwards APRN [address] [place] [phone] PCP - General Nurse Practitioner Family 11/19/18 documented as of this encounter
--- OUTSIDE RECORDS SUMMARY | 2024-11-27 08:58 | XMS_ITS | Encounter Summary ---
Author Organization [facility] Address [address] [place] [address] Care Team Providers Care Business Technology Architect Name Role Phone Livan Edwards APRN Primary Care Provider [phone] Encounter Details Date Type Department Care Team ([facility] Contact Info) Description 02/05/2004 Outpatient Historical [facility] [place] 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
--- OUTSIDE RECORDS SUMMARY | 2024-11-27 08:58 | XMS_ITS | Encounter Summary ---
Author Organization [facility] Address [address] [place] [address] Care Team Providers Care Career Development Facilitator Name Role Phone Livan Edwards CONCRETE CRAFTSMAN Primary Care Provider [phone] Encounter Details Date Type Department Care Team (Latest Contact Info) Description 10/15/2003 Outpatient [facility] [address] [place] [address] Diana Baer, FIREWALL ADMINISTRATOR [address] [place] [phone] ACUTE URI NOS (Primary Dx) Social History Tobacco Use Types Packs/Day Years Used Date Smoking Tobacco: Never Assessed Comments Unknown Sex and Gender Information Value Date Recorded Sex Assigned at Not on file Legal Sex Female 2:52 AM REGULATORY AFFAIRS ANALYST Gender Identity Not on file Sexual Orientation Not on file documented as of this encounter Plan of Treatment Not on file documented as of this encounter Visit Diagnoses Diagnosis Acute upper respiratory infections of unspecified site- Primary documented in this encounter Care Teams Career Development Facilitator Relationship Specialty Start Date End Date Livan Edwards APRN [address] [address] PCP - General Nurse Practitioner Family 11/19/18 documented as of this encounter
--- OUTSIDE RECORDS SUMMARY | 2024-11-27 08:58 | XMS_ITS | Encounter Summary ---
Author Organization [facility] Address [address] [place] [address] Care Team Providers Care Deputy Clerk Of Superior Court Name Role Phone Livan Edwards APRN Primary Care Provider [phone] Encounter Details Date Type Department Care Team (Latest Contact Info) Description 08/06/2003 Outpatient [facility] [address] [place] [phone] Joaquin Sher DO NO ADDRESS ON FILE ACUTE URI NOS (Primary Dx) Social History Tobacco Use Types Packs/Day Years Used Date Smoking Tobacco: Never Assessed Comments Unknown Sex and Gender Information Value Date Recorded Sex Assigned at Not on file Legal Sex Female 2:52 AM MANAGER PRODUCT MANAGEMENT Gender Identity Not on file Sexual Orientation Not on file documented as of this encounter Plan of Treatment Not on file documented as of this encounter Visit Diagnoses Diagnosis Acute upper respiratory infections of unspecified site- Primary documented in this encounter Care Teams Deputy Clerk Of Superior Court Relationship Specialty Start Date End Date Livan Edwards APRN [address] [place] [phone] PCP - General Nurse Practitioner Family 11/19/18 documented as of this encounter
--- OUTSIDE RECORDS SUMMARY | 2024-11-27 08:58 | XMS_ITS | Encounter Summary ---
Author Organization [facility] Address [address] [place] [address] Care Team Providers Care It Technical Architect Name Role Phone Livan Edwards MANAGER SWITCH Primary Care Provider [phone] Encounter Details Date Type Department Care Team (Latest Contact Info) Description 10/08/2003 Outpatient [facility] [address] [place] [phone] Diana Baer, [facility] [address] [place] [address] ACUTE URI NOS (Primary Dx) Social History Tobacco Use Types Packs/Day Years Used Date Smoking Tobacco: Never Assessed Comments Unknown Sex and Gender Information Value Date Recorded Sex Assigned at Not on file Legal Sex Female 2:52 AM ACTUARIAL ANALYST Gender Identity Not on file Sexual Orientation Not on file documented as of this encounter Plan of Treatment Not on file documented as of this encounter Visit Diagnoses Diagnosis Acute upper respiratory infections of unspecified site- Primary documented in this encounter Care Teams It Technical Architect Relationship Specialty Start Date End Date Livan Edwards APRN [address] [address] PCP - General Nurse Practitioner Family 11/19/18 documented as of this encounter
--- OUTSIDE RECORDS SUMMARY | 2024-11-27 08:58 | XMS_ITS | Encounter Summary ---
Author Organization [facility] Address [address] [place] [address] Care Team Providers Care Farmer Cash Grain Name Role Phone Livan Edwards APRN Primary Care Provider [phone] Encounter Details Date Type Department Care Team (Latest Contact Info) Description 08/29/2004 Outpatient [facility] [address] [place] [phone] Diana Baer, CORN POPPER [address] [place] [address] ACUTE SINUSITIS NOS (Primary Dx) Social History Tobacco Use Types Packs/Day Years Used Date Smoking Tobacco: Never Assessed Comments Unknown Sex and Gender Information Value Date Recorded Sex Assigned at Not on file Legal Sex Female 2:52 AM MOUNTER SMOKING PIPE Gender Identity Not on file Sexual Orientation Not on file documented as of this encounter Plan of Treatment Not on file documented as of this encounter Visit Diagnoses Diagnosis Acute sinusitis, unspecified- Primary documented in this encounter Care Teams Farmer Cash Grain Relationship Specialty Start Date End Date Livan Edwards APRN [address] [address] PCP - General Nurse Practitioner Family 11/19/18 documented as of this encounter
--- OUTSIDE RECORDS SUMMARY | 2024-11-27 08:58 | XMS_ITS | Encounter Summary ---
Author Organization [facility] Address [address] [place] [address] Care Team Providers Care Thrill Performer Name Role Phone Livan Edwards CRATING AND MOVING ESTIMATOR Primary Care Provider [phone] Encounter Details Date Type Department Care Team (Latest Contact Info) Description 06/25/2004 Outpatient [facility] [address] [address] Crescencio Hugo, [place] ADDRESS ON FILE ACHILLES TENDINITIS (Primary Dx) Social History Tobacco Use Types Packs/Day Years Used Date Smoking Tobacco: Never Assessed Comments Unknown Sex and Gender Information Value Date Recorded Sex Assigned at Not on file Legal Sex Female 2:52 AM MAINTENANCE GROUNDMAN Gender Identity Not on file Sexual Orientation Not on file documented as of this encounter Plan of Treatment Not on file documented as of this encounter Visit Diagnoses Diagnosis Achilles bursitis or tendinitis- Primary documented in this encounter Care Teams Thrill Performer Relationship Specialty Start Date End Date Livan Edwards APRN [facility] [phone] PCP - General Nurse Practitioner Family 11/19/18 documented as of this encounter
--- OUTSIDE RECORDS SUMMARY | 2024-11-27 08:58 | XMS_ITS | Encounter Summary ---
Author Organization [facility] Address [address] [place] [address] Care Team Providers Care Site Surveyor Name Role Phone Livan Edwards DOWEL POINTER Primary Care Provider [phone] Encounter Details Date Type Department Care Team (Latest Contact Info) Description 05/13/2004 Outpatient [facility] Medicine [place] [address] [address] Diana Baer, TYPESETTER PERFORATOR OPERATOR [address] [place] [phone] CELLULITIS, FINGER NOS (Primary Dx); ACNE NEC Social History Tobacco Use Types Packs/Day Years Used Date Smoking Tobacco: Never Assessed Comments Unknown Sex and Gender Information Value Date Recorded Sex Assigned at Not on file Legal Sex Female 2:52 AM INSTRUMENT LENS GRINDER APPRENTICE Gender Identity Not on file Sexual Orientation Not on file documented as of this encounter Plan of Treatment Not on file documented as of this encounter Visit Diagnoses Diagnosis Cellulitis and abscess of finger, unspecified- Primary Other acne documented in this encounter Care Teams Site Surveyor Relationship Specialty Start Date End Date Livan Edwards APRN [address] [place] [phone] PCP - General Nurse Practitioner Family 11/19/18 documented as of this encounter
--- OUTSIDE RECORDS SUMMARY | 2024-11-27 08:58 | XMS_ITS | Encounter Summary ---
Author Organization [facility] Address [address] [place] [address] Care Team Providers Care Manager Regional Name Role Phone Livan Edwards APRN Primary Care Provider [phone] Reason for Referral * Outpatient Services (Routine) - Closed Specialty Diagnoses / Procedures Referred By Contac t Referred To Contact Radiology Diagnoses Enlarged thyroid Procedures US HEAD NECK TISSUES Ximena Fan FNP Phone: tel: fax: [facility]3] [address] [facility] [address] [place] [address] Phone: tel: fax: Referral ID Status Reason Start Date Expiration Date V isits Requested Visits Authorized [id number] Closed [facility] CTS to Schedule (SGF) 04/06/2016 05/07/2017 1 1 Encounter Details Date Type Department Care Team ([facility] st Contact Info) Description 04/06/2016 Ancillary Orders [facility] Centralized Scheduling [address] [facility] [address] [place] [address] Ximena Fan FNP [address] [place] [address] Enlarged thyroid (Primary Dx) Social History Tobacco Use Types Packs/Day Years Used Date Smoking Tobacco: Never Smokeless Tobacco: Never Alcohol Use Standard Drinks/Week Comments No 0 (1 standard drink = 0.6 oz pur e alcohol) Comments No Sex and Gender Information Value Date Recorded Sex Assigned at Not on file Legal Sex Female 2:52 AM CASING TIER Gender Identity Not on file Sexual Orientation Not on file Occupation Industry Job Start Date Job End Date Not on file Not on file Not on file Not on file Not on file Not on file Not on file Not on file documented as of this encounter Plan of Treatment Not on file documented as of this encounter Results * US HEAD NECK TISSUES (04/07/2016 12:04 PM CDT) Anatomical Region Laterality Modality Head Ultrasound 04/07/2016 12:0 4 PM CDT Impressions 04/07/2016 1:24 PM CDT IMPRESSION: Please see below. Exam: US HEAD NECK TISSUES Date/Time of Exam: 04/07/2016 12:04 PM Reason For Exam: Enlarged thyroid. Findings: Thyroid measures 6.6 x 1.7 x 1.7 cm on the right and 4.8 x 1.8 x 1.8 cm on the left. Inhomogeneous echotexture throughout the thyroid. 2 mm right upper pole hypoechoic nodule. IMPRESSION: Inhomogeneous thyroid. 2 mm right thyroid nodule. [id number] Narrative Procedure Note Deon Lainez MD - 04/07/2016 IMPRESSION IMPRESSION: Please see below. Exam: US HEAD NECK TISSUES Date/Time of Exam: 04/07/2016 12:04 PM Reason For Exam: Enlarged thyroid. Findings: Thyroid measures 6.6 x 1.7 x 1.7 cm on the right and 4.8 x 1.8 x 1.8 cm on the left. Inhomogeneous echotexture throughout the thyroid. 2 mm right upper pole hypoechoic nodule. IMPRESSION: Inhomogeneous thyroid. 2 mm right thyroid nodule. [id number] us Ximena Fan CUTTER ALUMINUM SHEET US ORDERABLES Fin al Result documented in this encounter Visit Diagnoses Diagnosis Enlarged thyroid- Primary Goiter, unspecified Enlarged thyroid Goiter, unspecified documented in this encounter Care Teams Manager Regional Relationship Specialty Start Date End Date Livan Edwards, HIDE AND SKIN COLERER [address] [place] [phone] PCP - General Nurse Practitioner Family 11/19/18 documented as of this encounter
--- OUTSIDE RECORDS SUMMARY | 2024-11-27 08:58 | XMS_ITS | Encounter Summary ---
Author Organization [facility] Address [address] [place] [address] Care Team Providers Care Manager Community Outreach Name Role Phone Livan Edwards APRN Primary Care Provider [phone] Encounter Details Date Type Department Care Team (Latest Contact Info) Description 06/06/2003 Outpatient [facility] [address] [place] [address] [address] [place] [address] Rahat Lockwood MD [address] [place] [address] DYSPLASIA OF VAGINA (Primary Dx) Social History Tobacco Use Types Packs/Day Years Used Date Smoking Tobacco: Never Assessed Comments Unknown Sex and Gender Information Value Date Recorded Sex Assigned at Not on file Legal Sex Female 2:52 AM CUSTOMS PATROL OFFICER Gender Identity Not on file Sexual Orientation Not on file documented as of this encounter Plan of Treatment Not on file documented as of this encounter Visit Diagnoses Diagnosis Dysplasia of vagina- Primary documented in this encounter Care Teams Manager Community Outreach Relationship Specialty Start Date End Date Livan Edwards APRN [facility] [address] PCP - General Nurse Practitioner Family 11/19/18 documented as of this encounter
--- OUTSIDE RECORDS SUMMARY | 2024-11-27 08:58 | XMS_ITS | Encounter Summary ---
Author Organization [facility] Address [address] [place] [address] Care Team Providers Care Duplication Specialist Name Role Phone Livan Edwards RETINAL SURGEON Primary Care Provider [phone] Encounter Details Date Type Department Care Team (Latest Contact Info) Description 02/05/2004 Outpatient Historical [facility] [place] [facility] [place] [address] Bora Trinh MD [address] [address] HEADACHE (Primary Dx) Social History Tobacco Use Types Packs/Day Years Used Date Smoking Tobacco: Never Assessed Comments Unknown Sex and Gender Information Value Date Recorded Sex Assigned at Not on file Legal Sex Female 2:52 AM PRODUCTION TEAM MEMBER Gender Identity Not on file Sexual Orientation Not on file documented as of this encounter Plan of Treatment Not on file documented as of this encounter Visit Diagnoses Diagnosis Headache(784.0)- Primary Headache documented in this encounter Care Teams Duplication Specialist Relationship Specialty Start Date End Date Livan Edwards APRN [address] [facility] [address] [place] [address] PCP - General Nurse Practitioner Family 11/19/18 documented as of this encounter
--- OUTSIDE RECORDS SUMMARY | 2024-11-27 08:58 | XMS_ITS | Encounter Summary ---
Author Organization [facility] Address [address] [place] [address] Care Team Providers Care Geospatial Intelligence Analyst Name Role Phone Livan Edwards WELLNESS NURSE RN Primary Care Provider [phone] Encounter Details Date Type Department Care Team (Latest Contact Info) Description 08/26/2004 Outpatient Historical [facility] [address] [place] [address] Hernán Rob MD [address] [facility] [address] [place] [address] SPRAIN OF ANKLE NEC (Primary Dx) Social History Tobacco Use Types Packs/Day Years Used Date Smoking Tobacco: Never Assessed Comments Unknown Sex and Gender Information Value Date Recorded Sex Assigned at Not on file Legal Sex Female 2:52 AM REGISTERED DIETETIC TECHNICIAN Gender Identity Not on file Sexual Orientation Not on file documented as of this encounter Plan of Treatment Not on file documented as of this encounter Visit Diagnoses Diagnosis Other ankle sprain and strain- Primary documented in this encounter Care Teams Geospatial Intelligence Analyst Relationship Specialty Start Date End Date Livan Edwards APRN [address] [address] PCP - General Nurse Practitioner Family 11/19/18 documented as of this encounter
--- OUTSIDE RECORDS SUMMARY | 2024-11-27 08:58 | XMS_ITS | Encounter Summary ---
Author Organization [facility] Address [address] [place] [address] Care Team Providers Care Business Operations Coordinator Name Role Phone Livan Edwards CADMIUM LIQUOR MAKER Primary Care Provider [phone] Encounter Details Date Type Department Care Team (Latest Contact Info) Description 12/01/2002 Outpatient Historical [facility] Operating Room [address] [place] [address] Rahat Lockwood MD [address] [place] [address] DYSPLASIA OF VAGINA (Primary Dx) Social History Tobacco Use Types Packs/Day Years Used Date Smoking Tobacco: Never Assessed Comments Unknown Sex and Gender Information Value Date Recorded Sex Assigned at Not on file Legal Sex Female 2:52 AM FABRICATION ENGINEER Gender Identity Not on file Sexual Orientation Not on file documented as of this encounter Plan of Treatment Not on file documented as of this encounter Visit Diagnoses Diagnosis Dysplasia of vagina- Primary documented in this encounter Care Teams Business Operations Coordinator Relationship Specialty Start Date End Date Livan Edwards APRN [address] [place] [phone] PCP - General Nurse Practitioner Family 11/19/18 documented as of this encounter
--- OUTSIDE RECORDS SUMMARY | 2024-11-27 08:58 | XMS_ITS | Encounter Summary ---
Author Organization [facility] Address [address] [place] [address] Care Team Providers Care Occup Therapist Name Role Phone Livan Edwards SCREENER OPERATOR Primary Care Provider [phone] Encounter Details Date Type Department Care Team (Latest Contact Info) Description 03/07/2004 Outpatient [facility] Family Medicine [place] 104 [facility] [address] [place] [address] Bora Trinh MD [address] [address] ALLERGY, UNSPECIFIED (Primary Dx) Social History Tobacco Use Types Packs/Day Years Used Date Smoking Tobacco: Never Assessed Comments Unknown Sex and Gender Information Value Date Recorded Sex Assigned at Not on file Legal Sex Female 2:52 AM LABOR LAW PROFESSOR Gender Identity Not on file Sexual Orientation Not on file documented as of this encounter Plan of Treatment Not on file documented as of this encounter Visit Diagnoses Diagnosis Allergy, unspecified not elsewhere classified- Primary documented in this encounter Care Teams Occup Therapist Relationship Specialty Start Date End Date Livan Edwards APRN 1115 [facility] [address] [place] [address] PCP - General Nurse Practitioner Family 11/19/18 documented as of this encounter
--- OUTSIDE RECORDS SUMMARY | 2024-11-27 08:58 | XMS_ITS | Encounter Summary ---
Author Organization [facility] Address [address] [place] [address] Care Team Providers Care Computer Technology Instructor Name Role Phone Livan Edwards APRN Primary Care Provider [phone] Encounter Details Date Type Department Care Team (Latest Contact Info) Description 03/02/2003 Outpatient Historical [facility] [address] [place] [address] Joaquin Sher DO NO ADDRESS ON FILE CALCANEAL SPUR (Primary Dx) Social History Tobacco Use Types Packs/Day Years Used Date Smoking Tobacco: Never Assessed Comments Unknown Sex and Gender Information Value Date Recorded Sex Assigned at Not on file Legal Sex Female 2:52 AM RESIDUE FURNACE OPERATOR Gender Identity Not on file Sexual Orientation Not on file documented as of this encounter Plan of Treatment Not on file documented as of this encounter Visit Diagnoses Diagnosis Calcaneal spur- Primary documented in this encounter Care Teams Computer Technology Instructor Relationship Specialty Start Date End Date Livan Edwards APRN [facility] [phone] PCP - General Nurse Practitioner Family 11/19/18 documented as of this encounter
--- OUTSIDE RECORDS SUMMARY | 2024-11-27 08:58 | XMS_ITS | Encounter Summary ---
Author Organization [facility] Address [address] [place] [address] Care Team Providers Care Switch Adjuster Name Role Phone Livan Edwards SINGING TEACHER Primary Care Provider [phone] Encounter Details Date Type Department Care Team (Latest Contact Info) Description 01/11/2004 Outpatient [facility] [address] [address] Crescencio Hugo, [place] ADDRESS ON FILE ALLERGY, UNSPECIFIED (Primary Dx); OTHER MALAISE AND FATIGUE Social History Tobacco Use Types Packs/Day Years Used Date Smoking Tobacco: Never Assessed Comments Unknown Sex and Gender Information Value Date Recorded Sex Assigned at Not on file Legal Sex Female 2:52 AM UROLOGIST PHYSICIAN Gender Identity Not on file Sexual Orientation Not on file documented as of this encounter Plan of Treatment Not on file documented as of this encounter Visit Diagnoses Diagnosis Allergy, unspecified not elsewhere classified- Primary Other malaise and fatigue documented in this encounter Care Teams Switch Adjuster Relationship Specialty Start Date End Date Livan Edwards APRN [facility] [address] PCP - General Nurse Practitioner Family 11/19/18 documented as of this encounter
--- OUTSIDE RECORDS SUMMARY | 2024-11-27 08:59 | XMS_ITS | Encounter Summary ---
Author Organization [facility] Address [address] [facility] [address] Lester: [place] [address] Care Team Providers Care Wool Hat Forming Machine Tender Name Role Phone Livan Edwards APRN Primary Care Provider [phone] Encounter Details Date Type Department Care Team (Late st Contact Info) Description 01/02/2002 Outpatient Historical Diana Baer, ASPHALT SPREADER [address] [place] [address] Social History Tobacco Use Types Packs/Day Years Used Date Smoking Tobacco: Never Assessed Comments Unknown Sex and Gender Information Value Date Recorded Sex Assigned at Not on file Legal Sex Female 2:52 AM THIRD SHIFT LIEUTENANT Gender Identity Not on file Sexual Orientation Not on file documented as of this encounter Plan of Treatment Not on file documented as of this encounter Visit Diagnoses Not on filedocumented in this encounter Care Teams Wool Hat Forming Machine Tender Relationship Specialty Start Date End Date Livan Edwards APRN [address] [place] [phone] PCP - General Nurse Practitioner Family 11/19/18 documented as of this encounter
--- OUTSIDE RECORDS SUMMARY | 2024-11-27 08:59 | XMS_ITS | Encounter Summary ---
Author Organization [facility] Address [address] [place] [address] Care Team Providers Care Meat Processor Name Role Phone Livan Edwards ETL INFORMATICA ARCHITECT Primary Care Provider [phone] Encounter Details Date Type Department Care Team (Latest Contact Info) Description 10/19/2001 Outpatient [facility] [address] [place] [address] Joa[place] Sher DO NO ADDRESS ON FILE Dietary surveil/securities counselor (Primary Dx); CALCANEAL SPUR Social History Tobacco Use Types Packs/Day Years Used Date Smoking Tobacco: Never Assessed Comments Unknown Sex and Gender Information Value Date Recorded Sex Assigned at Not on file Legal Sex Female 2:52 AM BRADLEY LINEBACKER CREWMEMBER Gender Identity Not on file Sexual Orientation Not on file documented as of this encounter Plan of Treatment Not on file documented as of this encounter Visit Diagnoses Diagnosis Dietary surveil/securities counselor- Primary Dietary surveillance and counseling Calcaneal spur documented in this encounter Care Teams Meat Processor Relationship Specialty Start Date End Date Livna Edwards, [facility] [phone] PCP - General Nurse Practitioner Family 11/19/18 documented as of this encounter
--- OUTSIDE RECORDS SUMMARY | 2024-11-27 08:59 | XMS_ITS | Encounter Summary ---
Author Organization [facility] Address [address] [facility] [address]ester: [place] [address] Care Team Providers Care Combatant Diver Officer Name Role Phone Livan Edwards NAVAL DESIGNER Primary Care Provider [phone] Encounter Details Date Type Department Care Team ([facility] Contact Info) Description 02/27/2002 Outpatient Historical Bora Trinh MD [address] [facility] [address] [place] [address] Social History Tobacco Use Types Packs/Day Years Used Date Smoking Tobacco: Never Assessed Comments Unknown Sex and Gender Information Value Date Recorded Sex Assigned at Not on file Legal Sex Female 2:52 AM ACADEMIC ASSOCIATE Gender Identity Not on file Sexual Orientation Not on file documented as of this encounter Plan of Treatment Not on file documented as of this encounter Visit Diagnoses Not on filedocumented in this encounter Care Teams Combatant Diver Officer Relationship Specialty Start Date End Date Livan Edwards APRN [facility]5 [facility] [address] [place] [address] PCP - General Nurse Practitioner Family 11/19/18 documented as of this encounter
--- OUTSIDE RECORDS SUMMARY | 2024-11-27 08:59 | XMS_ITS | Encounter Summary ---
Author Organization [facility] Address [address] [place] [address] Care Team Providers Care Record Clerk Name Role Phone Livan Edwards NEEDLE PUNCH MACHINE OPERATOR HELPER Primary Care Provider [phone] Encounter Details Date Type Department Care Team (Latest Contact Info) Description 09/07/2001 Outpatient [facility] [address] [place] [phone] Joaquin Sher DO NO ADDRESS ON FILE ANXIETY STATE NOS (Primary Dx); Sexual function problem; OTHER MALAISE AND FATIGUE Social History Tobacco Use Types Packs/Day Years Used Date Smoking Tobacco: Never Assessed Comments Unknown Sex and Gender Information Value Date Recorded Sex Assigned at Not on file Legal Sex Female 2:52 AM PROFESSOR OF FINANCE Gender Identity Not on file Sexual Orientation Not on file documented as of this encounter Plan of Treatment Not on file documented as of this encounter Visit Diagnoses Diagnosis Anxiety state, unspecified- Primary Sexual function problem Problems with sexual function Other malaise and fatigue documented in this encounter Care Teams Record Clerk Relationship Specialty Start Date End Date Livan Edwards APRN [address] [place] [phone] PCP - General Nurse Practitioner Family 11/19/18 documented as of this encounter
--- OUTSIDE RECORDS SUMMARY | 2024-11-27 08:59 | XMS_ITS | Encounter Summary ---
Author Organization [facility] Address [address] [place] [address] Care Team Providers Care Churn Drill Operator Name Role Phone Livan Edwards HAND SEWER SHOES Primary Care Provider [phone] Encounter Details Date Type Department Care Team (Latest Contact Info) Description 01/02/[address] [facility] [address] [place] [phone] Bora Trinh MD [address] [address] ACUTE SINUSITIS NOS (Primary Dx); Dietary surveil/cemetery counselor Social History Tobacco Use Types Packs/Day Years Used Date Smoking Tobacco: Never Assessed Comments Unknown Sex and Gender Information Value Date Recorded Sex Assigned at Not on file Legal Sex Female 2:52 AM INDUSTRIAL RELATIONS ANALYST Gender Identity Not on file Sexual Orientation Not on file documented as of this encounter Plan of Treatment Not on file documented as of this encounter Visit Diagnoses Diagnosis Acute sinusitis, unspecified- Primary Dietary surveil/cemetery counselor Dietary surveillance and counseling documented in this encounter Care Teams Churn Drill Operator Relationship Specialty Start Date End Date Livan Edwards APRN [address] [phone] PCP - General Nurse Practitioner Family 11/19/18 documented as of this encounter
--- OUTSIDE RECORDS SUMMARY | 2024-11-27 08:59 | XMS_ITS | Encounter Summary ---
Author Organization [facility] Address [address] [place] [address] Care Team Providers Care Chemical Operations Specialist Name Role Phone Livan Edwards COMPUTATIONAL BIOLOGIST Primary Care Provider [phone] Encounter Details Date Type Department Care Team (Latest Contact Info) Description 09/19/2001 Outpatient [facility] [address] [place] [phone] Bora Trinh MD [address] [address] OBESITY NOS (Primary Dx); Dietary surveil/juvenile counselor; ACUTE MAXILLARY SINUSITIS Social History Tobacco Use Types Packs/Day Years Used Date Smoking Tobacco: Never Assessed Comments Unknown Sex and Gender Information Value Date Recorded Sex Assigned at Not on file Legal Sex Female 2:52 AM FULL STACK PYTHON DEVELOPER Gender Identity Not on file Sexual Orientation Not on file documented as of this encounter Plan of Treatment Not on file documented as of this encounter Visit Diagnoses Diagnosis Obesity, unspecified- Primary Dietary surveil/juvenile counselor Dietary surveillance and counseling Acute maxillary sinusitis documented in this encounter Care Teams Chemical Operations Specialist Relationship Specialty Start Date End Date Livan Edawrds APRN 1115 [facility] [address] [place] [phone] PCP - General Nurse Practitioner Family 11/19/18 documented as of this encounter
--- OUTSIDE RECORDS SUMMARY | 2024-11-27 08:59 | XMS_ITS | Encounter Summary ---
Author Organization [facility] Address [address] [place] [address] Care Team Providers Care Pulp Machine Operator Name Role Phone Livan Edwards APRN Primary Care Provider [phone] Encounter Details Date Type Department Care Team (Latest Contact Info) Description 04/18/2003 Outpatient [facility] [address] [place] [phone] Bora Trinh MD [address] [address] ACUTE BRONCHITIS (Primary Dx); ACUTE URI NOS Social History Tobacco Use Types Packs/Day Years Used Date Smoking Tobacco: Never Assessed Comments Unknown Sex and Gender Information Value Date Recorded Sex Assigned at Not on file Legal Sex Female 2:52 AM MEDICAL CHARGE ENTRY SPECIALIST Gender Identity Not on file Sexual Orientation Not on file documented as of this encounter Plan of Treatment Not on file documented as of this encounter Visit Diagnoses Diagnosis Acute bronchitis- Primary Acute upper respiratory infections of unspecified site documented in this encounter Care Teams Pulp Machine Operator Relationship Specialty Start Date End Date Livan Edwards APRN [address] [place] [phone] PCP - General Nurse Practitioner Family 11/19/18 documented as of this encounter
--- OUTSIDE RECORDS SUMMARY | 2024-11-27 08:59 | XMS_ITS | Encounter Summary ---
Author Organization [facility] Address [address] [place] [address] Care Team Providers Care Scientific Helper Name Role Phone Livan Edwards RESEARCH BIOSTATISTICIAN Primary Care Provider [phone] Encounter Details Date Type Department Care Team (Latest Contact Info) Description 02/03/2000 Outpatient Historical [facility] Family Medicine- [address] [address] [place] [phone] Joaquin Sher DO NO ADDRESS ON FILE Conjunctivitis unspecified (Primary Dx); Acute pharyngitis Social History Tobacco Use Types Packs/Day Years Used Date Smoking Tobacco: Never Assessed Comments Unknown Sex and Gender Information Value Date Recorded Sex Assigned at Not on file Legal Sex Female 2:52 AM CANDY FEEDER Gender Identity Not on file Sexual Orientation Not on file documented as of this encounter Plan of Treatment Not on file documented as of this encounter Visit Diagnoses Diagnosis Conjunctivitis unspecified- Primary Conjunctivitis, unspecified Acute pharyngitis documented in this encounter Care Teams Scientific Helper Relationship Specialty Start Date End Date Livan Edwards APRN [address] [place] [phone] PCP - General Nurse Practitioner Family 11/19/18 documented as of this encounter
--- OUTSIDE RECORDS SUMMARY | 2024-11-27 08:59 | XMS_ITS | Encounter Summary ---
Author Organization [facility] Address [address] [place] [address] Care Team Providers Care Executive Associate Name Role Phone Livan Edwards APRN Primary Care Provider [phone] Encounter Details Date Type Department Care Team (Latest Contact Info) Description 06/06/2003 Outpatient Historical [facility] Rahat Lockwood MD [address] [place] [phone] SCREENING MAL NEOP-CERVIX (Primary Dx) Social History Tobacco Use Types Packs/Day Years Used Date Smoking Tobacco: Never Assessed Comments Unknown Sex and Gender Information Value Date Recorded Sex Assigned at Not on file Legal Sex Female 2:52 AM ORTHOTICS ASSISTANT Gender Identity Not on file Sexual Orientation Not on file documented as of this encounter Plan of Treatment Not on file documented as of this encounter Visit Diagnoses Diagnosis Screening for malignant neoplasm of the cervix- Primary documented in this encounter Care Teams Executive Associate Relationship Specialty Start Date End Date Livan Edwards APRN [facility] [phone] PCP - General Nurse Practitioner Family 11/19/18 documented as of this encounter
--- OUTSIDE RECORDS SUMMARY | 2024-11-27 08:59 | XMS_ITS | Encounter Summary ---
Author Organization [facility] Address [address]: [place] [address] Care Team Providers Care Door Operator Name Role Phone Livan Edwards APRN Primary Care Provider [phone] Encounter Details Date Type Department Care Team (Late st Contact Info) Description 09/07/2001 Outpatient Historical Diana Baer, ALPINE GUIDE [address] [place] [address] Social History Tobacco Use Types Packs/Day Years Used Date Smoking Tobacco: Never Assessed Comments Unknown Sex and Gender Information Value Date Recorded Sex Assigned at Not on file Legal Sex Female 2:52 AM WEIGHT YARDAGE CHECKER Gender Identity Not on file Sexual Orientation Not on file documented as of this encounter Plan of Treatment Not on file documented as of this encounter Visit Diagnoses Not on filedocumented in this encounter Care Teams Door Operator Relationship Specialty Start Date End Date Livan Edwards APRN [address] [place] [phone] PCP - General Nurse Practitioner Family 11/19/18 documented as of this encounter
--- OUTSIDE RECORDS SUMMARY | 2024-11-27 08:59 | XMS_ITS | Encounter Summary ---
Author Organization [facility] Address [address] [place] [address] Care Team Providers Care Genomics Scientist Name Role Phone Livan Edwards HYDROMETEOROLOGIST Primary Care Provider [phone] Encounter Details Date Type Department Care Team (Latest Contact Info) Description 09/18/2002 Outpatient [facility] [address] [place] [phone] Bora Trinh MD [address] [address] ACUTE SINUSITIS NOS (Primary Dx) Social History Tobacco Use Types Packs/Day Years Used Date Smoking Tobacco: Never Assessed Comments Unknown Sex and Gender Information Value Date Recorded Sex Assigned at Not on file Legal Sex Female 2:52 AM LIGHTNING PROTECTION INSTALLER Gender Identity Not on file Sexual Orientation Not on file documented as of this encounter Plan of Treatment Not on file documented as of this encounter Visit Diagnoses Diagnosis Acute sinusitis, unspecified- Primary documented in this encounter Care Teams Genomics Scientist Relationship Specialty Start Date End Date Livan Edwards APRN [facility] [address] [place] [address] PCP - General Nurse Practitioner Family 11/19/18 documented as of this encounter
--- OUTSIDE RECORDS SUMMARY | 2024-11-27 08:59 | XMS_ITS | Encounter Summary ---
Author Organization [facility] Address [address] [place] [address] Care Team Providers Care Material Control Manager Name Role Phone Livan Edwards APRN Primary Care Provider [phone] Encounter Details Date Type Department Care Team (Latest Contact Info) Description 02/01/2007 Outpatient Historical [facility] Podiatry [address] [place] [address] Crescencio Gee, JAE [address] [facility] [address] [place] [address] Tenosynovitis of Foot and Ankle (Primary Dx); Pain in Limb; Achilles Bursitis or Tendinitis; Exostosis of Unspecified Site Social History Tobacco Use Types Packs/Day Years Used Date Smoking Tobacco: Never Assessed Comments Unknown Sex and Gender Information Value Date Recorded Sex Assigned at Not on file Legal Sex Female 2:52 AM MANAGER RETAIL SALES Gender Identity Not on file Sexual Orientation Not on file documented as of this encounter Plan of Treatment Not on file documented as of this encounter Visit Diagnoses Diagnosis Tenosynovitis of foot and ankle- Primary Pain in limb Pain in soft tissues of limb Achilles bursitis or tendinitis Exostosis of unspecified site documented in this encounter Care Teams Material Control Manager Relationship Specialty Start Date End Date Livan Edwards APRN [address] [place] [address] [address] [place] [address] PCP - General Nurse Practitioner Family 11/19/18 documented as of this encounter
--- OUTSIDE RECORDS SUMMARY | 2024-11-27 08:59 | XMS_ITS | Encounter Summary ---
Author Organization [facility] Address [address] [place] [address] Care Team Providers Care Bead Inspector Name Role Phone Livan Edwards APRN Primary Care Provider [phone] Encounter Details Date Type Department Care Team (Latest Contact Info) Description 11/16/2002 Outpatient [facility] [address] [place] [address] [address] [place] [address] Rahat Lockwood MD [address] [place] [address] DYSPLASIA OF VAGINA (Primary Dx) Social History Tobacco Use Types Packs/Day Years Used Date Smoking Tobacco: Never Assessed Comments Unknown Sex and Gender Information Value Date Recorded Sex Assigned at Not on file Legal Sex Female 2:52 AM LAWN CARE PROFESSIONAL Gender Identity Not on file Sexual Orientation Not on file documented as of this encounter Plan of Treatment Not on file documented as of this encounter Visit Diagnoses Diagnosis Dysplasia of vagina- Primary documented in this encounter Care Teams Bead Inspector Relationship Specialty Start Date End Date Livan Edwards APRN [facility] [phone] PCP - General Nurse Practitioner Family 11/19/18 documented as of this encounter
--- OUTSIDE RECORDS SUMMARY | 2024-11-27 08:59 | XMS_ITS | Encounter Summary ---
Author Organization [facility] Address [address] [place] [address] Care Team Providers Care Multimedia Author Name Role Phone Livan Edwards GREENS CUTTER Primary Care Provider [phone] Encounter Details Date Type Department Care Team (Latest Contact Info) Description 12/30/1999 Outpatient Historical [facility] Family Medicine- [address] [address] [place] [phone] Joaquin Sher, NO ADDRESS ON FILE Other voice and resonance disorders (Primary Dx) Social History Tobacco Use Types Packs/Day Years Used Date Smoking Tobacco: Never Assessed Comments Unknown Sex and Gender Information Value Date Recorded Sex Assigned at Not on file Legal Sex Female 2:52 AM CLOSING AGENT Gender Identity Not on file Sexual Orientation Not on file documented as of this encounter Plan of Treatment Not on file documented as of this encounter Visit Diagnoses Diagnosis Other voice and resonance disorders- Primary documented in this encounter Care Teams Multimedia Author Relationship Specialty Start Date End Date Livan Edwards APRN [address] [place] [phone] PCP - General Nurse Practitioner Family 11/19/18 documented as of this encounter
--- OUTSIDE RECORDS SUMMARY | 2024-11-27 08:59 | XMS_ITS | Encounter Summary ---
Author Organization [facility] Address [address] [place] [address] Care Team Providers Care Senior Technical Manager Name Role Phone Livan Edwards APRN Primary Care Provider [phone] Encounter Details Date Type Department Care Team (Latest Contact Info) Description 02/08/2002 Outpatient [facility] [address] [place] [address] Joaquin Sher DO NO ADDRESS ON FILE DIZZINESS AND GIDDINESS (Primary Dx) Social History Tobacco Use Types Packs/Day Years Used Date Smoking Tobacco: Never Assessed Comments Unknown Sex and Gender Information Value Date Recorded Sex Assigned at Not on file Legal Sex Female 2:52 AM COMMISSIONED POLICE OFFICER Gender Identity Not on file Sexual Orientation Not on file documented as of this encounter Plan of Treatment Not on file documented as of this encounter Visit Diagnoses Diagnosis Dizziness and giddiness- Primary documented in this encounter Care Teams Senior Technical Manager Relationship Specialty Start Date End Date Livan Edwards APRN [address] [phone] PCP - General Nurse Practitioner Family 11/19/18 documented as of this encounter
--- OUTSIDE RECORDS SUMMARY | 2024-11-27 08:59 | XMS_ITS | Encounter Summary ---
Author Organization [facility] Address [address] [place] [address] Care Team Providers Care Screen Writer Name Role Phone Livan Edwards APRN Primary Care Provider [phone] Encounter Details Date Type Department Care Team (Latest Contact Info) Description 05/30/2003 Outpatient [facility] [address] [place] [phone] Bora Trinh MD [address] [address] ATYP SQ CELL CHNG UNDET SIG FAV HAYDEE (Primary Dx); ALLERGY, UNSPECIFIED Social History Tobacco Use Types Packs/Day Years Used Date Smoking Tobacco: Never Assessed Comments Unknown Sex and Gender Information Value Date Recorded Sex Assigned at Not on file Legal Sex Female 2:52 AM ALTERATION INSPECTOR Gender Identity Not on file Sexual Orientation Not on file documented as of this encounter Plan of Treatment Not on file documented as of this encounter Visit Diagnoses Diagnosis Papanicolaou smear of cervix with atypical squamous cells of undetermined significance (ASC-US)- Primary Allergy, unspecified not elsewhere classified documented in this encounter Care Teams Screen Writer Relationship Specialty Start Date End Date Livan Edwards APRN [address] [phone] PCP - General Nurse Practitioner Family 11/19/18 documented as of this encounter
--- OUTSIDE RECORDS SUMMARY | 2024-11-27 08:59 | XMS_ITS | Encounter Summary ---
Author Organization [facility] Address [address] [place] [address] Care Team Providers Care Post Graduate Intern Name Role Phone Livan Edwards APRN Primary Care Provider [phone] Encounter Details Date Type Department Care Team (Latest Contact Info) Description 01/20/2006 [facility]patient [facility] [address] [place] [address] Diana Baer, MEDICAL CASE MANAGER [address] [place] [address] Unspecified Vaginitis and Vulvovaginitis (Primary Dx) Social History Tobacco Use Types Packs/Day Years Used Date Smoking Tobacco: Never Assessed Comments Unknown Sex and Gender Information Value Date Recorded Sex Assigned at Not on file Legal Sex Female 2:52 AM SPEECH AND DRAMA TEACHER Gender Identity Not on file Sexual Orientation Not on file documented as of this encounter Plan of Treatment Not on file documented as of this encounter Visit Diagnoses Diagnosis Vaginitis and vulvovaginitis, unspecified- Primary documented in this encounter Care Teams Post Graduate Intern Relationship Specialty Start Date End Date Livan Edwards APRN [facility] [phone] PCP - General Nurse Practitioner Family 11/19/18 documented as of this encounter
--- OUTSIDE RECORDS SUMMARY | 2024-11-27 08:59 | XMS_ITS | Encounter Summary ---
Author Organization [facility] Address [address] [place] [address] Care Team Providers Care Instrumentation Instructor Name Role Phone Livan Edwards LEAD SOFTWARE TESTER Primary Care Provider [phone] Encounter Details Date Type Department Care Team (Latest Contact Info) Description 08/16/2002 Outpatient [facility] [address] [place] [address] Diana Baer, CUSTOMS ENTRY CLERK [address] [place] [phone] ABNORMAL PAP SMEAR-OTHER SITE (Primary Dx) Social History Tobacco Use Types Packs/Day Years Used Date Smoking Tobacco: Never Assessed Comments Unknown Sex and Gender Information Value Date Recorded Sex Assigned at Not on file Legal Sex Female 2:52 AM STIPPLER Gender Identity Not on file Sexual Orientation Not on file documented as of this encounter Plan of Treatment Not on file documented as of this encounter Visit Diagnoses Diagnosis Abnormal Papanicolaou smear of vagina and vaginal HPV- Primary documented in this encounter Care Teams Instrumentation Instructor Relationship Specialty Start Date End Date Livan Edwards APRN [address] [place] [phone] PCP - General Nurse Practitioner Family 11/19/18 documented as of this encounter
--- OUTSIDE RECORDS SUMMARY | 2024-11-27 08:59 | XMS_ITS | Encounter Summary ---
Author Organization [facility] Address [address] [place] [address] Care Team Providers Care Marketing Support Specialist Name Role Phone Livan Edwards AEROSPACE TECHNICIAN Primary Care Provider [phone] Encounter Details Date Type Department Care Team (Latest Contact Info) Description 08/15/2002 Outpatient [facility] [address] [place] [address] Diana Baer, FOOD GENERAL MANAGER [address] [place] [address] VAGINITIS NOS (Primary Dx) Social History Tobacco Use Types Packs/Day Years Used Date Smoking Tobacco: Never Assessed Comments Unknown Sex and Gender Information Value Date Recorded Sex Assigned at Not on file Legal Sex Female 2:52 AM SHIPPING AND RECEIVING WEIGHER Gender Identity Not on file Sexual Orientation Not on file documented as of this encounter Plan of Treatment Not on file documented as of this encounter Visit Diagnoses Diagnosis Vaginitis and vulvovaginitis, unspecified- Primary documented in this encounter Care Teams Marketing Support Specialist Relationship Specialty Start Date End Date Livan Edwards APRN [address] [place] [phone] PCP - General Nurse Practitioner Family 11/19/18 documented as of this encounter
--- OUTSIDE RECORDS SUMMARY | 2024-11-27 08:59 | XMS_ITS | Encounter Summary ---
Author Organization [facility] Address [address] [place] [address] Care Team Providers Care Gis Manager Name Role Phone Livan Edwards FIELD PARTY MANAGER Primary Care Provider [phone] Encounter Details Date Type Department Care Team (Latest Contact Info) Description 07/19/[address] [facility] [place] [address] [facility] [address] [place] [address] Joaquin Sher DO NO ADDRESS ON FILE ACUTE SINUSITIS NOS (Primary Dx); CHRONIC SINUSITIS NOS Social History Tobacco Use Types Packs/Day Years Used Date Smoking Tobacco: Never Assessed Comments Unknown Sex and Gender Information Value Date Recorded Sex Assigned at Not on file Legal Sex Female 2:52 AM CROZER Gender Identity Not on file Sexual Orientation Not on file documented as of this encounter Plan of Treatment Not on file documented as of this encounter Visit Diagnoses Diagnosis Acute sinusitis, unspecified- Primary Unspecified sinusitis (chronic) documented in this encounter Care Teams Gis Manager Relationship Specialty Start Date End Date Livan Edwards, MANDY [address] [place] [phone] PCP - General Nurse Practitioner Family 11/19/18 documented as of this encounter
--- OUTSIDE RECORDS SUMMARY | 2024-11-27 08:59 | XMS_ITS | Encounter Summary ---
Author Organization [facility] Address [address] [place] [address] Care Team Providers Care Cold Work Operator Name Role Phone Livan Edwards STAMPING DIE MAKER BENCH Primary Care Provider [phone] Encounter Details Date Type Department Care Team (Latest Contact Info) Description 04/05/2002 Outpatient [facility] [address] [place] [phone] Blanca King MD NO ADDRESS ON FILE OTHER MALAISE AND FATIGUE (Primary Dx); ACUTE SINUSITIS NOS Social History Tobacco Use Types Packs/Day Years Used Date Smoking Tobacco: Never Assessed Comments Unknown Sex and Gender Information Value Date Recorded Sex Assigned at Not on file Legal Sex Female 2:52 AM DETENTION OFFICER Gender Identity Not on file Sexual Orientation Not on file documented as of this encounter Plan of Treatment Not on file documented as of this encounter Visit Diagnoses Diagnosis Other malaise and fatigue- Primary Acute sinusitis, unspecified documented in this encounter Care Teams Cold Work Operator Relationship Specialty Start Date End Date Livan Edwards APRN [facility] [address] [phone] PCP - General Nurse Practitioner Family 11/19/18 documented as of this encounter
--- OUTSIDE RECORDS SUMMARY | 2024-11-27 08:59 | XMS_ITS | Encounter Summary ---
Author Organization [facility] Address [address] [place] [address] Care Team Providers Care Agency Sales Representative Name Role Phone Livan Edwards READING INTERVENTIONIST Primary Care Provider [phone] Encounter Details Date Type Department Care Team (Latest Contact Info) Description 02/22/2006 Outpatient [facility] Medicine [address] [address] Santy Hawk NP NO ADDRESS ON FILE Acute Sinusitis, Unspecified (Primary Dx); Shortness of Breath; Fluid Overload; Dizziness and Giddiness Social History Tobacco Use Types Packs/Day Years Used Date Smoking Tobacco: Never Assessed Comments Unknown Sex and Gender Information Value Date Recorded Sex Assigned at Not on file Legal Sex Female 2:52 AM PLUMBER'S ASSISTANT Gender Identity Not on file Sexual Orientation Not on file documented as of this encounter Plan of Treatment Not on file documented as of this encounter Visit Diagnoses Diagnosis Acute sinusitis, unspecified- Primary Shortness of breath Fluid overload Dizziness and giddiness documented in this encounter Care Teams Agency Sales Representative Relationship Specialty Start Date End Date Livan Edwards APRN [address] [place] [phone] PCP - General Nurse Practitioner Family 11/19/18 documented as of this encounter
--- OUTSIDE RECORDS SUMMARY | 2024-11-27 08:59 | XMS_ITS | Encounter Summary ---
Author Organization [facility] Address [address] [place] [address] Care Team Providers Care Car Ferry Master Name Role Phone Livan Edwards APRN Primary Care Provider [phone] Encounter Details Date Type Department Care Team (Latest Contact Info) Description 10/25/2006 Outpatient Historical [facility] Ambulance [address] [place] [address] AMBULANCE, [facility] Abdominal Pain, Unspecified Site (Primary Dx) Social History Tobacco Use Types Packs/Day Years Used Date Smoking Tobacco: Never Assessed Comments Unknown Sex and Gender Information Value Date Recorded Sex Assigned at Not on file Legal Sex Female 2:52 AM STATION MECHANIC Gender Identity Not on file Sexual Orientation Not on file documented as of this encounter Plan of Treatment Not on file documented as of this encounter Visit Diagnoses Diagnosis Abdominal pain, unspecified site- Primary documented in this encounter Care Teams Car Ferry Master Relationship Specialty Start Date End Date Livan Edwards APRN [address] [place] [phone] PCP - General Nurse Practitioner Family 11/19/18 documented as of this encounter
--- OUTSIDE RECORDS SUMMARY | 2024-11-27 08:59 | XMS_ITS | Encounter Summary ---
Author Organization [facility] Address [address] [place] [address] Care Team Providers Care Rotary Pump Operator Name Role Phone Livan Edwards INSTRUCTIONAL FACILITATOR Primary Care Provider [phone] Encounter Details Date Type Department Care Team (Latest Contact Info) Description 04/19/2002 Outpatient [facility] [address] [place] [phone] Blanca King MD NO ADDRESS ON FILE ACUTE PHARYNGITIS (Primary Dx); ACUTE SINUSITIS NOS Social History Tobacco Use Types Packs/Day Years Used Date Smoking Tobacco: Never Assessed Comments Unknown Sex and Gender Information Value Date Recorded Sex Assigned at Not on file Legal Sex Female 2:52 AM CONCRETE SCULPTOR Gender Identity Not on file Sexual Orientation Not on file documented as of this encounter Plan of Treatment Not on file documented as of this encounter Visit Diagnoses Diagnosis Acute pharyngitis- Primary Acute sinusitis, unspecified documented in this encounter Care Teams Rotary Pump Operator Relationship Specialty Start Date End Date Livan Edwards, MANDY [facility] [phone] PCP - General Nurse Practitioner Family 11/19/18 documented as of this encounter
--- OUTSIDE RECORDS SUMMARY | 2024-11-27 08:59 | XMS_ITS | Encounter Summary ---
Author Organization [facility] Address [address] [place] [address] Care Team Providers Care Television Tube Inspector Name Role Phone Livan Edwards PUNCH CARD OPERATOR Primary Care Provider [phone] Encounter Details Date Type Department Care Team (Latest Contact Info) Description 02/24/2002 Outpatient [facility] [address] [place] [phone] Blanca King MD NO ADDRESS ON FILE VAGINITIS NOS (Primary Dx) Social History Tobacco Use Types Packs/Day Years Used Date Smoking Tobacco: Never Assessed Comments Unknown Sex and Gender Information Value Date Recorded Sex Assigned at Not on file Legal Sex Female 2:52 AM INCOME TAX AUDITOR Gender Identity Not on file Sexual Orientation Not on file documented as of this encounter Plan of Treatment Not on file documented as of this encounter Visit Diagnoses Diagnosis Vaginitis and vulvovaginitis, unspecified- Primary documented in this encounter Care Teams Television Tube Inspector Relationship Specialty Start Date End Date Livan Edwards APRN [address] [phone] PCP - General Nurse Practitioner Family 11/19/18 documented as of this encounter
--- OUTSIDE RECORDS SUMMARY | 2024-11-27 08:59 | XMS_ITS | Encounter Summary ---
Author Organization [facility] Address [address] [place] [address] Care Team Providers Care Photogrammetric Stereo Compiler Name Role Phone Livan Edwards BARBERING TEACHER Primary Care Provider [phone] Encounter Details Date Type Department Care Team (Latest Contact Info) Description 05/27/2001 Outpatient [facility] Family Medicine [place] [address] [facility] [address] [place] [address] Bora Trinh MD [address] [address] VACCINE FOR INFLUENZA (Primary Dx) Social History Tobacco Use Types Packs/Day Years Used Date Smoking Tobacco: Never Assessed Comments Unknown Sex and Gender Information Value Date Recorded Sex Assigned at Not on file Legal Sex Female 2:52 AM V GROOVE CUTTER Gender Identity Not on file Sexual Orientation Not on file documented as of this encounter Plan of Treatment Not on file documented as of this encounter Visit Diagnoses Diagnosis Need vaccination-viral disease- Primary Need for prophylactic vaccination and inoculation against other viral diseases documented in this encounter Care Teams Photogrammetric Stereo Compiler Relationship Specialty Start Date End Date Livan Edwards APRN [address] [place] [phone] PCP - General Nurse Practitioner Family 11/19/18 documented as of this encounter
--- OUTSIDE RECORDS SUMMARY | 2024-11-27 08:59 | XMS_ITS | Encounter Summary ---
Author Organization [facility] Address [address] [place] [address] Care Team Providers Care Almond Pan Finisher Name Role Phone Livan Edwards CLINICAL DIETITIAN Primary Care Provider [phone] Encounter Details Date Type Department Care Team (Latest Contact Info) Description 11/13/[address] [phone] Crescencio Hugo, PA NO ADDRESS ON FILE Allergy, Unspecified not Elsewhere Classified (Primary Dx); Acute Upper Respiratory Infections of Unspecified Site; Insomnia, Unspecified; Unspecified Acute Reaction to Stress Social History Tobacco Use Types Packs/Day Years Used Date Smoking Tobacco: Never Assessed Comments Unknown Sex and Gender Information Value Date Recorded Sex Assigned at Not on file Legal Sex Female 2:52 AM REFERENCE LIBRARIAN Gender Identity Not on file Sexual Orientation Not on file documented as of this encounter Plan of Treatment Not on file documented as of this encounter Visit Diagnoses Diagnosis Allergy, unspecified not elsewhere classified- Primary Acute upper respiratory infections of unspecified site Insomnia, unspecified Unspecified acute reaction to stress documented in this encounter Care Teams Almond Pan Finisher Relationship Specialty Start Date End Date Livan Edwards APRN [address] [place] [phone] PCP - General Nurse Practitioner Family 11/19/18 documented as of this encounter
--- OUTSIDE RECORDS SUMMARY | 2024-11-27 08:59 | XMS_ITS | Encounter Summary ---
Author Organization [facility] Address [address] [place] [address] Care Team Providers Care Mechanical Pencils Assembler Name Role Phone Livan Edwards JUNIOR ASSISTANT MANAGER Primary Care Provider [phone] Encounter Details Date Type Department Care Team (Latest Contact Info) Description 07/07/2002 Outpatient Historical [facility] [address] [place] [phone] Joaquin Sher DO NO ADDRESS ON FILE ACUTE BRONCHITIS (Primary Dx); TIETZE'S DISEASE Social History Tobacco Use Types Packs/Day Years Used Date Smoking Tobacco: Never Assessed Comments Unknown Sex and Gender Information Value Date Recorded Sex Assigned at Not on file Legal Sex Female 2:52 AM RETAIL ADMINISTRATIVE ASSISTANT Gender Identity Not on file Sexual Orientation Not on file documented as of this encounter Plan of Treatment Not on file documented as of this encounter Visit Diagnoses Diagnosis Acute bronchitis- Primary Tietze's disease documented in this encounter Care Teams Mechanical Pencils Assembler Relationship Specialty Start Date End Date Livan Edwards APRN [address] [phone] PCP - General Nurse Practitioner Family 11/19/18 documented as of this encounter
--- OUTSIDE RECORDS SUMMARY | 2024-11-27 08:59 | XMS_ITS | Encounter Summary ---
Author Organization [facility] Address [address] [place] [address] Care Team Providers Care Supervisor Special Services Name Role Phone Livan Edwards COLLECTIVE BARGAINING SPECIALIST Primary Care Provider [phone] Encounter Details Date Type Department Care Team (Latest Contact Info) Description 11/29/2007 Outpatient Historical [facility] Ambulance [address] [place] [address] AMBULANCE, [facility] Depressive Disorder, not Elsewhere Classified; Gout, Unspecified; Personal History of Allergy to Penicillin; Personal History of Allergy to Sulfonamides; Personal History of Allergy to Other Specified Medicinal Agents Social History Tobacco Use Types Packs/Day Years Used Date Smoking Tobacco: Never Assessed Comments Unknown Sex and Gender Information Value Date Recorded Sex Assigned at Not on file Legal Sex Female 2:52 AM ROD PILER Gender Identity Not on file Sexual Orientation Not on file documented as of this encounter Plan of Treatment Not on file documented as of this encounter Visit Diagnoses Diagnosis Depressive disorder, not elsewhere classified Gout, unspecified Personal history of allergy to penicillin Personal history of allergy to sulfonamides Personal history of allergy to other specified medicinal agents documented in this encounter Care Teams Supervisor Special Services Relationship Specialty Start Date End Date Livan Edwards APRN [facility] [phone] PCP - General Nurse Practitioner Family 11/19/18 documented as of this encounter
--- OUTSIDE RECORDS SUMMARY | 2024-11-27 08:59 | XMS_ITS | Encounter Summary ---
Author Organization [facility] Address [address] [place] [address] Care Team Providers Care Rn Obgyn Name Role Phone Livan Edwards MANAGEMENT ASSOCIATE Primary Care Provider [phone] Encounter Details Date Type Department Care Team (Latest Contact Info) Description 05/27/2001 Outpatient Historical [facility] [address] [place] [address] Blanca King MD NO ADDRESS ON FILE DERMATITIS NOS (Primary Dx); VACCINE FOR INFLUENZA Social History Tobacco Use Types Packs/Day Years Used Date Smoking Tobacco: Never Assessed Comments Unknown Sex and Gender Information Value Date Recorded Sex Assigned at Not on file Legal Sex Female 2:52 AM LINE ERECTOR Gender Identity Not on file Sexual Orientation Not on file documented as of this encounter Plan of Treatment Not on file documented as of this encounter Visit Diagnoses Diagnosis Contact dermatitis and other eczema, due to unspecified cause- Primary Need vaccination-viral disease Need for prophylactic vaccination and inoculation against other viral diseases documented in this encounter Care Teams Rn Obgyn Relationship Specialty Start Date End Date Livan Edwards APRN [address] [place] [phone] PCP - General Nurse Practitioner Family 11/19/18 documented as of this encounter
--- OUTSIDE RECORDS SUMMARY | 2024-11-27 08:59 | XMS_ITS | Encounter Summary ---
Author Organization [facility] Address [address] [place] [address] Care Team Providers Care Document Photographer Name Role Phone Livan Edwards CNC SPECIALIST Primary Care Provider [phone] Encounter Details Date Type Department Care Team (Latest Contact Info) Description 08/08/2002 Outpatient [facility] Medicine [place] [address] [facility] [address] [place] [address] Joaquin Sher DO NO ADDRESS ON FILE ANXIETY STATE NOS (Primary Dx) Social History Tobacco Use Types Packs/Day Years Used Date Smoking Tobacco: Never Assessed Comments Unknown Sex and Gender Information Value Date Recorded Sex Assigned at Not on file Legal Sex Female 2:52 AM SUPPLY CHAIN ASSOCIATE Gender Identity Not on file Sexual Orientation Not on file documented as of this encounter Plan of Treatment Not on file documented as of this encounter Visit Diagnoses Diagnosis Anxiety state, unspecified- Primary documented in this encounter Care Teams Document Photographer Relationship Specialty Start Date End Date Livan Edwards APRN [address] [place] [phone] PCP - General Nurse Practitioner Family 11/19/18 documented as of this encounter
--- OUTSIDE RECORDS SUMMARY | 2024-11-27 08:59 | XMS_ITS | Encounter Summary ---
Author Organization [facility] Address [address] [place] [address] Care Team Providers Care Lumber Tallier Name Role Phone Livan Edwards APRN Primary Care Provider [phone] Encounter Details Date Type Department Care Team (Latest Contact Info) Description 02/15/2007 Outpatient Historical [facility] [address] [place] [address] Crescencio Gee, JAE [address] [facility] [address] [place] [phone] Exostosis of Unspecified Site (Primary Dx); Tenosynovitis of Foot and Ankle; Pain in Limb Social History Tobacco Use Types Packs/Day Years Used Date Smoking Tobacco: Never Assessed Comments Unknown Sex and Gender Information Value Date Recorded Sex Assigned at Not on file Legal Sex Female 2:52 AM BUSINESS PLANNING MANAGER Gender Identity Not on file Sexual Orientation Not on file documented as of this encounter Plan of Treatment Not on file documented as of this encounter Visit Diagnoses Diagnosis Exostosis of unspecified site- Primary Tenosynovitis of foot and ankle Pain in limb Pain in soft tissues of limb documented in this encounter Care Teams Lumber Tallier Relationship Specialty Start Date End Date Livan Edwards APRN [address] [place] [address] [address] [place] [phone] PCP - General Nurse Practitioner Family 11/19/18 documented as of this encounter
--- OUTSIDE RECORDS SUMMARY | 2024-11-27 08:59 | XMS_ITS | Encounter Summary ---
Author Organization [facility] Address [address] [place] [address] Care Team Providers Care Tack Maker Name Role Phone Livan Edwards RENAL DIALYSIS TECHNICIAN Primary Care Provider [phone] Encounter Details Date Type Department Care Team (Latest Contact Info) Description 01/27/2006 Outpatient Historical [facility] Family Medicine- [place] [address] [place] [address] Santy Hawk NP NO ADDRESS ON FILE Acute Sinusitis, Unspecified (Primary Dx) Social History Tobacco Use Types Packs/Day Years Used Date Smoking Tobacco: Never Assessed Comments Unknown Sex and Gender Information Value Date Recorded Sex Assigned at Not on file Legal Sex Female 2:52 AM PROGRAM EVALUATION CONSULTANT Gender Identity Not on file Sexual Orientation Not on file documented as of this encounter Plan of Treatment Not on file documented as of this encounter Visit Diagnoses Diagnosis Acute sinusitis, unspecified- Primary documented in this encounter Care Teams Tack Maker Relationship Specialty Start Date End Date Livan Edwards APRN [facility] [phone] PCP - General Nurse Practitioner Family 11/19/18 documented as of this encounter
--- OUTSIDE RECORDS SUMMARY | 2024-11-27 08:59 | XMS_ITS | Encounter Summary ---
Author Organization [facility] Address [address] [place] [address] Care Team Providers Care Media Center Specialist Name Role Phone Livan Edwards LABORATORY MILLER Primary Care Provider [phone] Encounter Details Date Type Department Care Team (Latest Contact Info) Description 03/30/2007 Outpatient Historical [facility] MRI [address] [place] [address] Rigo Abraham MD [address] [place] [address] Pain in Joint, Ankle and Foot (Primary Dx) Social History Tobacco Use Types Packs/Day Years Used Date Smoking Tobacco: Never Assessed Comments Unknown Sex and Gender Information Value Date Recorded Sex Assigned at Not on file Legal Sex Female 2:52 AM BOILER COVERER HELPER Gender Identity Not on file Sexual Orientation Not on file documented as of this encounter Plan of Treatment Not on file documented as of this encounter Visit Diagnoses Diagnosis Pain in joint, ankle and foot- Primary documented in this encounter Care Teams Media Center Specialist Relationship Specialty Start Date End Date Livan Edwards APRN [facility] [phone] PCP - General Nurse Practitioner Family 11/19/18 documented as of this encounter
--- OUTSIDE RECORDS SUMMARY | 2024-11-27 08:59 | XMS_ITS | Encounter Summary ---
Author Organization [facility] Address [address] [place] [address] Care Team Providers Care School Leader Name Role Phone Livan Edwards BRANCH OFFICE ADMINISTRATOR Primary Care Provider [phone] Encounter Details Date Type Department Care Team (Latest Contact Info) Description 02/13/2002 Outpatient [facility] [address] [place] [phone] Bora Trinh MD [address] [address] HEADACHE (Primary Dx); ACUTE SINUSITIS NOS; OTITIS MEDIA NOS Social History Tobacco Use Types Packs/Day Years Used Date Smoking Tobacco: Never Assessed Comments Unknown Sex and Gender Information Value Date Recorded Sex Assigned at Not on file Legal Sex Female 2:52 AM CONDUCTOR FREIGHT Gender Identity Not on file Sexual Orientation Not on file documented as of this encounter Plan of Treatment Not on file documented as of this encounter Visit Diagnoses Diagnosis Headache(784.0)- Primary Headache Acute sinusitis, unspecified Unspecified otitis media documented in this encounter Care Teams School Leader Relationship Specialty Start Date End Date Livan Edwards APRN [address] [facility] [address] [place] [phone] PCP - General Nurse Practitioner Family 11/19/18 documented as of this encounter
--- OUTSIDE RECORDS SUMMARY | 2024-11-27 08:59 | XMS_ITS | Encounter Summary ---
Author Organization [facility] Address [address] [place] [address] Care Team Providers Care Health Promotion Manager Name Role Phone Livan Edwards OYSTER OPENER Primary Care Provider [phone] Encounter Details Date Type Department Care Team (Latest Contact Info) Description 12/08/2005 Outpatient [facility] Medicine- [address] [phone] Diana Baer, DIRECTOR RECREATION [address] [place] [address] Pain in Joint, Site Unspecified (Primary Dx); Acute Upper Respiratory Infections of Unspecified Site Social History Tobacco Use Types Packs/Day Years Used Date Smoking Tobacco: Never Assessed Comments Unknown Sex and Gender Information Value Date Recorded Sex Assigned at Not on file Legal Sex Female 2:52 AM OFFSET LITHOGRAPHIC PRESS SETTER Gender Identity Not on file Sexual Orientation Not on file documented as of this encounter Plan of Treatment Not on file documented as of this encounter Visit Diagnoses Diagnosis Pain in joint, site unspecified- Primary Acute upper respiratory infections of unspecified site documented in this encounter Care Teams Health Promotion Manager Relationship Specialty Start Date End Date Livan Edwards APRN [address] [place] [phone] PCP - General Nurse Practitioner Family 11/19/18 documented as of this encounter
--- OUTSIDE RECORDS SUMMARY | 2024-11-27 08:59 | XMS_ITS | Encounter Summary ---
Author Organization [facility] Address [address] [place] [address] Care Team Providers Care Field Human Resources Manager Name Role Phone Livan Edwards BIT SHAVER Primary Care Provider [phone] Encounter Details Date Type Department Care Team (Latest Contact Info) Description 06/26/[address] [facility] Ambulance [address] [place] [address] [facility]BULANCE, [facility] CHEST PAIN NOS (Primary Dx) Social History Tobacco Use Types Packs/Day Years Used Date Smoking Tobacco: Never Assessed Comments Unknown Sex and Gender Information Value Date Recorded Sex Assigned at Not on file Legal Sex Female 2:52 AM CABLE TELEVISION INSTALLER Gender Identity Not on file Sexual Orientation Not on file documented as of this encounter Plan of Treatment Not on file documented as of this encounter Visit Diagnoses Diagnosis Chest pain, unspecified- Primary documented in this encounter Care Teams Field Human Resources Manager Relationship Specialty Start Date End Date Livan Edwards APRN [address] [place] [phone] PCP - General Nurse Practitioner Family 11/19/18 documented as of this encounter
--- OUTSIDE RECORDS SUMMARY | 2024-11-27 08:59 | XMS_ITS | Encounter Summary ---
Author Organization [facility] Address [address] [place] [address] Care Team Providers Care Spiral Gear Generator Name Role Phone Jerry Livan GALVNA Primary Care Provider [phone] Encounter Details Date Type Department Care Team (Late st Contact Info) Description 03/30/2007 Outpatient Historical [facility] MRI [address] [place] [address] Crescencio Gee, JAE [address] [facility] [address] [place] [phone] Social History Tobacco Use Types Packs/Day Years Used Date Smoking Tobacco: Never Assessed Comments Unknown Sex and Gender Information Value Date Recorded Sex Assigned at Not on file Legal Sex Female 2:52 AM CREDIT CONSULTANT Gender Identity Not on file Sexual Orientation Not on file documented as of this encounter Plan of Treatment Not on file documented as of this encounter Procedures Procedure Name Priority Date/Time Associated Diagnosis Comments MRI ANKLE WO CONTRAST RIGHT Routine 03/30/2007 4:34 PM CDT documented in this encounter Results * MRI ANKLE WO CONTRAST RIGHT (03/30/2007 4:34 PM CDT) Anatomical Region Laterality Modality Ankle / Foot Other 03/30/2007 4:34 PM CDT Narrative 03/30/2007 4:34 PM CDT MRI of the right ankle was performed without contrast. Patient has Achilles pain. The patient has extensive edema in the posterior calcaneus at the attachment site of the Achillestendon. The bony edema and adjacent soft tissue edema is striking and may reflect either reactivechanges of Achilles tendinopathy and some partial tearing of the Achilles tendon at the attachmentsite to the calcaneus but if there is a history of trauma, a recent bone contusion ormicrotrabecular fracture could be present. In the axial images, the distal Achilles tendon isthickened in the middle third with some fluid and edema consistent with some tendinopathy orinterstitial tearing. There is no complete tear or retraction. Most of the Achilles tendonabnormalities are in the distal tendon and are most significant at the calcaneal attachment site. There is some edema in the pre-Achilles fat pad. There is an ankle joint effusion and edema in thesoft tissue surrounding the ankle suspicious for a recent injury. The patient has a small plantarcalcaneal enthesophyte and there is some mild thickening of the plantar aponeurosis with adjacentedema. There is edema in the adjacent fat pad. This also could reflect a recent injury orunderlying plantar fasciitis. The extensor tendons, tibialis posterior, flexor digitorum longus and flexor hallucis longus areintact. The peroneal tendons are also appropriate in size and signal. There is a small amount offluid adjacent to the tendons mostly the tibialis posterior and peroneal tendons which may simplybe reactive changes. The anterior and posterior tibiofibular ligaments and anterior and posteriortalofibular ligaments are intact but are thickened and mildly edematous which suggests a recentstrain. The deltoid and spring ligaments are also intact but mildly thickened and edematousconsistent with recent strain. The articular surface of the talar dome is smooth and noosteochondral lesion is identified. Impression: 1. Marked bony edema in the calcaneus at the attachment site of the Achilles tendon with thickening andedema of the middle third of the distal Achilles tendon. This may reflect underlying tendinopathyand bony reactive changes versus microtrabecular bony contusion and partial tearing of the Achillestendon at the calcaneal attachment site. There is no complete tear or retraction and no discretefracture line. 2. Diffuse edema in the soft tissue surrounds the ankle and there is an ankle joint effusion with somemild ligamentous edema suggestive of a recent injury but no complete tear. Plantar fasciathickening and adjacent edema is also identified; please see above. - Dictated By: Dianelys Read M.D. Electronically Signed By: Dianelys Read M.D. Date Signed: 03/31/07 Procedure Note 05/26/2009 MRI of the right ankle was performed without contrast. Patient hasAchilles pain. The patient has extensive edema in the posterior calcaneus at theattachment site of the Achillestendon. The bony edema and adjacent soft tissue edema is striking and may reflecteither reactivechanges of Achilles tendinopathy and some partial tearing of the Achilles tendon atthe attachmentsite to the calcaneus but if there is a history of trauma, a recent bone contusionormicrotrabecular fracture could be present. In the axial images, the distal Achilles tendon isthickened inthe middle third with some fluid and edema consistent with some tendinopathy orinterstitial tearing.There is no complete tear or retraction. Most of the Achilles tendonabnormalities are in the distaltendon and are most significant at the calcaneal attachment site. There is some edema in the pre-Achilles fat pad. There is an ankle jointeffusion and edema in thesoft tissue surrounding the ankle suspicious for a recent injury. The patienthas a small plantarcalcaneal enthesophyte and there is some mild thickening of the plantar aponeurosiswith adjacentedema. There is edema in the adjacent fat pad. This also could reflect a recent injuryorunderlying plantar fasciitis. The extensor tendons, tibialis posterior, flexor digitorum longus andflexor hallucis longus areintact. The peroneal tendons are also appropriate in size and signal. There is asmall amount offluid adjacent to the tendons mostly the tibialis posterior and peroneal tendons which maysimplybe reactive changes. The anterior and posterior tibiofibular ligaments and anterior andposteriortalofibular ligaments are intact but are thickened and mildly edematous which suggests a recentstrain. Thedeltoid and spring ligaments are also intact but mildly thickened and edematousconsistent with recentstrain. The articular surface of the talar dome is smooth and noosteochondral lesion is identified. Impression: 1. Marked bony edema in the calcaneus at the attachment site of theAchilles tendon with thickening andedema of the middle third of the distal Achilles tendon. This mayreflect underlying tendinopathyand bony reactive changes versus microtrabecular bony contusion and partialtearing of the Achillestendon at the calcaneal attachment site. There is no complete tear or retraction andno discretefracture line. 2. Diffuse edema in the soft tissue surrounds the ankle and there is anankle joint effusion with somemild ligamentous edema suggestive of a recent injury but no completetear. Plantar fasciathickening and adjacent edema is also identified; please see above. - Dictated By: Dianelys Read M.D. Electronically Signed By: Dianelys Read M.D. Date Signed: 03/31/07 Israel Mccullough MD MR ORDERABLES Final Result documented in this encounter Visit Diagnoses Not on filedocumented in this encounter Care Teams Spiral Gear Generator Relationship Specialty Start Date End Date Livan Edwards, MANDY [address] [place] [phone] PCP - General Nurse Practitioner Family 11/19/18 documented as of this encounter
--- OUTSIDE RECORDS SUMMARY | 2024-11-27 08:59 | XMS_ITS | Encounter Summary ---
Author Organization [facility] Address [address] [place] [address] Care Team Providers Care Web Machine Tender Name Role Phone Livan Edwards APRN Primary Care Provider [phone] Encounter Details Date Type Department Care Team (Latest Contact Info) Description 03/18/2007 Outpatient Historical [facility] [address] [place] [address] Crescencio Gee, JAE [address] [facility] [address] [place] [phone] Tibialis Tendinitis (Primary Dx); Tenosynovitis of Foot and Ankle; Pain in Limb Social History Tobacco Use Types Packs/Day Years Used Date Smoking Tobacco: Never Assessed Comments Unknown Sex and Gender Information Value Date Recorded Sex Assigned at Not on file Legal Sex Female 2:52 AM SERVICE DISPATCHER Gender Identity Not on file Sexual Orientation Not on file documented as of this encounter Plan of Treatment Not on file documented as of this encounter Visit Diagnoses Diagnosis Tibialis tendinitis- Primary Tenosynovitis of foot and ankle Pain in limb Pain in soft tissues of limb documented in this encounter Care Teams Web Machine Tender Relationship Specialty Start Date End Date Livan Edwards APRN [address] [place] [address] [address] [place] [address] PCP - General Nurse Practitioner Family 11/19/18 documented as of this encounter
--- OUTSIDE RECORDS SUMMARY | 2024-11-27 08:59 | XMS_ITS | Encounter Summary ---
Author Organization [facility] Address [address] [place] [address] Care Team Providers Care Inventory Assistant Name Role Phone Livan Edwards APRN Primary Care Provider [phone] Encounter Details Date Type Department Care Team (Latest Contact Info) Description 03/03/2007 Outpatient Historical [facility] [address] [place] [address] Crescencio Gee, JAE [address] [facility] [address] [place] [phone] Exostosis of Unspecified Site (Primary Dx); Tenosynovitis of Foot and Ankle; Pain in Limb Social History Tobacco Use Types Packs/Day Years Used Date Smoking Tobacco: Never Assessed Comments Unknown Sex and Gender Information Value Date Recorded Sex Assigned at Not on file Legal Sex Female 2:52 AM CAN SOLDERER Gender Identity Not on file Sexual Orientation Not on file documented as of this encounter Plan of Treatment Not on file documented as of this encounter Visit Diagnoses Diagnosis Exostosis of unspecified site- Primary Tenosynovitis of foot and ankle Pain in limb Pain in soft tissues of limb documented in this encounter Care Teams Inventory Assistant Relationship Specialty Start Date End Date Livan Edwards APRN [address] [place] [address] [address] [place] [phone] PCP - General Nurse Practitioner Family 11/19/18 documented as of this encounter
--- OUTSIDE RECORDS SUMMARY | 2024-11-27 08:59 | XMS_ITS | Encounter Summary ---
Author Organization [facility] Address [address] [place] [address] Care Team Providers Care Chief Accounting Officer Name Role Phone Livan Edwards PROGRAM SERVICES PLANNER Primary Care Provider [phone] Encounter Details Date Type Department Care Team (Latest Contact Info) Description 01/20/2006 Outpatient [facility] [address] [place] [phone] Diana Baer, ACCOUNTS PAYABLE PAYROLL COORDINATOR [address] [place] [phone] Routine Gynecological Examination (Primary Dx) Social History Tobacco Use Types Packs/Day Years Used Date Smoking Tobacco: Never Assessed Comments Unknown Sex and Gender Information Value Date Recorded Sex Assigned at Not on file Legal Sex Female 2:52 AM OUTSIDE SALES ACCOUNT MANAGER Gender Identity Not on file Sexual Orientation Not on file documented as of this encounter Plan of Treatment Not on file documented as of this encounter Visit Diagnoses Diagnosis Routine gynecological examination- Primary documented in this encounter Care Teams Chief Accounting Officer Relationship Specialty Start Date End Date Livan Edwards APRN [facility] [phone] PCP - General Nurse Practitioner Family 11/19/18 documented as of this encounter
--- OUTSIDE RECORDS SUMMARY | 2024-11-27 08:59 | XMS_ITS | Encounter Summary ---
Author Organization [facility] Address [address] [place] [address] Care Team Providers Care Warehouse Freight Handler Name Role Phone Livan Edwards DIRECTOR OF OCCUPATIONAL THERAPY Primary Care Provider [phone] Encounter Details Date Type Department Care Team (Latest Contact Info) Description 05/14/2003 Outpatient [facility] [address] [place] [phone] Diana Baer, AUTOMOBILE RELOCATION ENGINEER [address] [place] [phone] VAGINITIS NOS (Primary Dx) Social History Tobacco Use Types Packs/Day Years Used Date Smoking Tobacco: Never Assessed Comments Unknown Sex and Gender Information Value Date Recorded Sex Assigned at Not on file Legal Sex Female 2:52 AM RAILROAD CONDUCTOR Gender Identity Not on file Sexual Orientation Not on file documented as of this encounter Plan of Treatment Not on file documented as of this encounter Visit Diagnoses Diagnosis Vaginitis and vulvovaginitis, unspecified- Primary documented in this encounter Care Teams Warehouse Freight Handler Relationship Specialty Start Date End Date Livan Edwards APRN [address] [place] [phone] PCP - General Nurse Practitioner Family 11/19/18 documented as of this encounter
--- OUTSIDE RECORDS SUMMARY | 2024-11-27 08:59 | XMS_ITS | Encounter Summary ---
Author Organization [facility] Address [address] [place] [address] Care Team Providers Care Painter Apprentice Name Role Phone Livan Edwards APRN Primary Care Provider Encounter Details Date Type Department Care Team (Latest Contact Info) Description 06/17/2001 Outpatient Historical [facility] [address] [place] [address] Blanca King MD NO ADDRESS ON FILE ALLERGIC RHINITIS NOS (Primary Dx); ACUTE URI NOS Social History Tobacco Use Types Packs/Day Years Used Date Smoking Tobacco: Never Assessed Comments Unknown Sex and Gender Information Value Date Recorded Sex Assigned at Not on file Legal Sex Female 2:52 AM CASE MANAGEMENT ASSISTANT Gender Identity Not on file Sexual Orientation Not on file documented as of this encounter Plan of Treatment Not on file documented as of this encounter Visit Diagnoses Diagnosis Allergic rhinitis, cause unspecified- Primary Acute upper respiratory infections of unspecified site documented in this encounter Care Teams Painter Apprentice Relationship Specialty Start Date End Date Livan Edwards APRN [facility] [phone] PCP - General Nurse Practitioner Family 11/19/18 documented as of this encounter
--- OUTSIDE RECORDS SUMMARY | 2024-11-27 08:59 | XMS_ITS | Encounter Summary ---
Author Organization [facility] Address [address] [place] [address] Care Team Providers Care Software Development Leader Name Role Phone Livan Edwards CLIENT PORTFOLIO MANAGER Primary Care Provider [phone] Encounter Details Date Type Department Care Team (Latest Contact Info) Description 08/21/2002 Outpatient [facility] [address] [place] [phone] Bora Trinh MD [address] [address] ANXIETY STATE NOS (Primary Dx) Social History Tobacco Use Types Packs/Day Years Used Date Smoking Tobacco: Never Assessed Comments Unknown Sex and Gender Information Value Date Recorded Sex Assigned at Not on file Legal Sex Female 2:52 AM SALES REPRESENTATIVE METALS Gender Identity Not on file Sexual Orientation Not on file documented as of this encounter Plan of Treatment Not on file documented as of this encounter Visit Diagnoses Diagnosis Anxiety state, unspecified- Primary documented in this encounter Care Teams Software Development Leader Relationship Specialty Start Date End Date Livan Edwards APRN [address] [facility] [address] [place] [address] PCP - General Nurse Practitioner Family 11/19/18 documented as of this encounter
--- OUTSIDE RECORDS SUMMARY | 2024-11-27 08:59 | XMS_ITS | Encounter Summary ---
Author Organization [facility] Address [address] [place] [address] Care Team Providers Care Cosmetology Teacher Name Role Phone Livan Edwards HYDROMETER TESTER Primary Care Provider [phone] Encounter Details Date Type Department Care Team (Latest Contact Info) Description 09/28/2005 Outpatient [facility] [address] [phone] Crescencio Hugo, PA NO ADDRESS ON FILE Unspecified Sinusitis (Chronic) (Primary Dx) Social History Tobacco Use Types Packs/Day Years Used Date Smoking Tobacco: Never Assessed Comments Unknown Sex and Gender Information Value Date Recorded Sex Assigned at Not on file Legal Sex Female 2:52 AM PHOTOGRAPHIC PROCESS ATTENDANT Gender Identity Not on file Sexual Orientation Not on file documented as of this encounter Plan of Treatment Not on file documented as of this encounter Visit Diagnoses Diagnosis Unspecified sinusitis (chronic)- Primary documented in this encounter Care Teams Cosmetology Teacher Relationship Specialty Start Date End Date Livan Edwards APRN [address] [phone] PCP - General Nurse Practitioner Family 11/19/18 documented as of this encounter
--- OUTSIDE RECORDS SUMMARY | 2024-11-27 08:59 | XMS_ITS | Encounter Summary ---
Author Organization [facility] Address [address] [place] [address] Care Team Providers Care Reimbursement Coordinator Name Role Phone Livan Edwards APRN Primary Care Provider [phone] Encounter Details Date Type Department Care Team (Latest Contact Info) Description 05/10/2002 Outpatient [facility] [address] [place] [phone] Joaquin Sher DO NO ADDRESS ON FILE ACUTE SINUSITIS NOS (Primary Dx) Social History Tobacco Use Types Packs/Day Years Used Date Smoking Tobacco: Never Assessed Comments Unknown Sex and Gender Information Value Date Recorded Sex Assigned at Not on file Legal Sex Female 2:52 AM SHEET HEATER HELPER Gender Identity Not on file Sexual Orientation Not on file documented as of this encounter Plan of Treatment Not on file documented as of this encounter Visit Diagnoses Diagnosis Acute sinusitis, unspecified- Primary documented in this encounter Care Teams Reimbursement Coordinator Relationship Specialty Start Date End Date Livan Edwards APRN [address] [phone] PCP - General Nurse Practitioner Family 11/19/18 documented as of this encounter
--- OUTSIDE RECORDS SUMMARY | 2024-11-27 08:59 | XMS_ITS | Encounter Summary ---
Author Organization [facility] Address [address] [place] [address] Care Team Providers Care Restrictive Preparation Operator Name Role Phone Livan Edwards APRN Primary Care Provider [phone] Encounter Details Date Type Department Care Team (Latest Contact Info) Description 12/15/2005 Outpatient Historical [facility] [address] [place] [address] Crescencio Gee, JAE [address] [facility] [address] [place] [phone] Achilles Bursitis or Tendinitis (Primary Dx); Exostosis of Unspecified Site; Pain in Limb; Edema Social History Tobacco Use Types Packs/Day Years Used Date Smoking Tobacco: Never Assessed Comments Unknown Sex and Gender Information Value Date Recorded Sex Assigned at Not on file Legal Sex Female 2:52 AM PULP MAKING PLANT OPERATOR Gender Identity Not on file Sexual Orientation Not on file documented as of this encounter Plan of Treatment Not on file documented as of this encounter Visit Diagnoses Diagnosis Achilles bursitis or tendinitis- Primary Exostosis of unspecified site Pain in limb Pain in soft tissues of limb Edema documented in this encounter Care Teams Restrictive Preparation Operator Relationship Specialty Start Date End Date Livan Edwards APRN [address] [place] [address] [address] [place] [phone] PCP - General Nurse Practitioner Family 11/19/18 documented as of this encounter
--- OUTSIDE RECORDS SUMMARY | 2024-11-27 08:59 | XMS_ITS | Encounter Summary ---
Author Organization [facility] Address [address] [place] [address] Care Team Providers Care Jogger Operator Name Role Phone Livan Edwards SAND CUTTER OPERATOR Primary Care Provider [phone] Encounter Details Date Type Department Care Team (Latest Contact Info) Description 10/09/2002 Outpatient [facility] [address] [place] [phone] Bora Trinh MD [address] [address] URIN TRACT INFECTION NOS (Primary Dx) Social History Tobacco Use Types Packs/Day Years Used Date Smoking Tobacco: Never Assessed Comments Unknown Sex and Gender Information Value Date Recorded Sex Assigned at Not on file Legal Sex Female 2:52 AM TANDEM MILL ROLLER Gender Identity Not on file Sexual Orientation Not on file documented as of this encounter Plan of Treatment Not on file documented as of this encounter Visit Diagnoses Diagnosis Urinary tract infection, site not specified- Primary documented in this encounter Care Teams Jogger Operator Relationship Specialty Start Date End Date Livan Edwards APRN [address] [place] [address] [address] [place] [address] PCP - General Nurse Practitioner Family 11/19/18 documented as of this encounter
--- OUTSIDE RECORDS SUMMARY | 2024-11-27 08:59 | XMS_ITS | Encounter Summary ---
Author Organization [facility] Address [address] [place] [address] Care Team Providers Care Welfare Worker Name Role Phone Livan Edwards HIGH RISK OB Primary Care Provider [phone] Encounter Details Date Type Department Care Team (Latest Contact Info) Description 02/17/2006 Outpatient Historical [facility] [address] [place] [address] Santy Hawk NP NO ADDRESS ON FILE Acute Pharyngitis (Primary Dx); Acute Sinusitis, Unspecified; Other Malaise and Fatigue Social History Tobacco Use Types Packs/Day Years Used Date Smoking Tobacco: Never Assessed Comments Unknown Sex and Gender Information Value Date Recorded Sex Assigned at Not on file Legal Sex Female 2:52 AM SUPERVISOR COIL SPRINGS Gender Identity Not on file Sexual Orientation Not on file documented as of this encounter Plan of Treatment Not on file documented as of this encounter Visit Diagnoses Diagnosis Acute pharyngitis- Primary Acute sinusitis, unspecified Other malaise and fatigue documented in this encounter Care Teams Welfare Worker Relationship Specialty Start Date End Date Livan Edwarsd APRN [facility] [phone] PCP - General Nurse Practitioner Family 11/19/18 documented as of this encounter
--- OUTSIDE RECORDS SUMMARY | 2024-11-27 08:59 | XMS_ITS | Encounter Summary ---
Author Organization [facility] Address [address] [place] [address] Care Team Providers Care Automatic Trimming Sewer Name Role Phone Livan Edwards APRN Primary Care Provider [phone] Encounter Details Date Type Department Care Team (Latest Contact Info) Description 09/06/2002 Outpatient [facility] [address] [place] [phone] Joaquin Sher DO NO ADDRESS ON FILE NONSPEC ABNL PAP SMEAR CERVIX, UNSPEC (Primary Dx); ANXIETY STATE NOS Social History Tobacco Use Types Packs/Day Years Used Date Smoking Tobacco: Never Assessed Comments Unknown Sex and Gender Information Value Date Recorded Sex Assigned at Not on file Legal Sex Female 2:52 AM FABRIC COATING SUPERVISOR Gender Identity Not on file Sexual Orientation Not on file documented as of this encounter Plan of Treatment Not on file documented as of this encounter Visit Diagnoses Diagnosis Abnormal glandular Papanicolaou smear of cervix- Primary Anxiety state, unspecified documented in this encounter Care Teams Automatic Trimming Sewer Relationship Specialty Start Date End Date Livan Edwards APRN [facility] [phone] PCP - General Nurse Practitioner Family 11/19/18 documented as of this encounter
--- OUTSIDE RECORDS SUMMARY | 2024-11-27 08:59 | XMS_ITS | Encounter Summary ---
Author Organization [facility] Address [address] [place] [address] Care Team Providers Care Kennel Technician Name Role Phone Livan Edwards LEG ASSEMBLER Primary Care Provider [phone] Encounter Details Date Type Department Care Team (Latest Contact Info) Description 11/21/2001 Outpatient [facility] [address] [place] [address] Bora Trinh MD [address] [address] OTHER MALAISE AND FATIGUE (Primary Dx); ACUTE SINUSITIS NOS; OBESITY NOS Social History Tobacco Use Types Packs/Day Years Used Date Smoking Tobacco: Never Assessed Comments Unknown Sex and Gender Information Value Date Recorded Sex Assigned at Not on file Legal Sex Female 2:52 AM BASEBOARD HEATING INSTALLER Gender Identity Not on file Sexual Orientation Not on file documented as of this encounter Plan of Treatment Not on file documented as of this encounter Visit Diagnoses Diagnosis Other malaise and fatigue- Primary Acute sinusitis, unspecified Obesity, unspecified documented in this encounter Care Teams Kennel Technician Relationship Specialty Start Date End Date Livan Edwards APRN [address] [facility] [address] [place] [phone] PCP - General Nurse Practitioner Family 11/19/18 documented as of this encounter
--- OUTSIDE RECORDS SUMMARY | 2024-11-27 08:59 | XMS_ITS | Encounter Summary ---
Author Organization [facility] Address [address] [place] [address] Care Team Providers Care Seasoning Sprayer Name Role Phone Livan Edwards APRN Primary Care Provider [phone] Encounter Details Date Type Department Care Team (Latest Contact Info) Description 07/12/[address] [facility] Medicine [place] 104 [facility] [address] [place] [address] Joaquin Sher DO NO ADDRESS ON FILE ACUTE MAXILLARY SINUSITIS (Primary Dx); Gynecologic examination Social History Tobacco Use Types Packs/Day Years Used Date Smoking Tobacco: Never Assessed Comments Unknown Sex and Gender Information Value Date Recorded Sex Assigned at Not on file Legal Sex Female 2:52 AM EXTRACTOR MACHINE OPERATOR Gender Identity Not on file Sexual Orientation Not on file documented as of this encounter Plan of Treatment Not on file documented as of this encounter Visit Diagnoses Diagnosis Acute maxillary sinusitis- Primary Gynecologic examination Gynecological examination documented in this encounter Care Teams Seasoning Sprayer Relationship Specialty Start Date End Date Livan Edwards APRN [facility] [phone] PCP - General Nurse Practitioner Family 11/19/18 documented as of this encounter
--- OUTSIDE RECORDS SUMMARY | 2024-11-27 08:59 | XMS_ITS | Encounter Summary ---
Author Organization [facility] Address [address] [place] [address] Care Team Providers Care Pump Erector Name Role Phone Livan Edwards APRN Primary Care Provider [phone] Encounter Details Date Type Department Care Team (Latest Contact Info) Description 02/15/2002 Outpatient [facility] [address] [place] [address] Blanca King MD NO ADDRESS ON FILE URIN TRACT INFECTION NOS (Primary Dx) Social History Tobacco Use Types Packs/Day Years Used Date Smoking Tobacco: Never Assessed Comments Unknown Sex and Gender Information Value Date Recorded Sex Assigned at Not on file Legal Sex Female 2:52 AM MICROPHONE BOOM OPERATOR Gender Identity Not on file Sexual Orientation Not on file documented as of this encounter Plan of Treatment Not on file documented as of this encounter Visit Diagnoses Diagnosis Urinary tract infection, site not specified- Primary documented in this encounter Care Teams Pump Erector Relationship Specialty Start Date End Date Livan Edwards APRN [facility] [address] [phone] PCP - General Nurse Practitioner Family 11/19/18 documented as of this encounter
--- OUTSIDE RECORDS SUMMARY | 2024-11-27 08:59 | XMS_ITS | Encounter Summary ---
Author Organization [facility] Address [address] [place] [address] Care Team Providers Care Flux Plant Operator Name Role Phone Livan Edwards APRN Primary Care Provider [phone] Encounter Details Date Type Department Care Team (Latest Contact Info) Description 08/28/2002 Outpatient [facility] [address] [place] [address] Bora Trinh MD [address] [address] NONSPEC ABNL PAP SMEAR CERVIX, UNSPEC (Primary Dx) Social History Tobacco Use Types Packs/Day Years Used Date Smoking Tobacco: Never Assessed Comments Unknown Sex and Gender Information Value Date Recorded Sex Assigned at Not on file Legal Sex Female 2:52 AM CASINO DEALER Gender Identity Not on file Sexual Orientation Not on file documented as of this encounter Plan of Treatment Not on file documented as of this encounter Visit Diagnoses Diagnosis Abnormal glandular Papanicolaou smear of cervix- Primary documented in this encounter Care Teams Flux Plant Operator Relationship Specialty Start Date End Date Livan Edwards APRN [address] [place] [phone] PCP - General Nurse Practitioner Family 11/19/18 documented as of this encounter
--- OUTSIDE RECORDS SUMMARY | 2024-11-27 08:59 | XMS_ITS | Encounter Summary ---
Author Organization [facility] Address [address] [place] [address] Care Team Providers Care Satellite Dish Repairer Name Role Phone Livan Edwards BLUEPRINT DEVELOPER Primary Care Provider [phone] Encounter Details Date Type Department Care Team (Late st Contact Info) Description 09/29/2005 Outpatient Historical [facility] Cres[place]cnio [place] NO ADDRESS ON FILE Social History Tobacco Use Types Packs/Day Years Used Date Smoking Tobacco: Never Assessed Comments Unknown Sex and Gender Information Value Date Recorded Sex Assigned at Not on file Legal Sex Female 2:52 AM STOCK CONTROL SUPERVISOR Gender Identity Not on file Sexual Orientation Not on file documented as of this encounter Plan of Treatment Not on file documented as of this encounter Procedures Procedure Name Priority Date/Time Associated Diagnosis Comments CT SINOSCOPY Routine 09/29/2005 10:22 AM STOCK CONTROL SUPERVISOR documented in this encounter Results * CT SINOSCOPY (09/29/2005 10:22 AM STOCK CONTROL SUPERVISOR) Anatomical Region Laterality Modality Head Other 09/29/2005 10:2 2 AM STOCK CONTROL SUPERVISOR Narrative 09/29/2005 10:22 AM STOCK CONTROL SUPERVISOR CT SINUS SCREENING - 09/29/2005 HISTORY: Sinusitis. Direct coronal images were obtained through the paranasal sinuses. No comparison study is available. All the paranasal sinuses are clear. Nasal cavity is unremarkable. No bony thickening is seen. IMPRESSION: No acute abnormality. ekp / Dictated By: Juan Wall, M.D. Electronically Signed By: Juan Art M.D. Date Signed: 09/30/05 Procedure Note 05/24/2009 CT SINUS SCREENING - 09/29/2005 HISTORY: Sinusitis. Direct coronal images were obtained through the paranasal sinuses. Nocomparison study is available. All the paranasal sinuses are clear. Nasal cavity is unremarkable. Nobony thickening is seen. IMPRESSION: No acute abnormality. ekp / Dictated By: Juan Art M.D. Electronically Signed By: Juan Art M.D. Date Signed: 09/30/[address] ORDERABLES Final Result documented in this encounter Visit Diagnoses Not on filedocumented in this encounter Care Teams Satellite Dish Repairer Relationship Specialty Start Date End Date Livan Edwards APRN [address] [place] [phone] PCP - General Nurse Practitioner Family 11/19/18 documented as of this encounter
--- OUTSIDE RECORDS SUMMARY | 2024-11-27 08:59 | XMS_ITS | Encounter Summary ---
Author Organization [facility] Address [address] [place] [address] Care Team Providers Care Grass Farmer Name Role Phone Livan Edwards APRN Primary Care Provider [phone] Encounter Details Date Type Department Care Team (Latest Contact Info) Description 03/26/2003 Outpatient [facility] [address] [place] [address] Joaquin Sher DO NO ADDRESS ON FILE ACUTE SINUSITIS NOS (Primary Dx) Social History Tobacco Use Types Packs/Day Years Used Date Smoking Tobacco: Never Assessed Comments Unknown Sex and Gender Information Value Date Recorded Sex Assigned at Not on file Legal Sex Female 2:52 AM PATTERN FILER Gender Identity Not on file Sexual Orientation Not on file documented as of this encounter Plan of Treatment Not on file documented as of this encounter Visit Diagnoses Diagnosis Acute sinusitis, unspecified- Primary documented in this encounter Care Teams Grass Farmer Relationship Specialty Start Date End Date Livan Edwards APRN [address] [phone] PCP - General Nurse Practitioner Family 11/19/18 documented as of this encounter
--- OUTSIDE RECORDS SUMMARY | 2024-11-27 08:59 | XMS_ITS | Encounter Summary ---
Author Organization [facility] Address [address] [place] [address] Care Team Providers Care Mac Artist Name Role Phone Livan Edwards PRECISION LENS CENTERER AND EDGER Primary Care Provider [phone] Encounter Details Date Type Department Care Team (Latest Contact Info) Description 09/07/2002 Outpatient Historical [facility] [address] [place] [address] AMBULANCE, [facility] CHEST PAIN NOS (Primary Dx) Social History Tobacco Use Types Packs/Day Years Used Date Smoking Tobacco: Never Assessed Comments Unknown Sex and Gender Information Value Date Recorded Sex Assigned at Not on file Legal Sex Female 2:52 AM STRAPPER OPERATOR Gender Identity Not on file Sexual Orientation Not on file documented as of this encounter Plan of Treatment Not on file documented as of this encounter Visit Diagnoses Diagnosis Chest pain, unspecified- Primary documented in this encounter Care Teams Mac Artist Relationship Specialty Start Date End Date Livan Edwards APRN [address] [place] [phone] PCP - General Nurse Practitioner Family 11/19/18 documented as of this encounter
--- OUTSIDE RECORDS SUMMARY | 2024-11-27 08:59 | XMS_ITS | Encounter Summary ---
Author Organization [facility] Address [address] [place] [address] Care Team Providers Care Heel Seater Name Role Phone Livan Edwards SAFE AND VAULT SERVICE MECHANIC Primary Care Provider [phone] Encounter Details Date Type Department Care Team (Latest Contact Info) Description 03/15/2002 Outpatient [facility] [address] [place] [address] Bora Trinh MD [address] [address] IMPETIGO (Primary Dx) Social History Tobacco Use Types Packs/Day Years Used Date Smoking Tobacco: Never Assessed Comments Unknown Sex and Gender Information Value Date Recorded Sex Assigned at Not on file Legal Sex Female 2:52 AM QUARTZ MINER Gender Identity Not on file Sexual Orientation Not on file documented as of this encounter Plan of Treatment Not on file documented as of this encounter Visit Diagnoses Diagnosis Impetigo- Primary documented in this encounter Care Teams Heel Seater Relationship Specialty Start Date End Date Livan Edwards APRN 1115 [facility] [address] [place] [phone] PCP - General Nurse Practitioner Family 11/19/18 documented as of this encounter
--- OUTSIDE RECORDS SUMMARY | 2024-11-27 08:59 | XMS_ITS | Encounter Summary ---
Author Organization [facility] Address [address] [place] [address] Care Team Providers Care Plating Inspector Name Role Phone Livan Edwards INSTALLMENT DEALER Primary Care Provider [phone] Encounter Details Date Type Department Care Team (Latest Contact Info) Description 05/11/2003 Outpatient [facility] [address] [place] [address] Blanca King MD NO ADDRESS ON FILE ACUTE URI NOS (Primary Dx) Social History Tobacco Use Types Packs/Day Years Used Date Smoking Tobacco: Never Assessed Comments Unknown Sex and Gender Information Value Date Recorded Sex Assigned at Not on file Legal Sex Female 2:52 AM DIRECTOR PHARMACEUTICAL Gender Identity Not on file Sexual Orientation Not on file documented as of this encounter Plan of Treatment Not on file documented as of this encounter Visit Diagnoses Diagnosis Acute upper respiratory infections of unspecified site- Primary documented in this encounter Care Teams Plating Inspector Relationship Specialty Start Date End Date Livan Edwards APRN [address] [place] [phone] PCP - General Nurse Practitioner Family 11/19/18 documented as of this encounter
--- OUTSIDE RECORDS SUMMARY | 2024-11-27 08:59 | XMS_ITS | Encounter Summary ---
Author Organization [facility] Address [address] [place] [address] Care Team Providers Care Bilingual Hr Generalist Name Role Phone Livan Edwards APRN Primary Care Provider [phone] Encounter Details Date Type Department Care Team (Latest Contact Info) Description 05/14/2003 Outpatient [facility] [address] [place] [address] Bora Trinh MD [address] [address] Gynecologic examination (Primary Dx) Social History Tobacco Use Types Packs/Day Years Used Date Smoking Tobacco: Never Assessed Comments Unknown Sex and Gender Information Value Date Recorded Sex Assigned at Not on file Legal Sex Female 2:52 AM HOME ECONOMIST CONSUMER SERVICE Gender Identity Not on file Sexual Orientation Not on file documented as of this encounter Plan of Treatment Not on file documented as of this encounter Visit Diagnoses Diagnosis Gynecologic examination- Primary Gynecological examination documented in this encounter Care Teams Bilingual Hr Generalist Relationship Specialty Start Date End Date Livan Edwards APRN 1115 [facility] [address] [place] [phone] PCP - General Nurse Practitioner Family 11/19/18 documented as of this encounter
--- OUTSIDE RECORDS SUMMARY | 2024-11-27 08:59 | XMS_ITS | Encounter Summary ---
Author Organization [facility] Address [address] [place] [address] Care Team Providers Care Snow Blower Name Role Phone Livan Edwards RESIDENTIAL LEASING AGENT Primary Care Provider [phone] Encounter Details Date Type Department Care Team (Latest Contact Info) Description 11/16/2002 Outpatient Historical [facility] [place] [facility] [place] [address] [place] [address] Rahat Lockwood MD [address] [place] [address] PREOP CARDIOVASC EXAM (Primary Dx) Social History Tobacco Use Types Packs/Day Years Used Date Smoking Tobacco: Never Assessed Comments Unknown Sex and Gender Information Value Date Recorded Sex Assigned at Not on file Legal Sex Female 2:52 AM CYBER SOFTWARE ENGINEER Gender Identity Not on file Sexual Orientation Not on file documented as of this encounter Plan of Treatment Not on file documented as of this encounter Visit Diagnoses Diagnosis Pre-operative cardiovascular examination- Primary documented in this encounter Care Teams Snow Blower Relationship Specialty Start Date End Date Livan Edwards APRN [address] [place] [phone] PCP - General Nurse Practitioner Family 11/19/18 documented as of this encounter
--- OUTSIDE RECORDS SUMMARY | 2024-11-27 08:59 | XMS_ITS | Encounter Summary ---
Author Organization [facility] Address [address] [place] [address] Care Team Providers Care Bellhop Captain Name Role Phone Livan Edwards APRN Primary Care Provider [phone] Encounter Details Date Type Department Care Team (Latest Contact Info) Description 08/16/2002 Outpatient [facility] [address] [place] [address] Bora Trinh MD [address] [address] Gynecologic examination (Primary Dx); ANXIETY STATE NOS Social History Tobacco Use Types Packs/Day Years Used Date Smoking Tobacco: Never Assessed Comments Unknown Sex and Gender Information Value Date Recorded Sex Assigned at Not on file Legal Sex Female 2:52 AM BOOK SEWING MACHINE OPERATOR Gender Identity Not on file Sexual Orientation Not on file documented as of this encounter Plan of Treatment Not on file documented as of this encounter Visit Diagnoses Diagnosis Gynecologic examination- Primary Gynecological examination Anxiety state, unspecified documented in this encounter Care Teams Bellhop Captain Relationship Specialty Start Date End Date Livan Edwards APRN 1115 [facility] [address] [place] [address] PCP - General Nurse Practitioner Family 11/19/18 documented as of this encounter
--- OUTSIDE RECORDS SUMMARY | 2024-11-27 08:59 | XMS_ITS | Encounter Summary ---
Author Organization [facility] Address [address] [place] [address] Care Team Providers Care Jet Operator Name Role Phone Livan Edwards SOLAR DESIGN ENGINEER Primary Care Provider [phone] Encounter Details Date Type Department Care Team (Latest Contact Info) Description 06/26/2002 Outpatient Historical [facility] [address] [place] [address] AMBULANCE, [facility] CHEST PAIN NOS (Primary Dx) Social History Tobacco Use Types Packs/Day Years Used Date Smoking Tobacco: Never Assessed Comments Unknown Sex and Gender Information Value Date Recorded Sex Assigned at Not on file Legal Sex Female 2:52 AM CENTRAL OFFICE SUPERVISOR Gender Identity Not on file Sexual Orientation Not on file documented as of this encounter Plan of Treatment Not on file documented as of this encounter Visit Diagnoses Diagnosis Chest pain, unspecified- Primary documented in this encounter Care Teams Jet Operator Relationship Specialty Start Date End Date Livan Edwards APRN [address] [place] [phone] PCP - General Nurse Practitioner Family 11/19/18 documented as of this encounter
--- OUTSIDE RECORDS SUMMARY | 2024-11-27 08:59 | XMS_ITS | Encounter Summary ---
Author Organization [facility] Address [address] [place] [address] Care Team Providers Care Budget And Policy Analyst Name Role Phone Livan Edwards APRN Primary Care Provider [phone] Encounter Details Date Type Department Care Team (Latest Contact Info) Description 12/25/2005 Outpatient Historical [facility] [address] [place] [address] Crescencio Gee, JAE [address] [facility] [address] [place] [address] Achilles Bursitis or Tendinitis (Primary Dx); Pain in Limb; Exostosis of Unspecified Site Social History Tobacco Use Types Packs/Day Years Used Date Smoking Tobacco: Never Assessed Comments Unknown Sex and Gender Information Value Date Recorded Sex Assigned at Not on file Legal Sex Female 2:52 AM SPUD GRADER Gender Identity Not on file Sexual Orientation Not on file documented as of this encounter Plan of Treatment Not on file documented as of this encounter Visit Diagnoses Diagnosis Achilles bursitis or tendinitis- Primary Pain in limb Pain in soft tissues of limb Exostosis of unspecified site documented in this encounter Care Teams Budget And Policy Analyst Relationship Specialty Start Date End Date Livan Edwards APRN [address] [place] [address] [address] [place] [phone] PCP - General Nurse Practitioner Family 11/19/18 documented as of this encounter
[2024-11-27] MEDS: sodium chloride 0.9% 1,000 ML 30 ML IV (09:00)
--- OUTSIDE RECORDS SUMMARY | 2024-11-27 09:00 | XMS_ITS | Encounter Summary ---
Author Organization [facility] Address [address] [place] [address] Care Team Providers Care Manager Information Name Role Phone Livan Edwards APRN Primary Care Provider [phone] Encounter Details Date Type Department Care Team (Latest Contact Info) Description 06/30/2005 Outpatient [facility] [address] [place] [address] Crescencio Gee, JAE [address] [facility] [address] [place] [address] TENOSYNOVITIS FOOT/ANKLE (Primary Dx); ACHILLES TENDINITIS Social History Tobacco Use Types Packs/Day Years Used Date Smoking Tobacco: Never Assessed Comments Unknown Sex and Gender Information Value Date Recorded Sex Assigned at Not on file Legal Sex Female 2:52 AM FUNCTIONAL CONSULTANT Gender Identity Not on file Sexual Orientation Not on file documented as of this encounter Plan of Treatment Not on file documented as of this encounter Visit Diagnoses Diagnosis Tenosynovitis of foot and ankle- Primary Achilles bursitis or tendinitis documented in this encounter Care Teams Manager Information Relationship Specialty Start Date End Date Livan Edwards APRN [address] [place] [address] [address] [place] [phone] PCP - General Nurse Practitioner Family 11/19/18 documented as of this encounter
--- OUTSIDE RECORDS SUMMARY | 2024-11-27 09:00 | XMS_ITS | Encounter Summary ---
Author Organization [facility] Address [address] [place] [address] Care Team Providers Care Mva Still Operator Name Role Phone Livan Edwards GUITAR INSTRUCTOR Primary Care Provider [phone] Encounter Details Date Type Department Care Team (Latest Contact Info) Description 06/26/[address] [address] Crescencio [place], [place] NO ADDRESS ON FILE MALAISE AND FATIGUE NEC (Primary Dx); SHORTNESS OF BREATH; ACUTE STRESS REACT NOS; DIARRHEA NOS Social History Tobacco Use Types Packs/Day Years Used Date Smoking Tobacco: Never Assessed Comments Unknown Sex and Gender Information Value Date Recorded Sex Assigned at Not on file Legal Sex Female 2:52 AM REPEATER OPERATOR Gender Identity Not on file Sexual Orientation Not on file documented as of this encounter Plan of Treatment Not on file documented as of this encounter Visit Diagnoses Diagnosis Other malaise and fatigue- Primary Shortness of breath Unspecified acute reaction to stress Diarrhea documented in this encounter Care Teams Mva Still Operator Relationship Specialty Start Date End Date Livan Edwards APRN [address] [place] [phone] PCP - General Nurse Practitioner Family 11/19/18 documented as of this encounter
--- OUTSIDE RECORDS SUMMARY | 2024-11-27 09:00 | XMS_ITS | Encounter Summary ---
Author Organization [facility] Address [address] [place] [address] Care Team Providers Care Services Program Manager Name Role Phone Livan Edwards DRAFTER AUTOMOTIVE DESIGN Primary Care Provider [phone] Encounter Details Date Type Department Care Team (Latest Contact Info) Description 01/09/[address] [address] Joaquin Sher DO NO ADDRESS ON FILE LUMBAGO (Primary Dx); B-COMPLEX DEFIC NEC Social History Tobacco Use Types Packs/Day Years Used Date Smoking Tobacco: Never Assessed Comments Unknown Sex and Gender Information Value Date Recorded Sex Assigned at Not on file Legal Sex Female 2:52 AM MERCHANDISE EXECUTION LEADER Gender Identity Not on file Sexual Orientation Not on file documented as of this encounter Plan of Treatment Not on file documented as of this encounter Visit Diagnoses Diagnosis Lumbago- Primary Other B-complex deficiencies documented in this encounter Care Teams Services Program Manager Relationship Specialty Start Date End Date Livan Edwards, MANDY [address] [phone] PCP - General Nurse Practitioner Family 11/19/18 documented as of this encounter
--- OUTSIDE RECORDS SUMMARY | 2024-11-27 09:00 | XMS_ITS | Encounter Summary ---
Author Organization [facility] Address [address] [place] [address] Care Team Providers Care Tumbling Instructor Name Role Phone Livan Edwards ASSOCIATE DIRECTOR Primary Care Provider [phone] Encounter Details Date Type Department Care Team (Late st Contact Info) Description 06/16/2005 Outpatient Historical [facility] [place] [place] MRI [address] [place] [address] Crescencio Gee, JAE [address] [facility] 160 [place] [address] Social History Tobacco Use Types Packs/Day Years Used Date Smoking Tobacco: Never Assessed Comments Unknown Sex and Gender Information Value Date Recorded Sex Assigned at Not on file Legal Sex Female 2:52 AM HALL DIRECTOR Gender Identity Not on file Sexual Orientation Not on file documented as of this encounter Plan of Treatment Not on file documented as of this encounter Visit Diagnoses Not on filedocumented in this encounter Care Teams Tumbling Instructor Relationship Specialty Start Date End Date Livan Edwards APRN 111[address] [facility] 215 [place] [address] PCP - General Nurse Practitioner Family 11/19/18 documented as of this encounter
--- OUTSIDE RECORDS SUMMARY | 2024-11-27 09:00 | XMS_ITS | Encounter Summary ---
Author Organization [facility] Address [address] [place] [address] Care Team Providers Care Mainframe Programmer Name Role Phone Livan Edwards SHOOTING GALLERY OPERATOR Primary Care Provider [phone] Encounter Details Date Type Department Care Team (Latest Contact Info) Description 02/12/2005 Outpatient Historical [facility] [place] [facility] [address] [place] [address] Hernán Rob MD [address] [facility] [address] [place], [place] [address] SPRAIN OF ANKLE NEC (Primary Dx) Social History Tobacco Use Types Packs/Day Years Used Date Smoking Tobacco: Never Assessed Comments Unknown Sex and Gender Information Value Date Recorded Sex Assigned at Not on file Legal Sex Female 2:52 AM COLLAR CUTTER Gender Identity Not on file Sexual Orientation Not on file documented as of this encounter Plan of Treatment Not on file documented as of this encounter Visit Diagnoses Diagnosis Other ankle sprain and strain- Primary documented in this encounter Care Teams Mainframe Programmer Relationship Specialty Start Date End Date Livan Edwards APRN [address] [address] PCP - General Nurse Practitioner Family 11/19/18 documented as of this encounter
--- OUTSIDE RECORDS SUMMARY | 2024-11-27 09:00 | XMS_ITS | Encounter Summary ---
Author Organization [facility] Address [address] [place] [address] Care Team Providers Care Veterinary Surgeon Name Role Phone Livan Edwards GLASSWARE ENGRAVER Primary Care Provider [phone] Encounter Details Date Type Department Care Team (Latest Contact Info) Description 10/22/2000 Outpatient [facility] Medicine- [address] [phone] Bora Trinh MD [address] [address] Other malaise and fatigue (Primary Dx) Social History Tobacco Use Types Packs/Day Years Used Date Smoking Tobacco: Never Assessed Comments Unknown Sex and Gender Information Value Date Recorded Sex Assigned at Not on file Legal Sex Female 2:52 AM STUCCO PLASTERER Gender Identity Not on file Sexual Orientation Not on file documented as of this encounter Plan of Treatment Not on file documented as of this encounter Visit Diagnoses Diagnosis Other malaise and fatigue- Primary documented in this encounter Care Teams Veterinary Surgeon Relationship Specialty Start Date End Date Livan Edwards APRN 1115 [facility] 215 [place] [address] PCP - General Nurse Practitioner Family 11/19/18 documented as of this encounter
--- OUTSIDE RECORDS SUMMARY | 2024-11-27 09:00 | XMS_ITS | Encounter Summary ---
Author Organization [facility] Address [address] [place] [address] Care Team Providers Care Binder Folder Operator Name Role Phone Livan Edwards MOBILE HEAVY EQUIPMENT OPERATOR Primary Care Provider [phone] Encounter Details Date Type Department Care Team (Latest Contact Info) Description 10/20/2000 Outpatient Historical [facility] Medicine- [address] [phone] Bora Trinh MD [address] [address] Dizziness and giddiness (Primary Dx); Other malaise and fatigue Social History Tobacco Use Types Packs/Day Years Used Date Smoking Tobacco: Never Assessed Comments Unknown Sex and Gender Information Value Date Recorded Sex Assigned at Not on file Legal Sex Female 2:52 AM MILK DRIER Gender Identity Not on file Sexual Orientation Not on file documented as of this encounter Plan of Treatment Not on file documented as of this encounter Visit Diagnoses Diagnosis Dizziness and giddiness- Primary Other malaise and fatigue documented in this encounter Care Teams Binder Folder Operator Relationship Specialty Start Date End Date Livan Edwards APRN [address] [phone] PCP - General Nurse Practitioner Family 11/19/18 documented as of this encounter
--- OUTSIDE RECORDS SUMMARY | 2024-11-27 09:00 | XMS_ITS | Encounter Summary ---
Author Organization [facility] Address [address] [place] [address] Care Team Providers Care Hydroelectric Station Operator Chief Name Role Phone Livan Edwards APRN Primary Care Provider [phone] Encounter Details Date Type Department Care Team (Latest Contact Info) Description 05/26/2005 Outpatient Historical [facility] [place] [facility] [address] [place] [address] Crescencio Gee, JAE [address] [facility] 160 [place] [address] TENOSYNOVITIS FOOT/ANKLE (Primary Dx); SPRAIN OF ANKLE NEC; ACHILLES TENDINITIS Social History Tobacco Use Types Packs/Day Years Used Date Smoking Tobacco: Never Assessed Comments Unknown Sex and Gender Information Value Date Recorded Sex Assigned at Not on file Legal Sex Female 2:52 AM PHYSICIAN OFFICE CLIN ASST Gender Identity Not on file Sexual Orientation Not on file documented as of this encounter Plan of Treatment Not on file documented as of this encounter Visit Diagnoses Diagnosis Tenosynovitis of foot and ankle- Primary Other ankle sprain and strain Achilles bursitis or tendinitis documented in this encounter Care Teams Hydroelectric Station Operator Chief Relationship Specialty Start Date End Date Livan Edwards APRN [address] [place] [address] 215 [place] [address] PCP - General Nurse Practitioner Family 11/19/18 documented as of this encounter
--- OUTSIDE RECORDS SUMMARY | 2024-11-27 09:00 | XMS_ITS | Encounter Summary ---
Author Organization [facility] Address [address] [place] [address] Care Team Providers Care Carton Forming Machine Adjuster Name Role Phone Livan Edwards CATHODE WASHER Primary Care Provider [phone] Encounter Details Date Type Department Care Team (Latest Contact Info) Description 08/26/[address] [address] Crescencio Hugo, [place] NO ADDRESS ON FILE ACUTE SINUSITIS NOS (Primary Dx); B-COMPLEX DEFIC NEC Social History Tobacco Use Types Packs/Day Years Used Date Smoking Tobacco: Never Assessed Comments Unknown Sex and Gender Information Value Date Recorded Sex Assigned at Not on file Legal Sex Female 2:52 AM ANTHROPOLOGIST Gender Identity Not on file Sexual Orientation Not on file documented as of this encounter Plan of Treatment Not on file documented as of this encounter Visit Diagnoses Diagnosis Acute sinusitis, unspecified- Primary Other B-complex deficiencies documented in this encounter Care Teams Carton Forming Machine Adjuster Relationship Specialty Start Date End Date Livan Edwards, MANDY [facility] [address] [phone] PCP - General Nurse Practitioner Family 11/19/18 documented as of this encounter
--- OUTSIDE RECORDS SUMMARY | 2024-11-27 09:00 | XMS_ITS | Encounter Summary ---
Author Organization [facility] Address [address] [place] [address] Care Team Providers Care Courier Driver Name Role Phone Livan Edwards RELIGIOUS EDUCATION DIRECTOR Primary Care Provider [phone] Encounter Details Date Type Department Care Team (Latest Contact Info) Description 11/09/2000 Outpatient [facility] Medicine [place] [address] [facility] [address] [place] [address] Bora Trinh MD [address] [address] Dizziness and giddiness (Primary Dx); Depressive disorder, not elsewhere classified Social History Tobacco Use Types Packs/Day Years Used Date Smoking Tobacco: Never Assessed Comments Unknown Sex and Gender Information Value Date Recorded Sex Assigned at Not on file Legal Sex Female 2:52 AM INTERNET SYSTEMS ADMINISTRATOR Gender Identity Not on file Sexual Orientation Not on file documented as of this encounter Plan of Treatment Not on file documented as of this encounter Visit Diagnoses Diagnosis Dizziness and giddiness- Primary Depressive disorder, not elsewhere classified documented in this encounter Care Teams Courier Driver Relationship Specialty Start Date End Date Livan Edwards APRN [address] [place] [address] PCP - General Nurse Practitioner Family 11/19/18 documented as of this encounter
--- OUTSIDE RECORDS SUMMARY | 2024-11-27 09:00 | XMS_ITS | Encounter Summary ---
Author Organization [facility] Address [address] [place] [address] Care Team Providers Care Veterinary Virologist Name Role Phone Livan Edwards DIE CUTTING MACHINE OPERATOR Primary Care Provider [phone] Encounter Details Date Type Department Care Team (Latest Contact Info) Description 02/10/2005 Outpatient Historical [facility] [address] [place] [address] Crescencio Hugo, [place] NO ADDRESS ON FILE ACUTE SINUSITIS NOS (Primary Dx) Social History Tobacco Use Types Packs/Day Years Used Date Smoking Tobacco: Never Assessed Comments Unknown Sex and Gender Information Value Date Recorded Sex Assigned at Not on file Legal Sex Female 2:52 AM AIR TRAFFIC COORDINATOR Gender Identity Not on file Sexual Orientation Not on file documented as of this encounter Plan of Treatment Not on file documented as of this encounter Visit Diagnoses Diagnosis Acute sinusitis, unspecified- Primary documented in this encounter Care Teams Veterinary Virologist Relationship Specialty Start Date End Date Livan Edwards APRN [address] [place] [phone] PCP - General Nurse Practitioner Family 11/19/18 documented as of this encounter
--- OUTSIDE RECORDS SUMMARY | 2024-11-27 09:00 | XMS_ITS | Encounter Summary ---
Author Organization [facility] Address [address] [place] [address] Care Team Providers Care Lithographic Retoucher Apprentice Name Role Phone Livan Edwards TELEPHONE SEX WORKER Primary Care Provider [phone] Encounter Details Date Type Department Care Team (Latest Contact Info) Description 06/22/[address] [address] Crescencio Hugo, [place] ADDRESS ON FILE ESOPHAGEAL REFLUX (Primary Dx); ALLERGY, UNSPECIFIED; HYPERTENSION NOS; ACUTE STRESS REACT NOS Social History Tobacco Use Types Packs/Day Years Used Date Smoking Tobacco: Never Assessed Comments Unknown Sex and Gender Information Value Date Recorded Sex Assigned at Not on file Legal Sex Female 2:52 AM REGIONAL LOSS PREVENTION MANAGER Gender Identity Not on file Sexual Orientation Not on file documented as of this encounter Plan of Treatment Not on file documented as of this encounter Visit Diagnoses Diagnosis Esophageal reflux- Primary Allergy, unspecified not elsewhere classified Unspecified essential hypertension Unspecified acute reaction to stress documented in this encounter Care Teams Lithographic Retoucher Apprentice Relationship Specialty Start Date End Date Livan Edwards APRN [facility] [phone] PCP - General Nurse Practitioner Family 11/19/18 documented as of this encounter
--- OUTSIDE RECORDS SUMMARY | 2024-11-27 09:00 | XMS_ITS | Encounter Summary ---
Author Organization [facility] Address [address] [place] [address] Care Team Providers Care Derrick Operator Name Role Phone Livan Edwards APRN Primary Care Provider [phone] Encounter Details Date Type Department Care Team (Latest Contact Info) Description 03/31/2005 Outpatient Historical [facility] [address] [place] [address] Crescencio Gee, JAE [address] [facility] 160 [place] [address] TENOSYNOVITIS FOOT/ANKLE (Primary Dx); ACHILLES TENDINITIS Social History Tobacco Use Types Packs/Day Years Used Date Smoking Tobacco: Never Assessed Comments Unknown Sex and Gender Information Value Date Recorded Sex Assigned at Not on file Legal Sex Female 2:52 AM UNDERCUTTER Gender Identity Not on file Sexual Orientation Not on file documented as of this encounter Plan of Treatment Not on file documented as of this encounter Visit Diagnoses Diagnosis Tenosynovitis of foot and ankle- Primary Achilles bursitis or tendinitis documented in this encounter Care Teams Derrick Operator Relationship Specialty Start Date End Date Livan Edwards APRN [address] [place] [address] [address] [place] [phone] PCP - General Nurse Practitioner Family 11/19/18 documented as of this encounter
--- OUTSIDE RECORDS SUMMARY | 2024-11-27 09:00 | XMS_ITS | Encounter Summary ---
Author Organization [facility] Address [address] [place] [address] Care Team Providers Care Motor Vehicle Licence Examiner Name Role Phone Livan Edwards INTERACTIVE MEDIA SPECIALIST Primary Care Provider [phone] Encounter Details Date Type Department Care Team (Latest Contact Info) Description 11/18/2000 Outpatient [facility] Medicine [place] 104 [facility] 60 [place] [address] Bora Trinh MD [address] [address] Dizziness and giddiness (Primary Dx); Depressive disorder, not elsewhere classified Social History Tobacco Use Types Packs/Day Years Used Date Smoking Tobacco: Never Assessed Comments Unknown Sex and Gender Information Value Date Recorded Sex Assigned at Not on file Legal Sex Female 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
--- OUTSIDE RECORDS SUMMARY | 2024-11-27 09:00 | XMS_ITS | Encounter Summary ---
Author Organization [facility] Address [address] [place] [address] Care Team Providers Care Heel Pricker Name Role Phone Livan Edwards APRN Primary Care Provider [phone] Encounter Details Date Type Department Care Team (Latest Contact Info) Description 06/16/2005 Outpatient Historical [facility] MRI 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
--- OUTSIDE RECORDS SUMMARY | 2024-11-27 09:00 | XMS_ITS | Encounter Summary ---
Author Organization [facility] Address [address] [place] [address] Care Team Providers Care Slope Tender Name Role Phone Livan Edwards APRN Primary Care Provider [phone] Encounter Details Date Type Department Care Team (Latest Contact Info) Description 05/12/2005 Outpatient Historical [facility] 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
--- OUTSIDE RECORDS SUMMARY | 2024-11-27 09:00 | XMS_ITS | Encounter Summary ---
Author Organization [facility] Address [address] [place] [address] Care Team Providers Care Forge Tender Name Role Phone Livan Edwards EQUIPMENT OPERATING ENGINEER Primary Care Provider [phone] Encounter Details Date Type Department Care Team (Latest Contact Info) Description 05/11/2005 Outpatient [facility] [address] [place] [phone] Diana Baer, MANAGER OF APPLICATION DEVELOPMENT [address] [place] [phone] SCREENING MAL NEOP-BREAST NOS (Primary Dx) Social History Tobacco Use Types Packs/Day Years Used Date Smoking Tobacco: Never Assessed Comments Unknown Sex and Gender Information Value Date Recorded Sex Assigned at Not on file Legal Sex Female 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
--- OUTSIDE RECORDS SUMMARY | 2024-11-27 09:00 | XMS_ITS | Encounter Summary ---
Author Organization [facility] Address [address] [place] [address] Care Team Providers Care Test Driller Name Role Phone Livan Edwards GENERAL II FARMWORKER Primary Care Provider [phone] Encounter Details Date Type Department Care Team (Latest Contact Info) Description 08/12/2005 Outpatient [facility] Medicine- [address] [address] Bora Trinh MD [address] [address] CHRONIC SINUSITIS NOS (Primary Dx); DYSPHAGIA Social History Tobacco Use Types Packs/Day Years Used Date Smoking Tobacco: Never Assessed Comments Unknown Sex and Gender Information Value Date Recorded Sex Assigned at Not on file Legal 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
--- OUTSIDE RECORDS SUMMARY | 2024-11-27 09:00 | XMS_ITS | Encounter Summary ---
Author Organization [facility] Address [address] [place] [address] Care Team Providers Care Market Garden Worker Name Role Phone Livan Edwards APRN Primary Care Provider [phone] Encounter Details Date Type Department Care Team (Latest Contact Info) Description 03/17/2005 Outpatient Historical [facility] 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
--- OUTSIDE RECORDS SUMMARY | 2024-11-27 09:00 | XMS_ITS | Encounter Summary ---
Author Organization [facility] Address [address] [place] [address] Care Team Providers Care Caser In Name Role Phone Livan Edwards APRN Primary Care Provider [phone] Encounter Details Date Type Department Care Team (Latest Contact Info) Description 02/17/2005 Outpatient Historical [facility] 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
--- OUTSIDE RECORDS SUMMARY | 2024-11-27 09:00 | XMS_ITS | Encounter Summary ---
Author Organization [facility] Address [address] [place] [address] Care Team Providers [employer] Former Supervisor Name Role Phone Livan Edwards APRN Primary Care Provider [phone] Encounter Details Date Type Department Care Team (Latest Contact Info) Description 01/07/2005 Outpatient Historical [facility] [address] [place] [address] [address] [place] [address] Rahat Lockwood MD [address] [place] [address] DYSPLASIA OF VAGINA (Primary Dx) Social History Tobacco Use Types Packs/Day Years Used Date Smoking Tobacco: Never Assessed Comments Unknown Sex and Gender Information Value Date Recorded Sex Assigned at Not on file Legal Sex Female 2:52 AM NO EXPERIENCE Gender Identity Not on file Sexual Orientation Not on file documented as of this encounter Plan of Treatment Not on file documented as of this encounter Visit Diagnoses Diagnosis Dysplasia of vagina- Primary documented in this encounter Care Teams [employer] Former Supervisor Relationship Specialty Start Date End Date Livan Ewdards APRN [facility] [address] PCP - General Nurse Practitioner Family 11/19/18 documented as of this encounter
--- NOTE | 2024-11-27 09:34 | ANES.PREANE2 ---
Pre-Anesthetic Assessment Height/Weight: Height 1.7 m Weight 110.314 kg Temp Pulse Resp BP Pulse Ox O2 Del Method 98 F 67 17 120/71 95 Room Air 11/27/24 08:20 11/27/24 08:20 11/27/24 08:20 11/27/24 08:20 11/27/24 08:20 11/27/24 08:20 Operation Date: 11/27/24 10:25 Proposed Procedures p Incision And Drainage of left foot infected hardware(Left) - Felice Germain DPM Familial anesthetic complications: NOne Was Beta Stacia taken within 24 hours: N/A Was Clonidine taken within 24 hours: N/A Last intake: Intake Last Liquid Date 11/26/24 Last Liquid Time 23:59 Last Solid Date 11/26/24 Last Solid Time 23:59 Social No alcohol and No tobacco Exam alert, oriented x 3, clear to auscultation bilaterally and regular rate & rhythm Airway Mallampati: Class II Dentition: chipped (Missing) Pulmonary Chronic Obstructive Pulmonary Disease GI Gastroesophageal Reflux Disease Metabolic Diabetes Mellitus, Hyperlipidemia and Morbid Obesity Neuropsych Neuropathy Anesthetic Plan ASA status: 3 Anesthesia: MAC Risk of > 500 ml blood loss (7ml/kg in children): No Medications/Allergies Home Medications ?Medication ?Instructions ?Recorded ?Confirmed ?Last Taken ?Type cyanocobalamin (vitamin B-12) 1,000 mcg PO DAILY 90 days #90 caps 12/03/22 11/26/24 11/26/24 Rx 1,000 mcg capsule Spectrum AFO to left #1 ea 01/06/23 11/26/24 Unknown Rx blood sugar diagnostic #100 ea 10/15/23 11/26/24 Unknown Rx lancets (Accu-Chek Softclix #200 ea 10/15/23 11/26/24 Unknown Rx Lancets) Diabetic shoes #1 ea 12/27/23 11/26/24 Unknown Rx pseudoephedrine HCl 120 mg 120 mg PO BID PRN nasal congestion 02/10/24 11/26/24 2 Weeks Ago Rx tablet,extended release (Sudafed 30 days #60 tabs ~09/29/24 12 Hour) famotidine 40 mg tablet 40 mg PO BID 05/16/24 11/26/24 11/26/24 History gabapentin 600 mg tablet 900 mg PO BID 05/16/24 11/26/24 11/26/24 History guaifenesin 600 mg tablet, 600 mg PO BID PRN Congestion 05/16/24 11/26/24 2 Weeks Ago History extended release 12 hr (Mucinex) ~09/29/24 levothyroxine 25 mcg tablet 12.5 mcg PO DAILY 05/16/24 11/26/24 11/26/24 History montelukast 10 mg tablet 10 mg PO DAILY 05/16/24 11/26/24 11/26/24 History paroxetine HCl 20 mg tablet 20 mg PO DAILY 05/16/24 11/26/24 11/26/24 History rosuvastatin 20 mg tablet 20 mg PO DAILY 05/16/24 11/26/24 11/26/24 History Left AFO boot #1 ea 06/27/24 11/26/24 Unknown Rx metformin 500 mg tablet,extended See Rx Instructions .Route 07/04/24 11/26/24 11/26/24 Rx release 24 hr .COMPLEX #360 tabs allopurinol 300 mg tablet See Rx Instructions .Route 07/11/24 11/26/24 11/26/24 Rx .COMPLEX #90 tabs trazodone 150 mg tablet See Rx Instructions .Route 07/17/24 11/26/24 11/25/24 Rx .COMPLEX #90 tabs ergocalciferol (vitamin D2) 1,250 1,250 mcg PO .WEEKLY #12 caps 07/20/24 11/26/24 11/26/24 Rx mcg (50,000 unit) capsule semaglutide 1 mg/dose (4 mg/3 mL) See Rx Instructions .Route 08/22/24 11/26/24 11/25/24 Rx subcutaneous pen injector (Ozempic) .COMPLEX #12 mL pantoprazole 40 mg tablet,delayed 40 mg PO QDAY 30 days #30 tabs 09/05/24 11/26/24 11/26/24 Rx release (Protonix) levocetirizine 5 mg tablet See Rx Instructions .Route 09/12/24 11/26/24 11/25/24 Rx .COMPLEX #90 tabs hydrochlorothiazide 25 mg tablet See Rx Instructions .Route 10/02/24 11/26/24 11/26/24 Rx .COMPLEX #90 tabs vitamin with calcium See Rx Instructions .Route 10/02/24 11/26/24 11/26/24 Rx no.72-iron 27 mg-folic acid 1 mg .COMPLEX #30 tabs tablet (WesTab Plus) empagliflozin 25 mg tablet 25 mg PO DAILY #90 tabs 10/03/24 11/26/24 11/26/24 Rx (Jardiance) loratadine 10 mg tablet (Claritin) 10 mg PO DAILY 30 days #30 tabs 10/24/24 11/26/24 11/26/24 Rx ferrous gluconate 324 mg (38 mg 324 mg PO BID 90 days #180 tabs 10/30/24 11/26/24 11/26/24 Rx iron) tablet olopatadine 0.2 % eye drops 1 drp ophthalmic (eye) DAILY PRN 10/30/24 11/26/24 Unknown Rx (Pataday Once Daily Relief) itching 30 days #2.5 mL meloxicam 15 mg tablet See Rx Instructions .Route 11/14/24 11/26/24 11/26/24 Rx .COMPLEX #30 tabs potassium citrate 10 mEq (1,080 See Rx Instructions .Route 11/17/24 11/26/24 11/26/24 Rx mg) tablet,extended release .COMPLEX #90 tabs albuterol sulfate 90 mcg/actuation See Rx Instructions .Route 11/20/24 11/26/24 Unknown Rx aerosol inhaler .COMPLEX #18 grams cephalexin 750 mg capsule 750 mg PO Q8H 7 days #21 caps 11/24/24 11/26/24 11/26/24 Rx fluconazole 150 mg tablet 150 mg PO Q3D PRN Yeast infections 11/26/24 11/26/24 Unknown History Allergies Allergy/AdvReac Type Severity Reaction Status Date / Time doxycycline Allergy Intermediate ADR-Itching Verified 11/26/24 15:36 hydromorphone (From Dilaudid) Allergy Intermediate ADR-Halluci Verified 11/26/24 15:36 nating promethazine (From Phenergan) Allergy Intermediate ADR-Halluci Verified 11/26/24 15:36 nating penicillin G Allergy Mild ADR-Itching Verified 11/26/24 15:36 Sulfa (Sulfonamide Allergy Mild ADR-Itching Verified 11/26/24 15:36 Antibiotics) ondansetron (From Zofran) Allergy ADR-Headach Verified 11/26/24 15:36 e cephalexin (From Keflex) AdvReac Intermediate ADR-Itching Verified 11/26/24 15:36 Current Medications Generic Name Dose Route Start Last Admin Trade Name Freq PRN Reason Stop Dose Admin Cefepime HCl 2,000 mg 11/27/24 04:00 11/27/24 03:55 Cefepime 2,000 Mg Sdv IVP 2,000 mg Q8H KAREN Administration Protocol Metronidazole 500 mg in 100 mls @ 100 mls/hr 11/27/24 02:15 11/27/24 03:57 Flagyl Iv IV Infused Q6H KAREN Infusion Protocol Sodium Chloride 1,000 mls @ 75 mls/hr 11/27/24 02:15 11/27/24 04:02 Sodium Chloride 0.9% IV 75 mls/hr .[id number] KAREN Administration Vancomycin HCl 1,250 mg in 250 mls @ 166.667 mls/hr 11/27/24 06:00 11/27/24 06:52 Vancocin IV Infused Q8H KARNE Infusion Insulin Human Lispro 0 unit 11/27/24 08:00 11/27/24 07:56 Insulin Lispro 100 Unit/1 Ml SUBCUT Not Given TIDWM KAREN Protocol Morphine Sulfate 2 mg 11/27/24 02:29 11/27/24 03:05 Morphine 4 Mg/Ml Sdv 1 Ml IVP 2 mg Q4H PRN Administration SEVERE PAIN Pantoprazole Sodium 40 mg 11/27/24 06:00 11/27/24 05:09 Pantoprazole 40 Mg Sdv IVP 40 mg Q12H KAREN Administration [facility] Anesthesia Medical History Type 2 diabetes mellitus Insomnia Chronic sinusitis DDD (degenerative disc disease), lumbar Multiple allergies Colon polyps Dysphagia Essential hypertension Iron deficiency Hypomagnesemia Low back pain Lumbar back pain with radiculopathy affecting lower extremity Seasonal allergies Upper respiratory infection Physical exam, pre-employment Otitis media, right Allergic dermatitis Grief Diabetic foot ulcer Chronic low back pain Chronic pain of both knees Diabetic gastroparesis Diabetic neuropathy Osteoarthritis of left knee Osteoarthritis of right knee Bilateral primary osteoarthritis of knee Lumbar radiculopathy, acute Hip pain Bunion of great toe Encounter for weight loss counseling Blood in both ear canals Otitis externa Nausea Hot flashes due to menopause Urgency incontinence Urolithiasis Left shoulder pain Sinusitis Anxiety and depression Multiple persistent symptoms after COVID-19 Anxiety Multiple joint pain Cough Acute bacterial sinusitis Hypertension screen Vitamin D deficiency Fatigue Renal cyst Chronic sinusitis Environmental and seasonal allergies Morbidly obese KARLEE (obstructive sleep apnea) Kidney lesion, [place], right COVID-19 Encounter for screening laboratory testing for COVID-19 virus Hematuria Common migraine with intractable migraine Accelerated hypertension Plantar fasciitis, left Bone spur of foot Onychocryptosis Cellulitis of left toe Female cystocele Gout Patient has history of gout and takes Allopurinol for control of symptoms. Chronic headache Patient has history of chronic headaches. Previous MRI of head were normal. COPD (chronic obstructive pulmonary disease) Gastroesophageal reflux Diabetes mellitus Hyperlipidemia Depression Kidney stones Surgical History History of tubal ligation History of umbilical hernia repair History of cholecystectomy History of hysterectomy History of Family History Mother Hypertension Diabetes Family history of thyroid problem Father , at age 70 Aneurysm Social History Smoking and tobacco/nicotine status: never used tobacco/nicotine Second hand smoke exposure: No Alcohol intake: current Alcohol intake frequency: holidays/special occasions only Substance/Drug Use: never Adopted: No Caregiver/support person: No Lives independently: Yes Household members: spouse Housing: House Marital status: Current occupational status: employed Pets and animals: No Do you think of yourself as: Straight/Heterosexual Current gender identity: Female Data Anesthesia 11/27/24 04:25 11/27/24 04:25 Short CBC 11/26/24 11/27/24 Range/Units 18:37 04:25 WBC 8.76 6.72 (3.29-11.43) 10^3/uL Hgb 11.10 L 9.70 L (11.27-16.99) g/dL Hct 37.1 34.0 L (36-47) % MCV 80.3 L 84.4 L D (85-98) fl Plt Count 297 265 (157-399) 10^3/cmm Neut % (Auto) 61.4 53.1 % Neut # (Auto) 5.38 3.56 (1.8-7.7) 10^3/uL BMP 11/26/24 11/27/24 18:37 04:25 Sodium 139 141 Potassium 3.9 4.0 Chloride 100 105 Carbon Dioxide 25 24 BUN 13 13 Creatinine 0.8 0.6 Glucose 104 111 Calcium 9.0 8.7 Liver Function 11/26/24 11/27/24 Range/Units 18:37 04:25 Total Bilirubin 0.2 0.3 (0.15-1.2) mg/dL AST 13 12 (0-32) U/L ALT 15 12 (0-33) U/L Alkaline Phosphatase 83 73 (35-105) U/L Albumin 3.7 3.3 L (3.5-5.2) g/dL Coags 11/26/24 11/27/24 18:37 04:25 ESR 20 H PT 12.90 INR 0.91 APTT 26.0 C-Reactive Protein 11.0 H Microbiology 11/26/24 18:42 Blood Culture - Preliminary Blood SPECIMEN COLLECTED 11/26/24 18:37 Blood Culture - Preliminary Blood SPECIMEN COLLECTED
--- NOTE | 2024-11-27 10:00 | P.PN_ITS ---
Subjective 2 Subjective: Overnight labs and H&P reviewed. Patient is planned for or intervention today and is currently in the OR at time of rounds. Medications: Reviewed: Yes Vitals/I&O/Wt Last Vital Signs Temp 98.3 F 11/27/24 12:18 Pulse 69 11/27/24 12:18 Resp 17 11/27/24 12:18 BP 116/78 11/27/24 12:18 Pulse Ox 94 11/27/24 12:00 O2 Del Method Room Air 11/27/24 12:00 11/27/24 11/27/24 11/27/24 06:59 14:59 22:59 Intake Total 3198 / 3498 340 / 340 Balance 3198 / 3498 340 / 340 Weight last 48 hrs Weight 110.314 kg Weight 110.223 kg Weight 108.862 kg Physical Exam 2 Narrative: Patient currently in the OR Data 11/27/24 04:25 11/27/24 04:25 Micro: Microbiology 11/26/24 18:58 Gram Stain - Final Toe - #1 11/26/24 18:42 Blood Culture - Preliminary Blood SPECIMEN COLLECTED 11/26/24 18:37 Blood Culture - Preliminary Blood SPECIMEN COLLECTED A&P Assessment and plan (1) Abscess of toenail on left foot: (2) Diabetes mellitus: (3) 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 2nd toe inflammation and abscess. #L. 2nd toe cellulitis with abscess #Infected hardware of L. 2nd toe - MRI of L. foot ordered - Plan for the OR on 11/27/2024. NPO after midnight -Give another 1L NS @500cc/hr. Started NS at 75cc/hr - Ordered vancomycin with pharmacy to dose, cefepime at 2g q8h, and flagyl. Pain control. - F/u BCx, and wound cx collected in ED #non-IDDM2 - low dose SSI qAC and hig dose SSI qHS. #Microcytic anemia: Ferritin ordered. partial work up done on 10/24? #HTN #HLD #Lactic acidosis: Monitor #Gout: historically on L. great toe. No acute issues at this time. #Hypothyroidism #Allergic rhinitis: year rounds. #Insomnia #Depression - Resume home meds prn #GERD - PPI IV ordered DVT ppx: Pending surgery GI ppx: PPI IV November 27, 2024 Patient taken to the operating room today for surgical intervention. Continue empiric antibiotics with cefepime, vancomycin and metronidazole. Reduce dose of latter from 500 mg IV's every 6 hours to every 8 hours. Start DVT prophylaxis with Lovenox postoperatively.await cx from OR. PDMP PDMP Reviewed: Not Reviewed Attestations 2 Medical Necessity Statement*: sp OR today, iv abx Coding Level of Care Code Acute Code for Chg Fwd Diagnoses Abscess of toenail on left foot L03.032 Type 2 diabetes mellitus with other specified complication, without long-term current use of insulin E11.69 Diabetes mellitus type: type 2 Diabetes mellitus long term care social worker insulin use: without intermediate use Diabetes mellitus complication status: with other specified complication Infected hardware in left lower extremity, initial encounter T84.7XXA Encounter type: initial encounter
--- NOTE | 2024-11-27 11:00 | W.PM.BPON ---
Date of Procedure: 09/17/23 Surgeon: Felice Germain DPM Academic Affairs Coordinator(s): April Procedure(s) performed: 1) incision of bone cortex left second toe. 2) deep hardware removal left second toe. Findings of the procedure(s): Devitalized soft tissue and questionable bone, infected hardware left second toe. Estimated blood loss: 2 mL Specimen(s) removed: Intramedullary implant left second toe sent to microbiology for Gram stain culture and sensitivity. Post-operative diagnosis: Infected hardware left second toe
[2024-11-27] MEDS: BUPivacaine 0.5% INJ 30 mL INJECTION (11:06)
[2024-11-27] MEDS: lidocaine 1% 10 ML INJ INJECTION (11:06)
--- NOTE | 2024-11-27 11:52 | PM.OP ---
Operative Report Date of procedure: November 27, 2024 Pre-op diagnosis: Diabetes with peripheral neuropathy Cellulitis left foot Wound exposed bone left foot L97.524 Infected hardware left second toe Post-op diagnosis: Same Procedure done: 1) incision bone cortex left foot. CPT code 15016 2) deep hardware removal left foot. CPT code 28643 Implants: 4-0 nylon Specimens removed/disposition: Intramedullary bone implant left second toe sent to microbiology for Gram stain culture and sensitivity. Pathology: None Surgeon: Felice Germain DPM Print Developer Automatic: April Estimated blood loss: 2 Approximately 5 minutes. Left ankle tourniquet at 250 mmHg. See intraoperative documentation. IV fluids: See intraoperative documentation Urine output: No urine output Complications: No complications Brief History: The patient is a 58-year-old female presenting to the emergency department with concerns related to an abscess on the left second toe post-surgery. Following her surgery on October 13, 2024, which included procedures for peroneal nerve entrapment, bunionectomy, hammer toe correction, and gastrocnemius recession, the patient experienced an uneventful postoperative period until November 24, 2024, when she noticed a blister-like lesion with increasing redness, swelling, and pain. Initial management included incision and drainage of the abscess and a prescription for oral cephalexin, with instructions to follow up with her surgeon. The lack of contact and progression to worsening symptoms led to another emergency department visit on November 26, 2024, due to increasing purulent drainage from the left second toe. - Labs: White blood cell count 8.76; Erythrocyte Sedimentation Rate 20; Lactic Acid 3.2; C-reactive Protein 11.0 - Tests and Diagnostics: X-ray of the left foot, 3 views, negative for bony destruction and negative for soft tissue emphysema Left second toe wound culture obtained in the emergency department sent to microbiology for Gram stain culture and sensitivity. Assessment and Plan 58-year-old female with a history of foot surgery presenting with an abscess on the left second toe. Evidence of cellulitis and hardware exposure indicates a requirement for hospital admission for intravenous antibiotics and surgical intervention. 1. Abscess Of Left Second Toe, Post-Surgical Admission for IV antibiotics and surgical intervention is planned to address ongoing post-surgical abscess formation and prevent further complications. 2. Cellulitis, Left Foot Admission for IV antibiotics is required, with surgical debridement planned to address cellulitis, particularly given the hardware involvement. 3. Hardware Exposure, Left Second Toe Surgical debridement and removal of exposed hardware are scheduled to manage infection risk and prevent further complications. Cellulitis with potential for hardware infection requires a structured approach involving surgical intervention coupled with IV antibiotics to arrest infection progression. Clinical signs dictated a plan for hospitalization to stabilize the condition with goals aiming to remove infective sources, exemplified by the hardware, and support tissue healing. Surgical procedures are anticipated to mitigate infection, enhancing recovery despite diabetic neuropathy challenges. Detailed monitoring post-intervention will be crucial in effective management, promoting healing and preventing recurrent issues. Patient takes Ozempic weekly, last taken Wednesday, November 25, 2024. To reduce risks of aspiration and anesthetic complications patient opted for local anesthetic only. Procedure: Patient was brought to the operating room and remained on the gurney in supine position. A timeout was performed. Local anesthetic administered by myself total of 10 cc of one-to-one mixture 1% lidocaine and 0.5% Marcaine plain in a left second ray block fashion, patient tolerated local anesthetic injection infiltration very well. Well-padded pneumatic tourniquet applied to the left ankle. Left lower extremity was scrubbed, prepped and draped utilizing normal aseptic technique. Left foot was elevated and left ankle tourniquet was inflated to 250 mmHg. Attention was directed to a full-thickness wound at the dorsal aspect of the left second toe at the level of the proximal interphalangeal joint. Of note the wound had purulent drainage and surrounding erythema with cellulitis to the level of the dorsal left forefoot. Incision was performed through subcutaneous tissue with a 15 blade with dissection carried down to intramedullary implant and bone of the head of the left second proximal phalanx and base of the left second intermediate phalanx this was incised and the intramedullary implant was identified and explanted in total without fragmentation or failure this will be sent to microbiology with accompanying bone for Gram stain culture and sensitivity to help guide antibiotic therapies moving forward. The incision was irrigated with copious amounts of sterile skin solution. Extensor tendon and subcutaneous tissue was debrided of devitalized tissue as well as devitalized bone as noted above at the head of the proximal phalanx and base of the intermediate phalanx down to healthy bone. No further devitalized soft tissue or bone was visualized, copious amounts of sterile saline irrigation was performed and the incision was left open to be monitored her response to debridement, hardware mobile and IV antibiotics, 4-0 nylon utilized to loosely approximate the incision margins. The left second toe was then dressed with Xeroform, gauze, Shamar and Carlos wrap. Tourniquet was deflated and a prompt hyperemic response is noted to the distal digits of the left foot. Patient tolerated the procedure and anesthesia well and was transferred to the PACU with vital signs stable and vascular status intact. Following a period of postoperative monitoring she will be transferred back to the floor to continue IV antibiotics. Surgical cultures pending. Will require delayed closure potentially tomorrow will reassess tomorrow morning.
--- NOTE | 2024-11-27 12:11 | PHA.VACGOAL ---
Vancomycin Goal - Goal Vancomycin Goal:: 15-20 mg/L Vancomycin Indication:: SSTI (Cellulitis Left Foot) - Therapy Current therapy:: Cefepime, Other Antibiotic (Metronidazole) Day of therpy:: Day []of [] . Actual body weight (kg): 110.314 kg - Data Labs: WBC 6.72 10^3/uL (3.29-11.43) 11/27/24 04:25 RBC 4.03 10^6/uL (3.85-5.65) 11/27/24 04:25 Hgb 9.70 g/dL (11.27-16.99) L 11/27/24 04:25 Hct 34.0 % (36-47) L 11/27/24 04:25 MCV 84.4 fl (85-98) L D 11/27/24 04:25 MCH 24.1 pg (27-33) L 11/27/24 04:25 MCHC 28.5 g/dL (30-55) L 11/27/24 04:25 RDW 16.6 % (12.1-15.1) H 11/27/24 04:25 Sodium 141 mmol/L (136-145) 11/27/24 04:25 Potassium 4.0 mmol/L (3.5-5.1) 11/27/24 04:25 Chloride 105 mmol/L (98-107) 11/27/24 04:25 Carbon Dioxide 24 mmol/L (22-29) 11/27/24 04:25 Anion Gap 16.0 (5-19) 11/27/24 04:25 BUN 13 mg/dL (6-20) 11/27/24 04:25 Creatinine 0.6 mg/dL (0.5-0.9) 11/27/24 04:25 GFR Calculation 102.3 mL/min (90-130) 11/27/24 04:25 Treatment plan:: new consult Regimen:: New start vancomycin for Cellulitis of Left Foot/potential hardware infection. No prior history of vancomycin found. Started on maintenance dose of 1250 mg q8h.
--- NOTE | 2024-11-27 12:26 | XRR_ITS ---
PROCEDURE INFORMATION: Exam: XR Left Foot Exam date and time: 11/27/2024 1:36 PM Age: 58 years old Clinical indication: Other: Post op lt foot; Prior surgery; Surgery date: Post-operative (0-2 days); Additional info: Postop left second toe TECHNIQUE: Imaging protocol: Radiologic exam of the left foot. Views: 3 or more views. COMPARISON: CR (LOW EXM, ) 11/26/2024 5:58 PM FINDINGS: Bones/joints: Postsurgical change with previous osteotomies with postsurgical screw fixation distal 1st metatarsal and proximal 1st phalanx appear unchanged with prior exam. Previously noted 2nd PIP artificial joint appears to have been removed since previous exam 11/26/2024. No other significant interval change. Soft tissues: Mild soft tissue swelling. XR/XR foot LT min 3V* [id number] IMPRESSION: Compared with 11/26/2024 exam, suggestion of interval removal of previously noted 2nd PIP artificial joint. Postsurgical changes again noted otherwise.
[2024-11-27] MEDS: sennosides 8.6 mg Tablet 17.2 MG PO (12:31)
[2024-11-27 12:32] LABS: Glucose Point of Care 115 mg/dL (70-110)
[2024-11-27] MEDS: enoxaparin 40 mg/0.4 mL Syringe SUBCUT (16:10)
[2024-11-27] MEDS: acetaminophen 325 mg Tablet 650 MG PO (16:10)
[2024-11-27 16:39] LABS: Glucose Point of Care 97 mg/dL (70-110)
[2024-11-27 20:25] LABS: Glucose Point of Care 123 mg/dL (70-110)
[2024-11-27] MEDS: vancomycin 1,250 MG/250 ML PIGGYBACK 166 MG IV (21:41)
[2024-11-27] MEDS: trazodone 150 mg Tablet PO (22:09)
[2024-11-28] VITALS (9 sets, daily range): BP systolic 98–142; BP diastolic 57–77; PULSE 59–80; RESP 16–19; TEMP 36.3–36.9; O2SAT 91–96
[2024-11-28 05:14] LABS: Basophils % 0.4 %; Eosinophils # 0.2 10^3/uL (0.0-0.8); Eosinophils % 3.8 %; Hematocrit 34.5 % (36-47); Lymphocytes # 1.8 10^3/uL (0.8-4.8); Lymphocytes % 36.5 %; Mean Corpuscular HGB Conc 29.6 g/dL (30-55); Mean Corpuscular Hemoglobin 24.2 pg (27-33); Mean Corpuscular Volume 81.8 fl (85-98); Monocytes # 0.4 10^3/uL (0.2-0.9); Monocytes % 7.3 %; Neutrophils # 2.49 10^3/uL (1.8-7.7); Neutrophils % 51.8 %; Nucleated Red Blood Cells % 0 %; Platelet Count 267 10^3/cmm (157-399); Red Blood Count 4.22 10^6/uL (3.85-5.65); Red Cell Distribution Width 16.8 % (12.1-15.1)
[2024-11-28 05:36] LABS: Vancomycin Trough 20.7 ug/mL (10-15)
[2024-11-28 05:37] LABS: Alanine Aminotransferase 13 U/L (0-33); Albumin Level 3.2 g/dL (3.5-5.2); Alkaline Phosphatase 73 U/L (35-105); Anion Gap 10.8 (5-19); Aspartate Amino Transferase 13 U/L (0-32); Blood Urea Nitrogen 9 mg/dL (6-20); Calcium 8.7 mg/dL (8.5-10.5); Carbon Dioxide 25 mmol/L (22-29); Chloride 110 mmol/L (98-107); Creatinine Clr Calc Pharmacy 129.2302; Globulin 2.6 g/dL (1.3-4.6); Glomerular Filtration Rate 102.3 mL/min (90-130); Glucose 111 mg/dL (65-115); Osmolality Calculated 293 mOsm/kg (285-295); Potassium 3.8 mmol/L (3.5-5.1); Sodium 142 mmol/L (136-145); Total Bilirubin 0.3 mg/dL (0.15-1.2); Total Protein 5.8 g/dL (6.6-8.7)
[2024-11-28] MEDS: cefepime 2,000 mg SDV 2000 MG IVP ×2 (06:06→11:00)
[2024-11-28] MEDS: vancomycin 1,250 MG/250 ML PIGGYBACK 166 MG IV (06:07)
[2024-11-28] MEDS: pantoprazole 40 mg SDV IVP ×2 (06:07→17:10)
--- NOTE | 2024-11-28 06:22 | PM.PN ---
Subjective Subjective: Patient seen bedside this a.m., 1 day status post incision and debridement down to bone cortex and infected. Denies any acute events overnight. Denies any pain to the right foot. Hardware removal right second toe patient denies any subjective nausea, vomiting, fever, chills, shortness of breath or chest pain. Vitals/I&O/Wt Last Vital Signs Temp 98.1 F 11/28/24 04:00 Pulse 59 L 11/28/24 04:00 Resp 17 11/28/24 04:00 BP 121/74 11/28/24 04:00 Pulse Ox 94 11/28/24 04:00 O2 Del Method Room Air 11/28/24 04:00 11/27/24 11/27/24 11/28/24 14:59 22:59 06:59 Intake Total 340 / 340 1590 / 1930 350 / 2280 Balance 340 / 340 1590 / 1930 350 / 2280 Weight last 48 hrs Weight 243 lb Weight 243 lb 3.2 oz Weight 243 lb Weight 240 lb Physical Exam Narrative: GENERAL: Patient is alert and oriented ?3 and in no acute distress. The following is a focused left lower extremity exam. VASCULAR: Dorsalis pedis palpable +2. Posterior tibial arteries palpable. Capillary refill time less than 3 seconds to the distal hallux bilaterally. Calf is supple and nontender proximally and distally. Edema left second toe. NEUROLOGICAL: Protective sensation diminished to light touch bilateral lower extremity. DERMATOLOGICAL: Improved erythema at the left second toe wound, no purulent drainage, subsiding cellulitis left forefoot. MUSCULOSKELETAL: No pain to palpation secondary to neuropathy. Muscle strength +5 in all 3 planes left foot and ankle. Data 11/28/24 04:53 11/28/24 04:53 Micro: Microbiology 11/26/24 18:42 Blood Culture - Preliminary Blood NEGATIVE TO DATE 11/26/24 18:37 Blood Culture - Preliminary Blood NEGATIVE TO DATE 11/26/24 18:58 Gram Stain - Final Toe - #1 A&P Assessment and plan (1) Cellulitis of left foot: (2) Infected hardware in left lower extremity: (3) Type 2 diabetes mellitus: Plan 58-year-old diabetic female with infected hardware left second toe. Status post incision of bone cortex and hardware removal left second toe date of operation 11/27/2024. Surgical culture pending left second toe implant. Recommend continuing IV antibiotics, plan for PICC line for 6-week course of antibiotics at discharge. Anticipating further debridement and delayed closure of left second toe wound, tentatively scheduled for this 11/30/2024. PDMP PDMP Reviewed: Not Reviewed Attestations Medical Necessity Statement*: Requires continued IV antibiotics, surgical culture of left second toe intramedullary implant pending microbiology workup. Coding Level of Care Code Acute Code for [facility] Diagnoses Cellulitis of left foot L03.116 Infected hardware in left lower extremity, initial encounter T84.7XXA Encounter type: initial encounter Type 2 diabetes mellitus with other specified complication, unspecified whether half-way insulin use E11.69 Diabetes mellitus vermin exterminator insulin use: unspecified vermin exterminator insulin use status Diabetes mellitus complication status: with other specified complication
[2024-11-28 06:34] LABS: Glucose Point of Care 119 mg/dL (70-110)
--- NOTE | 2024-11-28 07:00 | MRR_ITS ---
PROCEDURE INFORMATION: Exam: MR Left Lower Extremity Without and With Contrast; Forefoot Exam date and time: 11/28/2024 2:21 PM Age: 58 years old Clinical indication: Toes; Prior surgery; Surgery date: 1-6 months; Surgery type: Left foot 10/2024; L greater toe pain and swelling. PT was seen on Wednesday for same and had toe lanced and cleaned. PT states she has had multiple surgeries on L foot in October 2024 w/ Dr gaviria. PT unable to ambulate much on L foot and swelling has worsened. ; Additional info: L 2nd toe cellulitis and absess, has a screw. TECHNIQUE: Imaging protocol: MR of the left foot without and with contrast. Exam focused on the forefoot. Contrast material: MULTIHANCE; Contrast volume: 20 ml; Contrast route: INTRAVENOUS (IV); COMPARISON: CR (LOW EXM, ) 11/27/2024 1:36 PM FINDINGS: Bones/joints: There is magnetic susceptibility artifact due to screws in the distal 1st metatarsal and proximal 1st phalanx with associated surgical defects in the bone and no significant marrow edema at the surgical site. There is marked bone marrow edema in the 2nd toe involving the proximal and middle phalanges, relatively sparing the distal phalanx. This finding is associated with bone erosion visible on radiographs. There are also recent surgical changes in the 2nd toe based on the radiographic record. Joint alignment is normal. No joint effusions. Moderate osteophytes at the tarsometatarsal joints and the visible portion of the midfoot. LIGAMENTS: Collateral ligaments of digits: Limited visualization. TENDONS: Flexor tendons of foot: Unremarkable as visualized. Extensor tendons of foot: Unremarkable as visualized. Soft tissues: Mild soft tissue edema throughout the forefoot. Marked edema in the 2nd toe. No fluid collection in the soft tissues. MR/MR foot LT wo/w con [id number] IMPRESSION: 1. Marked bone marrow and soft tissue edema in the 2nd toe consistent with a combination of osteomyelitis and surgical changes. 2. Bunionectomy without apparent surgical complications.
[2024-11-28] MEDS: sodium chloride 0.9% 1,000 ML 75 ML IV (08:46)
[2024-11-28] MEDS: sennosides 8.6 mg Tablet 17.2 MG PO (08:46)
--- NOTE | 2024-11-28 10:17 | PC.CHAP ---
Pastoral Care Encounter/Spiritual Assessment Type of Contact [] Declined data entry manager visit [] Patient/Family/Request visit [] Outpatient visit [] Follow-up visit [] Physician referral [] Code/Alert [x] Routine visit [] Staff referral [] Actively dying [] Patient sleeping [] Family support [] [] Out of room [] Palliative care [] [] Receiving care in room [] Pre-surgical visit [] Trauma [] Long length of stay [] ICU visit [] Other: Relational/Emotional Strength [x] Patient feels connected with others/family/visitors/staff [] Distress [] Loneliness/isolation [] Abandonment Spirituality of Patient [x] Person of [place] [] Attends Religion of their [place] [x] Believes in Prayer [] Reads Bible or Advent materials [] There are Spiritual issues to be addressed Oral Therapist Interventions [x] Prayer [x] Active listening [] Non-anxious presence [x] Spiritual/emotional support [] Crisis/trauma care [] Spiritual counseling [] Bereavement support [] Provided bereavement packet [] Provided Bible/devotional materials [] Provided toy/stuffed animal, coloring book to patient or family member [] Provided Communion [] Anointing/[place] [] Salvation [x] Completed spiritual assessment [] Other: Impact on Illness or Injury [] Angry [] Fearful [] Anxious [] Often cries [] Exhaustion [] Unable to work [] Unable to attend jewish [] Unable to walk/stand [] Unable to read [] Unable to drive [] Unable to eat/drink [] Unable to sleep [] Unable to be with family [] Patient intubated [] Other: Summary Time spent with patient 5 min Pastoral Care Encounter/Spiritual Assessment Type of Contact [] Declined data entry manager visit [] Patient/Family/Request visit [] Outpatient visit [] Follow-up visit [] Physician referral [] Code/Alert [] Routine visit [] Staff referral [] Actively dying [] Patient sleeping [] Family support [] [] Out of room [] Palliative care [] [] Receiving care in room [] Pre-surgical visit [] Trauma [] Long length of stay [] ICU visit [] Other: Relational/Emotional Strength [] Patient feels connected with others/family/visitors/staff [] Distress [] Loneliness/isolation [] Abandonment Spirituality of Patient [] Person of [place] [] Attends Religion of their [place] [] Believes in Prayer [] Reads Bible or Advent materials [] There are Spiritual issues to be addressed Oral Therapist Interventions [] Prayer [] Active listening [] Non-anxious presence [] Spiritual/emotional support [] Crisis/trauma care [] Spiritual counseling [] Bereavement support [] Provided bereavement packet [] Provided Bible/devotional materials [] Provided toy/stuffed animal, coloring book to patient or family member [] Provided Communion [] Anointing/[place] [] Salvation [] Completed spiritual assessment [] Other: Impact on Illness or Injury [] Angry [] Fearful [] Anxious [] Often cries [] Exhaustion [] Unable to work [] Unable to attend jewish [] Unable to walk/stand [] Unable to read [] Unable to drive [] Unable to eat/drink [] Unable to sleep [] Unable to be with family [] Patient intubated [] Other: Summary Time spent with patient
[2024-11-28] MEDS: insulin lispro 100 unit/1 mL SUBCUT (11:00)
[2024-11-28 11:03] LABS: Glucose Point of Care 143 mg/dL (70-110)
--- NOTE | 2024-11-28 14:22 | PM.PN ---
Subjective Subjective: Afebrile, hemodynamically stable culture pending from the OR from yesterday. Outpatient culture showing coag positive Staphylococcus. Medications: Reviewed: Yes Vitals/I&O/Wt Last Vital Signs Temp 98.0 F 11/28/24 11:20 Pulse 74 11/28/24 13:35 Resp 18 11/28/24 11:20 BP 119/76 11/28/24 11:20 Pulse Ox 96 11/28/24 11:20 O2 Del Method Room Air 11/28/24 11:20 11/27/24 11/28/24 11/28/24 22:59 06:59 14:59 Intake Total 1590 / 1930 350 / 2280 1735 / 1735 Balance 1590 / 1930 350 / 2280 1735 / 1735 Weight last 48 hrs Weight 110.223 kg Weight 110.314 kg Weight 110.223 kg Weight 108.862 kg Physical Exam Narrative: General: No acute distress, AO x3 HEENT: PERRLA, pupils bilaterally equal and reactive, pallors not present Chest: Normal vesicular breath sounds, no added sounds, equal good air entry bilaterally CVS: S1-S2 regular, no murmurs, no tachycardia, no gallops, no rubs Abdomen: Soft, nontender, no organomegaly, bowel sounds present Neuro: No focal deficits, no facial deformity, AO x3, power 5/5 in all limbs Extremities: Surgical dressing in place postoperative site Data 11/28/24 04:53 11/28/24 04:53 Micro: Microbiology 11/26/24 18:58 Gram Stain - Final Toe - #1 Wound Culture - Preliminary Coag positive Staphylococcus 11/26/24 18:42 Blood Culture - Preliminary Blood NEGATIVE TO DATE 11/26/24 18:37 Blood Culture - Preliminary Blood NEGATIVE TO DATE NAME: Leny Rodriguez LOC: [facility] U #: [id number] AGE/SX: 58/F ROOM: 254 RE11/26/[address]: Kaylee Mccain MD : 1965 BED: 2 DIS: FAX #: STATUS: ADM IN TLOC: Spec #: [id number] [place]: 11/27/24-1115 Status: UNV Req #: [id number] Recd: 11/27/24-[address]: Felice Germain DPM Src: Other Sour SpDesc: Ordered: CTIP Comments: Comment explanted hardware, left second toe Procedure Result Verified Site CTIP PENDING A&P Assessment and plan (1) Abscess of toenail on left foot: (2) Diabetes mellitus: (3) 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 2nd toe inflammation and abscess. #L. 2nd toe cellulitis with abscess #Infected hardware of L. 2nd toe - MRI of L. foot ordered - Plan for the OR on 11/27/2024. NPO after midnight -Give another 1L NS @500cc/hr. Started NS at 75cc/hr - Ordered vancomycin with pharmacy to dose, cefepime at 2g q8h, and flagyl. Pain control. - F/u BCx, and wound cx collected in ED #non-IDDM2 - low dose SSI qAC and hig dose SSI qHS. #Microcytic anemia: Ferritin ordered. partial work up done on 10/24? #HTN #HLD #Lactic acidosis: Monitor #Gout: historically on L. great toe. No acute issues at this time. #Hypothyroidism #Allergic rhinitis: year rounds. #Insomnia #Depression - Resume home meds prn #GERD - PPI IV ordered DVT ppx: Pending surgery GI ppx: PPI IV November 27, 2024 Patient taken to the operating room today for surgical intervention. Continue empiric antibiotics with cefepime, vancomycin and metronidazole. Reduce dose of latter from 500 mg IV's every 6 hours to every 8 hours. Start DVT prophylaxis with Lovenox postoperatively.await cx from OR. November 28, 2024 Status post OR intervention yesterday where she underwent incision of the bone cortex of the left foot along with deep hardware removal. Overall concern for osteomyelitis and deep hardware infection. Status post removal of hardware. Patient has additional hardware on the great toe. Will plan on 6 weeks of IV antibiotics for successful treatment. Deep wound cultures currently showing coag positive Staphylococcus. Awaiting to see if this will be MSSA or MRSA which will further help us decide regarding selection of discharge antibiotic. Hardware/OR cultures from yesterday are currently awaited. Discontinue metronidazole today. Change cefepime to ceftriaxone. Continue vancomycin for now while pending final culture results. Chart notes an allergy to cephalexin, however patient is currently tolerating cefepime well. Plan for delayed primary closure on . Plan for PICC line tomorrow once blood cultures are negative for 48 hours. PDMP PDMP Reviewed: Not Reviewed Attestations Medical Necessity Statement*: Continued need for IV antibiotics, osteomyelitis and hardware infection. Ongoing disposition plan Coding Level of Care Code Acute Code for [facility] Diagnoses Abscess of toenail on left foot L03.032 Type 2 diabetes mellitus with other specified complication, without long-term current use of insulin E11.69 Diabetes mellitus type: type 2 Diabetes mellitus detention insulin use: without termite renewal inspector use Diabetes mellitus complication status: with other specified complication Infected hardware in left lower extremity, initial encounter T84.7XXA Encounter type: initial encounter
[2024-11-28] MEDS: gadobenate dimeglumine 20 mL vial IV (14:47)
[2024-11-28] MEDS: enoxaparin 40 mg/0.4 mL Syringe SUBCUT (15:24)
[2024-11-28] MEDS: cefTRIAXone 1,000 mg SDV 1000 MG IVP (15:24)
[2024-11-28] MEDS: VANCOMYCIN ADD-Vantage 1,000 MG in 0.9% NaCl ADD-Vantage 250 ML 250 MG IV (15:24)
[2024-11-28 16:53] LABS: Glucose Point of Care 107 mg/dL (70-110)
[2024-11-28] MEDS: morphine 4 mg/mL SDV 1 mL 2 MG IVP (19:59)
[2024-11-28 20:51] LABS: Glucose Point of Care 119 mg/dL (70-110)
[2024-11-28] MEDS: trazodone 150 mg Tablet PO (21:23)
[2024-11-29] VITALS (9 sets, daily range): BP systolic 133–155; BP diastolic 72–87; PULSE 58–78; RESP 16–20; TEMP 36.4–36.9; O2SAT 90–98
[2024-11-29] MEDS: VANCOMYCIN ADD-Vantage 1,000 MG in 0.9% NaCl ADD-Vantage 250 ML 250 MG IV ×2 (00:01→09:27)
[2024-11-29] MEDS: pantoprazole 40 mg SDV IVP ×2 (05:31→17:30)
[2024-11-29 05:51] LABS: Basophils % 0.4 %; Eosinophils # 0.2 10^3/uL (0.0-0.8); Eosinophils % 3.3 %; Hematocrit 34.2 % (36-47); Lymphocytes # 1.8 10^3/uL (0.8-4.8); Lymphocytes % 34.8 %; Mean Corpuscular HGB Conc 29.5 g/dL (30-55); Mean Corpuscular Hemoglobin 23.6 pg (27-33); Mean Corpuscular Volume 79.9 fl (85-98); Mean Platelet Volume 10.1 fL (7.4-10.4); Monocytes # 0.4 10^3/uL (0.2-0.9); Monocytes % 7.2 %; Neutrophils # 2.78 10^3/uL (1.8-7.7); Neutrophils % 54.1 %; Nucleated Red Blood Cells % 0 %; Platelet Count 264 10^3/cmm (157-399); Red Blood Count 4.28 10^6/uL (3.85-5.65); Red Cell Distribution Width 16.7 % (12.1-15.1); White Blood Count 5.14 10^3/uL (3.29-11.43)
[2024-11-29 06:23] LABS: Alanine Aminotransferase 17 U/L (0-33); Albumin Level 3.2 g/dL (3.5-5.2); Alkaline Phosphatase 75 U/L (35-105); Anion Gap 12.6 (5-19); Aspartate Amino Transferase 21 U/L (0-32); Blood Urea Nitrogen 8 mg/dL (6-20); Calcium 8.7 mg/dL (8.5-10.5); Carbon Dioxide 25 mmol/L (22-29); Chloride 108 mmol/L (98-107); Creatinine Clr Calc Pharmacy 155.0066; Globulin 2.6 g/dL (1.3-4.6); Glomerular Filtration Rate 126.3 mL/min (90-130); Glucose 103 mg/dL (65-115); Osmolality Calculated 293 mOsm/kg (285-295); Potassium 3.6 mmol/L (3.5-5.1); Sodium 142 mmol/L (136-145); Total Bilirubin 0.2 mg/dL (0.15-1.2); Total Protein 5.8 g/dL (6.6-8.7)
[2024-11-29 06:42] LABS: Glucose Point of Care 118 mg/dL (70-110)
--- NOTE | 2024-11-29 08:52 | PM.PN ---
Subjective Subjective: Patient seen bedside this a.m., denies any acute events overnight. Denies left foot pain. Patient denies any subjective nausea, vomiting, fever, chills, shortness of breath or chest pain. Vitals/I&O/Wt Last Vital Signs Temp 97.8 F 11/29/24 07:37 Pulse 72 11/29/24 07:37 Resp 18 11/29/24 07:37 BP 133/80 11/29/24 07:37 Pulse Ox 95 11/29/24 07:37 O2 Del Method Room Air 11/29/24 07:37 11/28/24 11/29/24 11/29/24 22:59 06:59 14:59 Intake Total 2370 / 4105 250 / 4355 360 / 360 Balance 2370 / 4105 250 / 4355 360 / 360 Weight last 48 hrs Weight 243 lb Weight 243 lb Physical Exam Narrative: GENERAL: Patient is alert and oriented ?3 and in no acute distress. The following is a focused left lower extremity exam. VASCULAR: Dorsalis pedis palpable +2. Posterior tibial arteries palpable. Capillary refill time less than 3 seconds to the distal hallux bilaterally. Calf is supple and nontender proximally and distally. Edema left second toe. NEUROLOGICAL: Protective sensation diminished to light touch bilateral lower extremity. DERMATOLOGICAL: Improved erythema at the left second toe wound, no purulent drainage, subsiding cellulitis left forefoot. MUSCULOSKELETAL: No pain to palpation secondary to neuropathy. Muscle strength +5 in all 3 planes left foot and ankle. Data 11/29/24 05:07 11/29/24 05:07 Micro: Microbiology 11/26/24 18:58 Gram Stain - Final Toe - #1 Wound Culture - Preliminary Coag positive Staphylococcus A&P Assessment and plan (1) Cellulitis of left foot: (2) Infected hardware in left lower extremity: (3) Type 2 diabetes mellitus: Plan 58-year-old diabetic female with infected hardware left second toe. Status post incision of bone cortex and hardware removal left second toe date of operation 11/27/2024. Surgical culture pending left second toe implant. Growing coag positive Staphylococcus Recommend continuing IV antibiotics, plan for PICC line for 6-week course of antibiotics at discharge. Anticipating further debridement and delayed closure of left second toe wound, tentatively scheduled tomorrow morning 7:00 AM 11/30/2024 N.p.o. at midnight. PDMP PDMP Reviewed: Not Reviewed Attestations Medical Necessity Statement*: Continued need for IV antibiotics, osteomyelitis and hardware infection. Ongoing disposition plan Coding Level of Care Code Acute Code for [facility] Diagnoses Cellulitis of left foot L03.116 Infected hardware in left lower extremity, initial encounter T84.7XXA Encounter type: initial encounter Type 2 diabetes mellitus with other specified complication, unspecified whether senior living insulin use E11.69 Diabetes mellitus senior living insulin use: unspecified intermediate accountant insulin use status Diabetes mellitus complication status: with other specified complication
[2024-11-29] MEDS: sennosides 8.6 mg Tablet 17.2 MG PO (09:28)
--- NOTE | 2024-11-29 10:56 | XR_ITS ---
WS: [id number] Portable AP upright chest, 11/29/2024 Clinical Data: Post PICC insertion Comparison: Portable chest, 03/13/2020 Findings: The right PICC line ends in the superior vena cava. No pneumothorax is seen. XR/XR chest 1V portable [id number] Impression: Satisfactory insertion right PICC line.
--- NOTE | 2024-11-29 11:00 | PICC.NOTE ---
Single lumen PICC placed to right basilic vein. Referred to vascular access nurse for PICC placement due to need for IV antibiotics x 6 weeks. Risks and benefits discussed and informed consent obtained from pt. Right arm assessed with right basilic vein measuring 4.0 mm, straight, and apparent best choice for placement. Using sterile technique and MST, right basilic vein accessed x 1 stick. Mid-arm circumference measured 10 cm from right AC 41 cm. Trimmed cath 48 cm with 0 cm external length noted. CXR shows tip in distal SVC, in good position for use per radiologist. Line secured with stat-lock. Insertion site covered with Biopatch and TSM. Report given to bedside nurse, ZAN Bullock. PICC teaching for home antibiotic infusion completed with written materials, including [facility] mat, provided. Pt states her daughter lives close by and would be able to assist with home infusion. Case management updated.
[2024-11-29 11:26] LABS: Glucose Point of Care 110 mg/dL (70-110)
[2024-11-29] MEDS: ceFAZolin 2,000 mg SDV 2000 MG IVP (12:02)
--- NOTE | 2024-11-29 14:21 | PM.PN ---
Subjective Subjective: Afebrile, hemodynamically stable. No leukocytosis. Plan for delayed primary closure tomorrow. Received PICC line today. Medications: Reviewed: Yes Vitals/I&O/Wt Last Vital Signs Temp 97.7 F 11/29/24 11:56 Pulse 74 11/29/24 14:00 Resp 20 H 11/29/24 11:56 BP 151/84 11/29/24 11:56 Pulse Ox 94 11/29/24 11:56 O2 Del Method Room Air 11/29/24 11:56 11/28/24 11/29/24 11/29/24 22:59 06:59 14:59 Intake Total 2370 / 4105 250 / 4355 610 / 610 Output Total 900 / 900 Balance 2370 / 4105 250 / 4355 -290 / -290 Weight last 48 hrs Weight 110.223 kg Weight 110.223 kg Physical Exam Narrative: General: No acute distress, AO x3 HEENT: PERRLA, pupils bilaterally equal and reactive, pallors not present Chest: Normal vesicular breath sounds, no added sounds, equal good air entry bilaterally CVS: S1-S2 regular, no murmurs, no tachycardia, no gallops, no rubs Abdomen: Soft, nontender, no organomegaly, bowel sounds present Neuro: No focal deficits, no facial deformity, AO x3, power 5/5 in all limbs Extremities: Surgical dressing in place postoperative site Data 11/29/24 05:07 11/29/24 05:07 Micro: Microbiology 11/26/24 18:58 Gram Stain - Final Toe - #1 Wound Culture - Final Staphylococcus aureus A&P Assessment and plan (1) Abscess of toenail on left foot: (2) Diabetes mellitus: (3) 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 2nd toe inflammation and abscess. #L. 2nd toe cellulitis with abscess #Infected hardware of L. 2nd toe - MRI of L. foot ordered - Plan for the OR on 11/27/2024. NPO after midnight -Give another 1L NS @500cc/hr. Started NS at 75cc/hr - Ordered vancomycin with pharmacy to dose, cefepime at 2g q8h, and flagyl. Pain control. - F/u BCx, and wound cx collected in ED #non-IDDM2 - low dose SSI qAC and hig dose SSI qHS. #Microcytic anemia: Ferritin ordered. partial work up done on 10/24? #HTN #HLD #Lactic acidosis: Monitor #Gout: historically on L. great toe. No acute issues at this time. #Hypothyroidism #Allergic rhinitis: year rounds. #Insomnia #Depression - Resume home meds prn #GERD - PPI IV ordered DVT ppx: Pending surgery GI ppx: PPI IV November 27, 2024 Patient taken to the operating room today for surgical intervention. Continue empiric antibiotics with cefepime, vancomycin and metronidazole. Reduce dose of latter from 500 mg IV's every 6 hours to every 8 hours. Start DVT prophylaxis with Lovenox postoperatively.await cx from OR. November 28, 2024 Status post OR intervention yesterday where she underwent incision of the bone cortex of the left foot along with deep hardware removal. Overall concern for osteomyelitis and deep hardware infection. Status post removal of hardware. Patient has additional hardware on the great toe. Will plan on 6 weeks of IV antibiotics for successful treatment. Deep wound cultures currently showing coag positive Staphylococcus. Awaiting to see if this will be MSSA or MRSA which will further help us decide regarding selection of discharge antibiotic. Hardware/OR cultures from yesterday are currently awaited. Discontinue metronidazole today. Change cefepime to ceftriaxone. Continue vancomycin for now while pending final culture results. Chart notes an allergy to cephalexin, however patient is currently tolerating cefepime well. Plan for delayed primary closure on . Plan for PICC line tomorrow once blood cultures are negative for 48 hours. November 29, 2024 Plan for delayed primary closure tomorrow in the operating room. OR cultures updated to reflect MSSA. Change antibiotics from ceftriaxone and vancomycin to cefazolin 2 g IV every 8 hours. Patient's chart notes an allergy to Keflex which she describes as an itching. However she has previously tolerated cefepime and ceftriaxone during the hospital course. Will try cefazolin today and monitor closely for any signs of allergy developing. If patient tolerates, plan discharge on cefazolin 2 g IV every 8 hours for the next 6 weeks for osteomyelitis and hardware infection. MRI of the foot taken yesterday showing marked bone marrow and soft tissue edema in the second toe consistent with a combination of osteomyelitis and surgical changes. Patient to get PICC line today. PDMP PDMP Reviewed: Not Reviewed Attestations Medical Necessity Statement*: PICC line today, OR intervention tomorrow, arrangements for IV antibiotics ongoing Coding Level of Care Code Acute Code for [facility] Diagnoses Abscess of toenail on left foot L03.032 Type 2 diabetes mellitus with other specified complication, without long-term current use of insulin E11.69 Diabetes mellitus type: type 2 Diabetes mellitus long term care pharmacist insulin use: without long term care pharmacist use Diabetes mellitus complication status: with other specified complication Infected hardware in left lower extremity, initial encounter T84.7XXA Encounter type: initial encounter
[2024-11-29] MEDS: enoxaparin 40 mg/0.4 mL Syringe SUBCUT (15:08)
[2024-11-29 16:28] LABS: Glucose Point of Care 120 mg/dL (70-110)
--- NOTE | 2024-11-29 17:42 | PC.NURSE ---
Pt complains of burning in eduardo area that just started. NO redness or rash noted. Pt states burning is not with urination, but all the time. States that this is how her reaction to cephalexin started. Cefazolin administered at noon today. Text sent to Ad[facility].
[2024-11-29] MEDS: diphenhydrAMINE 25 mg Capsule PO (19:18)
[2024-11-29] MEDS: morphine 4 mg/mL SDV 1 mL 2 MG IVP (19:21)
[2024-11-29 20:41] LABS: Glucose Point of Care 191 mg/dL (70-110)
[2024-11-29] MEDS: insulin lispro 100 unit/1 mL SUBCUT (21:40)
[2024-11-29] MEDS: cefTRIAXone 2,000 mg SDV 2000 MG IVP (21:40)
[2024-11-29] MEDS: trazodone 150 mg Tablet PO (21:45)
[2024-11-30] VITALS (18 sets, daily range): BP systolic 112–148; BP diastolic 75–92; PULSE 58–80; RESP 16–18; TEMP 36.2–36.9; O2SAT 94–99
[2024-11-30] MEDS: pantoprazole 40 mg SDV IVP ×2 (05:39→16:55)
[2024-11-30 06:40] LABS: Glucose Point of Care 106 mg/dL (70-110)
--- NOTE | 2024-11-30 06:41 | W.PM.OPSUD ---
Surgery/Procedure H&P Update DATE OF PROCEDURE: November 30, 2024 DATE H&P PERFORMED: 11/26/24 H&P UPDATE INFORMATION: I have reviewed H&P completed within last 30 days, I have examined patient prior to procedure, No changes to prior documentation and Risks and benefits of the procedure reviewed PLANNED PROCEDURE: Operation Date: 11/27/24 10:25 Proposed Procedures p Incision And Drainage of left foot infected hardware(Left) - Felice Germain DPM Operation Date: 11/30/24 07:00 Proposed Procedures p Delayed Wound Closure left foot(Left) - Felice Germain DPM
[2024-11-30] MEDS: lidocaine 1% 10 ML INJ XX (07:10)
--- NOTE | 2024-11-30 07:36 | P.BOP_ITS ---
Date of Procedure: 09/17/23 Surgeon: Felice Germain DPM Industrial Engineering Intern(s): Clive Procedure(s) performed: Delayed closure left foot. Findings of the procedure(s): Devitalized tissue left foot. Estimated blood loss: 2 mL. Specimen(s) removed: No specimens. Post-operative diagnosis: Deep hardware infection with osteomyelitis left foot.
--- NOTE | 2024-11-30 07:38 | PM.OP ---
Operative Report Date of procedure: November 30, 2024 Pre-op diagnosis: Diabetes with peripheral neuropathy Cellulitis left foot Wound exposed bone left foot L97.524 Infected hardware left second toe Post-op diagnosis: Same Procedure done: Secondary closure of surgical wound left foot. CPT code 64034 Implants: 4-0 Vicryl, 4-0 nylon Specimens removed/disposition: None Pathology: None Surgeon: Felice Germain DPM Sanding Machine Operator: Clive Estimated blood loss: 2 mL See intraoperative documentation IV fluids: See intraoperative documentation Urine output: None Complications: None Brief History: Patient underwent further debridement and secondary closure of surgical wound left second toe due to infected hardware that was an intramedullary implant at the intermediate and proximal phalanx left foot patient underwent initial surgical debridement and hardware removal surgical culture of bone and hardware significant for Staph aureus patient wishing to pursue all efforts in limb salvage necessitating surgical debridement, delayed closure, PICC line placement and 6-week course of antibiotics combined with local wound care weekly. I reviewed at length with the patient, the risks, potential complications, benefits, alternatives, expectations, and typical outcomes associated with the surgery. The risks and potential complications were explained in detail, including but not limited to infection, wound dehiscence or soft tissue complications, bleeding and hematoma, chronic edema, neuritis or nerve damage producing numbness or chronic pain, CRPS, failure to relieve pain or worsening pain, thick / painful / unsightly scar, limited motion / stiffness, malposition, delayed union, malunion, or nonunion, fracture, reaction to implants, anesthetic complications, venous thromboembolism, and deformity recurrence. I discussed the notion of no regrets with the patient as it pertains to complications and outcomes. The patient seemed to understand the nature of the proposed care and required convalescence. They asked appropriate questions, answered to their satisfaction. They are aware no guarantees can be made as to a satisfactory outcome and they understand there may be other possible unforeseen complications or outcomes not listed here that will be treated accordingly if they arise. There were no written or implied guarantees given to the patient. They gave informed consent to proceed. Procedure: Under mild sedation the patient was brought to the operating room and remained on the gurney in supine position. A timeout was performed. Local anesthetic was injected by myself consisting of one-to-one mixture 1% lidocaine and 0.5% Marcaine plain in a left third digital block fashion total of 10 cc. Well-padded pneumatic tourniquet applied to the left ankle. Left lower extremity was scrubbed, prepped and draped utilizing normal aseptic technique. Left foot was then elevated and tourniquet inflated to 250 mmHg. Attention was directed to the left dorsal third toe where retention sutures were removed. Full-thickness wound exposed bone was appreciated with some devitalized epidermis, dermis, subcutaneous tissue, tendon and bone which was debrided excisionally and sharply in nature with pickups and a #15 blade of all devitalized tissue followed by irrigation with Irrisept lavage. No further devitalized tissue appreciated. Incision was closed in a layered fashion with extensor tendon reapproximated with 4-0 Vicryl, subcutaneous tissue reapproximated 4-0 Vicryl and skin with 4-0 nylon. The incision was dressed with Xeroform, sterile 4 x 4 gauze, Shamar, Coban. Tourniquet was deflated and a prompt hyperemic response is noted to the distal digits of the left foot. Patient tolerated the procedure and anesthesia well and was transferred to the PACU with vital signs stable and vascular status intact. Following a period of postoperative monitoring she will be transferred back to the floor where she is receiving empiric IV antibiotics. PICC line is in place. Okay for discharge from podiatry standpoint will be able to be weightbearing as tolerated with postop shoe or cam boot patient's choice. She is to elevate her foot while resting. Planning on 6-week course of IV antibiotics with weekly follow-up in podiatry clinic for wound care.
[2024-11-30] MEDS: clindamycin 600 MG/50 ML PREMIX 100 MG IV (07:47)
[2024-11-30] MEDS: sennosides 8.6 mg Tablet 17.2 MG PO (07:51)
[2024-11-30 10:54] LABS: Glucose Point of Care 104 mg/dL (70-110)
--- NOTE | 2024-11-30 13:35 | P.PN_ITS ---
Subjective 2 Subjective: Patient was transition to cefazolin yesterday, however reported that she started developing itching similar to her prior reaction to cephalexin. Therefore this has been discontinued and patient is back on ceftriaxone 2 g IV every 24 hours. Her itching was improved with Benadryl. Medications: Reviewed: Yes Vitals/I&O/Wt Last Vital Signs Temp 97.6 F 11/30/24 11:08 Pulse 58 L 11/30/24 11:08 Resp 16 11/30/24 11:08 BP 133/80 11/30/24 11:08 Pulse Ox 97 11/30/24 11:08 O2 Del Method Room Air 11/30/24 11:08 11/29/24 11/30/24 11/30/24 22:59 06:59 14:59 Intake Total 480 / 1090 200 / 200 Balance 480 / 190 200 / 200 Weight last 48 hrs Weight 109.769 kg Weight 110.223 kg Physical Exam 2 Narrative: General: No acute distress, AO x3 HEENT: PERRLA, pupils bilaterally equal and reactive, pallors not present Chest: Normal vesicular breath sounds, no added sounds, equal good air entry bilaterally CVS: S1-S2 regular, no murmurs, no tachycardia, no gallops, no rubs Abdomen: Soft, nontender, no organomegaly, bowel sounds present Neuro: No focal deficits, no facial deformity, AO x3, power 5/5 in all limbs Extremities: Surgical dressing in place postoperative site Data 11/29/24 05:07 11/29/24 05:07 Micro: Microbiology 11/27/24 11:15 Catheter Tip Culture - Preliminary Other Source Coag positive Staphylococcus 11/26/24 18:58 Gram Stain - Final Toe - #1 Wound Culture - Final Staphylococcus aureus S aureus M.I.C. RX --------- ------ * Ciprofloxacin >2 R * Clindamycin >4 R * Erythromycin >4 R * Gentamicin <=4 S * Levofloxacin >4 R * Linezolid 4 S * Moxifloxacin 4 I * Oxacillin <=0.25 S * Penicillin <=0.03 S * Rifampin <=1 S * Tetracycline <=4 S * Trimethoprim/Sulfamethoxazole <=0.5/9.5 S Vancomycin 1 S Daptomycin <=0.5 S A&P Assessment and plan (1) Abscess of toenail on left foot: (2) Diabetes mellitus: (3) 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 2nd toe inflammation and abscess. #L. 2nd toe cellulitis with abscess #Infected hardware of L. 2nd toe - MRI of L. foot ordered - Plan for the OR on 11/27/2024. NPO after midnight -Give another 1L NS @500cc/hr. Started NS at 75cc/hr - Ordered vancomycin with pharmacy to dose, cefepime at 2g q8h, and flagyl. Pain control. - F/u BCx, and wound cx collected in ED #non-IDDM2 - low dose SSI qAC and hig dose SSI qHS. #Microcytic anemia: Ferritin ordered. partial work up done on 10/24? #HTN #HLD #Lactic acidosis: Monitor #Gout: historically on L. great toe. No acute issues at this time. #Hypothyroidism #Allergic rhinitis: year rounds. #Insomnia #Depression - Resume home meds prn #GERD - PPI IV ordered DVT ppx: Pending surgery GI ppx: PPI IV November 27, 2024 Patient taken to the operating room today for surgical intervention. Continue empiric antibiotics with cefepime, vancomycin and metronidazole. Reduce dose of latter from 500 mg IV's every 6 hours to every 8 hours. Start DVT prophylaxis with Lovenox postoperatively.await cx from OR. November 28, 2024 Status post OR intervention yesterday where she underwent incision of the bone cortex of the left foot along with deep hardware removal. Overall concern for osteomyelitis and deep hardware infection. Status post removal of hardware. Patient has additional hardware on the great toe. Will plan on 6 weeks of IV antibiotics for successful treatment. Deep wound cultures currently showing coag positive Staphylococcus. Awaiting to see if this will be MSSA or MRSA which will further help us decide regarding selection of discharge antibiotic. Hardware/OR cultures from yesterday are currently awaited. Discontinue metronidazole today. Change cefepime to ceftriaxone. Continue vancomycin for now while pending final culture results. Chart notes an allergy to cephalexin, however patient is currently tolerating cefepime well. Plan for delayed primary closure on Thursday. Plan for PICC line tomorrow once blood cultures are negative for 48 hours. November 29, 2024 Plan for delayed primary closure tomorrow in the operating room. OR cultures updated to reflect MSSA. Change antibiotics from ceftriaxone and vancomycin to cefazolin 2 g IV every 8 hours. Patient's chart notes an allergy to Keflex which she describes as an itching. However she has previously tolerated cefepime and ceftriaxone during the hospital course. Will try cefazolin today and monitor closely for any signs of allergy developing. If patient tolerates, plan discharge on cefazolin 2 g IV every 8 hours for the next 6 weeks for osteomyelitis and hardware infection. MRI of the foot taken yesterday showing marked bone marrow and soft tissue edema in the second toe consistent with a combination of osteomyelitis and surgical changes. Patient to get PICC line today. November 30, 2024 Plan for delayed primary closure today. OR cultures with MSSA. Patient did not tolerate cefazolin reported that she developed itching which was eventually relieved with Benadryl. States that it felt similar to her reaction to cephalexin in the past. This reason she has been changed back to ceftriaxone 2 g IV every 24 hours. Patient will be returning home due to IV antibiotics. She is unable to get home health per discussion with case management and therefore IV vancomycin at home will not be a reliable option. Given recovery of an MSSA isolate ceftriaxone is likely to be appropriate choice given her reported allergy to cefazolin. PICC line placed in anticipation of discharge 6 weeks of IV antibiotics to be continued until January 11, 2025. PDMP PDMP Reviewed: Not Reviewed Attestations 2 Medical Necessity Statement*: planned closure today, arrangements for iv abx Coding Level of Care Code Acute Code for Chg Fwd Diagnoses Abscess of toenail on left foot L03.032 Type 2 diabetes mellitus with other specified complication, without long-term current use of insulin E11.69 Diabetes mellitus type: type 2 Diabetes mellitus terminal computer operator insulin use: without terminal computer operator use Diabetes mellitus complication status: with other specified complication Infected hardware in left lower extremity, initial encounter T84.7XXA Encounter type: initial encounter
[2024-11-30] MEDS: morphine 4 mg/mL SDV 1 mL 2 MG IVP ×2 (16:55→21:21)
[2024-11-30] MEDS: enoxaparin 40 mg/0.4 mL Syringe SUBCUT (16:55)
[2024-11-30 17:38] LABS: Glucose Point of Care 113 mg/dL (70-110)
[2024-11-30 20:53] LABS: Glucose Point of Care 102 mg/dL (70-110)
[2024-11-30] MEDS: cefTRIAXone 2,000 mg SDV 2000 MG IVP (21:08)
[2024-11-30] MEDS: trazodone 150 mg Tablet PO (21:08)
[2024-12-01] VITALS: BP 125/76; PULSE 69; RESP 18; TEMP 36.8; O2SAT 94
[2024-12-01 04:00] VITALS: BP 117/69; PULSE 68; RESP 17; TEMP 36.5; O2SAT 95
[2024-12-01] MEDS: pantoprazole 40 mg SDV IVP (05:20)
[2024-12-01 06:00] VITALS: PULSE 55
--- NOTE | 2024-12-01 06:15 | P.PN_ITS ---
Subjective 2 Subjective: Patient seen bedside this a.m., denies any acute events overnight, tolerating regular diet, denies any pain at the left foot. Anticipating discharge home today. Vitals/I&O/Wt Last Vital Signs Temp 97.7 F 12/01/24 04:00 Pulse 68 12/01/24 04:00 Resp 17 12/01/24 04:00 BP 117/69 12/01/24 04:00 Pulse Ox 95 12/01/24 04:00 O2 Del Method Room Air 12/01/24 04:00 11/30/24 11/30/24 12/01/24 14:59 22:59 06:59 Intake Total 200 / 200 Balance 200 / 200 Weight last 48 hrs Weight 243 lb Weight 242 lb Physical Exam 2 Narrative: GENERAL: Patient is alert and oriented ?3 and in no acute distress. The following is a focused left lower extremity exam. VASCULAR: Dorsalis pedis palpable +2. Posterior tibial arteries palpable. Capillary refill time less than 3 seconds to the distal hallux bilaterally. Calf is supple and nontender proximally and distally. Edema left second toe. NEUROLOGICAL: Protective sensation diminished to light touch bilateral lower extremity. DERMATOLOGICAL: Surgical dressing left clean dry and intact left second toe no strikethrough, drainage or streaking proximal to the dressing. MUSCULOSKELETAL: No pain to palpation secondary to neuropathy. Muscle strength +5 in all 3 planes left foot and ankle. Data 11/29/24 05:07 11/29/24 05:07 Micro: Microbiology 11/27/24 11:15 Catheter Tip Culture - Final Other Source Staphylococcus aureus A&P Assessment and plan (1) Cellulitis of left foot: (2) Infected hardware in left lower extremity: (3) Type 2 diabetes mellitus: Plan 58-year-old diabetic female with infected hardware left second toe. Status post incision of bone cortex and hardware removal left second toe date of operation 11/27/2024. Surgical culture pending left second toe implant. Growing coag positive Staphylococcus Recommend continuing IV antibiotics, plan for PICC line for 6-week course of antibiotics at discharge. Status post delayed closure left second toe performed 11/30/2024 No further surgical intervention anticipated during this hospitalization, discharge planning at this time requiring antibiotic selection for 6-week IV antibiotic course Weightbearing as tolerated with postop shoe versus cam boot left lower extremity, elevate while resting. Keep current dressing clean, dry and intact until follow-up visit in podiatry clinic 12/05/2024 2:00 PM. PDMP PDMP Reviewed: Not Reviewed Attestations 2 Medical Necessity Statement*: Continued need for IV antibiotics, osteomyelitis and hardware infection. Ongoing disposition plan Coding Level of Care Code Acute Code for Chg Fwd Diagnoses Cellulitis of left foot L03.116 Infected hardware in left lower extremity, initial encounter T84.7XXA Encounter type: initial encounter Type 2 diabetes mellitus with other specified complication, unspecified whether piano mechanic insulin use E11.69 Diabetes mellitus piano mechanic insulin use: unspecified piano mechanic insulin use status Diabetes mellitus complication status: with other specified complication
[2024-12-01 06:40] LABS: Glucose Point of Care 115 mg/dL (70-110)
[2024-12-01 07:18] VITALS: BP 135/75; PULSE 75; RESP 16; TEMP 36.7; O2SAT 93
--- NOTE | 2024-12-01 09:34 | PC.NURSE ---
Went over with the patient the disharge instructions and discharge appointments. Patient asked if she could take difflucan with her antibiotics. Verified with pharmacist that this was acceptable. Gave tegaderms to patient for showers. Patient has clean dressing over picc line at discharge. Patient understanding of all orders and all questions answered.
[2024-12-01 09:39] VITALS: BP 135/75; PULSE 75; RESP 16; TEMP 36.7; O2SAT 93
[2024-12-01 10:45] LABS: Glucose Point of Care 141 mg/dL (70-110)
[2024-12-01] MEDS: cefTRIAXone 2,000 mg SDV 2000 MG IVP (11:35)
--- NOTE | 2024-12-01 15:04 | PM.DCS ---
Discharge Providers Date of Admission: 11/26/24 20:11 Date of Discharge: December 01, 2024 Attending Provider at Admission: Catia Joy MD Attending Provider at Discharge: Kaylee Mccain MD Primary Care Provider: ROSAURA Pickard Diagnoses at Discharge Discharge Diagnosis (1) Cellulitis of left foot: Status: Acute (2) Infected hardware in left lower extremity: Status: Acute Qualifiers: Encounter type: initial encounter Qualified Code(s): T84.7XXA - Infection and inflammatory reaction due to other internal orthopedic prosthetic devices, implants and grafts, initial encounter (3) Type 2 diabetes mellitus: Status: Acute Qualifiers: Diabetes mellitus complication status: with other specified complication 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 Following her surgery on October 13, 2024, which included procedures for peroneal nerve entrapment, bunionectomy, hammer toe correction, and gastrocnemius recession, the patient experienced an uneventful postoperative period until November 24, 2024, when she noticed a blister-like lesion with increasing redness, swelling, and pain.Initial management included incision and drainage of the abscess and a prescription for oral cephalexin,however with progression to worsening symptoms led to another emergency department visit on November 26, 2024, due to increasing purulent drainage from the left second toe. She underwent incision of the bone cortex of the left foot along with deep hardware removal from the second toe. 1 implant was sent to microbiology for Gram stain culture and sensitivity. OR cultures including hardware cultures showed MSSA. Patient was planned to be discharged with cefazolin 2 g IV every 8 hours, however she developed an allergic reaction manifested by intense itching to cefazolin. This was similar to her reaction she had previously had with Keflex. Instead of cefazolin she was transitioned to ceftriaxone 2 g IV every 24 hours. She will administer the antibiotics at home and return to the infusion center once a week for PICC line dressing change and weekly labs. Treatment duration recommended at 6 weeks given osteomyelitis and hardware infection. Physical Exam Narrative: General: No acute distress, AO x3 HEENT: [place] pupils bilaterally equal and reactive, pallors not present Chest: Normal vesicular breath sounds, no added sounds, equal good air entry bilaterally CVS: S1-S2 regular, no murmurs, no tachycardia, no gallops, no rubs Abdomen: Soft, nontender, no organomegaly, bowel sounds present Neuro: No focal deficits, no facial deformity, AO x3, power 5/5 in all limbs Discharge Data Studies Completed and Pending Completed Studies During Hospitalization Category Date Time Status CXRP [XR chest 1V portable [id number]] Routine Exams 11/29/24 10:56 Completed XR foot LT min 3V* [id number] Routine Exams 11/27/24 12:26 Completed XR foot LT min 3V* [id number] Stat Exams 11/26/24 17:54 Completed MR foot LT wo/w con [id number] Routine MRI 11/28/24 07:00 Completed Pending at discharge Category Date Time Status Blood Culture Stat Lab 11/26/24 18:42 Results Radiology Impressions Foot X-Ray 11/27/24 12:26 IMPRESSION: Compared with 11/26/2024 exam, suggestion of interval removal of previously noted 2nd PIP artificial joint. Postsurgical changes again noted otherwise. Foot MRI 11/28/24 07:00 IMPRESSION: 1. Marked bone marrow and soft tissue edema in the 2nd toe consistent with a combination of osteomyelitis and surgical changes. 2. Bunionectomy without apparent surgical complications. Chest X-Ray 11/29/24 10:56 Impression: Satisfactory insertion right PICC line. Laboratory Results WBC 5.14 10^3/uL (3.29-11.43) 11/29/24 05:07 RBC 4.28 10^6/uL (3.85-5.65) 11/29/24 05:07 Hgb 10.10 g/dL (11.27-16.99) L 11/29/24 05:07 Hct 34.2 % (36-47) L 11/29/24 05:07 MCV 79.9 fl (85-98) L 11/29/24 05:07 MCH 23.6 pg (27-33) L 11/29/24 05:07 MCHC 29.5 g/dL (30-55) L 11/29/24 05:07 RDW 16.7 % (12.1-15.1) H 11/29/24 05:07 Plt Count 264 10^3/cmm (157-399) 11/29/24 05:07 MPV 10.1 fL (7.4-10.4) 11/29/24 05:07 Neut % (Auto) 54.1 % 11/29/24 05:07 Lymph % (Auto) 34.8 % 11/29/24 05:07 [place] % (Auto) 7.2 % 11/29/24 05:07 Eos % (Auto) 3.3 % 11/29/24 05:07 Baso % (Auto) 0.4 % 11/29/24 05:07 Neut # (Auto) 2.78 10^3/uL (1.8-7.7) 11/29/24 05:07 Lymph # (Auto) 1.8 10^3/uL (0.8-4.8) 11/29/24 05:07 [place] # (Auto) 0.4 10^3/uL (0.2-0.9) 11/29/24 05:07 Eos # (Auto) 0.2 10^3/uL (0.0-0.8) 11/29/24 05:07 Baso # (Auto) 0.0 10^3/uL (0.0-0.1) 11/29/24 05:07 Nucleated RBC % (auto) 0 % 11/29/24 05:07 Nucleated RBCs # 0.0 /100WBC 11/29/24 05:07 ESR 20 mm/hr (0-15) H 11/26/24 18:37 PT 12.90 SECONDS (12.1-14.9) 11/27/24 04:25 INR 0.91 (0.8-1.2) 11/27/24 04:25 APTT 26.0 SECONDS (23.9-36.7) 11/27/24 04:25 Sodium 142 mmol/L (136-145) 11/29/24 05:07 Potassium 3.6 mmol/L (3.5-5.1) 11/29/24 05:07 Chloride 108 mmol/L (98-107) H 11/29/24 05:07 Carbon Dioxide 25 mmol/L (22-29) 11/29/24 05:07 Anion Gap 12.6 (5-19) 11/29/24 05:07 BUN 8 mg/dL (6-20) 11/29/24 05:07 Creatinine 0.5 mg/dL (0.5-0.9) 11/29/24 05:07 GFR Calculation 126.3 mL/min (90-130) 11/29/24 05:07 Glucose 103 mg/dL (65-115) 11/29/24 05:07 POC Glucose 141 mg/dL (70-110) H 12/01/24 10:37 Calculated Osmolality 293 mOsm/kg (285-295) 11/29/24 05:07 Lactic Acid 3.2 mmol/L (0.5-2.2) H 11/26/24 18:37 Lactic Acid (Sepsis) 2.2 mmol/L (0.5-2.2) 11/26/24 22:08 Calcium 8.7 mg/dL (8.5-10.5) 11/29/24 05:07 Phosphorus 3.2 mg/dL (2.5-4.5) 11/27/24 04:25 Magnesium 1.7 mg/dL (1.7-2.3) 11/27/24 04:25 Total Bilirubin 0.2 mg/dL (0.15-1.2) 11/29/24 05:07 AST 21 U/L (0-32) 11/29/24 05:07 ALT 17 U/L (0-33) 11/29/24 05:07 Alkaline Phosphatase 75 U/L (35-105) 11/29/24 05:07 C-Reactive Protein 11.0 mg/L (0.0-4.9) H 11/26/24 18:37 Total Protein 5.8 g/dL (6.6-8.7) L 11/29/24 05:07 Albumin 3.2 g/dL (3.5-5.2) L 11/29/24 05:07 Globulin 2.6 g/dL (1.3-4.6) 11/29/24 05:07 Vancomycin Trough 20.7 ug/mL (10-15) H 11/28/24 04:53 Vitals Last Vital Signs Temp 98.1 F 12/01/24 09:39 Pulse 75 12/01/24 09:39 Resp 16 12/01/24 09:39 BP 135/75 12/01/24 09:39 Pulse Ox 93 12/01/24 09:39 O2 Del Method Room Air 12/01/24 07:18 Discharge Plan Discharge Patient Disposition: Home Condition: Stable Prescriptions: Continued cyanocobalamin (vitamin B-12) 1,000 mcg capsule 1,000 mcg PO DAILY 90 Days Qty: 90 1RF (DME) Spectrum AFO to left See Rx Instructions .Route .MEDSUPPLY Qty: 1 0RF Rx Instructions: As directed by the JANENE TOLENTINOALBERTO pseudoephedrine HCl [Sudafed 12 Hour] 120 mg tablet extended release 120 mg PO BID PRN (Reason: nasal congestion) 30 Days Qty: 60 2RF pantoprazole [Protonix] 40 mg tablet,delayed release (DR/EC) 40 mg PO QDAY 30 Days Qty: 30 5RF loratadine [Claritin] 10 mg tablet 10 mg PO DAILY 30 Days Qty: 30 2RF (DME) Diabetic shoes See Rx Instructions .ROUTE .MEDSUPPLY Qty: 1 0RF Rx Instructions: With 3 pairs of inserts to the janene epstein (DME) Left AFO boot See Rx Instructions .Route .MEDSUPPLY Qty: 1 0RF Rx Instructions: As directed olopatadine [Pataday Once Daily Relief] 0.2 % drops 1 drp ophthalmic (eye) DAILY PRN (Reason: itching) 30 Days Qty: 2.5 0RF ferrous gluconate 324 mg (38 mg iron) tablet 324 mg PO BID 90 Days Qty: 180 0RF (DME) blood sugar diagnostic Strip See Rx Instructions .Route Qty: 100 2RF Rx Instructions: use to check blood sugar once daily (DME) lancets [[facility]-Chek [facility]clix [facility]ets] [facility] Instructions .Route Qty: 200 2RF Rx Instructions: use to check blood sugar daily. metformin 500 mg tablet extended release 24 hr See Rx Instructions .ROUTE .COMPLEX Qty: 360 0RF Dose Instruction: Take 2 tablets by mouth twice daily Rx Instructions: Take 2 tablets by mouth twice daily allopurinol 300 mg tablet See Rx Instructions .ROUTE .COMPLEX Qty: 90 0RF Dose Instruction: Take 1 tablet by mouth once daily Rx Instructions: Take 1 tablet by mouth once daily trazodone 150 mg tablet See Rx Instructions .ROUTE .COMPLEX Qty: 90 0RF Dose Instruction: Take 1 tablet by mouth once daily Rx Instructions: Take 1 tablet by mouth once daily ergocalciferol (vitamin D2) 1,250 mcg (50,000 unit) capsule 1,250 mcg PO .WEEKLY Qty: 12 1RF Rx Instructions: TAKE 1 CAPSULE BY MOUTH ONCE A WEEK (7 DAYS) FOR 3 MONTHS Ozempic 1 mg/dose (4 mg/3 mL) pen injector See Rx Instructions .ROUTE .COMPLEX Qty: 12 0RF Dose Instruction: INJECT 1 MG (0.75 ML) SUBCUTANEOUSLY ONCE WEEKLY FOR 30 DAYS Rx Instructions: INJECT 1 MG (0.75 ML) SUBCUTANEOUSLY ONCE WEEKLY FOR 30 DAYS levocetirizine 5 mg tablet See Rx Instructions .ROUTE .COMPLEX Qty: 90 1RF Dose Instruction: TAKE 1 TABLET BY MOUTH ONCE DAILY NEEDED FOR ALLERGY SYMPTOMS FOR 90 DAYS Rx Instructions: TAKE 1 TABLET BY MOUTH ONCE DAILY NEEDED FOR ALLERGY SYMPTOMS FOR 90 DAYS hydrochlorothiazide 25 mg tablet See Rx Instructions .ROUTE .COMPLEX Qty: 90 0RF Dose Instruction: TAKE 1 TABLET BY MOUTH ONCE DAILY IN THE MORNING FOR 90 DAYS Rx Instructions: TAKE 1 TABLET BY MOUTH ONCE DAILY IN THE MORNING FOR 90 DAYS WesTab Plus 27 mg iron- 1 mg tablet See Rx Instructions .ROUTE .COMPLEX Qty: 30 0RF Dose Instruction: Take 1 tablet by mouth once daily Rx Instructions: Take 1 tablet by mouth once daily Jardiance 25 mg tablet 25 mg PO DAILY Qty: 90 0RF Rx Instructions: Take 1 tablet by mouth once daily for 90 days meloxicam 15 mg tablet See Rx Instructions .ROUTE .COMPLEX Qty: 30 0RF Dose Instruction: Take 1 tablet by mouth once daily Rx Instructions: Take 1 tablet by mouth once daily potassium citrate 10 mEq (1,080 mg) tablet extended release See Rx Instructions .ROUTE .COMPLEX Qty: 90 0RF Dose Instruction: TAKE 1 TABLET BY MOUTH THREE TIMES DAILY Rx Instructions: TAKE 1 TABLET BY MOUTH THREE TIMES DAILY albuterol sulfate 90 mcg/actuation HFA aerosol inhaler See Rx Instructions .ROUTE .COMPLEX Qty: 18 0RF Dose Instruction: INHALE 1 PUFF BY MOUTH 4 TIMES DAILY NEEDED FOR SHORTNESS OF BREATH FOR WHEEZING Rx Instructions: INHALE 1 PUFF BY MOUTH 4 TIMES DAILY NEEDED FOR SHORTNESS OF BREATH FOR WHEEZING gabapentin 600 mg tablet 900 mg PO BID Rx Instructions: TAKE 1 & 1/2 (ONE & ONE-HALF) TABLETS BY MOUTH EVERY 8 HOURS FOR 90 DAYS famotidine 40 mg tablet 40 mg PO BID Rx Instructions: Take 1 tablet by mouth twice daily levothyroxine 25 mcg tablet 12.5 mcg PO DAILY Rx Instructions: TAKE 1/2 (ONE-HALF) TABLET BY MOUTH ONCE DAILY FOR 30 DAYS paroxetine HCl 20 mg tablet 20 mg PO DAILY Rx Instructions: 20 mg daily; montelukast 10 mg tablet 10 mg PO DAILY Rx Instructions: Take 1 tablet by mouth once daily rosuvastatin 20 mg tablet 20 mg PO DAILY Rx Instructions: Take 1 tablet by mouth once daily guaifenesin [Mucinex] 600 mg tablet extended release 12hr 600 mg PO BID PRN (Reason: Congestion) fluconazole 150 mg tablet 150 mg PO Q3D PRN (Reason: Yeast infections) Discontinued cephalexin 750 mg capsule 750 mg PO Q8H 7 Days Qty: 21 0RF Discharge Orders: Discharge Order (Routine); Ordered 12/01/24 Ordered By: Kaylee Mccain Referrals: Infectious Disease Group [facility] [Provider Group, Infectious Disease] - 12/19/24 10:30 am [facility] [Outside] Referral Note: This is the company supplying your IV abx. They may redirect you to a different office (location) if you call and have questions. Central Office number is [phone] [facility] Infusion [facility] [Outside] - 12/06/24 11:00 am Referral Note: If unable to keep appointment please call to reschedule. This is where you will go for your PICC line dressing changes and lab draws weekly. Felice Germain DPM [Physician, Podiatry] - 12/05/24 2:00 pm DELROY Edwards FNP [Primary Care Provider, Family Practice] - 12/07/24 10:15 am Patient Instructions: Cellulitis, Acute Wound Care (DC), Incision and Drainage (DC), Opioid Safety, Post Anesthesia Care Activity Restrictions/Additional Instructions: Instructions from Dr. Germain - Please keep current dressing on left foot clean, dry and intact until follow-up visit in podiatry clinic 12/05/2024 at 2:00 PM - Please wear postop shoe or cam boot when weightbearing, elevate left foot while resting. - Contact podiatry clinic with any questions or concerns [phone] Discharge Attestations Time Spent in Discharge Care*: greater than 30 min Quality Metrics Clinical Quality Measures [ No reported AMI, CVA or VTE this stay] Coding Level of Care Code Acute Code for Chg Fwd Diagnoses Cellulitis of left foot L03.116 Infected hardware in left lower extremity, initial encounter T84.7XXA Encounter type: initial encounter Type 2 diabetes mellitus with other specified complication, unspecified whether plumbing engineer insulin use E11.69 Diabetes mellitus complication status: with other specified complication Diabetes mellitus senior living insulin use: unspecified plumbing 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
== END 2024-12-01 11:36 | disposition home or self-care (01) | DRG 496 ==
LOC: ER 19:51 → MEDSURG 11-27 08:05
PROVIDERS: Podiatrist Foot & Ankle Surgery; Admitting Provider Internal Medicine; Emergency Provider Student in an Organized Health Care Education/Training Program; PCP Nurse Practitioner Family; Visit Provider Student in an Organized Health Care Education/Training Program
PROC: 0QPR04Z Removal of Internal Fixation Device from Left Toe Phalanx, Open Approach (ICD-10-PCS; principal; 2024-11-27 10:15)
PROC: 0QBR0ZZ Excision of Left Toe Phalanx, Open Approach (ICD-10-PCS; CPT 13160; principal; 2024-11-30 07:00)
DX: T84.69XA Infection and inflammatory reaction due to internal fixation device of other site, initial encounter (principal); E87.20 Acidosis, unspecified; L02.612 Cutaneous abscess of left foot; Y79.8 Miscellaneous orthopedic devices associated with adverse incidents, not elsewhere classified; L03.032 Cellulitis of left toe; B95.61 Methicillin susceptible Staphylococcus aureus infection as the cause of diseases classified elsewhere; L29.9 Pruritus, unspecified; T36.1X5A Adverse effect of cephalosporins and other beta-lactam antibiotics, initial encounter; G47.00 Insomnia, unspecified; J32.9 Chronic sinusitis, unspecified; M51.16 Intervertebral disc disorders with radiculopathy, lumbar region; E11.43 Type 2 diabetes mellitus with diabetic autonomic (poly)neuropathy; K31.84 Gastroparesis; E11.42 Type 2 diabetes mellitus with diabetic polyneuropathy; F41.9 Anxiety disorder, unspecified; F32.A Depression, unspecified; E66.01 Morbid (severe) obesity due to excess calories; Z68.38 Body mass index [BMI] 38.0-38.9, adult; E03.9 Hypothyroidism, unspecified; D50.9 Iron deficiency anemia, unspecified; R00.0 Tachycardia, unspecified; M10.9 Gout, unspecified; E78.5 Hyperlipidemia, unspecified; K21.9 Gastro-esophageal reflux disease without esophagitis; Z79.84 Long term (current) use of oral hypoglycemic drugs; Z79.891 Long term (current) use of opiate analgesic; Z79.85 Long-term (current) use of injectable non-insulin antidiabetic drugs; Z86.0100 Personal history of colon polyps, unspecified; Z86.16 Personal history of COVID-19; Z88.5 Allergy status to narcotic agent; Z88.0 Allergy status to penicillin; Z88.2 Allergy status to sulfonamides; Z88.8 Allergy status to other drugs, medicaments and biological substances
CPT/HCPCS: 36415; 36416; 36573; 71045; 73630; 73720; 80053; 80202; 82962; 83605; 83735; 84100; 85025; 85610; 85651; 85730; 86140; 87040; 87070; 87075; 87077; 87186; 87205; 96365; 96372; 96375; 97760; 99285; J0330; J0690; J0692; J0696; J1100; J1650; J1815; J2270; J2405; J2470; J2704; J3370; J3490; J7030; J7050; J7120; J9999; L4361

== ENCOUNTER → 2024-12-13 10:25 | Outpatient (BNVA) | payer OTHER, SELFPAY | PROVIDERS: PCP Nurse Practitioner Family; Visit Provider Podiatrist Foot & Ankle Surgery | DX: Z98.890 Other specified postprocedural states (principal); Z87.39 Personal history of other diseases of the musculoskeletal system and connective tissue | CPT/HCPCS: 73630 ==

== ENCOUNTER → 2024-12-19 09:04 | Outpatient (BNVA) | payer OTHER, SELFPAY | PROVIDERS: PCP Nurse Practitioner Family; Visit Provider Podiatrist Foot & Ankle Surgery | DX: Z98.890 Other specified postprocedural states (principal) | CPT/HCPCS: 73630 ==

== ENCOUNTER 2024-12-27 09:00 | Oncology outpatient (recurring) (ONCR) | payer OTHER, SELFPAY ==
[2024-12-05 15:24] LABS: Basophils % 0.2 %; Eosinophils # 0.3 10^3/uL (0.0-0.8); Eosinophils % 2.9 %; Hematocrit 36.6 % (36-47); Lymphocytes # 2.5 10^3/uL (0.8-4.8); Mean Corpuscular HGB Conc 30.3 g/dL (30-55); Mean Platelet Volume 10.2 fL (7.4-10.4); Monocytes # 0.5 10^3/uL (0.2-0.9); Monocytes % 4.9 %; Neutrophils # 6.19 10^3/uL (1.8-7.7); Neutrophils % 65.6 %; Nucleated Red Blood Cells % 0 %; Platelet Count 287 10^3/cmm (157-399); Red Blood Count 4.63 10^6/uL (3.85-5.65); Red Cell Distribution Width 16.6 % (12.1-15.1); White Blood Count 9.43 10^3/uL (3.29-11.43)
[2024-12-05 15:43] LABS: Alanine Aminotransferase 20 U/L (0-33); Alkaline Phosphatase 83 U/L (35-105); Aspartate Amino Transferase 21 U/L (0-32); C Reactive Protein 3.3 mg/L (0.0-4.9); Glomerular Filtration Rate 126.3 mL/min (90-130); Total Bilirubin 0.3 mg/dL (0.15-1.2)
[2024-12-13 11:44] LABS: Basophils % 0.3 %; Eosinophils # 0.2 10^3/uL (0.0-0.8); Eosinophils % 2.4 %; Hematocrit 37.2 % (36-47); Lymphocytes # 2.7 10^3/uL (0.8-4.8); Mean Corpuscular HGB Conc 29.8 g/dL (30-55); Mean Corpuscular Hemoglobin 23.7 pg (27-33); Mean Corpuscular Volume 79.3 fl (85-98); Mean Platelet Volume 10.4 fL (7.4-10.4); Monocytes # 0.4 10^3/uL (0.2-0.9); Monocytes % 4.9 %; Neutrophils # 5.55 10^3/uL (1.8-7.7); Neutrophils % 62.2 %; Nucleated Red Blood Cells % 0 %; Platelet Count 285 10^3/cmm (157-399); Red Blood Count 4.69 10^6/uL (3.85-5.65); Red Cell Distribution Width 16.4 % (12.1-15.1); White Blood Count 8.93 10^3/uL (3.29-11.43)
[2024-12-13 12:08] LABS: Alanine Aminotransferase 15 U/L (0-33); Alkaline Phosphatase 85 U/L (35-105); Aspartate Amino Transferase 16 U/L (0-32); Bilirubin Direct 0.09 mg/dL (0.00-0.30); C Reactive Protein 4.5 mg/L (0.0-4.9); Globulin 2.9 g/dL (1.3-4.6); Glomerular Filtration Rate 125.9 mL/min (90-130); Total Bilirubin 0.2 mg/dL (0.15-1.2); Total Protein 6.9 g/dL (6.6-8.7)
[2024-12-19 11:42] LABS: Basophils % 0.3 %; Eosinophils # 0.4 10^3/uL (0.0-0.8); Eosinophils % 4.1 %; Hematocrit 37.9 % (36-47); Lymphocytes # 2.8 10^3/uL (0.8-4.8); Lymphocytes % 29.4 %; Mean Corpuscular HGB Conc 30.3 g/dL (30-55); Mean Corpuscular Hemoglobin 23.6 pg (27-33); Mean Corpuscular Volume 77.8 fl (85-98); Mean Platelet Volume 10.1 fL (7.4-10.4); Monocytes # 0.5 10^3/uL (0.2-0.9); Monocytes % 5.3 %; Neutrophils # 5.72 10^3/uL (1.8-7.7); Neutrophils % 60.7 %; Nucleated Red Blood Cells % 0 %; Platelet Count 294 10^3/cmm (157-399); Red Blood Count 4.87 10^6/uL (3.85-5.65); Red Cell Distribution Width 16.4 % (12.1-15.1); White Blood Count 9.44 10^3/uL (3.29-11.43)
[2024-12-19 12:05] LABS: Alanine Aminotransferase 17 U/L (0-33); Albumin Level 4.1 g/dL (3.5-5.2); Alkaline Phosphatase 87 U/L (35-105); Aspartate Amino Transferase 18 U/L (0-32); Bilirubin Direct 0.08 mg/dL (0.00-0.30); C Reactive Protein 6.7 mg/L (0.0-4.9); Glomerular Filtration Rate 125.9 mL/min (90-130); Total Bilirubin 0.2 mg/dL (0.15-1.2); Total Protein 7.1 g/dL (6.6-8.7)
[2024-12-27 09:40] LABS: C Reactive Protein 8.5 mg/L (0.0-4.9)
== END 2025-01-01 23:59 | disposition home or self-care (01) ==
PROVIDERS: PCP Nurse Practitioner Family; Visit Provider Student in an Organized Health Care Education/Training Program
DX: L03.90 Cellulitis, unspecified; M86.172 Other acute osteomyelitis, left ankle and foot; Z53.9 Procedure and treatment not carried out, unspecified reason
CPT/HCPCS: 36415; 36592; 80076; 82565; 85025; 86140

== ENCOUNTER 2025-01-10 10:00 | Oncology outpatient (recurring) (ONCR) | payer OTHER, SELFPAY ==
[2025-01-03 09:46] LABS: Hematocrit 36.5 % (36-47); Hemoglobin 11.10 g/dL (11.27-16.99); Mean Corpuscular HGB Conc 30.4 g/dL (30-55); Mean Corpuscular Hemoglobin 24.0 pg (27-33); Mean Corpuscular Volume 78.8 fl (85-98); Nucleated Red Blood Cells % 0 %; Platelet Count 283 10^3/cmm (157-399); Red Blood Count 4.63 10^6/uL (3.85-5.65); White Blood Count 8.80 10^3/uL (3.29-11.43)
[2025-01-03 10:04] LABS: Alanine Aminotransferase 15 U/L (0-33); Albumin Level 4.0 g/dL (3.5-5.2); Alkaline Phosphatase 83 U/L (35-105); Aspartate Amino Transferase 16 U/L (0-32); Globulin 2.6 g/dL (1.3-4.6); Total Protein 6.6 g/dL (6.6-8.7)
== END 2025-02-01 23:59 | disposition home or self-care (01) ==
PROVIDERS: PCP Nurse Practitioner Family; Visit Provider Student in an Organized Health Care Education/Training Program
DX: Z53.9 Procedure and treatment not carried out, unspecified reason; Z98.890 Other specified postprocedural states; S92.512D Displaced fracture of proximal phalanx of left lesser toe(s), subsequent encounter for fracture with routine healing; M77.32 Calcaneal spur, left foot; X58.XXXD Exposure to other specified factors, subsequent encounter
CPT/HCPCS: 36592; 73630; 80076; 82565; 85025; 86140

== ENCOUNTER 2025-04-23 15:21 | Outpatient (CLI) | payer OTHER, SELFPAY ==
--- NOTE | 2025-04-23 15:00 | MM_ITS ---
WS: [id number] BILATERAL 3D TOMOSYNTHESIS DIGITAL SCREENING MAMMOGRAPHY WITH CAD CLINICAL INFORMATION: SCREENING HISTORY: Screening mammogram. No current complaints. COMPARISON: 2023 TECHNIQUE: Bilateral CC and MLO views. FINDINGS: Scattered fibroglandular densities bilaterally. No suspicious focal mass, asymmetry, calcifications, or architectural distortion. No evidence of malignancy. A few incidental punctate calcifications. MM/MM scr tomosynthesis [id number] IMPRESSION: DENSITY: There are scattered areas of fibroglandular density. BI-RADS: 2 - Benign. FOLLOW UP: 1 Year Follow-up Recommend return to annual screening mammography.
== END 2025-04-23 15:22 | disposition home or self-care (01) ==
PROVIDERS: PCP Nurse Practitioner Family; Visit Provider Nurse Practitioner Family
DX: Z12.31 Encounter for screening mammogram for malignant neoplasm of breast (principal); R92.323 Mammographic fibroglandular density, bilateral breasts; R92.1 Mammographic calcification found on diagnostic imaging of breast
CPT/HCPCS: 77063; 77067

== ENCOUNTER → 2025-05-23 08:20 | Outpatient (BNVA) | payer OTHER, SELFPAY | PROVIDERS: PCP Nurse Practitioner Family; Visit Provider Student in an Organized Health Care Education/Training Program | DX: M17.0 Bilateral primary osteoarthritis of knee (principal); Z71.89 Other specified counseling | CPT/HCPCS: 73560; 73565 ==

== ENCOUNTER → 2025-05-30 08:34 | Outpatient (BNVA) | payer OTHER, SELFPAY | PROVIDERS: PCP Nurse Practitioner Family; Visit Provider Nurse Practitioner Family | DX: E11.69 Type 2 diabetes mellitus with other specified complication (principal); I10 Essential (primary) hypertension; E78.2 Mixed hyperlipidemia; E66.01 Morbid (severe) obesity due to excess calories; Z68.36 Body mass index [BMI] 36.0-36.9, adult; E55.9 Vitamin D deficiency, unspecified; D64.9 Anemia, unspecified; E05.90 Thyrotoxicosis, unspecified without thyrotoxic crisis or storm; R31.1 Benign essential microscopic hematuria | CPT/HCPCS: 80053; 80061; 81003; 82607; 82728; 82746; 83036; 83550; 83921; 84439; 84443; 85025; 87086 ==

== ENCOUNTER → 2025-06-12 16:47 | Outpatient (BNVA) | payer OTHER, SELFPAY | PROVIDERS: PCP Nurse Practitioner Family; Visit Provider Nurse Practitioner Family | DX: J06.9 Acute upper respiratory infection, unspecified (principal); R23.3 Spontaneous ecchymoses | CPT/HCPCS: 85610; 87400; 87426 ==